=== PATIENT | male | born 1945 | race Caucasian/White ===

== ENCOUNTER 2019-11-22 16:15 | Inpatient (IN) | payer OTHER ==
--- NOTE | 2019-11-22 15:09 | R.PREADM ---
PRE-ADMISSION SCREENING FORM SCREENING DATE AND TIME 11/22/2019 10:48 (CDT) ANTICIPATED REHAB ADMISSION DATE 11/24/2019 REFERRING FACILITY [facility] REFERRAL DATE AND TIME 11/22/2019 10:48 (CDT) ACUTE ADMIT DATE 11/18/2019 Previous Rehabilitation(s): No. 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 Gildardo Wells M.D. MR# [id number] NAME JUAN PABLO TOURE ADDRESS [address] [place] [address] PHONE [facility] [address] DATE OF 1945 AGE 74 SSN# [id number] GENDER male MARITAL STATUS RACE unknown race ADMIT FROM 02 - [facility] PRE-HOSPITAL LIVING SETTING 01 - Home (private home/apt. board/care, assisted living, mcfp, transitional living) HOME TYPE AND DETAILS Type of home: single family house # of steps within the residence: 0 # of steps to enter the residence: 3 PRE-HOSPITAL LIVING WITH Family/Relatives FAMILY SUPPORT Yes PRIMARY FAMILY CONTACT NAME JODY TOURE PRIMARY FAMILY CONTACT PHONE PRIMARY FAMILY CONTACT RELATIONSHIP Spouse PHONE PRIMARY FAMILY CONTACT ON ADM.? no IS PRIMARY FAMILY CONTACT AUTH. REP.? no 1ST EMERGENCY CONTACT JODY TOURE 1ST CONTACT PHONE 1ST CONTACT RELATIONSHIP Spouse PHONE 1ST CONTACT ON ADM. no IS 1ST CONTACT AUTH. REP.? no PHONE 2ND CONTACT ON ADM.? no PATIENT EMPLOYMENT STATUS Retired (for age) PATIENT EMPLOYER No Employer PAYOR INFORMATION: 1ST PAYOR NAME MEDICARE 1ST PAYOR PHONE 1ST PAYOR INJURY/ILLNESS DUE TO ACCIDENT? No ANOTHER CONSTITUTION PARTY RESPONSIBLE? No PRIMARY REHAB/ACUTE DIAGNOSIS: LEFT FRONTAL BRAIN MASS ONSET DATE 11/18/2019 REHAB IMPAIRMENT CATEGORY (RAFAEL): 02 Traumatic brain injury (TBI) MEETS 60% rule PRIMARY DIAGNOSIS-RELATED SURGERIES: CRANIOTOMY FOR TUMOR RESECTION SUMMARY OF ACUTE HOSPITALIZATION: Pt. is a 74 yo Right-handed male of unknown race. On 11/18/2019 he was admitted to [facility] with diagnosis LEFT FRONTAL BRAIN MASS. His impairment category is Brain Dysfunction 02 - Closed Injury (04.23). Pre-morbidly, Pt. was independent/mod-I in Safety Awareness, Balance, Communication, Transfers Contro l, Endurance, and Self-Care; and he had good Social Cognition, Sphincter Control, and Self-Care. Currently, he has deficits of Balance, Safety Awareness, Self-Care, Transfers Control, Endurance, and Communication. Pt. is now referred to [facility] for acute in-patient rehabilitation in order to maximize patient's functional independence in activities of daily living, strength, ROM, and mobi lity. Patient has realistic goal of being discharged at assistance level 7-Ind to reside at Home with Fami ly/Relatives. Juan Pablo Toure is a 74 -year old male that lives independently at home, with his . He lives in a single-story home and has 3 stairs to get into the house. Patient was transferred for a brain mass, complains his right leg is not working well and notes some memory difficulties. He has history PSH. 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 Speech improving. RLE strength normal. Will discontinue drain, initiate dexamethasone taper . He has always done all of his own caring, Cooking, and laundry. He performs all his own ADLs and IADLs. Prior to COVID. He was seeing his PCP regularly. He would definitely benefit from acute inpatient rehab and has become severely debilitated and unable to live at she prior level of activity at home getting him stronger and better to be back living at home independently is our goal. It is reasonable and necessary for the patient to come to acute inpatient rehab for approximately 7-10 days in order to return to his prior level of care. She is now being transferred to [facility] Inpatient rehabilitation and is medical was stable with relatively stable labs. She is now medically stable but in need of 24 hour nursing, doctor supervision and oversight while receiving active and participate in 3 hours of therapy a day/15 hours per week and receive care with intensive interdisciplinary approach. COVID-19 screening performed; spoke with patient via phone. Patient denies new onset of fever, cough, difficulty breathing, sore throat, body aches and non-allergy nasal congestion in the past 24 hours. Patient denies travel outside of [place] in the past 14 days. Patient denies any contact with someone who has a confirmed diagnosis of or is under investigation for COVID-19 in the past 14 days. Patient has been tested negative for COVID- 19. PAST MEDICAL HISTORY PSH PAST SURGICAL HISTORY: CRANIOTOMY FOR TUMOR RESECTION MEDICATION ALLERGIES: No Known Drug Allergies (NKDA) ENVIRONMENTAL ALLERGIES: - Substance Allergies None Known - Other Allergies None Known CODE STATUS: Full code WEIGHT/HEIGHT/BMI: WEIGHT 140 lbs HEIGHT 5' 8" BMI 21.3 DIET: - Diet Type Regular - Diet - Solid Texture Regular - Diet - Liquid Texture Regular - Tube Feed N/A REVIEW OF SYSTEMS: - Gen Alert and awake Lying in bed No apparent distress Oriented to: person, time, and place - Vital Signs Temperature: 97.9 F SBP/DBP: 127/66 Pulse: 47 Resp: 17 Vital signs stable, afebrile - CVS RRR VITAL SIGNS Temperature: 97.9 F SBP/DBP: 127/66 Pulse: 47 Resp: 17 Vital signs stable, afebrile MEDICATIONS/TREATMENT: Other- See attached MAR (Medication Administration Record). CURRENT SPHINCTER CONTROL: Pre-hospital bladder status: unspecified # of bladder accidents in the last 7 days prior to screenin Pre-hospital bowel status: unspecified # of bowel accidents in the last 7 days prior to screenin Last Bowel Movement Date: 11/22/2019 CURRENT LOCOMOTION STATUS: distance walked 200 feet WITH WALKER DETAILED CURRENT FUNCTIONAL STATUS: - Bladder accident frequency: Ind - No accidents in the past 7 days - Bowel accident frequency: Ind - No accidents in the past 7 days - Walking score based on distance walked: 0(N/A) score based on distance walked: 3(>=150ft) - Wheelchair score based on distance traveled: 0(N/A) QI SCORES: - Self-Care A. Eating 04-Supervision or touching assistance B. Oral hygiene 03-Partial/moderate assistance C. Toileting hygiene 88-Not attempted due to medical condition or safety concerns E. Shower/bathe self 03-Partial/moderate assistance F. Upper body dressing 03-Partial/moderate assistance G. Lower body dressing 03-Partial/moderate assistance H. Putting on/taking off footwear 88-Not attempted due to medical condition or safety concerns - Mobility A. Roll left and right 03-Partial/moderate assistance B. Sit to lying 03-Partial/moderate assistance C. Lying to sitting on side of bed 03-Partial/moderate assistance D. Sit to stand 03-Partial/moderate assistance E. Chair/qyt-oy-[id number] transfer 03-Partial/moderate assistance F. Toilet transfer 88-Not attempted due to medical condition or safety concerns G. Car transfer 88-Not attempted due to medical condition or safety concerns I. Walk 10 feet 03-Partial/moderate assistance J. Walk 50 feet with two turns 88-Not attempted due to medical condition or safety concerns K. Walk 150 feet 88-Not attempted due to medical condition or safety concerns L. Walking 10 feet on uneven surfaces 88-Not attempted due to medical condition or safety concerns M. 1 step (curb) 88-Not attempted due to medical condition or safety concerns N. 4 steps 88-Not attempted due to medical condition or safety concerns O. 12 steps 88-Not attempted due to medical condition or safety concerns P. Picking up object 88-Not attempted due to medical condition or safety concerns R. Wheel 50 feet with two turns 88-Not attempted due to medical condition or safety concerns S. Wheel 150 feet 88-Not attempted due to medical condition or safety concerns - Bladder and Bowel Bladder continence Bowel continence - Endurance Fair - Balance Fair - Safety Awareness Fair CURRENT FUNC. DEFICITS: Self-Care, Mobility, Endurance, Balance, and Safety Awareness CURRENT / PREVIOUS ASSISTIVE DEVICES: 3-in-1 Commode Quad Cane Shower Chair PRIOR SURGERY. DID THE PATIENT HAVE MAJOR SURGERY DURING THE 100 DAYS PRIOR TO ADMISSION?: No THERAPY NOTES FROM ACUTE CARE: Attached. SPECIAL NEEDS: - Safety Concerns Skin breakdown precautions needed due to skin breakdown risk PRECAUTIONS: - Fall Precaution 1 to 1 supervision PATIENT NEEDS ACTIVE AND ONGOING THERAPEUTIC INTERVENTION OF MULTIPLE THERAPY DISCIPLINES, INCLUDING: - Occupational Therapy Cognitive Retraining. Visual Perceptual Training. - Dietary and Nutrition Adequate Nutrition. Nutritional Education. Nutritional Supplements. - Speech Therapy Augmentative Communication Equipment. PATIENT NEEDS CLOSE MEDICAL SUPERVISION BY A REHABILITATION PHYSICIAN FOR: Coordination of Treatment Team PATIENT REQUIRES 24X7 REHAB NURSING FOR MEDICAL AND FUNCTIONAL MGT. OF THE FOLLOWING DEFICITS: Disease Management Medication Management Patient/Family Education Providing Safe Environment PATIENT REQUIRES INTENSIVE, COORDINATED INTERDISCIPLINARY APPROACH TO REHAB: Arranging Home Equipment/Services Discharge Planning Family Intervention/Training Director Acute/Case Management PATIENT REHAB POTENTIAL: Samuel TOURE is able and expected to receive 3 hours of individualized therapy daily on at least 5 of e very 7 days Samuel TOURE's prognosis for significant practical improvement within a reasonable period of time appea rs Good Expected level of measurable improvement will be of a practical value to Samuel TOURE's functional capa city or adaptations to impairments Has a viable Discharge Plan Medically appropriate; condition is sufficiently stable to participate in intensive rehab program DISCHARGE PLAN: - Estimated Length of Stay (days) 17. - Consensus on plan Discharge plan has been discussed with primary caregiver. Patient/Family is in agreement with the oln n. Primary caregiver is in agreement with the plan. - Patient/Family Goals Return home independently. - Planned Living Setting Upon Discharge Home, to live with Family/Relatives. Transitional Living. RECOMMENDED CARE LEVEL: IRF RECOMMENDATION DETAILS: Recommended Admission to Comprehensive Rehabilitation Program to Increase Functional Guadalupe SCREENER'S COMPLETENESS CONFIRMATION: - Screening Confirmation The patient data collection on this preadmission screening form is finished PHYSICIANS REVIEW AND ADMISSION DETERMINATION Admit - Based on my review of the Pre-Admission Screening results, in my medical judgment and experie nce, I concur with the findings and recommend admission to [facility], as this patient requires an IRF level of care. SIGNATURE PANEL: Emergency Man - [electronically] signed by Vasile Benavides on 11/22/2019 at 14:32 (CDT) Clinical Liaison - [electronically] signed by Annika Kline RN on 11/22/2019 at 14:41 (CDT) Physician Reviewer - [electronically] signed by Dr. Gildardo Wells M.D. on 11/22/2019 at 15:08 (CDT )
--- OUTSIDE RECORDS SUMMARY | 2019-11-22 20:31 | XMS REPORT | Summary of Care ---
:1945 Author Organization [facility] Address [address] [place] [id number] Care Team Providers Name Role Phone Guzman Moralez Primary Care Provider Reason for Visit Auth/Cert Status Reason Specialty Diagnoses / Referred By Referred To Procedures Contact Contact Emergency Medicine Adc Em ergency Dept [address] [phone] Fax: Encounter Details Date Type Department Care Team Description 11/20/2019 Anesthesia [facility] OR Seb Silvestre MD [address] [place] [address] [id number] [place] [address] Department Stiven Baig MD [address] [place] [address]. [place] [id number] [address] [place] [address] Allergies No Known Allergiesdocumented as of this encounter (statuses as of 11/20/2019) Medications Medication Sig Dispensed Refills Start Date End Date Status methylPREDNISolone Take by mouth 21 Each 0 01/25/2018 Suspended (MEDROL, ED,) 4 mg SEE-INSTRUCTION tablets S. follow package directions Additional Information diclofenac 75 mg EC tablet Take 1 tablet by mouth 60 tablet 1 02/01/2018 Suspended 2 (two) times daily with meals. Additional Information documented as of this encounter (statuses as of 11/20/2019) Active Problems Problem Noted Date Brain mass 11/18/2019 documented as of this encounter (statuses as of 11/20/2019) Social History Tobacco Use Types Packs/Day Years Used Date Current Every Day Smoker Smokeless Tobacco: Never Used Sex Assigned at Date Recorded Not on file COVID-19 Exposure Response Date Recorded In the last month, have you been in contact with No / Unsure 11/18/2019 1:16 PM CDT someone who was confirmed or suspected to have Coronavirus / COVID-19? documented as of this encounter Last Filed Vital Signs Not on filedocumented in this encounter OR Notes Anesthesia Postprocedure Evaluation - Seb Powell MD - 11/20/2019 11:57 AM CDT Patient: Tonio Huerta Procedure Summary Date: 11/20/19 Room / Location: [address] Anesthesia Start: 0803 Anesthesia Stop: 115 Procedure: CRANIOTOMY FOR TUMOR RESECTION (Left Head) Diagnosis: (Brain mass) Surgeon: Dimitri Spicer MD Responsible Provider: Seb Powell MD Anesthesia Type: General ASA Status: 4 Anesthesia Type: General Last vitals BP 131/70 (11/20/19 1151) Temp Pulse 79 (11/20/19 1151) Resp 13 (11/20/19 1151) SpO2 100 % (11/20/19 1151) No complications documented. Anesthesia Post Evaluation Patient location during evaluation: bedside Patient participation: complete - patient participated Level of consciousness: sleepy but conscious Pain management: adequate Airway patency: patent Cardiovascular status: acceptable and blood pressure returned to baseline Respiratory status: acceptable Hydration status: acceptable Comments: Transport to PACU, report given to and transfer of care to primary service, may discharge to ICU. Anesthesia Preprocedure Evaluation - Seb Powell MD - 11/19/2019 10:33 PM CDT Name/ MRN / Age / Gender: Tonio Huerta [id number] 74 year old male BMI: Estimated body mass index is 21.29 kg/m as calculated from the following: Height as of this encounter: 1.727 m (5' 8"). Weight as of this encounter: 63.5 kg (140 lb). Allergies: Patient has no known allergies. Last Vitals: BP Readings from Last 1 Encounters: 11/19/19 115/58 Pulse Readings from Last 1 Encounters: 11/19/19 (!) 49 SpO2 Readings from Last 1 Encounters: 11/19/19 99% Date of Surgery: 11/20/2019 Surgeon: Dimitri Spicer MD Procedure: CRANIOTOMY FOR TUMOR RESECTION (Left Head) OR Location: [facility] OR Location Anesthesia Preop Eval (physical exam) Anesthesia Preop: Agox-jo-Eovm NPO Status Verified Clear Liquids: > 2 Hours Solid Food/Non-Clear Liquids: > 8 Hours Anesthesia History Anesthesia History Negative Previous Anesthetics/Airways Cardiovascular Negative Cardiac ROS METS: 5-6 Pulmonary Pulmonary ROS Negative per Chart Review (+) Tobacco use Neuro/Musculoskeletal Comments: CC: Left frontal brain mass (menengioma vs GBM) 11/19/19 Brain MRI Large, heterogeneously enhancing necrotic left frontal mass with extensive surrounding vasogenic edema resulting in effacement of the frontal horns and midline shift to the right of up to 1.1 cm anteriorly. 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 A unifocal metastatic lesion could potentially have this appearance but is considered less likely. 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 Hold on DOS. Anticoagulant Therapy: Defer to surgeons Phentermine: Alert [facility] anesthesiologist MAC Cases: Continue taking CLARE inhibitors and ARBs ASA Classification ASA: 4 Current Medications: No outpatient medications have been marked as taking for the 11/18/19 encounter (Hospital Encounter). Previous Surgeries: History reviewed. No pertinent surgical history. Anesthesia Physical Exam General no apparent distress not alert and oriented x 3 Alert to person only Neuro/Psych neurological Dental poor dentition Multiple noted missing teeth Abdominal GI exam normal Airway Mallampati score:II TM distance:> 5 cm Neck ROM: full Mouth opening:normal (+) Normal facies Extremity 20G R wrist Pulmonary pulmonary exam normal Other Confused mentation; HR 40-50s Cardiovascular cardiovascular exam normalRhythm:regular Anesthesia Plan ASA Status: 4 Plan discussed during pre-op evaluation: General Anesthetic plan on DOS: General Plan to include: IV induction, ETT and arterial line Anesthesia plan discussed with: patient or business development representative and parent/guardian Post-Operative Analgesia: routine analgesia & antiemetics Recovery Plan: ICU and PACU Additional comments: documented in this encounter Plan of Treatment Health Maintenance Due Date Last Done Comments Depression Screening 1957 DTaP,Tdap,and Td Vaccines (1 - Tdap) 02/09/1963 COLON CANCER SCREENING ANNUAL FIT/FOBT 02/09/1994 COLON CANCER SCREENING FIT DNA EVERY 3 YEARS 02/09/1994 COLON CANCER SCREENING SIGMOIDOSCOPY EVERY 5 YEARS 02/09/1994 COLONOSCOPY 02/09/1994 Colorectal Cancer Screening 02/09/1994 Zoster Recombinant Vaccine (SHINGRIX) (1 of 2) 02/09/1994 LUNG CANCER SCREEN: Recommended for age 55-80 with 30 + 02/09/19 99 pack year history Medicare Wellness Visit 02/09/2009 PNEUMOCOCCAL VACCINES 65+ (1 of 1 - PPSV23) 02/09/2009 INFLUENZA VACCINE (#1) 2019 documented as of this encounter Implants Implanted Type Area Telecommunications Network Engineer Device Shelf Model / Identifier Expiration Date Ser ial / Lot Plate 2 Hole Long Straight With Tag Biomet# [id number] - Sna PLATE Left: Head Biomet 11/19/2029 [id number] / Implanted: Qty: 2 on 11/20/2019 by Dimitri Spicer MD at [facility] NA / NA Plate Cranial Shunt 18.5mm Migdalia 18.5mml 0.5mm Thk Biomet# [id number] - Sna PLATE Left: Head Biomet 11/19/2029 [id number] / Implanted: Qty: 1 on 11/20/2019 by Dimitri Spicer MD at [facility] NA / NA Screw Bone 1.5mm Migdalia 4mml Titanium Cross -Drive Self-Tapping Biomet# [id number] - Sna SCREW Left: Head Biomet 11/19/2029 [id number] / Implanted: Qty: 7 on 11/20/2019 by Dimitri Spicer MD at [facility] NA / NA documented as of this encounter Results Not on filedocumented in this encounter Administered Medications Medication Order MAR Action Action Date Dose Rate Site levETIRAcetam (KEPPRA) tablet Given 11/20/2019 9:14 AM CDT 1,00 0 mg 500 mg 500 mg, Oral, BID, First dose on Thu11/18/19 at 2000, Until Discontinued, Routine Given 11/19/2019 8:56 PM CDT 500 mg Given 11/19/2019 7:36 AM CDT 500 mg Medication Order MAR Action Action Date Dose Rate Site albumin (ALBUMINAR-5) 5 % injection New Bag 11/20/2019 10:44 AM CDT CONTINUOUS PRN, Starting 11/20/19 at 1044, Until 11/20/19 at 1147, Intra-op ceFAZolin (ANCEF) injection Given 11/20/2019 8:58 AM CDT 2 g ONCE INTRA PROCEDURE, Starting 11/20/19 at 0858, Until 11/20/19 at 1147, DEJUAN, Intra-op dexamethasone (DECADRON PHOSPHATE) injec tion Given 11/20/2019 8:17 AM CDT 10 mg ONCE INTRA PROCEDURE, Starting 11/20/19 at 0817, Until 11/20/19 at 1147, Routine, Intra-op dexMEDEtomidine 200 mcg in 0.9 New Bag 11/20/2019 8:17 AM 0.2 mcg/kg/hr 3.18 mL/hr % NaCl 50 mL (PRECEDEX) RTU IV CDT infusion CONTINUOUS PRN, Starting 11/20/19 at 0817, Until 11/20/19 at 1147, Routine, Intra-op ePHEDrine 25 mg/5 mL (5 mg/mL) syringe Given 11/20/2019 9:12 AM CDT 5 mg ONCE INTRA PROCEDURE, Starting 11/20/19 at 0850, Until 11/20/19 at 1147, Routine, Intra-op Given 11/20/2019 8:50 AM CDT 5 mg FENTanyl PF (SUBLIMAZE (PF)) injection Given 11/20/2019 11:11 AM CDT 50 mcg ONCE INTRA PROCEDURE, Starting 11/20/19 at 0811, Until 11/20/19 at 1147, Routine, Intra-op Given 11/20/2019 10:14 AM CDT 50 mcg Given 11/20/2019 9:02 AM CDT 50 mcg HYDROmorphOne (DILAUDID) injection Given 11/20/2019 11:20 AM CDT 0.2 mg ONCE INTRA PROCEDURE, Starting 11/20/19 at 1120, Until 11/20/19 at 1147, Routine, Intra-op lactated ringers IV infusion New Bag 11/20/2019 8:01 AM CDT CONTINUOUS PRN, Starting 11/20/19 at 0801, Until 11/20/19 at 1147, Routine, Intra-op lidocaine 1% (XYLOCAINE) 100 mg/10 mL (1 %) Given 11/20/2019 8: 13 AM CDT 5 mL injection ONCE INTRA PROCEDURE, Starting 11/20/19 at 0813, Until 11/20/19 at 1147, Routine, Intra-op mannitol 25 % injection Given 11/20/2019 9:14 AM CDT 31.74 g ONCE INTRA PROCEDURE, Starting 11/20/19 at 0914, Until 11/20/19 at 1147, Routine, Intra-op NaCl 0.9% (NS) IV infusion New Bag 11/20/2019 8:18 AM CDT CONTINUOUS PRN, Starting 11/20/19 at 0818, Until 11/20/19 at 1147, Routine, Intra-op ondansetron (ZOFRAN (PF)) injection Given 11/20/2019 11:13 AM CDT 4 mg ONCE INTRA PROCEDURE, Starting 11/20/19 at 1113, Until 11/20/19 at 1147, Routine, Intra-op phenylephrine (VAZCULEP) 10 Rate Change 11/20/2019 10:58 0.4 mcg/k g/min 38.1 mL/hr mg in NaCl 0.9% (NS) 250 mL AM CDT infusion CONTINUOUS PRN, Starting 11/20/19 at 0916, Intra-op Rate Change 11/20/2019 10:45 AM CDT 0.5 mcg/kg/min 47.63 mL/hr Rate Change 11/20/2019 10:30 AM CDT 0.6 mcg/kg/min 57.15 mL/hr phenylephrine (VAZCULEP) injection Given 11/20/2019 8:50 AM CDT 100 mcg ONCE INTRA PROCEDURE, Starting 11/20/19 at 0850, Until 11/20/19 at 1147, Routine, Intra-op propofoL IV infusion Given 11/20/2019 8:38 AM CDT 20 mg ONCE INTRA PROCEDURE, Starting 11/20/19 at 0813, Until 11/20/19 at 1147, Routine, Intra-op Given 11/20/2019 8:21 AM CDT 3 mg Given 11/20/2019 8:18 AM CDT 30 mg remifentaniL (ULTIVA) injection Rate Change 11/20/2019 10:45 AM 0.07 mcg/kg/min CONTINUOUS PRN, Starting Sun CDT 11/20/19 at 0822, Until 11/20/19 at 1147, Routine, Intra-op Rate Change 11/20/2019 9:13 AM CDT 0.1 mcg/kg/min Rate Change 11/20/2019 9:02 AM CDT 0.2 mcg/kg/min remifentaniL (ULTIVA) injection Given 11/20/2019 9:07 AM CDT 20 mcg ONCE INTRA PROCEDURE, Starting 11/20/19 at 0838, Until 11/20/19 at 1147, Routine, Intra-op Given 11/20/2019 8:40 AM CDT 40 mcg Given 11/20/2019 8:38 AM CDT 40 mcg rocuronium (ZEMURON) injection Given 11/20/2019 10:13 AM CDT 10 mg ONCE INTRA PROCEDURE, Starting 11/20/19 at 0813, Until 11/20/19 at 1147, Routine, Intra-op Given 11/20/2019 9:45 AM CDT 10 mg Given 11/20/2019 9:07 AM CDT 10 mg sugammadex (BRIDION) injection Given 11/20/2019 11:31 AM CDT 200 mg ONCE INTRA PROCEDURE, Starting 11/20/19 at 1131, Until 11/20/19 at 1147, Routine, Intra-op documented in this encounter Insurance Payer Benefit Plan / Subscriber ID Effective Dates Phone Addre ss Type Group MEDICARE MEDICARE PART [id number] 2009-Ira [phone] [address] Medicare A & B 2 [id number] MARYJO HESS [id number] documented as of this encounter
--- OUTSIDE RECORDS SUMMARY | 2019-11-22 20:31 | XMS REPORT | Summary of Care ---
:1945 Author Organization [facility] Address [address] [place] [address] Care Team Providers Name Role Phone Guzman Moralez Primary Care Provider Reason for Referral (DEJUAN) Status Reason Specialty Diagnoses / Referred By Referred To Procedures Contact Contact New Request RAD-RADIATION Diagnoses Brain mass Chu Rodríguez MD ONCOLOGY / Procedures Discharge Follow-Up: Specialty Service RAD-RADIATION ONCOLOGY; 1 Week [address] [address] (DEJUAN) Status Reason Specialty Diagnoses / Referred By Referred To Procedures Contact Contact New Request IM-MEDICAL Diagnoses Brain mass Chu Rodríguez MD ONCOLOGY / Procedures Discharge Follow-Up: Specialty Service IM-MEDICAL ONCOLOGY; 1 Week [address] [place] [address] Other (Routine) Status Reason Specialty Diagnoses / Referred By Contact Refe rred To Procedures Contact New Request Diagnoses Brain mass Chu Rodríguez MD Briner, Rudy P, MD Procedures Discharge Follow-up: Specialty Provider DIMITRI SPICER; 6 Weeks [address] [phone] Phone: Phone: Fax: Other (Routine) Status Reason Specialty Diagnoses / Referred By Referred To Contact Procedures Contact New Request Diagnoses Brain mass Chu Rodríguez MD Clinic, Procedures Discharge Follow-up: Specialty Provider NEUROSURGERY RESIDENT CLINIC; [address] [place] [address] Neurosurgery [facility] [address] MRI/CAT Scan (DEJUAN) Status Reason Specialty Diagnoses / Referred By Referred To Procedures Contact Contact New Request Diagnostic Diagnoses Brain mass Dimitri Spicer P, Radiology Procedures CT HEAD WO CONTRAST CT HEAD WO CONTRAST [address] [place] [phone] MRI/CAT Scan (DEJUAN) Status Reason Specialty Diagnoses / Referred By Referred To Procedures Contact Contact New Request Diagnostic Diagnoses Brain mass ArletterDimitri P, Radiology Procedures MR BRAIN W WO CONTRAST [address] [place] [phone] MRI/CAT Scan (STAT) Status Reason Specialty Diagnoses / Referred By Referred To Procedures Contact Contact New Request Diagnostic Diagnoses Altered mental status, unspecified altered mental status type Dimitri Spicer P, Radiology Procedures CT THORAX W CONTRAST [address] [place] [phone] MRI/CAT Scan (STAT) Status Reason Specialty Diagnoses / Referred By Referred To Procedures Contact Contact New Request Diagnostic Diagnoses Altered mental status, unspecified altered mental status type Dimitri Spicer P, Radiology Procedures CT ABDOMEN PELVIS W CONTRAST [address] [place] [phone] MRI/CAT Scan (STAT) Status Reason Specialty Diagnoses / Referred By Referred To Procedures Contact Contact New Request Diagnostic Diagnoses Altered mental status, unspecified altered mental status type Dimitri Spicer P, Radiology Procedures MR BRAIN W WO CONTRAST [address] [place] [phone] MRI/CAT Scan (STAT) Status Reason Specialty Diagnoses / Referred By Referred To Procedures Contact Contact New Request Diagnostic Diagnoses Altered mental status, unspecified altered mental status type Sandy Garcia Radiology Procedures CT Head W/O Contrast J, DO [address] [place] [address] [place] [address] Radiology Services (STAT) Status Reason Specialty Diagnoses / Referred By Referred To Procedures Contact Contact New Request Diagnostic Diagnoses Altered mental status, unspecified altered mental status type Sandy Garcia Radiology Procedures Chest 1 View J, DO [address] [place] [address] Reason for Visit Reason Comments Weakness Auth/Cert Status Reason Specialty Diagnoses / Referred By Referred To Procedures Contact Contact Emergency Medicine [facility] Em ergency Dept [address] [place] [address] Fax: Encounter Details Date Type Department Care Team Description 11/18/2019 - Hospital Neurology/Neurolog Damon Garcia, DO [address] [place] [address] [phone] Left frontal lobe 11/22/2019 Encounter ical Surgery (Dimitri English MD [address] [place] [phone] mass 11B) Chu Rodríguez MD [address] [place] [address]. [place] [address] [address] [place], [place] [phone] Allergies No Known Allergiesdocumented as of this encounter (statuses as of 11/22/2019) Medications Medication Sig Dispensed Refills Start End Date Status Date diclofenac 75 mg EC Take 1 tablet 60 tablet 1 Active tablet by mouth 2 8 (two) times daily with meals. levETIRAcetam 500 mg Take 1 tablet 60 tablet 2 02/18 Active tabletIndications: by mouth 2 0 20 Brain mass (two) times daily for 90 days. pantoprazole 40 mg EC Take 1 tablet 21 tablet 0 Active tabletIndications: by mouth 0 Brain mass daily. dexAMETHasone 1 mg Take 4 tablets 93 tablet 0 Active tabletIndications: by mouth every 0 20 Brain mass 6 (six) hours for 3 days, THEN 4 tablets every 12 (twelve) hours for 3 days, THEN 2 tablets every 12 (twelve) hours for 3 days, THEN 1 tablet every 12 (twelve) hours for 3 days, THEN 1 tablet every 24 (twenty-four) hours for 3 days. traMADoL 50 mg Take 1 tablet 20 tablet 0 11/28/19 A ctive tabletIndications: by mouth every 0 20 acute pain 6 (six) hours as needed for Pain (scale 7-10) for up to 7 days. Indications: acute pain docusate 100 mg Take 1 capsule 20 capsule 0 Active capsuleIndications: by mouth 2 0 Brain mass (two) times daily. methylPREDNISolone Take by mouth 21 Each 0 Discontinued (MEDROL, ED,) 4 mg SEE-INSTRUCTIO 8 20 tablets NS. follow package directions documented as of this encounter (statuses as of 11/22/2019) Active Problems Problem Noted Date Aftercare following surgery of the nervous system, NEC 11/21/2019 Expressive aphasia 11/21/2019 Overview: Due to left frontal mass Cerebral edema 11/21/2019 Compression of brain 11/21/2019 Status post craniotomy 11/21/2019 Smoking greater than 40 pack years 11/21/2019 Panlobular emphysema 11/21/2019 Left frontal lobe mass 11/18/2019 documented as of this encounter (statuses as of 11/22/2019) Immunizations Name Administration Dates Next Due Influenza Virus Vaccine 11/14/2018 documented as of this encounter Social History Tobacco Use Types Packs/Day Years [...] of this encounter Last Filed Vital Signs Vital Sign Reading Time Taken Comments Blood Pressure 139/60 11/22/2019 3:00 PM CDT Pulse 70 11/22/2019 3:00 PM CDT Temperature 36.1 C (97 F) 11/22/2019 3:00 PM CDT Respiratory Rate 17 11/22/2019 3:00 PM CDT Oxygen Saturation 100% 11/22/2019 3:00 PM CDT Inhaled Oxygen Concentration - - Weight 63.5 kg (140 lb) 11/18/2019 8:00 PM CDT Height 172.7 cm (5' 8") 11/18/2019 8:00 PM CDT Body Mass Index 21.29 11/18/2019 8:00 PM CDT documented in this encounter Discharge Instructions AttachmentsThe following attachments cannot be sent through Care Everywhere. Craniotomy, After Your Hospital Stay (Kenyan)Craniotomy, Discharge Instructions for (Kenyan)Craniotomy, Other Treatments After (Kenyan)Craniotomy, Reasons for (Kenyan)Pain, Complementary Care for (Kenyan)Surgical Site Infections, Preventing (Kenyan)Dexamethasone tablets (Kenyan)Docusate capsules (Kenyan) Levetiracetam tablets (Kenyan)Pantoprazole tablets (Kenyan)Tramadol tablets (Kenyan)Pain (Post-Op), Managing at Home: Medicines (Kenyan)Pain at Home, Managing Post-Op: Non-Medicine Relief (Kenyan)Fall Due To Dizziness, Weakness, Or Loss Of Balance (Kenyan)Fall Prevention (Kenyan)Falls in the Home, Preventing (Kenyan)Coronavirus Disease 2019 (COVID-19) (Kenyan)Coronavirus Disease 2019 (COVID-19): Prevention (Kenyan)documented in this encounter Progress Notes Sarabjit Ruelas RN - 11/22/2019 1:57 PM CDT Care Management Discharge Disposition Note (DCDN) 5-2-1 Interventions: Disease specific education;Intensive medication reconciliation/management;Cleardischarge plan;Follow-up appointments;Follow-up phone calls 5-2-1 Providers: Physician;Security Management Specialist/Handyman;Nurse 5-2-1 Patient Capacity Improvements: Transportation arrangements Discharge Plan for ongoing care and services: Rehabilitation Discharge location(s): [address] [place] [address] Rehabilitation location: [facility], [address], [place], [place] () [phone] (F) [phone] Report [phone] MD: Dr Wells Admin : Chayo De Leon Patient choice completed for referred services: Yes Discussed with patient/patients family involved in decision making: Patient or family caregiver understands, and agrees with discharge plan. Community resources/referrals made or provided to patient: No Resources/Referrals: Transportation: Ambulance([facility] [phone]) Estimated discharge date: 11/22/19 CM/SW Name & Contact number: PRAVIN Mario, RN Manager Technical Support [email or web address] O:[phone] F:[phone] The following information has been provided to the facility noted above: reason for the patient discharge or transfer; patients physical and psychosocial status; summary of care, treatment, servicesprovided to patient; and the patient progress toward goals. arabjit Ruelas RN - 11/22/2019 11:51 AM CDTCare Management Note 11/22/19 11:51 AM Sent updated clincals to [address] [address]h: F: [phone] Pending approval. Spouse notified PRAVIN Mario, RN Manager Technical Support [email or web address] O:[phone] F:[phone] C: [phone] (not for patient use) lLeslie hurley - 11/22/2019 10:11 AM CDT Medical Nutrition Therapy - Progress Note: NRS: Disease Severity and Age >70 Admission Chief Complaint: The pts chief complaint(s) documented on had concerns including Weakness. Present on Admission: Left frontal lobe mass Expressive aphasia Cerebral edema Compression of brain Smoking greater than 40 pack years Panlobular emphysema PMH/PSH: Past Surgical History: Procedure Laterality Date CRANIOTOMY FOR TUMOR RESECTION Left 11/20/2019 Surgeon: Dimitri Spicer MD; Location: [facility] Current Medical Status: I have reviewed Dr. waller note dated 11/19-present and additional EPIC documentation for an understanding of the patient's current medical condition and plan of care. Left frontal craniotomy for tumor resection GI and Nutrition Related Findings (documented on admission): Nausea (-) Vomiting (-) Constipation (-) Diarrhea (-) Abdominal Pain (-) Difficulty: Chewing (-) Swallowing (-) GI tract alteration (-) (e.g., h/o bariatric surgery, ostomy, resection, etc.) Alternative means of nutrition (-) (e.g., PEG/PEJ, TPN, DHT, etc.) General (documented on admission): Edema (-) Ascites (-) Para or Quadriplegia (-) Amputation (-) Wounds (-) (eg., vascular, diabetic, burn, pressure) Trauma (-) Medications: I have reviewed the medications currently ordered in the EMR located under the medications andMAR tabs. Current Facility-Administered Medications: heparin (porcine) injection 5,000 Units, 5,000 Units, Subcutaneous, BID, Lawson Boykin MD, 5,000 Units at 11/22/19 0742 HYDROcodone-acetaminophen (NORCO 5) 5-325 mg tablet 1 tablet, 1 tablet, Oral, Q6HPRN, Samuel Richards MD NaCl 0.9% (NS) IV infusion 1,000 mL, 1,000 mL, IV Infusion, CONTINUOUS, Lawson Boykin MD, LastRate: 42 mL/hr at 11/21/19 0659, 1,000 mL at 11/21/19 0659 dexAMETHasone (DECADRON) tablet 6 mg, 6 mg, Oral, Q6H, Lauri Verduzco MD, 6 mg at 11/22/19 0829 acetaminophen (TYLENOL) tablet 325 mg, 325 mg, Oral, Q6HPRN, Lawson Boykin MD acetaminophen (TYLENOL) tablet 325 mg, 325 mg, Oral, Q4HPRN, Lawson Boykin MD bisacodyL (DULCOLAX) suppository 10 mg, 10 mg, Rectal, QHSPRN, Lawson Boykin MD docusate (COLACE) capsule 100 mg, 100 mg, Oral, BID, Lawson Boykin MD, 100 mg at 11/22/19 0741 levETIRAcetam (KEPPRA) tablet 500 mg, 500 mg, Oral, BID, Lawson Boykin MD, 500 mg at 11/22/19 0742 NaCl 0.9% (NS) injection 5 mL, 5 mL, Slow IV Push, PRN - SEE INSTRUCTIONS, Lawson Boykin MD pantoprazole (PROTONIX) EC tablet 40 mg, 40 mg, Oral, DAILY, Lawson Boykin MD, 40 mg at 11/22/19 0742 Lab and Medical Test Results: Results for JUAN PABLO HUERTA ( ) as of 11/22/2019 10:15 Ref. Range 11/20/2019 04:32 NA Latest Ref Range: 135 - 145 mmol/L 136 K Latest Ref Range: 3.5 - 5.0 mmol/L 4.3 CL Latest Ref Range: 98 - 108 mmol/L 105 CO2 TOTAL Latest Ref Range: 23 - 31 mmol/L 24 AGAP Latest Ref Range: 2 - 16 7 BUN Latest Ref Range: 7 - 23 mg/dL 25 (H) GLUCOSE Latest Ref Range: 70 - 110 mg/dL 142 (H) CREATININE Latest Ref Range: 0.60 - 1.25 mg/dL 0.75 eGFR CALCULATION (non ) Latest Units: mL/min/1.73m2 101.5 eGFR CALCULATION () Latest Units: mL/min/1.73m2 123.1 Results for JUAN PABLO HUERTA ( ) as of 11/22/2019 10:15 Ref. Range 11/20/2019 04:32 WBC x10^3 Latest Ref Range: 4.20 - 10.70 10*3/L 13.87 (H) Intake/Output Summary (Last 24 hours) at 11/22/2019 1011 Last data filed at 11/21/2019 1230 Gross per 24 hour Intake 240 ml Output Net 240 ml Additional [facility] data was reviewed Inflammatory Markers: Elevated WBC Nutrition Assessment: Age: [age] year old Sex: male Ht: 1.72m / 5'8" Ht Readings from Last 3 Encounters: 11/18/19 68" (172.7 cm) 02/05/18 67" (170.2 cm) 02/01/18 66.93" (170 cm) Current Wt: 63.5 kg/ 140 lb BMI: Body mass index is 21.29 kg/m. (Underweight ) Based on age IBW for Ht: 70 kg +/- 7.0 kg %IBW: 90.7% Weight History: Wt Readings from Last 10 Encounters: 11/18/19 63.5 kg (140 lb) 02/05/18 68 kg (150 lb) 02/01/18 68 kg (150 lb) 01/25/18 68 kg (150 lb) Current Dietary Order(s): Regular Diet; Texture: Regular Regular Diet; Texture: Regular EMR documented food allergies/intolerance/cultural preferences: None reported Nutrition & Diet History: Met with patient post lunch. Patient currently working on tray during consult. Mild- AMS: slow and minimal response. Patient reports good appetite, and has been eating 100% of tray. Patient reports fluid intake predominantly water 1L a day. +BM today x2 Patient requires academic assistant during IDLs ex. Assisted going to restroom. Physical assessment: mild/moderate wasting in clavicles, and temporal lobes. Fat pads dark and sunk. Calculated Daily Nutritional Needs: IBW: 70 kg Calories: 6499-2152 kcal/day = 25-30 kcal/kg IBW Protein: 16% of kcal need/day = 70-84 g/day = 1-1.2 g/kg current wt Carbohydrate: 50% of kcal need/day = 218-262 g/day Fluid: 2100 mL/day or per MD; adjust per acute needs as reports cerebral edema in EMR Nutrition Diagnosis: Increase nutritional need related minimal inflammation and adequate recovery as evidence by recentcraniotomy. Nutrition Plan of Care: Interventions: 1. Encourage patient PO 2. Encourage well-balance nutritional diet and emphasized role in recovery. 3. Encourage PT participation Goals: 1. PO to meet 100% of nutrient needs 2. Weight maintance 3. Independent ADLs IDLs 4. Daily bowel movements Malnutrition Assessment: Nutritional Diagnosis: None SGA Rating: At Risk Anticipated d/c needs: Encourage meals every 3-4 hours, with high quality protein source. Serving of fish x2 weekly and nuts for snacks for [place]-3 anti-inflammatory properties. Patient would benefit from education on pain medications side effects of constipation, and continue bowel regimen at home. Nutrition Monitoring and Evaluation: A registered dietitian will f/u as indicated to report nutrition related information and to revise the recommended nutrition intervention(s); please call with questions or concerns, thank-you. Leslie Frias Dyed Raw Stock Blower Feeder [email or web address] Office: [phone] signed by Lillie Pineda at 11/22/2019 3:38 PM CDT Associated attestation - Lillie Pineda - 11/22/2019 3:38 PM CDTI agree with the assessment and recommendations for this patient by Leslie Frias, Dyed Raw Stock Blower Feeder, on11/22/19. Lillie Pineda MS, RD, LD Clinical Dietitian Office: [phone] Curt Jim MD - 11/22/2019 6:46 AM CDTNeurosurgery Progress Note 11/21/2019 CC: Disinhibition, speech arrest S: Left frontal craniotomy for tumor resection 11/20/2019 Epidural drain removed 11/20. Ambulating with assistance. Required a sitter overnight for agitation and disinhibition. O: Awake, alert, oriented to name, location, month, not year. Brocas aphasia PERRL bilaterally at 3mm EOMI bilaterally Face symmetric Tongue midline BUE 5/5 BLE 5/5 Some limitations following commands. 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 Speech improving. RLE strength normal. Patient is progressing excellently post-operatively and would be appropriate for discharge. -Pain control -Continue dexamethasone taper -Discharge home 11/21 Curt Jim MD Neurosurgery For inquiries please page [phone] Associated attestation - Chu Rodríguez MD - 11/22/2019 12:56 PM CDTI actively participated in the clinical decision making and agree with the resident note by Dr. Jim with no changes. Chu Rodríguez MD [facility] Neurosurgery Vaibhav Fuentes MD - 11/21/2019 4:21 PM CDT Neurocritical Care Attending Note I have been directly involved in the care of this patient including decision- making with house staffand nursing teams at the bedside. Mr Juan Pablo Huerta is critically ill, 74 year old years old male with a PMH of History reviewed. No pertinent past medical history. now admitted on 11/18/2019 with history of sore neurosurgery resident admission note- 74 year old male transferred for brain mass, complains his right leg is not working well and notes some memory difficulties. History is limited by patient's mentation. On brain imaging, found to have large heterogenous lesion enhancing the carotid left frontal mass with extensive vasogenic edema, 1.1 cm midline shift. He underwent left frontal craniotomy for mass resection (11/20/2019-Dr. Spicer), with subsequent transfer to PACU for postop care. Interval history:- Has remained neurologically in human energy stable overnight; no new complaints- except mild-moderatesurgical site headache; has predominantly expressive aphasia with inconsistent anomia; intact comprehension, fluency, repetition; has inconsistent- perseveration, acalculia, agraphia, absent right-leftdistinction; inability to follow three-step and crossed commands Active problem list- 1. Large left frontal mass with extensive vasogenic edema, brain compression/midline shift 2. Status post surgical resection of #1 3. Aftercare following surgery of the nervous system 4. Heavy active smoker- COPD with emphysema Early this AM- awake, alert, oriented x 3; with normal speech, language- predominantly expressive aphasia with inconsistent anomia; intact comprehension, fluency, repetition; has inconsistent- perseveration, acalculia, agraphia, absent right- left distinction; inability to follow three-step and crossed commands; right upper limb-pronator and mild downward drift; 4+/5; left UE & LE-5/5; right LE- at least 5-/5; sensory-grossly intact in all 4 limbs to crude touch Temp: [35.9 C (96.6 F)-36.8 C (98.2 F)] Heart Rate (monitor): [58-76] Pulse: [51-85] Resp: [12-20] BP: (107-150)/(59-83) Arterial Line BP: (88-169)/(52-73) MAP (mmHg): [71-97] ; Lab Results Component Value Date NA 136 11/20/2019 NA 137 11/18/2019 NA 138 02/01/2018 BUN (mg/dL) Date Value 11/20/2019 25 (H) Recent Labs 11/18/19 1353 11/20/19 0432 WBC 6.62 13.87* Intake/Output Summary (Last 24 hours) at 11/21/2019 1621 Last data filed at 11/21/2019 1230 Gross per 24 hour Intake 282 ml Output 730 ml Net -448 ml Plan: 1) Continue neurochecks; levetiracetam, and excellent a son, when necessary pain medications 2) cardiopulmonary monitoring- SBP [id number] mm x 20 3) Advance PO intake as tolerated- if swallow safe - aim for euvolemia; euthermia and euglycemia 4) DVT/GI prophylaxis- SCD's; SC heparin, bowel regimen- pantoprazole prophylaxis 5) Out of bed to chair; PT/OT/speech if feasible Disposition: awaiting stable neurologic, cardiac-pulmonary and hemodynamic status I have spent a total of 45 min of critical care time at the bedside. Vaibhav Fuentes M.D. Neurocritical Care Unit Attending hbecca, Sarabjit Todd RN - 11/21/2019 2:02 PM CDT Juan Pablo Huerta [id number] RE: Care Management Patient Choice Notification Your doctor has recommended that you have post-hospital care services at discharge. You can choose the provider you want, regardless of its relationship with [facility]. We will contact any of the agencieswithin the [facility] network, or any other agency upon your request. Based on where you live and agency service areas, a list was generated from: Medicare.gov Disclosure: [facility] owns or is affiliated with the following facilities/agencies: [facility] (usp and rehabilitation) If you are being referred to a home health agency or usp facility, you will also be given a CMS Beneficiary Notification Letter (Doqrggn-ai-Dzua Profile Supplement) informing you about [facility]'s preferred partners. 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 My choice(s) are listed below: ? Rehab: [address] [address] p: F: [phone] Your signature on this form indicates that you have been given the following information: ? I have been advised of my right to choose the providers I wish ? If usp facilities, long-term acute care hospitals, personal care homes, or home healthagencies were recommended, I was given a list of facilities/agencies in my geographic area that deliver these services or ? I have pre-selected or am an established client with a facility/agency and choose to initiate/continue services ? PRAVIN Mario, RN Manager Technical Support [email or web address] O:[phone] F:[phone] C: [phone] (not for patient use) arabjit Ruelas RN - 11/21/2019 1:59 PM CDTCare Management Social Functional Assessment Patient Name: Juan Pablo Huerta Age: [age] year old Sex: male Previous admit date: N/A Current diagnosis and co-morbidities: CEREBRAL MIDLINE SHIFT Readmission Questions: Was patient discharged from any acute care hospital within the last 30 days: No Social Functional Assessment: Primary language spoken/preferred: Kenyan Mental Status: Alert & Oriented to Person,Place & Time Information given by: Self Patient's support system: Spouse Name and number of support system: EVITA HUERTA spouse [phone] Primary Cutting Table Operator: Self MPOA: No Living Arrangement: Home: single story Address of living arrangement : [address] [place] [id number] Persons living in home: Same as support system Barriers to returning home: Declining function Baseline functional status- ambulation: Independent Functional status-baseline personal care: Independent Baseline functional status- driving: Dependent Baseline functional status- grocery shopping: Independent Functional status-baseline housekeeping: Independent Functional status-baseline meal prep: Independent Current functional status same as prior: No Current functional status- ambulation: Requires minimal to moderate assistance Current functional status- personal care: Requires minimal to moderate assistance Current functional status- driving: Dependent Current functional status- grocery shopping: Dependent Current functional status-house keeping: Dependent Current functional status- meal preparation: Dependent Do you have a PCP?: Yes Name of PCP: Guzman Moralez [facility] Care Agency: No Provider Services: No DME Company: No Equipment: None Hemodialysis: No Community resources utilized: SSA/SSI/Medicaid Funding Resources: Medicare A & B Prescription coverage plan: Medicare Part D Pharmacy where meds are filled: Other Other pharmacy: [facility] [place] [address] - [address] [place] [address] Anticipated services prior to disharge: Consult;Continue Medical Eval;Lab Values;MRI/CT/US;OR;PT/OT/ST;Reassess prior to discharge Expected mode of discharge transportation: Ambulance Additional Recommendations for DC: level of decline has been about two months Additional info required for discharge planning: Pending medical evaluation;Pending P/T O/T recommendation Recommended discharge plan: New placement SFA Complete: Social Functional Assessment complete: Yes Alcohol Use Screening (AUDIT-C) How often do you have a drink containing alcohol?: Never SCORE: 0 Role of Care Management explained. Discussed with spouse, they want to go to the [facility] if patient is appropriate patient was able to walk and feed himself before this episode. Pending therapy to determine placement options [address] [address] p: F: [phone] Any issues or concerns with obtaining/affording your medications at home: no. Are you or your support system able to pick pulling machine tender medications at discharge: yes. Describe: spouse if appropriate for home. PRAVIN Mario, RN Manager Technical Support [email or web address] O:[phone] F:[phone] Samuel Uribe MD - 11/21/2019 7:30 AM CDTNeurosurgery Progress Note 11/21/2019 CC: Disinhibition, speech arrest S: Left frontal craniotomy for tumor resection O: Awake, alert, oriented to name, location, not year. 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 Speech improving. RLE strength normal. Will discontinue drain, initiate dexamethasone taper, discontinue antibiotics, discontinue A line and zavala, obtain PT eval, set up oncology and radiation oncology follow ups, and transfer to the floor. Discharge likely today vs tomorrow. Jj Richards MD Neurosurgery For inquiries please page [phone] Associated attestation - Chu Rodríguez MD - 11/21/2019 11:22 AM CDTI actively participated in the clinical decision making and agree with the resident note by Dr. Richards with no changes. Chu Rodríguez MD [facility] Neurosurgery Geoff Barcenas, PT - 11/20/2019 8:30 AM [id number] AM Physical Therapy Note Chart reviewed. Patient currently in OR. PT will hold and follow up another time. Thank you. Patient will be followed by physical therapy, however, this therapist may not be primary therapist.Please contact rehab services at [facility] for questions or concerns during week day coverage. Geoff Barcenas PT, DPT, C/NDT Pager: [phone] signed by Geoff Barcenas PT at 11/20/2019 8:31 AM LARATCIsabel ahuja OT - 11/20/2019 7:47 AM CDT11/20/2019 0747 OCCUPATIONAL THERAPY NOTE: Consult received. EPIC chart reviewed. Attempted to see patient for initial evaluation, however patient currently in OR. OT will follow up as time permits. Thank you. KARLEE Fonseca, [facility] Pager: [phone] License: [id number] Dimitri Seymour MD - 11/20/2019 7:02 AM CDTSummary: pre op Mr. Huerta is unable to consent, however, and niece and son were apprised of the situation andwish to proceed with craniotomy and removal of tumor. They understand the gravity of the situation. There is significant risk for the procedure due to severe shift, possible infarction of VITA, age ofpatient, and general nature of the operation and disease. The flip side is that there is certain demise without operation and his relatively good health and functional condition are in his favor. Thefamily also understands that the likely diagnosis of glioblastoma carries an almost definite poor prognosis for any [place] [facility] cure. I think it is reasonable to approach for dx, frontal location, and likely good tolerance of procedure. TCLawson jane MD - 11/20/2019 7:02 AM CDT Neurosurgery Progress Note 11/20/2019 Cc: L Frontal Brain Mass 24 Hr Events: NAEON, MRI completed Objective: Temp: [36.3 C (97.3 F)-36.6 C (97.9 F)] Pulse: [49-58] Resp: [16-18] BP: (107-132)/(55-65) MAP (mmHg): [72-85] Physical Exam Awake, alert, oriented x2 Able to name objects better than yesterday, speech fluent PERRL bilaterally at3mm EOMI bilaterally Face symmetric Tongue midline BUE 5/5 LLE 5/5 RLE 4/5 Sensation intact to LT throughout Exam deep tendon:1+ patellar BL No drift No clonus No Bass's Laboratory Data: Recent Labs 11/18/19 1353 11/20/19 0432 WBC 6.62 13.87* HGB 14.9 14.8 HCT 43.4 42.5 PLT 166 180 Recent Labs 11/18/19 1353 11/20/19 0432 NA 137 136 K 4.0 4.3 CL 103 105 TCO2 27 24 BUN 17 25* CREAT 0.83 0.75 GLU 85 142* CA 9.6 8.7 No results for input(s): ACPH, ACPCO2, ACPO2, ACHCO3, ACNA, ACK, ACCAIONZ, ACBE in the last 72 hours. Recent Labs 11/19/19 0415 11/20/19 0432 PTPAT 13.3* 12.1 PTINR 1.2 1.1 APTTPAT 29 31 No results for input(s): UPROTEIN, UGLUCOSE, UKETONES, UBILI, UBLOOD, UUROBILIN, ULEUKEST, UNITRITE,USPGRAV in the last 72 hours. Imaging: Chest 1 View Result Date: 11/18/2019 Chronic emphysematous changes suspected with prominent biapical fibro- infiltrative process with volume loss (mild pulling up of both the jacqueline) are concerning for a chronic granulomatous process (fungal or tuberculous infection). Disease activity cannot be commented on x-ray chest.. CT scan may be obtained. Preliminary Report Dictated by Resident: Christopher Barrett MD., have reviewed this study and agree with the above report. Ct Abdomen Pelvis W Contrast Result Date: 11/19/2019 Impression: No evidence of acute findings or neoplastic disease is seen in the abdomen and pelvis. Ct Head W/o Contrast Result Date: 11/18/2019 No acute intrarenal hemorrhage. Left cerebral vasogenic edema, frontoparietal soft tissue thickeningsuggestive of underlying primary malignancy versus metastatic process. Multifocal mass effect with gqfj-ra-kxuzt midline shift and subfalcine herniation measuring approximately 1.8 cm in subfalcine herniation without evidence of intracranial hemorrhage favors chronic etiology. Left frontal extra-axialCSF density collection may represent hygroma. Left frontal ovoid hyperdensity may represent prior sequela of hemorrhage or dural calcification. Recommend clinical correlation with prior imaging if available or history. Findings were discussed with primary team in the ER, Dr. Garcia at time of dictation. Preliminary Report Dictated by Resident: Irlanda Rhoades Report change Jose Butlerwed this study and agree with the above report with the following minor modifications: There isvasogenic edema in the left frontotemporal lobe extending to involve the genu of the corpus callosumwith associated effacement of the frontal horns and 1.8 cm left to right midline shift and subfalcine herniation. Mildly prominent right lateral ventricle may be secondary to developing entrapment. These findings are concerning for underlying mass and recommend further assessment with MRI of the brainwith and without contrast. Artificial intelligence software suggests possible hemorrhagic left frontal lobe mass, this will be further characterized on the MRI. Jose Butler MD., have reviewedthis study and agree with the above report. Mr Brain W Wo Contrast Result Date: 11/19/2019 Patient motion degrades image quality, limiting evaluation. Large, heterogeneously enhancing necrotic left frontal mass with extensive surrounding vasogenic edema resulting in effacement of the frontalhorns and midline shift to the right of up to 1.1 cm anteriorly. The primary differential consideration is high grade primary UNDERWRITING OPERATIONS MANAGER malignancy. A unifocal metastatic lesion could potentially have this appearance but is considered less likely. Assessment/Plan: Juan Pablo Huerta is a 74 year old malewith L frontal brain mass, OR for resection today 11/19. Lawson Boykin MD PGY-2 Neurosurgery For inquiries please page [phone] Associated attestation - Dimitri Spicer MD - 11/20/2019 7:14 AM CDTI personally interviewed and examined Juan Pablo Hureta. I agree with the assessment and ongoing plan by Lauri Verduzco MD. Plan left frontal craniotomy, removal of tumor.Lawson Boykin MD - 11/19/2019 9:35 AM CDT Neurosurgery Progress Note 11/19/2019 Cc: L Frontal Brain Mass 24 Hr Events: NAEON Objective: Temp: [36.2 C (97.1 F)-36.7 C (98 F)] Pulse: [51-85] Resp: [13-18] BP: (104-157)/(57-84) MAP (mmHg): [73-91] Physical Exam Awake, alert, oriented x2 Able to name objects better than yesterday, speech fluent PERRL bilaterally at 3mm EOMI bilaterally Face symmetric Tongue midline BUE 5/5 LLE 5/5 RLE 4/5 Sensation intact to LT throughout Exam deep tendon: 1+ patellar BL No drift No clonus No Bass's Laboratory Data: Recent Labs 11/18/19 1353 WBC 6.62 HGB 14.9 HCT 43.4 PLT 166 Recent Labs 11/18/19 1353 NA 137 K 4.0 CL 103 TCO2 27 BUN 17 CREAT 0.83 GLU 85 CA 9.6 No results for input(s): ACPH, ACPCO2, ACPO2, ACHCO3, ACNA, ACK, ACCAIONZ, ACBE in the last 72 hours. Recent Labs 11/19/19 0415 PTPAT 13.3* PTINR 1.2 APTTPAT 29 No results for input(s): UPROTEIN, UGLUCOSE, UKETONES, UBILI, UBLOOD, UUROBILIN, ULEUKEST, UNITRITE,USPGRAV in the last 72 hours. Imaging: Chest 1 View Result Date: 11/18/2019 Chronic emphysematous changes suspected with prominent biapical fibro- infiltrative process with volume loss (mild pulling up of both the jacqueline) are concerning for a chronic granulomatous process (fungal or tuberculous infection). Disease activity cannot be commented on x-ray chest.. CT scan may be obtained. Preliminary Report Dictated by Resident: Christopher Barrett MD., have reviewed this study and agree with the above report. Ct Head W/o Contrast Result Date: 11/18/2019 No acute intrarenal hemorrhage. Left cerebral vasogenic edema, frontoparietal soft tissue thickeningsuggestive of underlying primary malignancy versus metastatic process. Multifocal mass effect with pmtm-bq-yqzmc midline shift and subfalcine herniation measuring approximately 1.8 cm in subfalcine herniation without evidence of intracranial hemorrhage favors chronic etiology. Left frontal extra-axialCSF density collection may represent hygroma. Left frontal ovoid hyperdensity may represent prior sequela of hemorrhage or dural calcification. Recommend clinical correlation with prior imaging if available or history. Findings were discussed with primary team in the ER, Dr. Garcia at time of dictation. Preliminary Report Dictated by Resident: Irlanda Rhoades Report change Jose Butlerwed this study and agree with the above report with the following minor modifications: There isvasogenic edema in the left frontotemporal lobe extending to involve the genu of the corpus callosumwith associated effacement of the frontal horns and 1.8 cm left to right midline shift and subfalcine herniation. Mildly prominent right lateral ventricle may be secondary to developing entrapment. These findings are concerning for underlying mass and recommend further assessment with MRI of the brainwith and without contrast. Artificial intelligence software suggests possible hemorrhagic left frontal lobe mass, this will be further characterized on the MRI. Jose Butler MD., have reviewedthis study and agree with the above report. Assessment: Juan Pablo Huerta is a 74 year old male with L frontal brain mass, possible meningioma vs GBM based on initial scan appearance. Further imaging and metastatic workup pending. Plan: Brain MRI w/ w/o CT CAP w/ f/u read García Ramirez, PPI SQH Reg Diet Lawson Boykin MD PGY-2 Neurosurgery For inquiries please page [phone] Associated attestation - Dimitri Spicer MD - 11/19/2019 12:08 PM CDTI personally evaluated and participated in the decision making on Juan Pablo Huerta. I agree with the documentation, assessment and plan outlined by Lawson Boykin MD. documented in this encounter H&P Notes Lawson Boykin MD - 11/18/2019 7:13 PM CDT NEUROSURGERY HISTORY AND PHYSICAL Attending Neurosurgeon: Nayan MADRID CC: Confusion, R Leg not working HPI: Juan Pablo Huerta is a 74 year old male transferred for brain mass, complains his right leg is not working well and notes some memory difficulties. History is limited by patient's mentation. Medications (Current) Antiplatelets: Unknown, denies Anticoagulation: Unknown, denies No current facility-administered medications on file prior to encounter. Current Outpatient Medications on File Prior to Encounter Medication Sig Dispense Refill diclofenac 75 mg EC tablet Take 1 tablet by mouth 2 (two) times daily with meals. 60 tablet 1 methylPREDNISolone (MEDROL, ED,) 4 mg tablets Take by mouth SEE- INSTRUCTIONS. follow package directions 21 Each 0 Past Medical History: History reviewed. No pertinent past medical history. Past Surgical History: History reviewed. No pertinent surgical history. Social History: Social History Tobacco Use Smoking status: Current Every Day Smoker Smokeless tobacco: Never Used Substance Use Topics Alcohol use: Not on file Drug use: Not on file ROS (BOLDED IF POSITIVE - otherwise negative) Constitutional: Nausea, Vomiting, Fevers, Chills Eyes: Negative Ears, nose, mouth, and throat: Negative Endocrine: Negative Hematologic: Negative Card: Chest pain, Palpitations Pulm: Cough, Shortness of breath GI: Diarrhea, Constipation, : Negative Integ: Masses, Rashes, Lesions Msk: Weakness, Pain Neuro: Memory changes, confusion, Headache, Vision changes, Dizziness, Weakness Labs: Recent Labs 11/18/19 1353 WBC 6.62 HGB 14.9 HCT 43.4 PLT 166 ] Recent Labs 11/18/19 1353 NA 137 K 4.0 CL 103 TCO2 27 BUN 17 CREAT 0.83 GLU 85 CA 9.6 Imaging: Chest 1 View Result Date: 11/18/2019 Chronic emphysematous changes suspected with prominent biapical fibro- infiltrative process with volume loss (mild pulling up of both the jacqueline) are concerning for a chronic granulomatous process (fungal or tuberculous infection). Disease activity cannot be commented on x-ray chest.. CT scan may be obtained. Preliminary Report Dictated by Resident: Christopher Barrett MD., have reviewed this study and agree with the above report. Ct Head W/o Contrast Result Date: 11/18/2019 No acute intrarenal hemorrhage. Left cerebral vasogenic edema, frontoparietal soft tissue thickeningsuggestive of underlying primary malignancy versus metastatic process. Multifocal mass effect with coae-ns-vkpgs midline shift and subfalcine herniation measuring approximately 1.8 cm in subfalcine herniation without evidence of intracranial hemorrhage favors chronic etiology. Left frontal extra-axialCSF density collection may represent hygroma. Left frontal ovoid hyperdensity may represent prior sequela of hemorrhage or dural calcification. Recommend clinical correlation with prior imaging if available or history. Findings were discussed with primary team in the ER, Dr. Garcia at time of dictation. Preliminary Report Dictated by Resident: Irlanda Rhoades Report change Jose Butlerwed this study and agree with the above report with the following minor modifications: There isvasogenic edema in the left frontotemporal lobe extending to involve the genu of the corpus callosumwith associated effacement of the frontal horns and 1.8 cm left to right midline shift and subfalcine herniation. Mildly prominent right lateral ventricle may be secondary to developing entrapment. These findings are concerning for underlying mass and recommend further assessment with MRI of the brainwith and without contrast. Artificial intelligence software suggests possible hemorrhagic left frontal lobe mass, this will be further characterized on the MRI. Jose Butler MD., have reviewedthis study and agree with the above report. PE Vitals: Vitals: 11/18/19 1500 11/18/19 1600 11/18/19 1821 11/18/19 1902 BP: (!) 141/84 126/57 136/68 126/63 BP Location: Left arm Patient Position: Supine Pulse: 61 55 85 55 Resp: 16 Temp: 36.3 C (97.4 F) 36.3 C (97.4 F) TempSrc: Oral Oral SpO2: 99% 99% 92% 99% Weight: Height: Exam: Awake, alert, oriented x2 Difficulty comprehending and naming objects, speech fluent PERRL bilaterally at 3mm EOMI bilaterally Face symmetric Tongue midline BUE 5/5 LLE 5/5 RLE 4/5 Sensation intact to LT throughout Exam deep tendon: 1+ patellar BL No drift No clonus No Bass's Assessment: Juan Pablo Huerta is a 74 year old male with L frontal brain mass, possible meningioma vs GBMbased on initial scan appearance. Further imaging and metastatic workup pending. Plan: Brain MRI w/ w/o CT CAP w/ Dex, Keppra, PPI SQH Reg Diet Lawson Boykin MD PGY1 Neurosurgery For inquiries please page [phone] Associated attestation - Dimitri Spicer MD - 11/18/2019 9:01 PM CDTI personally evaluated and participated in the decision making on Juan Pablo Huerta. I agree with the documentation, assessment and plan outlined by Lawson Boykin MD. documented in this encounter Consult Notes Kristina Mendoza OT - 11/21/2019 1:15 PM CDTAssociated Order(s): CONSULT ADULT OCCUPATIONAL THERAPY I was present and participated throughout the session and agree with the documentation as written bythe student therapist on the encounter dated 11/21/2019. KARLEE Bird/EVELYN Olivier pager number: [phone] OT GENERAL EVALUATION Consult received via [employer], EMR reviewed and evaluation completed 11/21/19. Patient referred to occupational therapy for evaluation and treatment secondary to brain tumor and s/p left frontal craniotomyfor tumor resection. Patient agreeable to participate in occupational therapy. Discharge Recommendations: Therapy Potential & Need: - Patient would benefit from continued skilled occupational therapy services to address: Decline inbasic activities of daily living, Decline in instrumental activities of daily living, Decline in cognition, Decreased coordination and Caregiver training - Patient demonstrates good potential to improve and meet therapy goals with further skilled occupational therapy services. - Patient appears motivated to improve their B/IADLs and return to their previous level of function. - Patient demonstrates ability to tolerate at least 30-60 minutes of active participation in occupational therapy. - Patient able to follow commands: 1-step Yes, Multi-step Yes, Inconsistencies Yes Challenges to Home Transition: - Requires physical assistance for BADLS - Requires physical assistance for IADLS - Requires supervision or verbal cues for BADLS - Requires supervision or verbal cues for IADLS - Decreased safety awareness/judgement - Increased risk of falls Equipment Recommendations: Bedside commode, Shower chair I certify that Juan Pablo Huerta is under my care and that I had a gnec-xs-bzzx encounter with this patient on: 11/21/19 . The primary reason for the durable medical equipment: decreased balance and impaired cognition to safely ambulate to manage self-care needs. I am recomending that, based on my findings, the following is medically necessary durable medical equipment: 3 in 1 bedside commode. Height: Ht Readings from Last 1 Encounters: 11/18/19 5' 8" (1.727 m) Weight: Wt Readings from Last 1 Encounters: 11/18/19 140 lb (63.5 kg) Duration of need: 99 months. Patient does not have access to regular toilet facilities because he/she is confined to: A single room. PLAN OF CARE: At least 2x/week Precautions: Weight bearing status: NA General: PPE Utilized: Gloves and Surgical mask, Fall and Craniotomy Bracing: N/A Current Occupational Performance and/or Treatment: Feeding: Modified independent, patient greeted sitting upright in bedside chair eating lunch, observed using utensils, drinking from cup with modified independence. Grooming: Minimal assist. Patient required verbal cues for safety to wash hands and brush teeth while standing at sink. Patient required minimal assist for stabilization while blowing nose. LB Dressing: SBA/Setup. Patient educated on craniotomy precautions, emphasizing preventing putting head in dependent position. Patient educated on figure-four technique for LB dressing, demonstrating carryover of learning by doffing/donning socks while seated EOB. Toilet Transfer: Minimal assist. Patient required verbal and tactile cues and minimal assist for balance, emphasizing positioning and use of grab bar during transfer. Toileting Hygiene: Minimal assist to manage clothing while standing/sitting during toileting. Functional Mobility: Patient found sitting upright in bedside chair. Patient minimal assist for sit<>stand using RW, with verbal cues for hand positioning. Patients ambulates short distances within room using RW to manage self-care needs, however exhibits diminished balance and increased impulsivity, requiring frequent verbal cues and impacting safety during ambulation. Patient CGA for stand<>sit EOB and modified independent for sit<>semi- reclined in bed. Patient/caregiver educated on: ADL training, Compensatory techniques/adaptive strategies, Role of OTand Safety awareness Patient left semireclining in bed with call castillo in reach. Vital signs stable. Bed alarm engaged, nursing staff notified. Please, see full evaluation below for more detail. OT EVALUATION: 74 year old male Admit date: 11/18/2019 Date of onset: 11/18/2019 Admit Diagnosis: CEREBRAL MIDLINE SHIFT OT Diagnosis: Impaired BADL independence, Impaired IADL independence, Impaired self-care mobility and Impaired cognition PMH: History reviewed. No pertinent past medical history. PSH: Past Surgical History: Procedure Laterality Date CRANIOTOMY FOR TUMOR RESECTION Left 11/20/2019 Surgeon: Dimitri Spicer MD; Location: [facility] PAIN: Before assessment: 0/10 After assessment: 0/10 Location: None Pain Management: NA OCCUPATIONAL ROLES/HOME ENVIRONMENT: Home environment: Single story home with 0 TARA. Patient sleeps in adjacent trailer with 3 TARA. Liveswith spouse. Bathroom access: Yes Bathroom setup: Tub/Shower Combo in house, Walk-in shower in trailer. Occupation(s): Retired Function prior to admission: Household/community ambulation and assistance with ADL Equipment prior to admission: Shower chair PERFORMANCE SKILLS/FACTORS: UE Muscle Tone: bilateral WNL UE ROM: bilateral AROM WFL UE Strength: MARCUS UE WFL Hand dominance: left Dexterity/Coordination: bilateral fine motor skills intact, however patient exhibits inconsistenciesin following directions for fine motor tasks. Bilateral finger to nose intact. Endurance - Sitting: Good Standing: Good Sitting Balance - Static: Good Dynamic: Fair Standing: Balance - Static Fair Dynamic: Fair - Dizziness: No Skin Integrity: No breakdown noted and dressings intact on skull Sensation: bilateral Intact to light touch Oral Motor: WFL and endentulous Communication: Able to verbalize needs Yes Other: Expressive aphasia Vision: WFL Yes Other: N/A Hearing: good; no issues reported COGNITION: Patient recalled 0/3 words following 3-minute delay in screening of memory. Orientation: person and place, disoriented to year, month, date. Follows Commands: 1-step Yes Multi-step No Inconsistencies Yes Safety Awareness/Judgment: Poor, Lacks insight to deficits, Requires frequent cueing and Impulsive PROBLEM LIST: Decreased independence with ADL, Impaired safety awareness and Impaired Cognition REHAB POTENTIAL/PROGNOSIS: good PATIENT/FAMILY GOALS: Patient's family wishes for him to keep improving. TREATMENT/INTERVENTION PLAN: Functional motor treatment, Patient/Caregivier Education, Equipment recommendations, Daily living activities, Therapeutic exercises and Cognitive retraining GOAL(S): By discharge, patient will increase independence in daily living skills as follows: 1 Patient will perform toilet transfer with modified independence. 2 Patient will perform bathing task and/or simulated bathing task with modified independence. 3 Patient will complete grooming tasks with modified independence while standing at the sink. 4 Patient will complete toileting hygiene, including clothing management, with modified independence. 5 Patient will identify and correct 100% of environmental safety hazards during participation in ADLs to improve safety awareness. 6 Patient/caregiver will verbalize/demonstrate understanding/proficiency in the following home programs: Adaptive equipment , ADL training, Compensatory techniques/adaptive strategies, Fall prevention and Safety awareness PATIENT-FAMILY TEACHING Patient provided with preferred teaching of verbal information on ADL training, Compensatory techniques/adaptive strategies, Role of OT and Safety awareness. Barriers to learning include cognitive limitations. Verbal instruction teaching provided. Individual is able to read and needs reinforcement of teaching. TARIK Rob Total Timed Treatment Codes: 23 Min Total Treatment Time: 37 Min Patient Complexity Level High - An occupational therapy evaluation of high complexity was completed using the above tests and measures. The following information was obtained: An occupational profile and medical and therapy history, including review of medical and/or therapy records and extensive jael tional review of physical, cognitive, or psychosocial history related to current functional performance, Various standardized and non-standardized assessments were used to identify at least 5 or more performance deficits related to physical, cognitive, or psychosocial skills that result in activity limitations and/or participation restrictions and Clinical decision-making is of high analytic complexity, which includes an analysis of the patient profile, analysis of data from comprehensive assessment(s), and consideration of multiple treatment options. Patient present with comorbidities that affect occupational performance. Significant modification of tasks or assistance (e.g., physical or verbal) with assessment(s) is necessary to enable patient to complete evaluation component. Haseeb Aguirre PT - 11/21/2019 12:16 PM CDTAssociated Order(s): CONSULT ADULT PHYSICAL THERAPY Patient agreeable to working with physical therapy. Patient met Semi reclined in bed with vitals asfollows HR: 47 bpm Spo2: 97% RR: 17 bpm, BP: 127/66 PHYSICAL THERAPY EVALUATION Consult received, chart reviewed and evaluation complete this date. Patient is referred to PT for evaluation and treatment. Patient is a 74 year old male who presents to hospital for CEREBRAL MIDLINE SHIFT. 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 Discharge Recommendations: Therapy Needs and Potential: Patient would benefit from continued physical therapy services to address: decline in bed mobility decline in transfers decline in gait and/or balance Patient demonstrates good potential to improve and meet therapy goals with further physical therapy services. Patient appears motivated to improve their functional mobility and return to their previous levelof function. Challenges to Home Transition: increased risk of falls decreased safety awareness Equipment recommendations: rolling walker at this time. Will update as patient progress with therapy Current Functional Status and/or Treatment:Functional mobility training, Transfer training and Gait training Bed Mobility: Supine-sit: patient provided with min assist with verbal cues with head of the bed elevated. sitting at the edge of bed: patient provided with CGA with verbal cues. Scooting in sitting: patient provided with min assist with verbal cues. Transfers: Sit to stand: CGA using Sue walker with verbal cues for hand placement and technique Stand to sit: CGA using Sue walker with verbal cues for hand placement and technique Ambulation: Assisted patient with ambulation as follows: 50 feet using Sue walker and Minimal assist. With verbal cues for hand placement and technique. Patient provided rest break in sitting and patient ambulated ~ 200 ft min assist with liven good walker and verbal cues for gait pattern. Patient isvery impulsive and need cues to stay on task Therapeutic exercise: instructed patient in the following: ankle pumps, heel slides, long arc quads After session, patient Up in chair. Call button provided. Vitals stable and RN present in the room PLAN OF CARE: At least 2 times per week, once or twice a day (while in hospital) per patient's tolerance and medical needs. See below for complete details. Admit Date: 11/18/2019 Hospital Diagnosis:CEREBRAL MIDLINE SHIFT PT Diagnosis: Difficulty walking and Weakness Weight Bearing Precaution: WBAT General Precautions: PPE used:Gloves and Surgical mask, General, Fall,IV Bracing/Cast present or required:N/A PMH: History reviewed. No pertinent past medical history. PSH: Past Surgical History: Procedure Laterality Date CRANIOTOMY FOR TUMOR RESECTION Left 11/20/2019 Surgeon: Dimitri Spicer MD; Location: [facility] Prior Living Situation: lives with their spouse in a single story house with 3 steps to enter DME: Single Point [employer] Prior level of Mobility: community ambulation Subjective: patient' states that he was ambulating with no AD however patient needed help with ADL's Patient/Family Goals: to get better Patient/Family verbalizes understanding of condition: Yes PAIN: patient states no pain at the time of evaluation COMMUNICATION Primary Language: Kenyan Able to Verbalize needs: Yes Vision:good; no issues reported Hearing:good; no issues reported ORIENTATION/COGNITION: Oriented to: person and place for year patient states that it is 2003 Awake: Yes Alert: Yes Dizzy: No Follows Commands: Yes 1-Step Yes Multi-Step Yes Inconsistent: No NEUROLOGICAL Light Touch: within functional limits bilateral LE, Tone: normal BALANCE: Sitting: Static: Fair Dynamic: Fair Standing: Static: Fair Dynamic: Fair with liven good walker RANGE OF MOTION: within functional limits bilateral LE STRENGTH: 3+/5 (F+), bilateral LE ENDURANCE: Fair, Room air SKIN INTEGRITY: defer to nursing notes , PROBLEM LIST: Decline in bed mobility, Decline in gait, Decline in transfers, Difficulty with stairs, Decreased strength, Decreased endurance, Decreased balance and Safety awareness deficits ASSESSMENT: Patient is a 74 year old male seen secondary to the above listed diagnosis. Patient would benefit from continued PT to address the above listed deficits to maximize independence and safety with functional mobility. Rehabilitation Potential: fair Goals: The following goals are to maximize independence and safety with functional mobility to eventually return to prior living situation and prior functional status. Upon discharge, patient and/or family will demonstrate the followin. Supine-sit: Modified independent 2. Sit to stand: Modified independent using least restrictive device Stand to sit: Modified independent using least restrictive device 3. Modified independent with ambulation, Feet: 300 using least assistive device. 4. Demonstrate or verbalize understanding of home exercise program in order to continue with their rehab on their own. Treatment Plan: Gait training, Gait training on stairs, Therapeutic exercise, Transfer training, Balance training, Bed mobility training, Equipment needs assessment and Safety education, patient/caregiver education PATIENT EDUCATION: Patient and Family member provided with preferred teaching of verbal information on role of PT, plan of care. Shows readiness to learn. Verbal instruction teaching provided. Individual shows minimal or no evidence of learning. 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 No pertinent past medical history. History reviewed. No pertinent surgical history. Malnutrition Assessment: Nutritional Diagnosis: None SGA Rating: At Risk Inflammatory Markers: N/A GI and Nutrition Related Findings: Symptoms: N/A Difficulty: N/A GI tract alteration: N/A Alternative means of nutrition: N/A General (documented on admission) N/A Medications: Current Facility-Administered Medications: acetaminophen (TYLENOL) tablet 325 mg, 325 mg, Oral, Q6HPRN, Lawson Boykin MD acetaminophen (TYLENOL) tablet 325 mg, 325 mg, Oral, Q4HPRNAshutosh Adam, MD bisacodyL (DULCOLAX) suppository 10 mg, 10 mg, Rectal, QHSPRN, Lawson Boykin MD dexAMETHasone (DECADRON) tablet 4 mg, 4 mg, Oral, Q6H, Lawson Boykin MD, 4 mg at 11/19/19 0004 docusate (COLACE) capsule 100 mg, 100 mg, Oral, BID, Lawson Boykin MD, 100 mg at 11/18/19 2230 heparin (porcine) injection 5,000 Units, 5,000 Units, Subcutaneous, BID, Lawson Boykin MD, 5,000 Units at 11/18/19 2230 levETIRAcetam (KEPPRA) tablet 500 mg, 500 mg, Oral, BID, Lawson Boykin MD, 500 mg at 11/18/19 2230 NaCl 0.9% (NS) injection 5 mL, 5 mL, Slow IV Push, PRN - SEE INSTRUCTIONS, Lawson Boykin MD pantoprazole (PROTONIX) EC tablet 40 mg, 40 mg, Oral, DAILY, Lawson Boykin MD Lab and Medical Test Results: Recent Results (from the past 24 hour(s)) CBC with Differential Collection Time: 11/18/19 1:53 PM Result Value Ref Range WBC 6.62 4.20 - 10.70 10*3/L RBC 4.66 4.26 - 5.52 10*6/L HGB 14.9 12.2 - 16.4 g/dL HCT 43.4 38.4 - 49.3 % MCV 93.1 81.7 - 95.6 fL MCH 32.0 26.1 - 32.7 pg MCHC 34.3 31.2 - 35.0 g/dL RDW-SD 44.7 38.5 - 51.6 fL RDW-CV 13.1 12.1 - 15.4 % PLT 166 150 - 328 10*3/L MPV 11.0 9.8 - 13.0 fL NRBC/100 WBC 0.0 0.0 - 10.0 /100 WBCs NRBC x10^3 <0.01 10*3/L GRAN MAT (NEUT) % 67.1 % IMM GRAN % 0.30 % LYMPH % 21.1 % MONO % 7.6 % EOS % 3.0 % BASO % 0.9 % GRAN MAT x10^3(ANC) 4.44 1.99 - 6.95 10*3/uL IMM GRAN x10^3 <0.03 0.00 - 0.06 10*3/uL LYMPH x10^3 1.40 1.09 - 3.23 10*3/uL MONO x10^3 0.50 0.36 - 1.02 10*3/uL EOS x10^3 0.20 0.06 - 0.53 10*3/uL BASO x10^3 0.06 0.01 - 0.09 10*3/uL Basic Metabolic Panel (NA, K, CL, CO2, GLUCOSE, BUN, CREATININE, CA) Collection Time: 11/18/19 1:53 PM Result Value Ref Range NA 137 135 - 145 mmol/L K 4.0 3.5 - 5.0 mmol/L CL 103 98 - 108 mmol/L CO2 TOTAL 27 23 - 31 mmol/L AGAP 7 2 - 16 BUN 17 7 - 23 mg/dL GLUCOSE 85 70 - 110 mg/dL CREATININE 0.83 0.60 - 1.25 mg/dL CALCIUM 9.6 8.6 - 10.6 mg/dL eGFR Calculation (Non-) 90.3 mL/min/1.73m2 eGFR Calculation () 109.5 mL/min/1.73m2 Hepatic Function Panel (ALB, T.PRO, BILI T, BU/BC, ALT, AST, ALK PHOS) Collection Time: 11/18/19 1:53 PM Result Value Ref Range TOTAL BILI 0.9 0.1 - 1.1 mg/dL BILI UNCON 1.0 0.1 - 1.1 mg/dL BILI CONJ 0.0 0.0 - 0.3 mg/dL T PROTEIN 6.8 6.3 - 8.2 g/dL ALBUMIN 3.9 3.5 - 5.0 g/dL ALK PHOS 33 (L) 34 - 122 U/L ALTv 23 5 - 50 U/L AST(SGOT) 24 13 - 40 U/L Lipase Serum Collection Time: 11/18/19 1:53 PM Result Value Ref Range LIPASE 47 0 - 220 U/L Troponin I Collection Time: 11/18/19 1:53 PM Result Value Ref Range TROPONIN I 0.000 <=0.034 ng/mL COVID-19 (ID NOW RAPID TESTING) Collection Time: 11/18/19 2:57 PM Specimen: NASOPHARYNGEAL SWAB Result Value Ref Range SARS-CoV-2 Rapid ID NOW Not Detected Not Detected aPTT Collection Time: 11/19/19 4:15 AM Result Value Ref Range APTT Patient 29 26 - 36 Seconds PROTHROMBIN TIME / INR Collection Time: 11/19/19 4:15 AM Result Value Ref Range PROTIME PATIENT 13.3 (H) 10.1 - 12.6 Seconds INR 1.2 No intake or output data in the 24 hours ending 11/19/19 0623 Anthropometrics: Age: [age] year old Sex: male Ht Readings from Last 3 Encounters: 11/18/19 1.727 m (5' 8") 02/05/18 1.702 m (5' 7") 02/01/18 1.7 m (5' 6.93") BMI: Body mass index is 21.29 kg/m. (Normal) IBW for Ht: 70 kg/ 154lb %IBW: 91% Weight History: Wt Readings from Last 10 Encounters: 11/18/19 63.5 kg (140 lb) 02/05/18 68 kg (150 lb) 02/01/18 68 kg (150 lb) 01/25/18 68 kg (150 lb) Estimated Energy Needs: Calories: 2100 kcal/day; 30 kcal/kg IBW Protein: 95 g/day; 1.35 g/kg/IBW Fluid: 1 mL/kcal/day or per MD/Medical Team; adjust per acute needs Current Dietary Order(s): Orders Placed This Encounter Procedures Regular Diet; Texture: Regular. EMR Documented Food Allergies/Intolerance/Cultural Preferences: No Known Allergies Nutrition/Additional and Related History 74 y/o male seen for optometric coordinator for positive initial nutrition screen. HPI: 74 year old male transferred for brain mass. A.m. meal was in progress. Patient was not able to appropriately answer questions regarding his nutrition prior to admission. His BMI is 21.29. Review of weight history indicates a 10 lb loss from x 2 years ago. No other information obtained at this time. Nutrition Diagnosis: Deferred pending further evaluation Nutrition Plan of Care Interventions: 1. Continue with current medical nutrition therapy 2. Encouraged patient to voice nutrition preferences or needs 3. Maintain monitoring of diet intake/tolerance and weight 4. Initiate ONS if intake <50 % of meals Goals: 1. Patient will consume >75% of provided nutrition 2. Stable weight during this admission Nutrition Monitoring and Evaluation: A registered dietitian will f/u in as indicated and review patients progress towards nutrition goals, report nutrition related information and to revise the nutrition recommendations and interventions.Please call with any question or concerns, thank-you. Discharge Needs: Regular diet with an ONS of choice Dana Yarbrough RD,LD Clinical Dietitian Office: [phone] documented in this encounter Nursing Notes Windy Lynn RN - 11/19/2019 6:08 AM CDTPatient's , Evita Huerta, called at [phone]. Voicemail left twice to return call to fill out MRI form and to complete admission. LUL Temple documented in this encounter ED Notes Carmen Quinn RN - 11/18/2019 1:16 PM CDTWife states: "He is weak and his right foot is swollen. He has been confused for the last few monthsand we have an appointment with Dr. Chicas October the . He was weak yesterday but today its way worse. I just noticed his foot being swollen last night. We had a video appointment with Dr. Moralez and he said he thinks he has parkinsons" On arrival patient is oriented X 2, patient unable to state the month or why he is here. 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 States he now has a slow shuffling gait which is new for him. Also is slower to respond and answers most questions yes/no and does not elaborate. Also can not state year/time anymore like he used to. Sleeps in a different room from and this AM she went to go check on him and found him on the ground in a t-shirt and disposable underwear. She was not able to get him up off the ground and needed her son to assist. Unsure if he fell or how he wound up on the ground. Has h/o lipids. No h/o DM or htn. Had a tele-health visit with his doctor recently who is concerned he might have parkinson's. Has appointment with neuro for 11/30. concerned when he was on the floor today so wanted to get him checked out. Here for eval. Past Medical History/Immunizations: History reviewed. No pertinent past medical history. Tetanus received in last 5 years: No Childhood immunizations: Up-to-date Allergies: No Known Allergies Past Social History: Tobacco Use Current Every Day Smoker. Smokeless Tobacco: Never used smokeless tobacco. Past Surgical History: History reviewed. No pertinent surgical history. Review of Systems: Review of Systems Constitutional: Negative for chills and fever. Respiratory: Negative for shortness of breath. Cardiovascular: Negative for chest pain. Gastrointestinal: Negative for abdominal pain, nausea and vomiting. Genitourinary: Negative for dysuria. Musculoskeletal: Positive for gait problem. Negative for arthralgias, neck pain and neck stiffness. Skin: Negative for wound. Neurological: Negative for dizziness. Psychiatric/Behavioral: Negative for agitation. Physical Exam: ED Triage Vitals [11/18/19 1318] Weight 63.5 kg (140 lb) Actual or estimated Estimated by patient/family report Height 1.727 m (5' 8") BP (!) 157/70 Pulse 54 Resp 16 Temp 36.2 C (97.1 F) Temp source Oral SpO2 100 % Measured on Room air Physical Exam Vitals signs and nursing note reviewed. Constitutional: Appearance: Normal appearance. He is underweight. HENT: Head: Normocephalic and atraumatic. Neck: Musculoskeletal: Normal range of motion and neck supple. Cardiovascular: Rate and Rhythm: Normal rate. Pulmonary: Effort: Pulmonary effort is normal. No respiratory distress. Abdominal: General: Abdomen is flat. There is no distension. Palpations: There is no mass. Tenderness: There is no abdominal tenderness. There is no guarding or rebound. Musculoskeletal: Normal range of motion. Right lower leg: Edema present. Left lower leg: Edema present. Skin: General: Skin is warm and dry. Neurological: Mental Status: He is alert. Comments: Speech clear Orientated to person and place. Not time. 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 Coronal and sagittal reformats were provided. FINDINGS: Extensive left cerebral subcortical and deep white matter hypoattenuation with gyral soft tissue thickening most pronounced in the left frontoparietal lobes with probable extension across the genu of the corpus callosum. Marked effacement of the left lateral ventricle body, anterior and temporal horns with mass effect resulting in left to right midline shift measuring approximately 1.8 cm and subfalcine herniation. Left frontal extra-axial CSF density fluid collection measures up to 3.6 cm in greatest dimension (6:18). Left frontal calcific density measures 7 mm (12:46). There is no acute intracranial hemorrhage. The mastoid air cells and paranasal air sinuses are clear. The calvarium and central skull base are unremarkable. Intracranial atherosclerosis. Bilateral pseudophakia. Impression No acute intrarenal hemorrhage. Left cerebral vasogenic edema, frontoparietal soft tissue thickening suggestive of underlying primary malignancy versus metastatic process. Multifocal mass effect with [id number] midline shift and subfalcine herniation measuring approximately 1.8 cm in subfalcine herniation without evidence of intracranial hemorrhage favors chronic etiology. Left frontal extra-axial CSF density collection may represent hygroma. Left frontal ovoid hyperdensity may represent prior sequela of hemorrhage or dural calcification. Recommend clinical correlation with prior imaging if available or history. Findings were discussed with primary team in the ER, Dr. Garcia at time of dictation. Preliminary Report Dictated by Resident: Irlanda Rhoades Report change Jose Butler reviewed this study and agree with the above report with the following minor modifications: There is vasogenic edema in the left frontotemporal lobe extending to involve the genu of the corpus callosum with associated effacement of the frontal horns and 1.8 cm left to right midline shift and subfalcine herniation. Mildly prominent right lateral ventricle may be secondary to developing entrapment. These findings are concerning for underlying mass and recommend further assessment with MRI of the brain with and without contrast. Artificial intelligence software suggests possible hemorrhagic left frontal lobe mass, this will be further characterized on the MRI. Jose Butler MD., have reviewed this study and agree with the above report. Chest 1 View Narrative XR CHEST 1 VW Comparison: None available History: altered mental state Technique: Frontal radiograph Findings: The lungs are hyperinflated with flattening of the diaphragm and interstitial opacities with apical geographic distribution. Ill-defined reticular opacity within the right lung base may represent scarring or indeterminate nodule. Left lung base calcific granuloma. No pleural effusion, lobar consolidative process, or pneumothorax is identified. The cardiomediastinal silhouette is normal in size. No acute osseous abnormality is present. Impression Chronic emphysematous changes suspected with prominent biapical interstitial opacities that may represent chronic scarring, interstitial edema with limited evaluation for underlying apical malignancy. Preliminary Report Dictated by Resident: Irlanda Rhoades Lab Results (24h): Recent Results (from the past 24 hour(s)) CBC with Differential Collection Time: 11/18/19 1:53 PM Result Value Ref Range WBC 6.62 4.20 - 10.70 10*3/L RBC 4.66 4.26 - 5.52 10*6/L HGB 14.9 12.2 - 16.4 g/dL HCT 43.4 38.4 - 49.3 % MCV 93.1 81.7 - 95.6 fL MCH 32.0 26.1 - 32.7 pg MCHC 34.3 31.2 - 35.0 g/dL RDW-SD 44.7 38.5 - 51.6 fL RDW-CV 13.1 12.1 - 15.4 % PLT 166 150 - 328 10*3/L MPV 11.0 9.8 - 13.0 fL NRBC/100 WBC 0.0 0.0 - 10.0 /100 WBCs NRBC x10^3 <0.01 10*3/L GRAN MAT (NEUT) % 67.1 % IMM GRAN % 0.30 % LYMPH % 21.1 % MONO % 7.6 % EOS % 3.0 % BASO % 0.9 % GRAN MAT x10^3(ANC) 4.44 1.99 - 6.95 10*3/uL IMM GRAN x10^3 <0.03 0.00 - 0.06 10*3/uL LYMPH x10^3 1.40 1.09 - 3.23 10*3/uL MONO x10^3 0.50 0.36 - 1.02 10*3/uL EOS x10^3 0.20 0.06 - 0.53 10*3/uL BASO x10^3 0.06 0.01 - 0.09 10*3/uL Basic Metabolic Panel (NA, K, CL, CO2, GLUCOSE, BUN, CREATININE, CA) Collection Time: 11/18/19 1:53 PM Result Value Ref Range NA 137 135 - 145 mmol/L K 4.0 3.5 - 5.0 mmol/L CL 103 98 - 108 mmol/L CO2 TOTAL 27 23 - 31 mmol/L AGAP 7 2 - 16 BUN 17 7 - 23 mg/dL GLUCOSE 85 70 - 110 mg/dL CREATININE 0.83 0.60 - 1.25 mg/dL CALCIUM 9.6 8.6 - 10.6 mg/dL eGFR Calculation (Non-) 90.3 mL/min/1.73m2 eGFR Calculation () 109.5 mL/min/1.73m2 Hepatic Function Panel (ALB, T.PRO, BILI T, BU/BC, ALT, AST, ALK PHOS) Collection Time: 09/18/20 1:53 PM Result Value Ref Range TOTAL BILI 0.9 0.1 - 1.1 mg/dL BILI UNCON 1.0 0.1 - 1.1 mg/dL BILI CONJ 0.0 0.0 - 0.3 mg/dL T PROTEIN 6.8 6.3 - 8.2 g/dL ALBUMIN 3.9 3.5 - 5.0 g/dL ALK PHOS 33 (L) 34 - 122 U/L ALTv 23 5 - 50 U/L AST(SGOT) 24 13 - 40 U/L Lipase Serum Collection Time: 11/18/19 1:53 PM Result Value Ref Range LIPASE 47 0 - 220 U/L Troponin I Collection Time: 11/18/19 1:53 PM Result Value Ref Range TROPONIN I 0.000 <=0.034 ng/mL Orders and Treatments: Orders Placed This Encounter Procedures Chest [address] Head W/O Contrast Urinalysis CBC with Differential Basic Metabolic Panel (NA, K, CL, CO2, GLUCOSE, BUN, CREATININE, CA) Hepatic Function Panel (ALB, T.PRO, BILI T, BU/BC, ALT, AST, ALK PHOS) Lipase Serum Troponin I COVID-19 (ID NOW RAPID TESTING) No orders of the defined types were placed in this encounter. ED COURSE patient presents for eval for change in mentation and difficulty with ambulation for 2-3 weeks. Hash/o lipids and lives with his . She found him on the floor today and needed help getting him up. Brought him for eval. VSS here in the EC. Neuro exam as above. Will obtain labs and UA. Will obtain CT head. Final dispo pending. 1500 - CT as above. Will screen for covid. Will need admission to [facility] for neurosurgery eval. MDM: Coding Diagnosis/Impression: ICD-10-CM ICD-9-CM 1. Altered mental status, unspecified altered mental status type R41.82 780.97 Disposition/Condition: ED Disposition None Discharge Medications: Patient's Medications START taking these medications No medications on file CONTINUE taking these medications which have NOT CHANGED DICLOFENAC 75 MG EC TABLET Take 1 tablet by mouth 2 (two) times daily with meals. METHYLPREDNISOLONE (MEDROL, ED,) 4 MG TABLETS Take by mouth SEE- INSTRUCTIONS. follow package directions START taking Modified Medications as Prescribed No medications on file STOP taking these medications No medications on file Follow-up: Electronically signed by: Sandy Garcia DO 11/18/2019 1:40 PM documented in this encounter Miscellaneous Notes Nursing Note - Toma Bell, RN - 11/22/2019 5:07 PM CDTCalled [phone]. Patient awaiting transport via [facility]. are Toma Bell RN - 11/22/2019 10:35 AM CDT Problem: Mental Status - Impaired Goal: Able to achieve maximum level of cognitive ability Outcome: Progressing as expected Problem: Falls, Risk of Goal: Absence of falls Outcome: Progressing as expected Problem: Pain Goal: Control of pain at or below patient's documented comfort goal Outcome: Progressing as expected Goal: Reduction in pain sensation Outcome: Progressing as expected Problem: Discharge Planning Goal: Absence of venous thromboembolism Outcome: Progressing as expected Goal: Adequate for discharge Outcome: Progressing as expected Goal: Effective communication Outcome: Progressing as expected are Emily Pathak RN - 11/22/2019 3:10 AM CDT Problem: Mental Status - Impaired Goal: Able to achieve maximum level of cognitive ability Outcome: Progressing as expected Problem: Falls, Risk of Goal: Absence of falls Outcome: Progressing as expected Problem: Pain Goal: Control of pain at or below patient's documented comfort goal Outcome: Progressing as expected Goal: Reduction in pain sensation Outcome: Progressing as expected Problem: Discharge Planning Goal: Absence of venous thromboembolism Outcome: Progressing as expected Goal: Adequate for discharge Outcome: Progressing as expected Goal: Effective communication Outcome: Progressing as expected are Toma Bell RN - 11/21/2019 4:20 PM CDT Problem: Mental Status - Impaired Goal: Able to achieve maximum level of cognitive ability Outcome: Progressing as expected Problem: Falls, Risk of Goal: Absence of falls Outcome: Progressing as expected Problem: Pain Goal: Control of pain at or below patient's documented comfort goal Outcome: Progressing as expected Goal: Reduction in pain sensation Outcome: Progressing as expected Problem: Discharge Planning Goal: Absence of venous thromboembolism Outcome: Progressing as expected Goal: Adequate for discharge Outcome: Progressing as expected Goal: Effective communication Outcome: Progressing as expected ursing Note - Sofía Nicole RN - 11/20/2019 9:12 AM CDTPt's updated via phone. Operative Note - Samuel Richards MD - 11/20/2019 9:01 AM CDTNeurosurgery Operative Note 11/20/2019 Faculty Surgeon: Dimitri Spicer MD Resident Surgeon: Jj Richards MD; Lawson Boykin MD Preoperative Diagnosis: left sided frontal lobe lesion causing severe compression and midline shift Postoperative Diagnosis: same Operation Performed: left frontal craniotomy for resection of lesion CPT: 94013 Indications: Juan Pablo Huerta is a 74 year old male presenting to his local ED with disinhibition, memory loss, and speech arrest. He also complains his right leg is not working well. His states that she has noticed a mental decline over the past few months. CT revealed a left frontal lesion with surrounding vasogenic edema, and an MRI confirmed an intraaxial mass in the left frontal lobe concerningfor primary malignancy. A craniotomy was offered to Mr Huerta and his to allow for decompression of the left frontal lobe and pathological diagnosis. The indications for operation, treatment alternatives, risks, benefits, and complications for the planned procedure were discussed with the patient. Risks including but not limited to pain, infection, bleeding, CSF leak, need for further procedures, failure to resolve symptoms, neurologic injury including paralysis, damage to surrounding structures were all been discussed and accepted by the patients family. Questions were answered to the satisfaction of the individual asking the question. No guarantees about outcome made or implied. Operation in Detail: The patient was identified by anesthesia and operating room personnel. A time out was then performedto confirm any relevant allergies, the side of surgery, and preoperative symptomatology. After all personnel were in agreement the patient then underwent general anesthesia performed by the anesthesia team. All necessary lines were placed. Sequential compression devices were placed. A zavala catheter was palced with plans to discontinue within 24 hrs of surgery. The patient was then appropriately positioned supine with a small roll underneath the shoulders in a supine position. All pressure points were adequately padded. Hair was trimmed with electric clippers over the left scalp. The left scalp was then prepped with dura prep solution. 2 g of ancef were given prior to skin incision. Number 10 blade was then used to create a pterional musculocutaneous incision over the scalp. Fish hooks were used to hold the flap in place which was folded over a wet lap sponge. Electrocautery was used to achieve hemostasis. The periosteum was removed from the skull surface utilizing periosteal elevator. A combustion analyst bit connected to a high speed drill was then used to create two piyush holes; one at the pterion, one at the parietal insertion of the temporalis. A penfield 1 was then used to remove discs of bone. A Alleman 3 was used to separate the dura from the inner table of the skull. A craniotome was used to connect the two burrholes. The frontal sinus was entered during the creation of the craniotomy flap. The dura was breached during the bone flap creation. The dural defect was used to create a durotomyand flap the dura towards the frontal sinus. The diseased brain was easily identified. Bipolar cautery was used to cauterize the pial surface. A small cortisectomy was made above the tumor region. The tumor was easily visualized and debulked. A plane was then created around the tumor. A traversing vein was skeletonized and left intact over the tumor bed. The tumor was dissected circumferentially withbipolar cautery and cottonoids. The tumor was then removed. The resection cavity was explored with cauterization of the cavity wall in all planes. Normal white matter was seen in all aspects of the tumor bed. The cavity was irrigated with normal saline. The cavity was lined with surgicel. The dura wasclosed with running 4-0 nylon suture with water tight closure. Three dural tack up sutures were placed in the lateral, medial, and posterior locations. The mucosa of the frontal sinus was removed and irrigated with vacomycin irrigation. A periosteal flap was dissected from the musculocutaneous flap and pulled down to secure to the dura. Vancomycin irrigation was then irrigated over the entire craniotomy site. A medium hemovac drain was placed in the epidural space and tunnelled posteriorly. The boneflap was replaced with a burrhole cover and two dog bones. A central dural tackup was placed. The galea was closed with 3-0 vicryl sutures. The skin was closed with markel. The incision site was dressed with xeroform and telfa, then covered in micropore tape. All counts were correct at the end of the procedure. The patient tolerated the procedure well and was extubated in the OR. Patient was examined and found to be following commands and moving all four extremities. The patient was then taken to the PACU for post operative care as there were no ICU beds available. Findings: necrotic tumor sent for permanent pathological examination Estimated Blood Loss: 250 cc Jj Richards MD Neurosurgery Associated attestation - Dimitri Spicer MD - 11/20/2019 10:44 PM CDTI [facility], and observed that it was done in the typical fashion. I agree with the report of operation. 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 are Plan - Rodrick Lindsay RN - 11/19/2019 10:12 AM CDT Problem: Mental Status - Impaired Goal: Able to achieve maximum level of cognitive ability Outcome: Progressing as expected Problem: Falls, Risk of Goal: Absence of falls Outcome: Progressing as expected Problem: Pain Goal: Control of pain at or below patient's documented comfort goal Outcome: Progressing as expected Goal: Reduction in pain sensation Outcome: Progressing as expected Problem: Discharge Planning Goal: Absence of venous thromboembolism Outcome: Progressing as expected Goal: Adequate for discharge Outcome: Progressing as expected Goal: Effective communication Outcome: Progressing as expected are Lucille - Windy Lynn RN - 11/19/2019 1:56 AM CDT Problem: Mental Status - Impaired Goal: Able to achieve maximum level of cognitive ability Outcome: Progressing as expected Problem: Falls, Risk of Goal: Absence of falls Outcome: Progressing as expected Problem: Pain Goal: Control of pain at or below patient's documented comfort goal Outcome: Progressing as expected Goal: Reduction in pain sensation Outcome: Progressing as expected Problem: Discharge Planning Goal: Absence of venous thromboembolism Outcome: Progressing as expected Goal: Adequate for discharge Outcome: Progressing as expected Goal: Effective communication Outcome: Progressing as expected D Nurse Note - Amisha De La Torre RN - 11/18/2019 5:00 PM CDTPatient [facility] diagnosis of altered mental status. Patient agrees to transfer/admit plan and verbalized understanding of plan of care, family aware of plan. Patient awake alert, oriented, resp reg unlabored, skin w/d PIV patent, no s/s infiltration noted. No adverse reaction to medications given while in ED. Report given to [facility] personnel. D Nurse Nish - Amisha De La Torre RN - 11/18/2019 4:48 PM CDTCity Ambulance at bedside for transport. D Nurse Note - Amisha De La Torre RN - 11/18/2019 4:09 PM CDTMultiple attempts were made to obtain a urine sample but patient states he is unable to void even after two cups of water. Provider notified. D Nurse Note - Ann Arias PCT - 11/18/2019 3:56 PM CDTCity Ambulance contacted for transfer at 1556. ETA 30-35 MIN. documented in this encounter Plan of Treatment Name Type Priority Associated Diagnoses Date/Ti me ABG+COOX+NA+K+GLU+CA2+ LAB Routine 11/19 10:23 AM CDT SURGICAL PATHOLOGY EXAM LAB STAT 11/01 9:35 AM CDT Name Type Priority Associated Diagnoses Order S chedule Urinalysis LAB STAT Altered mental status, STAT for 1 Occurrences unspecified altered starting 11/18/2019 mental status type until ABG+COOX+NA+K+GLU+CA2+ LAB Routine ONCE for 1 Occurrences starting 2019 until 0 SURGICAL PATHOLOGY EXAM LAB Routine Rele ase Upon Ordering for 1 Occurrenc es starting 2019, 1 completed Health Maintenance Due Date Last Done Comments Depression Screening 1957 DTaP,Tdap,and Td Vaccines (1 - Tdap) 02/09/1963 COLON CANCER SCREENING ANNUAL FIT/FOBT 02/09/1994 COLON CANCER SCREENING FIT DNA EVERY 3 YEARS 02/09/1994 COLON CANCER SCREENING SIGMOIDOSCOPY EVERY 5 YEARS 02/09/1994 COLONOSCOPY 02/09/1994 Colorectal Cancer Screening 02/09/1994 Zoster Recombinant Vaccine (SHINGRIX) (1 of 2) 02/09/1994 Medicare Wellness Visit 02/09/2009 PNEUMOCOCCAL VACCINES 65+ (1 of 1 - PPSV23) 02/09/2009 INFLUENZA VACCINE (#1) 2019 LUNG CANCER SCREEN: Recommended for age 55-80 with 30 11/17/2020 11/18/2019 + pack year history documented as of this encounter Implants Implanted Type Area Retail Receiving Clerk Device Shelf Model / Identifier Expiration Date Ser ial / Lot Plate 2 Hole Long Straight With Tag Biomet# [id number] - Sna PLATE Left: Head Biomet 11/19/2029 [id number] / Implanted: Qty: 2 on 11/20/2019 by Dimitri Spicer MD at [facility] NA / NA Plate Cranial Shunt 18.5mm Imgdalia 18.5mml 0.5mm Thk Biomet# [id number] - Sna PLATE Left: Head Biomet 11/19/2029 [id number] / Implanted: Qty: 1 on 11/20/2019 by Dimitri Spicer MD at [facility] NA / NA Screw Bone 1.5mm Migdalia 4mml Titanium Cross -Drive Self-Tapping Biomet# [id number] - Sna SCREW Left: Head Biomet 11/19/2029 [id number] / Implanted: Qty: 7 on 11/20/2019 by Dimitri Spicer MD at [facility] NA / NA documented as of this encounter Procedures Procedure Name Priority Date/Time Associated Comments Diagnosis MR BRAIN W WO DEJUAN 11/21/2019 3:13 Brain mass Results fo r this CONTRAST AM CDT procedure are i n the results section. CT HEAD WO CONTRAST DEJUAN 11/20/2019 6:04 Brain mass Resu lts for this PM CDT procedure are i n the results section. CRANIOTOMY FOR TUMOR Level 3 (within 11/20/2019 7:42 Brain mass RESECTION 12 hours) AM CDT ABORH CONFIRMATION Routine 11/20/2019 5:13 Resul ts for this AM CDT procedure are i n the results section. HB ABO GROUPING DEJUAN 11/20/2019 4:34 Results for this AM CDT procedure are i n the results section. ACTIVATED PARTIAL Routine 11/20/2019 4:32 Result s for this THRMPLAS AUGUSTIN AM CDT procedure are i n the results section. PROTHROMBIN TIME / Routine 11/20/2019 4:32 Resul ts for this INR AM CDT procedure are i n the results section. CBC WITH DIFF Routine 11/20/2019 4:32 Results fo r this AM CDT procedure are i n the results section. BASIC METABOLIC Routine 11/20/2019 4:32 Results for this PANEL (NA, K, CL, AM CDT procedure are in CO2, GLUCOSE, BUN, the resul ts CREATININE, CA) section. MR BRAIN W WO STAT 11/19/2019 2:15 Altered mental Results for this CONTRAST PM CDT status, procedure are i n unspecified the results altered mental section. status type ACTIVATED PARTIAL Routine 11/19/2019 4:15 Result s for this THRMPLAS AUGUSTIN AM CDT procedure are i n the results section. PROTHROMBIN TIME / Routine 11/19/2019 4:15 Resul ts for this INR AM CDT procedure are i n the results section. CT THORAX W CONTRAST STAT 11/18/2019 9:44 Altered mental R esults for this PM CDT status, procedure are i n unspecified the results altered mental section. status type CT ABDOMEN PELVIS W STAT 11/18/2019 9:44 Altered mental Re sults for this CONTRAST PM CDT status, procedure are i n unspecified the results altered mental section. status type COVID-19 (ID NOW STAT 11/18/2019 2:57 Altered mental Resul ts for this RAPID TESTING) PM CDT status, procedure are in unspecified the results altered mental section. status type XR CHEST 1 VW STAT 11/18/2019 2:18 Altered mental Results for this PM CDT status, procedure are i n unspecified the results altered mental section. status type CT HEAD WO CONTRAST STAT 11/18/2019 2:17 Altered mental Re sults for this PM CDT status, procedure are i n unspecified the results altered mental section. status type CBC WITH DIFF STAT 11/18/2019 1:53 Altered mental Results for this PM CDT status, procedure are i n unspecified the results altered mental section. status type BASIC METABOLIC STAT 11/18/2019 1:53 Altered mental Result s for this PANEL (NA, K, CL, PM CDT status, procedure are in CO2, GLUCOSE, BUN, unspecified the resul ts CREATININE, CA) altered mental section. status type HEPATIC FUNCTION STAT 11/18/2019 1:53 Altered mental Resul ts for this PANEL ([id number]) PM CDT status, procedure are in (ALB,T.PRO,BILI unspecified the results T,BU/BC,ALT,AST,ALK altered mental sectio n. PHOS) status type TROPONIN I STAT 11/18/2019 1:53 Altered mental Results f or this PM CDT status, procedure are i n unspecified the results altered mental section. status type LIPASE STAT 11/18/2019 1:53 Altered mental Results f or this PM CDT status, procedure are i n unspecified the results altered mental section. 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 No immediate postoperative complication identified. No definite residual focal/masslike enhancement is seen notin g evaluation is slightly limited due to blood products within the resecti on cavity. Extensive left frontal vasogenic edema with subfalcine herniation and 11 mm rightward midline shift, similar to the preoperative exam. Narrative Performed At MR BRAIN W WO CONTRAST PACS/VR/DOSE HISTORY: Male 74 years s/p tumor resecti on COMPARISON: 11/19/2019 TECHNIQUE: Multisequence multiplanar MR images the brain were obtained before and after administration of IV co ntrast. FINDINGS: Post surgical changes of left frontal cr aniotomy and resection of underlying left frontal mass identified. Blood product s are seen layering within and at the periphery of the resec tion cavity. Overlying pneumocephalus is noted. No definite focal or masslike residual enhancement is seen, noting evaluation is limited by intrinsic T1 shortening related to blood products. Extensive left frontal vasogenic edema i s again seen. 11 mm rightward midline shift is unchanged from the preo perative exam. Subfalcine herniation and near-complete effacement of the frontal horns of lateral ventricles again noted and minimally imp roved. Mild stable dilatation of the occipital and temporal horns of the right lateral ventricle likely reflecting ventricular trapping is uncha nged. Minimal scattered T2/FLAIR hyperintensities in the stewart p and periventricular white matter, nonspecific but likely rel ated to microvascular ischemic changes. No parenchymal restricted diffu telma to suggest acute infarct. Gradient blooming associated with above- described postsurgical changes noted. Otherwise no abnormal parenchymal gradient blooming. The T2 flow voids are unremarkable. Laye ring fluid is noted within the frontal sinuses, more pronounced on the left with patc hy opacification of ethmoid air cells, left more than right. The mastoid a ir cells are clear. Procedure Note [facility], Radiant Results Inft User - 2019 10:02 AM CDT MR BRAIN W WO CONTRAST HISTORY: Male 74 years s/p tumor resecti on COMPARISON: 11/19/2019 TECHNIQUE: Multisequence multiplanar MR images the brain were obtained before and after administration of IV co ntrast. FINDINGS: Post surgical changes of left frontal cr aniotomy and resection of underlying left frontal mass identified. Blood products are seen layering within and at the periphery of the resec tion cavity. Overlying pneumocephalus is noted. No definite foc al or masslike residual enhancement is seen, noting evaluation is limited by intrinsic T1 shortening related to blood products. Extensive left frontal vasogenic edema i s again seen. 11 mm rightward midline shift is unchanged from the preo perative exam. Subfalcine herniation and near-complete effacement of the frontal horns of lateral ventricles again noted and minimally imp roved. Mild stable dilatation of the occipital and temporal horns of the right lateral ventricle likely reflecting ventricular trapping is uncha nged. Minimal scattered T2/FLAIR hyperintensit ies in the deep and periventricular white matter, nonspecific but likely rel ated to microvascular ischemic changes. No parenchymal restricted diffu telma to suggest acute infarct. Gradient blooming associated with above- described postsurgical changes noted. Otherwise no abnormal parenchymal gradient blooming. The T2 flow voids are unremarkable. Laye ring fluid is noted within the frontal sinuses, more pronounced on the left with patchy opacification of ethmoid air cells, left more than right. The mastoid air cells are clear. 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 No immediate postoperative complication identified. No definite residual focal/masslike enhancement is seen notin g evaluation is slightly limited due to blood products within the resecti on cavity. Extensive left frontal vasogenic edema w ith subfalcine herniation and 11 mm rightward midline shift, similar to the preoperative exam. Performing Organization Address City/State/Zipcode Phone Number PACS/VR/DOSE CT HEAD WO CONTRAST (11/20/2019 6:04 PM CDT) Specimen Impressions Performed At PACS/VR/DOSE Post surgical changes of left frontal craniotomy with resection of the left frontal lobe mass. Blood products noted in the resecti on cavity with stable left frontal vasogenic edema, left-to-ri ght midline shift and subfalcine herniation. No interval changes in the m idline shift or the subfalcine herniation. Findings were discussed with Dr. Ashutosh at 12:04 AM. Preliminary Report Dictated by Resident: Sarath De La Garza I, Haroldo Talamantes MD., have reviewed this stud y and agree with the above report. Narrative Performed At CT HEAD WO CONTRAST PACS/VR/DOSE HISTORY: 74-year-old male with left fron freddie lobe mass concerning for primary brain neoplasm versus metastasis S/P craniotomy on 11/20/2019. COMPARISON: MRI dated 11/19/2019. TECHNIQUE: Noncontrast CT scan of the he ad with coronal and sagittal reformats was performed. FINDINGS: Changes of left frontal craniotomy with resection of t he left frontal mass noted. There is left frontal pneumocepha rashawn along with hyperdense blood products in the resection cavity. Left f rontal vasogenic edema is redemonstrated extending to the corpus c allosum, mildly increased in comparison to prior. There is a 1.3 cm left to right m idline shift, grossly unchanged from prior. Unchanged mild dil atation of the right lateral ventricle with mass effect upon the left lateral ventr icle and obstruction at the level of the foramen of Monro. Unchanged subfal cine herniation. The basal cisterns are unremarkable. The mastoid air cells and paranasal air sinuses are clear. The calvarium and central skull base are unremarkable. Procedure Note [facility], Radiant Results Inft User - 2019 7:[address] HEAD WO CONTRAST HISTORY: 74-year-old male with left fron freddie lobe mass concerning for primary brain neoplasm versus metastasis S/P craniotomy on 11/20/2019. COMPARISON: MRI dated 11/19/2019. TECHNIQUE: Noncontrast CT scan of the he ad with coronal and sagittal reformats was performed. FINDINGS: Changes of left frontal craniotomy with resection of the left frontal mass noted. There is left frontal pneumocepha rashawn along with hyperdense blood products in the resection cavity. Left f rontal vasogenic edema is redemonstrated extending to the corpus c allosum, mildly increased in comparison to prior. There is a 1.3 cm l eft to right midline shift, grossly unchanged from prior. Unchanged mild dil atation of the right lateral ventricle with mass effect upon the left lateral ventricle and obstruction at the level of the foramen of Monro. Un changed subfalcine herniation. The basal cisterns are unremarkable. The mastoid air cells and paranasal air sinuses are clear. The calvarium and central skull base are unremarkable. IMPRESSION Post surgical changes of left frontal cr aniotomy with resection of the left frontal lobe mass. Blood products noted in the resection cavity with stable left frontal vasogenic edema, left-to-ri ght midline shift and subfalcine herniation. No interval changes in the m idline shift or the subfalcine herniation. Findings were discussed with Dr. Boykin at 12:04 AM. Preliminary Report Dictated by Resident: Haroldo Diaz MD., have revie wed this study and agree with the above report. Performing Organization Address City/State/Zipcode Phone Number PACS/VR/DOSE ABORH CONFIRMATION (11/20/2019 5:13 AM CDT) Pathologist Sig [facility] ABO & RH AB Positive LAB Comment: Performed at [facility] Laboratory Services - [facility] Blood [place] [address] Toll Free: [phone] CLIA No. [id number] Specimen Performing Organization Address City/[facility] Cent[facility] Phone Number BLD LAB Type and Screen - ONCE DEJUAN (11/20/2019 4:34 AM CDT) Pathologist Sig [facility] ABO & RH AB POSITIVE LAB Comment: Performed at [facility] Laboratory Services - [facility] Blood [place] [address] Toll Free: [phone] CLIA No. [id number] IAT Negative LAB Comment: Performed at [facility] Laboratory Services - [facility] Blood Bank [address] [place] [address] Toll Free: [phone] CLIA No. [id number] Specimen Blood - VENOUS Performing Organization Address City/[facility]/Zipcode Phone Number BLD LAB CBC WITH DIFF (11/20/2019 4:32 AM CDT) Pathologist Sig nature WBC 13.87 (H) 4.20 - 10.70 [facility] 10*3/L SERVICES RBC 4.64 4.26 - 5.52 [facility] 10*6/L SERVICES HGB 14.8 12.2 - 16.4 [facility] g/dL SERVICES HCT 42.5 38.4 - 49.3 % [facility] MCV 91.6 81.7 - 95.6 fL [facility] SERVICES MCH 31.9 26.1 - 32.7 pg [facility] SERVICES MCHC 34.8 31.2 - 35.0 [facility] g/dL SERVICES RDW-SD 43.1 38.5 - 51.6 fL [facility] SERVICES RDW-CV 12.9 12.1 - 15.4 % [facility] SERVICES PLT 180 150 - 328 [facility] 10*3/L SERVICES MPV 11.6 9.8 - 13.0 fL [facility] SERVICES NRBC/100 WBC 0.0 0.0 - 10.0 /100 [facility] WBCs SERVICES NRBC x10^3 <0.01 10*3/L [facility] GRAN MAT (NEUT) % 89.3 % [facility] IMM GRAN % 0.50 % [facility] LYMPH % 6.3 % [facility] MONO % 3.8 % [facility] EOS % 0.0 % [facility] BASO % 0.1 % [facility] GRAN MAT x10^3(ANC) 12.39 (H) 1.99 - 6.95 [facility] 10*3/uL SERVICES IMM GRAN x10^3 0.07 (H) 0.00 - 0.06 [facility] 10*3/uL SERVICES LYMPH x10^3 0.87 (L) 1.09 - 3.23 [facility] 10*3/uL SERVICES MONO x10^3 0.53 0.36 - 1.02 [facility] 10*3/uL SERVICES EOS x10^3 <0.03 (L) 0.06 - 0.53 [facility] 10*3/uL SERVICES BASO x10^3 <0.03 0.01 - 0.09 [facility] 10*3/uL SERVICES Specimen Blood - LINE, VENOUS Performing Organization Address City/State/Zipcode Phone Number [facility] CLIA: [id number] [place] [address] [place] [address] PROTHROMBIN TIME / INR (11/20/2019 4:32 AM CDT) PROTIME PATIENT 12.1 10.1 - 12.6 [facility] Seconds SERVICES INR 1.1Comment: Normal [facility] INR <1.1; Warfarin SERVICES Therapeutic range 2.0 to 3.0 or 2.5 to 3.5, depending upon the indications. Specimen Blood - LINE, VENOUS Performing Organization Address City/State/Zipcode Phone Number [facility] CLIA: [id number] [place] [address] [place] [address] BASIC METABOLIC PANEL (NA, K, CL, CO2, GLUCOSE, BUN, CREATININE, CA) (11/20/2019 4:32 AM CDT) [facility] NA 136 135 - 145 [facility] mmol/L SERVICES K 4.3 3.5 - 5.0 [facility] mmol/L SERVICES CL 105 98 - 108 mmol/L [facility] SERVICES CO2 TOTAL 24 23 - 31 mmol/L [facility] SERVICES AGAP 7 2 - 16 [facility] SERVICES BUN 25 (H) 7 - 23 mg/dL [facility] SERVICES GLUCOSE 142 (H) 70 - 110 mg/dL [facility] SERVICES CREATININE 0.75 0.60 - 1.25 [facility] mg/dL SERVICES CALCIUM 8.7 8.6 - 10.6 [facility] mg/dL SERVICES eGFR Calculation 101.5 mL/min/1.73m2 [facility] (Non- SERVICES French) eGFR Calculation 123.1 mL/min/1.73m2 [facility] () SERVICES Specimen Blood - LINE, VENOUS Narrative Performed At Association of Glomerular Filtration Rate (GFR) and St aging [facility] SERVICES of Kidney Disease* + + +------- ------ + | GFR (mL/min/1.73 m2) | With Kidney Damage | Wi juveout Kidney Damage + + +------- ------ + | >90 | Stage one | Normal + + +------- ------ + | 60-89 | Stage two | Decreased GFR + + +------- ------ + | 30-59 | Stage three | Stage three + + +------- ------ + | 15-29 | Stage four | Stage four + + +------- ------ + | <15 (or dialysis) | Stage five | Stage five + + +------- ------ + *Each stage assumes the associated GFR level has been in effect for at least three months. Stages 1 to 5, wit h or without kidney disease, indicate chronic kidney disease. Notes: Determination of stages one and two (with eGFR >59mL/min/1.73 m2) requires estimation of kidney damag e for at least three months as defined by structural or func tional abnormalities of the kidney, manifested by either: Pathological abnormalities or Markers of kidney damage (including abnormalities in the composition of the blo od or urine or abnormalities in imaging tests) . Performing Organization Address City/State/Zipcode Phone Number [facility] CLIA: [id number] [place] [address] [address] [facility] aPTT (11/20/2019 4:32 AM CDT) Pathologist Sig nature APTT Patient 31 26 - 36 Seconds [facility] SERVICES Specimen Blood - LINE, VENOUS Performing Organization Address City/State/Zipcode Phone Number [facility] SERVICES CLIA: [id number] [place] [address] [place] [address] MR BRAIN W WO CONTRAST (11/19/2019 2:15 PM CDT) Specimen Impressions Performed At PACS/VR/DOSE Patient motion degrades image quality, l imiting evaluation. Large, heterogeneously enhancing necrotic left frontal mass with extensive surrounding vasogenic edema resulting in effacement of the frontal horns and midline shift to the right of up to 1.1 cm anteriorly. The primary differential consideration i s high grade primary UNDERWRITING OPERATIONS MANAGER malignancy. A unifocal metastatic lesion could potentially have this appearance but is considered less likely. Narrative Performed At MR BRAIN W WO CONTRAST PACS/VR/DOSE HISTORY: Male 74 years brain mass COMPARISON: CT head dated 11/18/2019 TECHNIQUE: Multiplanar multi weighted im aging of the brain was obtained before and following the administration of 14 mL IV ProHance FINDINGS: A centrally necrotic, irregularly enhanc ing intraparenchymal mass in the left frontal lobe measures approximately 5.2 x 4.5 x 3.9 cm (AP by TV by CC). A cystic component is seen along th e superomedial aspect. Extensive vasogenic edema is present throughout th e left frontoparietal lobes, extending into the basal ganglia and acr oss the corpus callosum. There is effacement of the frontal horns of the lateral ventricles and midline shift to the right of up to 1.1 cm anteriorly. No pathological extra-axial fluid collection is presen t. The basal cisterns are unremarkable. No restricted diffusion is present to trujillo ggest acute ischemia. Background mild ischemic small vessel changes are a lso noted. No focus of abnormal parenchymal susceptibility signal loss i s noted. No abnormal fluid signal is present in the mastoid air cells or paranasal air sinuses. Procedure Note [facility], Radiant Results Inft User - 2019 2:37 PM CDT MR BRAIN W WO CONTRAST HISTORY: Male 74 years brain mass COMPARISON: CT head dated 11/18/2019 TECHNIQUE: Multiplanar multi weighted im aging of the brain was obtained before and following the administration of 14 mL IV ProHance FINDINGS: A centrally necrotic, irregularly enhanc ing intraparenchymal mass in the left frontal lobe measures approximately 5.2 x 4.5 x 3.9 cm (AP by TV by CC). A cystic component is seen along th e superomedial aspect. Extensive vasogenic edema is present throughout th e left frontoparietal lobes, extending into the basal ganglia and acr oss the corpus callosum. There is effacement of the frontal horns of the lateral ventricles and midline shift to the right of up to 1.1 cm anteriorly. No pathological extra-axial fluid collec tion is present. The basal cisterns are unremarkable. No restricted diffusion is present to trujillo ggest acute ischemia. Background mild ischemic small vessel changes are a lso noted. No focus of abnormal parenchymal susceptibility signal loss i s noted. No abnormal fluid signal is present in t he mastoid air cells or paranasal air sinuses. IMPRESSION Patient motion degrades image quality, l imiting evaluation. Large, heterogeneously enhancing necroti c left frontal mass with extensive surrounding vasogenic edema resulting in effacement of the frontal horns and midline shift to the right of up to 1.1 cm anteriorly. The primary differential consideration i s high grade primary UNDERWRITING OPERATIONS MANAGER malignancy. A unifocal metastatic lesion could potentially have this appearance but is considered less likely . Performing Organization Address City/State/Zipcode Phone Number PACS/VR/DOSE PROTHROMBIN TIME / INR (11/19/2019 4:15 AM CDT) PROTIME PATIENT 13.3 (H) 10.1 - 12.6 [facility] Seconds SERVICES INR 1.2Comment: Normal [facility] INR <1.1; Warfarin SERVICES Therapeutic range 2.0 to 3.0 or 2.5 to 3.5, depending upon the indications. Specimen Blood - ARM, RIGHT Performing Organization Address City/State/Zipcode Phone Number [facility] SERVICES CLIA: [id number] [place] [address] [address] [facility] aPTT (11/19/2019 4:15 AM CDT) Pathologist Sig nature APTT Patient 29 26 - 36 Seconds [facility] SERVICES Specimen Blood - ARM, RIGHT Performing Organization Address City/State/Zipcode Phone Number [facility] CLIA: [id number] [place] [address] [address] [facility] CT THORAX W CONTRAST (11/18/2019 9:44 PM CDT) Specimen Impressions Performed At Mild paraseptal and centrilobular emphys ematous changes. PACS/VR/DOSE Few scattered bilateral 6 mm and sub-6 m m solid nodules. Attention on short-term follow-up in 2-6 months. Hyperattenuating tracheal lesion measuri ng 1.0 cm. Differential considerations include tracheal hamartom a, lipoma or mucous collection (with small amount of intermixed gas res ulting in lower than fluid attenuation). Correlate clinically. Mild mid and distal nonspecific esophage al thickening and small sliding-type hiatal hernia. Findings can be seen with esophagitis. Correlate clinically. See separately dictated CT abdomen and p carlos report for additional findings. Narrative Performed At CT SCAN OF THE CHEST WITH CONTRAST PACS/VR/DOSE TECHNIQUE: Multidetector helical CT scan of the chest was performed following the intravenous administration of a total of 120 cc of Omnipaque 350. Coronal and sagittal reformats were also submitted for review. CLINICAL INFORMATION: Brain mass. Evalua te for pulmonary or metastases. COMPARISON: Not available. FINDINGS: Lungs: Biapical scarring and mild paraseptal emphyse matous changes. Mild upper lobe predominant centrilobular emphysematous laura nges are present as well. Subcentimeter calcified granuloma within the subpleura l left lower lobe. 6 mm solid nodule within the left upper lo be (4:61). Another 6 mm solid nodule within the subpleural right lower lobe (4:91). Few additional scattered sub-5 mm nodules (for example 4:39, 46 and 76). Bibasilar dependent and scattered subseg mental atelectasis. Subpleural nodular within the right lower lobe prob ably represents atelectasis as well. Airways: Fat attenuation density along the right anter olateral trachea at the level of the clavicular heads (-37 Hounsfield unit s on 4:18), possibly tracheal hamartoma or lipoma. Pleura: No pleural effusion or pneumot horax. Mediastinum: No mediastinal, hilar or ax illary lymphadenopathy. Mild thickening of the distal and mideso phagus. Cardiovascular: Mild to moderate multivessel coronar y artery calcification is most prominent in LAD and circumflex and right coronary distribution. Scattered sclerotic soft plaque throughout the descend ing thoracic aorta. Lower neck and chest wall: Within normal limits Upper abdomen: See separately dictated C T abdomen and pelvis report for additional findings. Bones: No acute or aggressive osseous ab normality. Mild to moderate multilevel degenerative changes througho ut the visualized spine. Procedure Note [facility], Radiant Results Inft User - 2019 4:[address] SCAN OF THE CHEST WITH CONTRAST TECHNIQUE: Multidetector helical CT scan of the chest was performed following the intravenous administration of a total of 120 cc of Omnipaque 350. Coronal and sagittal reformats were also submitted for review. CLINICAL INFORMATION: Brain mass. Evalua te for pulmonary or metastases. COMPARISON: Not available. FINDINGS: Lungs: Biapical scarring and mild spenser eptal emphysematous changes. Mild upper lobe predominant centrilobular emp hysematous changes are present as well. Subcentimeter calcified granuloma within the subpleural left lower lobe. 6 mm solid nodule within the left upper lo be (4:61). Another 6 mm solid nodule within the subpleural right lower lobe (4:91). Few additional scattered sub-5 mm nodules (for example 4:39, 46 and 76). Bibasilar dependent and scattered subseg mental atelectasis. Subpleural nodular within the right lower lobe prob ably represents atelectasis as well. Airways: Fat attenuation density along t he right anterolateral trachea at the level of the clavicular heads (-37 H ounsfield units on 4:18), possibly tracheal hamartoma or lipoma. Pleura: No pleural effusion or pneumoth orax. Mediastinum: No mediastinal, hilar or ax illary lymphadenopathy. Mild thickening of the distal and mideso phagus. Cardiovascular: Mild to moderate multiv essel coronary artery calcification is most prominent in LAD and circumflex and right coronary distribution. Scattered sclerotic soft plaque througho ut the descending thoracic aorta. Lower neck and chest wall: Within normal limits Upper abdomen: See separately dictated C T abdomen and pelvis report for additional findings. Bones: No acute or aggressive osseous ab normality. Mild to moderate multilevel degenerative changes througho ut the visualized spine. IMPRESSION Mild paraseptal and centrilobular emphys ematous changes. Few scattered bilateral 6 mm and sub-6 m m solid nodules. Attention on short-term follow-up in 2-6 months. Hyperattenuating tracheal lesion measuri ng 1.0 cm. Differential considerations include tracheal hamartom a, lipoma or mucous collection (with small amount of intermixed gas res ulting in lower than fluid attenuation). Correlate clinically. Mild mid and distal nonspecific esophage al thickening and small sliding-type hiatal hernia. Findings can be seen with esophagitis. Correlate clinically. See separately dictated CT abdomen and p carlos report for additional findings. Performing Organization Address City/State/Zipcode Phone Number PACS/VR/DOSE CT ABDOMEN PELVIS W CONTRAST (11/18/2019 9:44 PM CDT) Specimen Impressions Performed At Impression: PACS/VR/DOSE No evidence of acute findings or neoplastic disease is seen in the abdomen and pelvis. Narrative Performed At Exam: CT ABDOMEN PELVIS W CONTRAST PACS/VR/DOSE Clinical History: brain mass, r/o metast atic origin Comparison: None Findings: The visualized lungs show minimal right lung base atel ectasis and there is no evidence of pleural or pericardial ef fusion. The liver shows no focal lesions or duct al dilatation. The gallbladder, spleen, kidneys, adrenals, and the pancreas are unrema rkable. There is no evidence of free fluid, air, or lymphade nopathy seen in the abdomen and pelvis. No evidence of dilated bowel loops or appendicitis. Si gmoid diverticulosis is seen with no evidence of diverticulit is. Urinary bladder is unremarkable. Prostate is enlarged and measures about 4.4 cm in transverse dimension. The abdominal wall is within normal limits. The vascul ature shows scattered atherosclerotic calcifications. The bones show degener ative changes with no evidence of suspicious focal lesions. Procedure Note [facility], Radiant Results Inft User - 2019 10:35 AM CDT Exam: CT ABDOMEN PELVIS W CONTRAST Clinical History: brain mass, r/o metast atic origin Comparison: None Findings: The visualized lungs show minimal right lung base atelectasis and there is no evidence of pleural or pericardial ef fusion. The liver shows no focal lesions or duct al dilatation. The gallbladder, spleen, kidneys, adrenals, and the pancr eas are unremarkable. There is no evidence of free fluid, air, or lymphade nopathy seen in the abdomen and pelvis. No evidence of dilated bowel loops or ap pendicitis. Sigmoid diverticulosis is seen with no evidence of diverticulit is. Urinary bladder is unremarkable. Prostate is enlarged and m easures about 4.4 cm in transverse dimension. The abdominal wall is within normal limi ts. The vasculature shows scattered atherosclerotic calcifications. The bone s show degenerative changes with no evidence of suspicious focal lesions. IMPRESSION Impression: No evidence of acute findings or neoplas tic disease is seen in the abdomen and pelvis. Performing Organization Address [facility] Phone Number [place] COVID-19 (ID NOW RAPID TESTING) (11/18/2019 2:57 PM CDT) SARS-CoV-2 Rapid ID Not Detected Not Detected [facility] Specimen Swab - NASOPHARYNGEAL SWAB Narrative Performed At ID NOW COVID-19 Assay is an isothermal nucleic [facility] acid amplification test intended for the qualitative detection of nucleic acid from SARS-CoV-2 viral RNA in nasopharyngeal (PATIENT EXPERIENCE COORDINATOR) specimens. It is used under Emergency Use Authorization (EUA) by FDA. The limit of detection (LOD) of the assay is 125 Genome Equivalents/mL. A positive result is indicative of the presence of SARS-CoV-2 RNA. Clinical correlation with patient history and other diagnostic information is necessary to determine patient infection status. A negative (Not Detected) result does not preclude SARS-CoV-2 infection. In patients with clinical symptoms and other tests that are consistent with SARS-CoV-2 infection, negative results should be treated as presumptive negative and a new specimen should be tested with alternative PCR molecular test. Invalid: Please collect a new specimen for repeat patient testing if clinically indicated. Performing Organization Address [facility] Cent[facility] Phone Number [facility] CLIA: [id number] [place] [address] Chest 1 View (11/18/2019 2:18 PM CDT) Specimen Impressions Performed At PACS/VR/DOSE Chronic emphysematous changes suspected with prominent biapical fibro- infiltrative process with volume loss (m ild pulling up of both the jcaqueline) are concerning for a chronic granulomatous process (fu ngal or tuberculous infection). Disease activity cannot be commented on x- ray chest.. CT scan may be obtained. Preliminary Report Dictated by Resident: Christopher Barrett MD., have reviewed this study and agree with the above report. Narrative Performed At XR CHEST 1 VW PACS/VR/DOSE Comparison: None available History: altered mental state Technique: Frontal radiograph Findings: The lungs are hyperinflated with flatten ing of the diaphragm and interstitial opacities with apical geogr aphic distribution. Bilateral upper zone fibroid infiltrativ e lesions are appreciated with pulling up of both the jacqueline. Ill-defined reticular opacity within th e right lung base may represent scarring or indeterminate nodule. Left l sotero base calcific granuloma. No pleural effusion, lobar consolidative pr ocess, or pneumothorax is identified. The cardiomediastinal silhouette is norm al in size. No acute osseous abnormality is present. Procedure Note [facility], Radiant Results Inft User - 2019 6:13 PM CDT XR CHEST 1 VW Comparison: None available History: altered mental state Technique: Frontal radiograph Findings: The lungs are hyperinflated with flatten ing of the diaphragm and interstitial opacities with apical geogr aphic distribution. Bilateral upper zone fibroid infiltrativ e lesions are appreciated with pulling up of both the jacqueline. Ill-defined reticular opacity within th e right lung base may represent scarring or indeterminate nodule. Left l sotero base calcific granuloma. No pleural effusion, lobar consolidative pr ocess, or pneumothorax is identified. The cardiomediastinal silhouette is norm al in size. No acute osseous abnormality is present. IMPRESSION Chronic emphysematous changes suspected with prominent biapical fibro- infiltrative process with volume loss (m ild pulling up of both the jacqueline) are concerning for a chronic granulomato us process (fungal or tuberculous infection). Disease activity cannot be c ommented on x-ray chest.. CT scan may be obtained. Preliminary Report Dictated by Resident: Christopher Barrett MD., have revie wed this study and agree with the above report. Performing Organization Address City/State/Zipcode Phone Number PACS/VR/DOSE CT Head W/O Contrast (11/18/2019 2:17 PM CDT) Specimen Impressions Performed At PACS/VR/DOSE No acute intrarenal hemorrhage. Left cerebral vasogenic edema, frontopar ietal soft tissue thickening suggestive of underlying primary maligna ncy versus metastatic process. Multifocal mass effect with [id number] t midline shift and subfalcine herniation measuring approximately 1.8 cm in subfalcin e herniation without evidence of intracranial hemorrhage favo rs chronic etiology. Left frontal extra-axial CSF density col lection may represent hygroma. Left frontal ovoid hyperdensity may represent prior se quela of hemorrhage or dural calcification. Recommend clinical correlation with prior imaging if a vailable or history. Findings were discussed with primary team in the ER, Kvng Garcia at time of dictation. Preliminary Report Dictated by Resident: Irlanda Rhoades Report change IJose reviewed this study and agree with the above report with the following minor modifications: There is vasogenic edema in the left fro ntotemporal lobe extending to involve the genu of the corpus callosum with associate d effacement of the frontal horns and 1.8 cm left to right m idline shift and subfalcine herniation. Mildly prominent right later al ventricle may be secondary to developing entrapment. These findings ar e concerning for underlying mass and recommend further assessment with MR I of the brain with and without contrast. 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 Jose Butler MD., have reviewe d this study and agree with the above report. Narrative Performed At CT HEAD WO CONTRAST PACS/VR/DOSE HISTORY: Altered mental status (AMS), un clear cause COMPARISON: None TECHNIQUE: Contiguous axial CT images of the head were obtained without the use of intravenous contrast. Coronal and sagittal refo rmats were provided. FINDINGS: Extensive left cerebral subcortical and deep white mat ter hypoattenuation with gyral soft tissue thickening most p ronounced in the left frontoparietal lobes with probable extension across th e genu of the corpus callosum. Marked effacement of the left lateral ventricle body, anterior and temporal horns with mass effect resulting in left to right midl ine shift measuring approximately 1.8 cm and subfalcine yunior iation. Left frontal extra-axial CSF density fluid collection measures up to 3.6 cm in greatest dimension (6:18). Left frontal calcific density me asures 7 mm (12:46). There is no acute intracranial hemorrhage. The mastoid air cells and paranasal air sinuses are clear. The calvarium and central skull base are unremarkable. Intracranial atherosclerosis. Bilateral pseudophakia. Procedure Note [facility], Radiant Results Inft User - 2019 3:[address] HEAD WO CONTRAST HISTORY: Altered mental status (AMS), un clear cause COMPARISON: None TECHNIQUE: Contiguous axial CT images of the head were obtained without the use of intravenous contrast. Coronal and sagittal reformats were provided. FINDINGS: Extensive left cerebral subcortical and deep white matter hypoattenuation with gyral soft tissue thickening most p ronounced in the left frontoparietal lobes with probable exten telma across the genu of the corpus callosum. Marked effacement of the left lateral ve ntricle body, anterior and temporal horns with mass effect resulting in left to right midline shift measuring approximately 1.8 cm and subfalcine yunior iation. Left frontal extra-axial CSF density fluid collection measures up to 3.6 cm in greatest dimension (6:18). Left frontal calcific density me asures 7 mm (12:46). There is no acute intracranial hemorrhage. The mastoid air cells and paranasal air sinuses are clear. The calvarium and central skull base are unremarkable. Intracranial atherosclerosis. Bilateral pseudophakia. IMPRESSION No acute intrarenal hemorrhage. Left cerebral vasogenic edema, frontopar ietal soft tissue thickening suggestive of underlying primary maligna ncy versus metastatic process. Multifocal mass effect with [id number] t midline shift and subfalcine herniation measuring approximately 1.8 c m in subfalcine herniation without evidence of intracranial hemorrhage favo rs chronic etiology. Left frontal extra-axial CSF density col lection may represent hygroma. Left frontal ovoid hyperdensity may repr esent prior sequela of hemorrhage or dural calcification. Recommend clinical correlation with prio r imaging if available or history. Findings were discussed with primary shirley cooper in the ER, Dr. Garcia at time of dictation. Preliminary Report Dictated by Resident: Irlanda Rhoades Report change I, Jose Dumont reviewed this study and agree with the above report with the following minor modifications: There is vasogenic edema in the left fro ntotemporal lobe extending to involve the genu of the corpus callosum with associated effacement of the frontal horns and 1.8 cm left to right m idline shift and subfalcine herniation. Mildly prominent right later al ventricle may be secondary to developing entrapment. These findings ar e concerning for underlying mass and recommend further assessment with MR I of the brain with and without contrast. 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 I, Jose Dumont MD., have reviewed this study and agree with the above report. Performing Organization Address City/[facility] Cent[facility] Phone Number PACS/VR/DOSE Troponin I (11/18/2019 1:53 PM CDT) Pathologist Sig [facility] TROPONIN I 0.000 <=0.034 ng/mL [facility] LABOR[facility] Specimen Blood - VENOUS Narrative Performed At Equal or Less than 0.034 ng/ml---Normal [facility] Note: Cardiac troponin begins to rise 3-4 hours after the onset of ischemia. Repeat in 4-6 hours if the sample was drawn within 3-4 hours of the onset of the symptom and found normal. Between 0.035 and 0.120 ng/mL--- Borderline. Questionable myocardial injury or necros is Note: Serial measurement may be necessary to confirm or exclude the diagnosis of myocardial injury or necrosis; Clinical correlation (symptoms, EKGs, imaging studies, and others) required; Repeat in 4-6 hours if clinically indicated. Equal or Higher than 0.121 ng/mL---Abnormal. Myocardial Injury or Necrosis Likely Biotin has been reported to cause a negative bias, interpret results relative to patient's use of biotin. Performing Organization Address [facility]/Zipcode Phone Number [facility] CLIA: [id number] [place], [place] [id number] LABORATORY [address] Lipase Serum (11/18/2019 1:53 PM CDT) Pathologist [facility] LIPASE 47 0 - 220 U/L [facility] Specimen Blood - VENOUS Performing Organization Address [facility] CentercoPerfect Pizza Phone Number [facility] CLIA: [id number] [place] [address] LABORATORY [address] [facility] Hepatic Function Panel (ALB, T.PRO, BILI T, BU/BC, ALT, AST, ALK PHOS) (11/18/2019 1:53 PM CDT) [facility] TOTAL BILI 0.9 0.1 - 1.1 mg/dL [facility] BILI UNCON 1.0 0.1 - 1.1 mg/dL [facility] BILI CONJ 0.0 0.0 - 0.3 mg/dL [facility] T PROTEIN 6.8 6.3 - 8.2 g/dL [facility] ALBUMIN 3.9 3.5 - 5.0 g/dL [facility] ALK PHOS 33 (L) 34 - 122 U/L [facility] ALTv 23 5 - 50 U/L [facility] AST(SGOT) 24 13 - 40 U/L [facility] Specimen Blood - VENOUS Performing Organization Address City/State/Zipcode Phone Number [facility] CLIA: [id number] [place] [address] [place] [address] Basic Metabolic Panel (NA, K, CL, CO2, GLUCOSE, BUN, CREATININE, CA) (11/18/2019 1:53 PM CDT) [facility] NA 137 135 - 145 mmol/L [facility] K 4.0 3.5 - 5.0 mmol/L [facility] CL 103 98 - 108 mmol/L [facility] CO2 TOTAL 27 23 - 31 mmol/L [facility] AGAP 7 2 - 16 [facility] BUN 17 7 - 23 mg/dL [facility] GLUCOSE 85 70 - 110 mg/dL [facility] CREATININE 0.83 0.60 - 1.25 [facility] mg/dL [facility] CALCIUM 9.6 8.6 - 10.6 mg/dL [facility] eGFR Calculation 90.3 mL/min/1.73m2 [facility] (Non-) [facility] LABORATOR Y eGFR Calculation 109.5 mL/min/1.73m2 [place] [facility] LABORATORY Specimen Blood - VENOUS Narrative Performed At Association of Glomerular Filtration Rate (GFR) [facility] LAB[facility]ATORY and Staging of Kidney Disease* + + +- + | GFR (mL/min/1.73 m2) | With Kidney Damage | Without Kidney Damage + + +- + | >90 | Stage one | Normal + + +- + | 60-89 | Stage two | Decreased GFR + + +- + | 30-59 | Stage three | Stage three + + +- + | 15-29 | Stage four | Stage four + + +- + | <15 (or dialysis) | Stage five | Stage five + + +- + *Each stage assumes the associated GFR level has been in effect for at least three months. Stages 1 to 5, with or without kidney disease, indicate chronic kidney disease. Notes: Determination of stages one and two (with eGFR >59mL/min/1.73 m2) requires estimation of kidney damage for at least three months as defined by structural or functional abnormalities of the kidney, manifested by either: Pathological abnormalities or Markers of kidney damage (including abnormalities in the composition of the blood or urine or abnormalities in imaging tests). Performing Organization Address City/State/Zipcode Phone Number [facility] CLIA: [id number] [place] [address] CBC with Differential (11/18/2019 1:53 PM CDT) [facility] WBC 6.62 4.20 - 10.70 [facility] 10*3/L [facility] RBC 4.66 4.26 - 5.52 [facility] 10*6/L [facility] HGB 14.9 12.2 - 16.4 g/dL [facility] HCT 43.4 38.4 - 49.3 % [facility] MCV 93.1 81.7 - 95.6 fL [facility] MCH 32.0 26.1 - 32.7 pg [facility] MCHC 34.3 31.2 - 35.0 g/dL [facility] RDW-SD 44.7 38.5 - 51.6 fL [facility] RDW-CV 13.1 12.1 - 15.4 % [facility] PLT 166 150 - 328 [facility] 10*3/L [facility] MPV 11.0 9.8 - 13.0 fL [facility] NRBC/100 WBC 0.0 0.0 - 10.0 /100 [facility] WBCs [facility] NRBC x10^3 <0.01 10*3/L [facility] GRAN MAT (NEUT) % 67.1 % [facility] IMM GRAN % 0.30 % [facility] LYMPH % 21.1 % [facility] MONO % 7.6 % [facility] EOS % 3.0 % [facility] BASO % 0.9 % [facility] GRAN MAT x10^3(ANC) 4.44 1.99 - 6.95 [facility] 10*3/uL [facility] LAB[facility] IMM GRAN x10^3 <0.03 0.00 - 0.06 [facility] 10*3/uL HOSPITAL LABORATORY LYMPH x10^3 1.40 1.09 - 3.23 [facility] 10*3/uL HOSPITAL LABORATORY MONO x10^3 0.50 0.36 - 1.02 [facility] 10*3/uL HOSPITAL LABORATORY EOS x10^3 0.20 0.06 - 0.53 [facility] 10*3/uL HOSPITAL LABORATORY BASO x10^3 0.06 0.01 - 0.09 [facility] 10*3/uL [facility] Specimen Blood - VENOUS Performing Organization Address City/State/Zipcode Phone Number [facility] CLIA: [id number] [place] [address] documented in this encounter Visit Diagnoses Diagnosis Brain mass - Primary Unspecified condition of brain Altered mental status, unspecified alter ed mental status type 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 Aftercare following surgery of the nervo us system, NEC Expressive aphasia Aphasia Cerebral edema Compression of brain Status post craniotomy Other postprocedural status Smoking greater than 40 pack years Tobacco use disorder Panlobular emphysema Other emphysema documented in this encounter Administered Medications Medication Order MAR Action Action Date Dose Rate Site dexAMETHasone (DECADRON) tablet 6 Given 11/22/2019 8:29 AM CDT 6 mg mg 6 mg, Oral, Q6H, First dose (after last modification) on 11/19/19 at 1800, Until Discontinued, Routine Given 11/22/2019 1:35 AM CDT 6 mg Given 11/21/2019 7:41 PM CDT 6 mg docusate (COLACE) capsule 100 mg Given 11/22/2019 7:41 AM CDT 100 mg 100 mg, Oral, BID, First dose on Thu11/18/19 at 2000, Until Discontinued, Routine Given 11/21/2019 7:41 PM CDT 100 mg Given 11/21/2019 8:32 AM CDT 100 mg heparin (porcine) injection Given 11/22/2019 7:42 AM CDT 5,000 Units Abdomen-SC 5,000 Units 5,000 Units, Subcutaneous, BID, First dose on Thu11/21/19 at 2000, Until Discontinued, Routine Given 11/21/2019 7:44 PM CDT 5,000 Units Abdo men-SC HYDROcodone-acetaminophen (NORCO 5) 5-32 5 mg tablet 1 tablet 1 tablet, Oral, Q6HPRN, Starting Sun 11/01 at 1138, Until Discontinued, Routine, Pain (scale 7-10) levETIRAcetam (KEPPRA) tablet 500 mg Given 11/22/2019 7:42 AM CDT 500 mg 500 mg, Oral, BID, First dose on Thu11/18/19 at 2000, Until Discontinued, Routine Given 11/21/2019 7:41 PM CDT 500 mg Given 11/21/2019 8:32 AM CDT 500 mg NaCl 0.9% (NS) IV infusion 1,000 New Bag 11/21/2019 6:59 AM C DT 1,000 mL 42 mL/hr mL at 42 mL/hr, IV Infusion, CONTINUOUS, Starting 11/20/19 at 1815, Until Discontinued, Routine New Bag 11/20/2019 5:28 PM CDT 1,000 mL 42 mL/hr pantoprazole (PROTONIX) EC tablet 40 mg Given 11/22/2019 7:42 AM CDT 40 mg 40 mg, Oral, DAILY, First dose on Thu11/19/19 at 0900, Until Discontinued, Routine Given 11/21/2019 8:32 AM CDT 40 mg Given 11/19/2019 7:36 AM CDT 40 mg Medication Order MAR Action Action Date Dose Rate Site ceFAZolin (ANCEF) 1,000 mg in Given 11/21/2019 8:32 AM CDT 1,00 0 mg NaCl 0.9% (NS) 50 mL MINI-BAG 1,000 mg, IV Piggyback, Q8H ABX, First dose on 11/20/19 at 1815, Until Discontinued, 50 mL, Reason for Anti-Infective: Surgical Prophylaxis, Surgical Prophylaxis: Neurosurgery, Duration of therapy: within 24 hours of surgery Given 11/21/2019 1:59 AM CDT 1 g Given 11/20/2019 5:24 PM CDT 1,000 mg dexamethasone (DECADRON PHOSPHATE) injection Given 4:08 PM CDT 10 mg 10 mg 10 mg, IV Push, ONCE, 1 dose, Thu11/18/19 at 1630, STAT dexamethasone (DECADRON) 10 mg in NaCl 0.9% New Bag 10/31 10:30 PM CDT 10 mg (NS) piggyback 10 mg, IV Piggyback, ONCE, 1 dose, Thu11/18/19 at 2030, 50 mL dexAMETHasone (DECADRON) tablet 4 mg Given 11/19/2019 12:00 PM CDT 4 mg 4 mg, Oral, Q6H, First dose on 11/19/19 at 0000, Until Discontinued, Routine Given 11/19/2019 5:45 AM CDT 4 mg Given 11/19/2019 12:04 AM CDT 4 mg gadobenate dimeglumine (MULTIHANCE-15 Given 11/21/2019 3:15 AM CDT 13 mL Right Arm mL) injection 12.7 mL 12.7 mL (0.2 mL/kg 63.5 kg), Intravenous, ONCE, 1 dose, 11/21/19 at 0315, Routine gadoteridol (PROHANCE-20 mL) Given 11/19/2019 2:20 PM CDT 14 mL Right Arm injection 12.7 mL 12.7 mL (0.2 mL/kg 63.5 kg), Intravenous, ONCE, 1 dose, 11/19/19 at 1430, Routine heparin (porcine) injection Given 11/19/2019 8:56 PM CDT 5,000 Units Abdomen-SC 5,000 Units 5,000 Units, Subcutaneous, BID, First dose on 11/18/19 at 2000, Until Discontinued, DEJUAN Given 11/19/2019 7:36 AM CDT 5,000 Units Abdo men Given 11/18/2019 10:30 PM CDT 5,000 Units Abdo men-SC iohexol (OMNIPAQUE 350 BULK-150 mL) Given 11/18/2019 9:25 PM CD T 120 mL injection 120 mL 120 mL, Intravenous, ONCE, 1 dose, 11/18/19 at 2130, Routine documented in this encounter Additional Health Concerns Infection Onset Date Last Indicated Resolved Time COVID-19 Rule Out 11/18/2019 11/18/2019 11/18/2019 3: 22 PM CDT documented as of this encounter Insurance Payer Benefit Plan / Subscriber ID Effective Dates Phone Addre ss Type Group MEDICARE MEDICARE PART [id number] 2009-Ira [phone] [address] Medicare [place] 2 [id number] MARYJO HESS [id number] documented as of this encounter
--- OUTSIDE RECORDS SUMMARY | 2019-11-22 20:31 | XMS REPORT | Continuity of Care Document ---
:1945 Author Organization [facility] t Address [address] [place] [address] Care Team Providers Name Role Phone Perez Garcia DO Attending Clinician Dayan Spicer MD Attending Clinician Anne MADRID Attending Clinician Maurice Baig MD Attending Clinician Frank Powell MD Attending Clinician Radiology Attending Clinician Unavailable Doctor Unassigned, Name Attending Clinician Unavailable Dayan Spicer MD Admitting Clinician Problems This patient has no known problems. Allergies, Adverse Reactions, Alerts This patient has no known allergies or adverse reactions. Medications This patient has no known medications. Procedures This patient has no known procedures. Encounters Start End Encounter Admission Attending Care Care Encounter Source Date/Time Date/Time Type Type Clinicians Facility Department ID 2019-11-18 2019-11-22 [facility] Sandy Garcia [id number] [id number] 13:21:00 18:27:00 Encounter Dimitri Spicer [id number] [facility] [place] [id number] 2019-11-20 2019-11-20 Anesthesia Stiven Baig [id number] 08:03:00 11:56:00 Seb Powell 350.1. [id number] 2018-11-11 2018-11-11 [facility] Radiology [facility] [id number] 10:44:43 23:59:00 Encounter Christopher [id number] [place] [id number] [place] [id number] 2018-11-11 2018-11-11 Orders Doctor MANUEL [id number] 00:00:00 00:00:00 Only Unassigned, HOME [id number] [place] [facility] [id number] Results This patient has no known results.
[2019-11-22 21:45] VITALS: BMI 20.7
[2019-11-22] MEDS ORDERED: TRAMADOL HCL 50 MG TAB PO PRN (21:52)
[2019-11-22] MEDS: dexAMETHasone 4 MG TAB PO SCH (22:48)
[2019-11-23] MEDS: dexAMETHasone 4 MG TAB PO SCH ×4 (03:20→21:08)
[2019-11-23] MEDS: PANTOPRAZOLE 40MG TABLET PO SCH (06:40)
[2019-11-23 06:53] LABS: Absolute Lymphocytes (CBC) 0.8 K/uL (0.7-4.9); Basophils % 0.1 % (0-1.3); Hematocrit 41.6 % (39.6-49.0); Lymphocytes % 9.6 % (15.3-44.8); MPV 10.4 fL (7.6-11.3)
[2019-11-23 07:08] LABS: BUN Blood Urea Nitrogen 18 mg/dL (7-18); Bicarbonate 27 mmol/L (21-32); Glucose Level 97 mg/dL (74-106); Magnesium 2.4 mg/dL (1.8-2.4); Potassium 4.1 mmol/L (3.5-5.1); Prealbumin 17.8 mg/dL (20-40); Sodium Level 139 mmol/L (136-145)
[2019-11-23] MEDS: DOCUSATE NA 100 MG CAP PO SCH ×2 (07:35→21:09)
[2019-11-23] MEDS: levETIRAcetam 500 MG TAB PO SCH ×2 (07:35→21:08)
[2019-11-23] MEDS: HEPARIN 5000 UNIT/ML 1 ML VIAL SQ SCH ×2 (11:00→18:47)
[2019-11-23] MEDS: DICLOFENAC SOD D.R. 75 MG TAB PO SCH ×2 (11:08→17:08)
[2019-11-23 15:56] LABS: Urine Appearance CLEAR; Urine Bilirubin NEGATIVE (NEG); Urine Blood NEGATIVE (NEG); Urine Color YELLOW; Urine Glucose NEGATIVE (NEG); Urine Protein NEGATIVE (NEG)
[2019-11-23 16:11] LABS: Urine Bacteria <20 /HPF (NONE SEEN); Urine RBC <5 /HPF (NONE SEEN)
[2019-11-23 16:12] LABS: Urine Culture Reflex Order NOT NEEDED
--- NOTE | 2019-11-23 17:24 | R.HP ---
HISTORY AND PHYSICAL FACILITY: [facility] ENCOUNTER DATE AND TIME: 11/23/2019 17:17 (CDT) MR#: [id number] NAME JUAN PABLO HUERTA ADDRESS: [address] [place] [address] CITY: [place] [address]IP [id number] PHONE: DATE OF : 1945 AGE: 74 SSN# [id number] GENDER: Male DEXTERITY Right-handed MARITAL STATUS RACE Unknown race PRE-HOSPITAL LIVING SETTING 01 - Home (private home/apt. board/care, assisted living, penitentiary, transitional living) PRE-HOSPITAL LIVING WITH Family/Relatives ENCOUNTER PHYSICIAN: Dr. Gildardo Wells M.D. REFERRING DOCTOR: ELMER BERMUDEZ MD DATE OF ADMISSION: 11/22/2019 18:25 (CDT) REFERRING FACILITY [facility] PRIMARY CARE PHYSICIAN [place] HOME TYPE AND DETAILS: Type of home: single family house # of steps within the residence: 0 # of steps to enter the residence: 3 ONSET DATE: 11/18/2019 PRIMARY DIAGNOSIS-RELATED SURGERIES: CRANIOTOMY FOR TUMOR RESECTION HISTORY OF PRESENT ILLNESS (HPI): Pt. is a 74 yo Right-handed male of unknown race. On 11/18/2019 he was admitted to [facility] with diagnosis LEFT FRONTAL BRAIN MASS. His impairment category is Brain Dysfunction 02 - Closed Injury (02.). Pre-morbidly, Pt. was independent/mod-I in Safety Awareness, Balance, Communication, Transfers Contro l, Endurance, and Self-Care; and he had good Social Cognition, Sphincter Control, and Self-Care. Currently, he has deficits of Balance, Safety Awareness, Self-Care, Transfers Control, Endurance, and Communication. Pt. is now referred to [facility] for acute in-patient rehabilitation in order to maximize patient's functional independence in activities of daily living, strength, ROM, and mobi lity. Patient has realistic goal of being discharged at assistance level 7-Ind to reside at Home with Fami ly/Relatives. Juan Pablo Huerta is a 74 -year old male that lives independently at home, with his . He lives in a single-story home and has 3 stairs to get into the house. Patient was transferred for a brain mass, complains his right leg is not working well and notes some memory difficulties. He has history PSH. 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 Speech improving. RLE strength normal. Will discontinue drain, initiate dexamethasone taper . He has always done all of his own caring, Cooking, and laundry. He performs all his own ADLs and IADLs. Prior to COVID. He was seeing his PCP regularly. He would definitely benefit from acute inpatient rehab and has become severely debilitated and unable to live at she prior level of activity at home getting him stronger and better to be back living at home independently is our goal. It is reasonable and necessary for the patient to come to acute inpatient rehab for approximately 7-10 days in order to return to his prior level of care. She is now being transferred to [facility] Inpatient rehabilitation and is medical was stable with relatively stable labs. She is now medically stable but in need of 24 hour nursing, doctor supervision and oversight while receiving active and participate in 3 hours of therapy a day/15 hours per week and receive care with intensive interdisciplinary approach. COVID-19 screening performed; spoke with patient via phone. Patient denies new onset of fever, cough, difficulty breathing, sore throat, body aches and non-allergy nasal congestion in the past 24 hours. Patient denies travel outside of [place] in the past 14 days. Patient denies any contact with someone who has a confirmed diagnosis of or is under investigation for COVID-19 in the past 14 days. Patient has been tested negative for COVID- 19. MEDICATION ALLERGIES: No Known Drug Allergies (NKDA) ENVIRONMENTAL ALLERGIES: - Substance Allergies None Known - Other Allergies None Known PAST MEDICAL HISTORY: PSH PAST SURGICAL HISTORY: CRANIOTOMY FOR TUMOR RESECTION SOCIAL HISTORY: - Home Living Family/Relatives REVIEW OF SYSTEMS: - Gen No Chills Fatigue No Fever - Eyes No Double Vision No itchiness - ENMT No Difficulty Swallowing - CVS No Chest Discomfort No Chest Pain No Fatigue No Weight Gain - Resp No Cough No Shortness of Breath - GI Continent No Abdominal Pain No Constipation No Diarrhea - Continent No Kidney Pain No Painful Urination No Urinary Urgency - MSK No Joint Pain No Muscle Cramps Stiffness - Skin No Itching No Rash No Suspicious Lesions - Neuro Coordination Difficulty Difficulty with Concentration Memory Loss No Seizures Weakness - Psych No Anxiety No Depression No HIV Exposure No Persistent Infections No Seasonal Allergies - Endo No Cold/Heat Intolerance No Excessive Hunger No Excessive Thirst No Excessive Urination PHYSICAL EXAM - Gen Alert and awake Lying in bed No apparent distress Oriented to: person, time, and place - Skin No breakdown Healing surgical wound in the left frontal scalp. Otherwise intact. - Eyes No abnormalities - ENMT No abnormalities - Neck No abnormalities - CVS RRR - Chest No abnormalities - Resp Clear to auscultation - Abd Soft - GI + bowel sounds Deferred - No abnormalities - Ext No significant edema. - MSK 4+/5 weakness in right upper and lower extremities - Neuro 4/5 strength right upper and lower extremities. - Psych No abnormalities VITAL SIGNS Temperature: 98.2 F SBP/DBP: 145/66 Pulse: 61 Resp: 16 NURSING: - Shower allowing shower - Bladder care per protocol - Skin care per protocol PRECAUTIONS: - Fall Precaution 1 to 1 supervision ACTIVITIES OOB only with supervision QI SCORES: - Self-Care A. Eating 04-Supervision or touching assistance B. Oral hygiene 03-Partial/moderate assistance C. Toileting hygiene 88-Not attempted due to medical condition or safety concerns E. Shower/bathe self 03-Partial/moderate assistance F. Upper body dressing 03-Partial/moderate assistance G. Lower body dressing 03-Partial/moderate assistance H. Putting on/taking off footwear 88-Not attempted due to medical condition or safety concerns - Mobility A. Roll left and right 03-Partial/moderate assistance B. Sit to lying 03-Partial/moderate assistance C. Lying to sitting on side of bed 03-Partial/moderate assistance D. Sit to stand 03-Partial/moderate assistance E. Chair/oco-yw-wprgr transfer 03-Partial/moderate assistance F. Toilet transfer 88-Not attempted due to medical condition or safety concerns G. Car transfer 88-Not attempted due to medical condition or safety concerns I. Walk 10 feet 03-Partial/moderate assistance J. Walk 50 feet with two turns 88-Not attempted due to medical condition or safety concerns K. Walk 150 feet 88-Not attempted due to medical condition or safety concerns L. Walking 10 feet on uneven surfaces 88-Not attempted due to medical condition or safety concerns M. 1 step (curb) 88-Not attempted due to medical condition or safety concerns N. 4 steps 88-Not attempted due to medical condition or safety concerns O. 12 steps 88-Not attempted due to medical condition or safety concerns P. Picking up object 88-Not attempted due to medical condition or safety concerns R. Wheel 50 feet with two turns 88-Not attempted due to medical condition or safety concerns S. Wheel 150 feet 88-Not attempted due to medical condition or safety concerns - Bladder and Bowel Bladder continence Bowel continence - Endurance Fair - Balance Fair - Safety Awareness Fair CURRENT [facility]. DEFICITS: Self-Care, Mobility, Endurance, Balance, and Safety Awareness MEDICATIONS: - Other See attached MAR (Medication Administration Record) ASSESSMENT: Pt. is a 74 yo Right-handed male of unknown race.On 11/18/2019 he was admitted to [facility] with diagnosis LEFT FRONTAL BRAIN MASS.His impairment category is Brain Dysfunction 02 - Closed Injury ( 04.23).Pre-morbidly, Pt. was independent/mod-I in Safety Awareness, Balance, Communication, Transfers Control, Endurance, and Self-Care; and he had good Social Cognition, Sphincter Control, and Self-Car e.Currently, he has deficits of Balance, Safety Awareness, Self-Care, Transfers Control, Endurance, a nd Communication.Pt. is now referred to [facility] for acute in-patient rehabi litation in order to maximize patient's functional independence in activities of daily living, streng th, ROM, and mobility.- Rehab Goal Patient has realistic goal of being discharged at assistance level 7-Ind to reside at Home with Fami ly/Relatives. Juan Pablo Huerta is a 74 -year old male that lives independently at home, with his . He lives in a single-story home and has 3 stairs to get into the house. Patient was transferred for a brain mass, complains his right leg is not working well and notes some memory difficulties. He has history PSH. 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 Speech improving. RLE strength normal. Will discontinue drain, initiate dexamethasone taper . He has always done all of his own caring, Cooking, and laundry. He performs all his own ADLs and IADLs. Prior to COVID. He was seeing his PCP regularly. He would definitely benefit from acute inpatient rehab and has become severely debilitated and unable to live at she prior level of activity at home getting him stronger and better to be back living at home independently is our goal. It is reasonable and necessary for the patient to come to acute inpatient rehab for approximately 7-10 days in order to return to his prior level of care. She is now being transferred to [facility] Inpatient rehabilitation and is medical was stable with relatively stable labs. She is now medically stable but in need of 24 hour nursing, doctor supervision and oversight while receiving active and participate in 3 hours of therapy a day/15 hours per week and receive care with intensive interdisciplinary approach. COVID-19 screening performed; spoke with patient via phone. Patient denies new onset of fever, cough, difficulty breathing, sore throat, body aches and non-allergy nasal congestion in the past 24 hours. Patient denies travel outside of [place] in the past 14 days. Patient denies any contact with someone who has a confirmed diagnosis of or is under investigation for COVID-19 in the past 14 days. Patient has been tested negative for COVID- 19.REHAB PLAN: - Physical Therapy Gait dysfunction - to improve, our physical therapists will perform initial evaluation of pt's status upon admission and devise an individualized program for Gait Training, and Wheel Chair mobility Inability to transfer - to improve, our physical therapists will perform initial evaluation of pt's s tatus upon admission and devise an individualized program for Bed mobility Need for home safety evaluation - to improve, our physical therapists will perform initial evaluation of pt's status upon admission and devise an individualized program for Home Evaluation Need in caregiver upon discharge - to improve, our physical therapists will perform initial evaluatio n of pt's status upon admission and devise an individualized program for Caregiver Training New precaution - to improve, our physical therapists will perform initial evaluation of pt's status u deborah admission and devise an individualized program for Patient precaution education Edema - to improve, our physical therapists will perform initial evaluation of pt's status upon admi ssion and devise an individualized program for Elevation Training, and Lymphedema Therapy Having wound - to improve, our physical therapists will perform initial evaluation of pt's status up on admission and devise an individualized program for Wound Care Poor balance - to improve, our physical therapists will perform initial evaluation of pt's status upo n admission and devise an individualized program for Balance Training Poor endurance - to improve, our physical therapists will perform initial evaluation of pt's status u deborah admission and devise an individualized program for Endurance Training Weakness - to improve, our physical therapists will perform initial evaluation of pt's status upon ad mission and devise an individualized program for Aquatic Therapy, Neuromuscular Reeducation, and Stre ngthening Achieving independence - to improve, our physical therapists will perform initial evaluation of pt's status upon admission and devise an individualized program for Community Reintegration Activities - Occupational Therapy ADL deficits - to improve, our occupation therapists will perform initial evaluation of pt's status u deborah admission and devise an individualized program for Bathing, Bed mobility, Community Reintegration , Cooking, Dressing, Eating, Fine Motor Skills, Grooming, Homemaking, Kitchen Mobility, Laundry, Dalila ent Education, Safety Awareness, Splinting - Positioning, Transfers(Toilet, Tub, Shower), and Wheel C hair Management Need for resident care provider - to improve, our occupation therapists will perform initial evaluation of pt's s tatus upon admission and devise an individualized program for Caregiver Training Weakness - to improve, our occupation therapists will perform initial evaluation of pt's status upon admission and devise an individualized program for Aquatic Therapy, Balance, Endurance, UE ROM, and U E strengthening MEDICAL PLAN: - Diet Type Start Regular - Diet - Liquid Texture Start Regular - Tube Feed Start N/A - Bladder care per protocol - Fall Precaution 1 to 1 supervision - Skin care per protocol - Other See attached MAR (Medication Administration Record) - Diet - Solid Texture Regular - Shower shower DISCHARGE PLAN: - Estimated Length of Stay (days) 17. - Consensus on plan Discharge plan has been discussed with primary caregiver. Patient/Family is in agreement with the lon n. Primary caregiver is in agreement with the plan. - Patient/Family Goals Return home independently. - Planned Living Setting Upon Discharge Home, to live with Family/Relatives. Transitional Living. SIGNATURE PANEL: (CDT)
--- NOTE | 2019-11-23 17:26 | PAPE ---
POST ADMISSION PHYSICIAN EVALUATION PATIENT: [facility] MR# [id number] REFERRING DOCTOR ELMER BERMUDEZ MD PRIMARY CARE PHYSICIAN TAMI EVALUATION DATE AND TIME 11/23/2019 17:24 (CDT) NAME JUAN PABLO TOURE DATE OF 1945 AGE 74 PHONE N# [id number] GENDER male EVALUATING PHYSICIAN Dr. Gildardo Wells M.D. ADMISSION DIAGNOSIS: LEFT FRONTAL BRAIN MASS ONSET DATE 11/18/2019 POST-ADMISSION FUNCTIONAL/MEDICAL STATUS: - Bladder Same accident frequency: Ind - No accidents in the past 7 days - Bowel Same accident frequency: Ind - No accidents in the past 7 days - Walking Same score based on distance walked: 0(N/A) Same score based on distance walked: 3(>=150ft) - Wheelchair Same score based on distance traveled: 0(N/A) STATUS CHANGE EVALUATION: No change in Functional or Medical Status is identified compared with Pre-Admission screening. PATIENT NEEDS CLOSE MEDICAL SUPERVISION BY A REHABILITATION PHYSICIAN FOR: Coordination of Treatment Team PATIENT REQUIRES 24X7 REHAB NURSING FOR MEDICAL AND FUNCTIONAL MGT. OF THE FOLLOWING DEFICITS: Disease Management Medication Management Patient/Family Education Providing Safe Environment PATIENT REQUIRES INTENSIVE, COORDINATED INTERDISCIPLINARY APPROACH TO REHAB: Arranging Home Equipment/Services Discharge Planning Family Intervention/Training Weighmaster/Case Management LIST OF IDENTIFIED AND POTENTIAL PROBLEMS: Alteration in leisure activities Bladder, Incontinence Bowel, Incontinence Infection, Actual or Potential Mobility Impaired Pain, Alteration in Comfort Self Care Deficit Skin Integrity, Actual or Potential Urinary Tract Infection (UTI), Actual or Potential PATIENT COULD BE AT RISK FOR COMPLICATIONS FROM ADVERSE MEDICAL CONDITIONS DUE TO HIS/HER COMORBIDITI ES AND THE RIGORS OF THE INTENSIVE REHABILLITATION PROGRAM. METHODS OR INTERVENTIONS TO AVOID COMPLIC ATIONS INCLUDE: - Infection Clinical staff to assess and manage the signs and symptoms of infection including fever, redness, war mth, etc. - Urinary Tract Infection - Falls Patient will be evaluated for Fall Precautions and will be placed on Fall Precautions as indicated pe r protocol. - Skin Breakdown Nursing will assess skin daily using assessment tool and will place on Skin Breakdown Precautions as indicated per protocol. - Pain Clinical staff may employ non-medication methods such as massage, distraction, decrease stimulus, etc . as needed. Clinical staff will assess patient's pain level every shift per protocol to assess and e nsure pain management effectiveness. Medications will be given and the pain level re-assessed. PRELIMINARY PLAN OF CARE: - Physical Therapy Patient needs Physical Therapy for a daily minimum of 1.5 hours at least 5 out of 7 days, to improve: Mobility, Strengthening, Transfers, Stretching, ROM, Endurance, Ability to manage stairs, Gait, and Balance. - Speech Therapy Patient needs Speech Therapy for a daily minimum of 0.5 hours at least 5 out of 7 days, to improve: S wallowing, Cognition, Language Skills, and Compensatory Strategies. - Rehabilitation Nursing Patient requires 24x7 Rehabilitation Nursing for: Pain Issues, Identifying and preventing risk factor s, Monitoring and reporting current medical conditions, Assisting with ambulation and transfer, Grayson ting with all ADL-s, Teaching patients about disease process and medications, Family teaching, Provid ing safe environment, Bowel and Bladder Issues, Skin Integrity, and Medication Management. Patient needs Weighmaster and/or Case Management for: Discharge Planning, Arranging Home Equipmen t or Services, and Family Interventions. - Dietary and Nutrition Services Patient needs Dietary and Nutrition Services for: Adequate Nutrition, Nutritional Supplements, and Nu tritional Education. - Occupational Therapy Patient needs Occupational Therapy for a daily minimum of 1.5 hours at least 5 out of 7 days, to impr ove Activities of Daily Living, including: Eating, Grooming, Bathing, Dressing, Toileting, Toilet Tra nsfers, Community Reintegration, Higher functional activities, Adaptive Equipment, Splinting, Househo ld Tasks, and Other activities as determined. QI SCORES: - Self-Care A. Eating 04-Supervision or touching assistance B. Oral hygiene 03-Partial/moderate assistance C. Toileting hygiene 88-Not attempted due to medical condition or safety concerns E. Shower/bathe self 03-Partial/moderate assistance F. Upper body dressing 03-Partial/moderate assistance G. Lower body dressing 03-Partial/moderate assistance H. Putting on/taking off footwear 88-Not attempted due to medical condition or safety concerns - Mobility A. Roll left and right 03-Partial/moderate assistance B. Sit to lying 03-Partial/moderate assistance C. Lying to sitting on side of bed 03-Partial/moderate assistance D. Sit to stand 03-Partial/moderate assistance E. Chair/saw-mo-wtnxm transfer 03-Partial/moderate assistance F. Toilet transfer 88-Not attempted due to medical condition or safety concerns G. Car transfer 88-Not attempted due to medical condition or safety concerns I. Walk 10 feet 03-Partial/moderate assistance J. Walk 50 feet with two turns 88-Not attempted due to medical condition or safety concerns K. Walk 150 feet 88-Not attempted due to medical condition or safety concerns L. Walking 10 feet on uneven surfaces 88-Not attempted due to medical condition or safety concerns M. 1 step (curb) 88-Not attempted due to medical condition or safety concerns N. 4 steps 88-Not attempted due to medical condition or safety concerns O. 12 steps 88-Not attempted due to medical condition or safety concerns P. Picking up object 88-Not attempted due to medical condition or safety concerns R. Wheel 50 feet with two turns 88-Not attempted due to medical condition or safety concerns S. Wheel 150 feet 88-Not attempted due to medical condition or safety concerns - Bladder and Bowel Bladder continence Bowel continence - Endurance Fair - Balance Fair - Safety Awareness Fair POTENTIAL FUNCTIONAL GOALS FOR PATIENT TO ACHIEVE BY DISCHARGE: - Safety Precaution Patient will remain free from falls or injury at time of discharge. - Bed Mobility Patient will perform bed mobility at 4-Adelita level of assistance. - Transfers Patient will complete transfers from bed to chair at 4-Adelita level of assistance. - Mobility Patient will ambulate 150 ft with 4-Adelita level of assistance with RW. PATIENT REHAB POTENTIAL Samuel TOURE is able and expected to receive 3 hours of individualized therapy daily on at least 5 of e very 7 days Samuel TOURE's prognosis for significant practical improvement within a reasonable period of time appea rs Good Expected level of measurable improvement will be of a practical value to Samuel TOURE's functional capa city or adaptations to impairments Has a viable Discharge Plan Medically appropriate; condition is sufficiently stable to participate in intensive rehab program DISCHARGE PLAN: - Estimated Length of Stay (days) 17. - Consensus on plan Discharge plan has been discussed with primary caregiver. Patient/Family is in agreement with the lon n. Primary caregiver is in agreement with the plan. - Patient/Family Goals Return home independently. - Planned Living Setting Upon Discharge Home, to live with Family/Relatives. Transitional Living. CONCLUSION ON REHABILITATION NECESSITY: I have evaluated patient's pre-admission functional status and, comparing it to the patient's post-ad mission functional status now, I conclude that the pre-admission assessment was accurate. Patient's c ondition on admission supports the medical necessity of admission to [facility]. It is safe to proceed with patient's therapy program. SIGNATURE PANEL: (CDT)
[2019-11-24] MEDS: dexAMETHasone 4 MG TAB PO SCH ×4 (04:45→21:20)
[2019-11-24 06:51] LABS: Absolute Lymphocytes (CBC) 0.7 K/uL (0.7-4.9); Basophils % 0.1 % (0-1.3); Lymphocytes % 10.1 % (15.3-44.8); MPV 10.3 fL (7.6-11.3); RBC Red Blood Cell Count 4.35 M/uL (4.33-5.43)
[2019-11-24 07:05] LABS: Albumin 2.8 g/dL (3.4-5.0); Magnesium 2.4 mg/dL (1.8-2.4); Potassium 4.9 mmol/L (3.5-5.1); Prealbumin 19.3 mg/dL (20-40)
[2019-11-24] MEDS: PANTOPRAZOLE 40MG TABLET PO SCH (07:49)
[2019-11-24] MEDS: ASPIRIN 81 MG CHEWABLE TABLET PO SCH (07:54)
[2019-11-24] MEDS: levETIRAcetam 500 MG TAB PO SCH ×2 (07:54→21:20)
[2019-11-24] MEDS: APIXABAN 2.5 MG TABLET PO SCH ×2 (07:54→21:20)
[2019-11-24] MEDS: DICLOFENAC SOD D.R. 75 MG TAB PO SCH ×2 (07:54→16:46)
[2019-11-24] MEDS: DOCUSATE NA 100 MG CAP PO SCH ×2 (07:54→21:20)
[2019-11-24 08:31] LABS: Blood Morphology Comment NOT SEEN (NOT SEEN); Platelet Estimate ADEQ
[2019-11-24] MEDS ORDERED: DOCUSATE NA/SENNA CONC 1 TAB PO PRN (13:39)
[2019-11-24] MEDS ORDERED: BISACODYL 10 MG RECTAL SUPP PR PRN (13:40)
--- NOTE | 2019-11-24 17:25 | R.PN ---
PROGRESS NOTES ENCOUNTER DATE AND TIME: 11/24/2019 17:15 (CDT) NAME JUAN PABLO TOURE DATE OF : 1945 DATE OF ADMISSION: 11/22/2019 18:25 (CDT) LEFT FRONTAL BRAIN MASSCHIEF COMPLAINT: Left frontal brain mass SUBJECTIVE: Pt denied any depression. Pt denied any Shortness of Breath. Ambulated 1500' with standby assistance without an assistive device. Up and down 15 steps with standb y assistance. CBC with differential is normal. Prealbumin is 19.3, glucose 97 to 115. UA is negative. VITAL SIGNS Temperature: 98.2 F SBP/DBP: 146/66 Pulse:54 Resp: 16 MEDICATION ALLERGIES: No Known Drug Allergies (NKDA) ENVIRONMENTAL ALLERGIES: - Substance Allergies None Known - Other Allergies None Known NURSING: - Shower allowing shower - Bladder care per protocol - Skin care per protocol PRECAUTIONS: - Fall Precaution 1 to 1 supervision ACTIVITIES OOB only with supervision THERAPIES: - Occupational Therapy Cognitive Retraining. Visual Perceptual Training. - Dietary and Nutrition Adequate Nutrition. Nutritional Education. Nutritional Supplements. - Speech Therapy Augmentative Communication Equipment. PHYSICAL EXAM - Gen Alert and awake Lying in bed No apparent distress Oriented to: person, time, and place - Skin No breakdown Healing surgical wound in the left frontal scalp. Otherwise intact. - Eyes No abnormalities - ENMT No abnormalities - Neck No abnormalities - CVS RRR - Chest No abnormalities - Resp Clear to auscultation - Abd Soft - GI + bowel sounds Deferred - No abnormalities - Ext No significant edema. - MSK 4+/5 weakness in right upper and lower extremities - Neuro 4/5 strength right upper and lower extremities. - Psych No abnormalities ASSESSMENT: Pt. is a 74 yo Right-handed male of unknown race.On 11/18/[address] [facility] with diagnosis LEFT FRONTAL BRAIN MASS.His impairment category is Brain Dysfunction 02 - Closed Injury ( 04.23).Pre-morbidly, Pt. was independent/mod-I in Safety Awareness, Balance, Communication, Transfers Control, Endurance, and Self-Care; and he had good Social Cognition, Sphincter Control, and Self-Car e.Currently, he has deficits of Balance, Safety Awareness, Self-Care, Transfers Control, Endurance, a nd Communication.Pt. is now referred to [facility] for acute in-patient rehabi litation in order to maximize patient's functional independence in activities of daily living, streng th, ROM, and mobility.- Rehab Goal Patient has realistic goal of being discharged at assistance level 7-Ind to reside at Home with Fami ly/Relatives. MDM/PLAN: - Physical Therapy Gait dysfunction - to improve, our physical therapists will perform initial evaluation of pt's statu s upon admission and devise an individualized program for Gait Training, and Wheel Chair mobility Inability to transfer - to improve, our physical therapists will perform initial evaluation of pt's status upon admission and devise an individualized program for Bed mobility Need for home safety evaluation - to improve, our physical therapists will perform initial evaluatio n of pt's status upon admission and devise an individualized program for Home Evaluation Need in caregiver upon discharge - to improve, our physical therapists will perform initial evaluati on of pt's status upon admission and devise an individualized program for Caregiver Training New precaution - to improve, our physical therapists will perform initial evaluation of pt's status upon admission and devise an individualized program for Patient precaution education Edema - to improve, our physical therapists will perform initial evaluation of pt's status upon admis telma and devise an individualized program for Elevation Training, and Lymphedema Therapy Having wound - to improve, our physical therapists will perform initial evaluation of pt's status upo n admission and devise an individualized program for Wound Care Poor balance - to improve, our physical therapists will perform initial evaluation of pt's status up on admission and devise an individualized program for Balance Training Poor endurance - to improve, our physical therapists will perform initial evaluation of pt's status upon admission and devise an individualized program for Endurance Training Weakness - to improve, our physical therapists will perform initial evaluation of pt's status upon a dmission and devise an individualized program for Aquatic Therapy, Neuromuscular Reeducation, and Str engthening Achieving independence - to improve, our physical therapists will perform initial evaluation of pt's status upon admission and devise an individualized program for Community Reintegration Activities - Occupational Therapy ADL deficits - to improve, our occupation therapists will perform initial evaluation of pt's status upon admission and devise an individualized program for Bathing, Bed mobility, Community Reintegratio n, Cooking, Dressing, Eating, Fine Motor Skills, Grooming, Homemaking, Kitchen Mobility, Laundry, Pat ient Education, Safety Awareness, Splinting - Positioning, Transfers(Toilet, Tub, Shower), and Wheel Chair Management Need for respiratory care assistant - to improve, our occupation therapists will perform initial evaluation of pt's status upon admission and devise an individualized program for Caregiver Training Weakness - to improve, our occupation therapists will perform initial evaluation of pt's status upon admission and devise an individualized program for Aquatic Therapy, Balance, Endurance, UE ROM, and UE strengthening - Other See attached MAR (Medication Administration Record) - Diet Type Continue Regular - Diet - Liquid Texture Continue Regular - Tube Feed Continue N/A - Bladder care per protocol - Fall Precaution 1 to 1 supervision - Skin care per protocol - Diet - Solid Texture Continue Regular - Shower allowing shower FUNCTIONAL STATUS: UPDATED AT WEEKLY TEAM CONFERENCE - Bladder Same accident frequency: 7-Ind - No accidents in the past 7 days - Bowel Same accident frequency: 7-Ind - No accidents in the past 7 days - Walking Same score based on distance walked: 0(N/A) Same score based on distance walked: 3(>=150ft) - Wheelchair Same score based on distance traveled: 0(N/A) FUNCTIONAL STATUS: - Self-Care A. Eating Marimar B. Grooming Marimar C. Bathing sup D. Dressing - Upper sup E. Dressing - Lower sup F. Toileting Marimar - Sphincter Control G. Bladder control Marimar H. Bowel control Marimar - Transfers Control I. Bed/Chair/Wheelchair sup J. Toilet sup K. Tub/Shower sup - Locomotion L. Walk/Wheelchair (B) sup M. Stairs sup - Communication N. Comprehension (B) Marimar O. Expression (B) Marimar - Social Cognition P. Social Interaction Marimar Q. Problem Solving Marimar R. Memory Marimar - Endurance Good - Balance Good - Safety Awareness Fair QI SCORES: - Self-Care A. Eating 04-Supervision or touching assistance B. Oral hygiene 03-Partial/moderate assistance C. Toileting hygiene 88-Not attempted due to medical condition or safety concerns E. Shower/bathe self 03-Partial/moderate assistance F. Upper body dressing 03-Partial/moderate assistance G. Lower body dressing 03-Partial/moderate assistance H. Putting on/taking off footwear 88-Not attempted due to medical condition or safety concerns - Mobility A. Roll left and right 03-Partial/moderate assistance B. Sit to lying 03-Partial/moderate assistance C. Lying to sitting on side of bed 03-Partial/moderate assistance D. Sit to stand 03-Partial/moderate assistance E. Chair/lfu-se-slcvg transfer 03-Partial/moderate assistance F. Toilet transfer 88-Not attempted due to medical condition or safety concerns G. Car transfer 88-Not attempted due to medical condition or safety concerns I. Walk 10 feet 03-Partial/moderate assistance J. Walk 50 feet with two turns 88-Not attempted due to medical condition or safety concerns K. Walk 150 feet 88-Not attempted due to medical condition or safety concerns L. Walking 10 feet on uneven surfaces 88-Not attempted due to medical condition or safety concerns M. 1 step (curb) 88-Not attempted due to medical condition or safety concerns N. 4 steps 88-Not attempted due to medical condition or safety concerns O. 12 steps 88-Not attempted due to medical condition or safety concerns P. Picking up object 88-Not attempted due to medical condition or safety concerns R. Wheel 50 feet with two turns 88-Not attempted due to medical condition or safety concerns S. Wheel 150 feet 88-Not attempted due to medical condition or safety concerns - Bladder and Bowel Bladder continence Bowel continence - Endurance Fair - Balance Fair - Safety Awareness Fair CURRENT [facility]. DEFICITS: Self-Care, Mobility, Endurance, Balance, and Safety Awareness SIGNATURE PANEL: (CDT)
--- NOTE | 2019-11-24 21:08 | PN ---
Date of Progress Note: 11/24/2019 Subjective: The patient was seen this morning for followup. No new complaints or problems reported by the patient, lying in bed, not in distress. Denies any headache, nausea, or vomiting. Objective: Vital Signs: Reviewed. HEENT: Examination unremarkable except presence of markel on the left scalp. Heart: Sounds normal. Abdomen: Soft. Bowel sounds are normal. No guarding, rigidity, tenderness, or distention. Extremities: No leg edema. Neuro: No focal neurological deficits. Impression: 1.Brain tumor, status post surgery. 2.Generalized weakness. 3.Hypertension. 4.Hyperlipidemia. Plan: We will continue current medication. Continue current steroid therapy. Heparin for DVT proph ylaxis. Continue physical therapy under guidance of Dr. Wells. I will see him tomorrow for dexter shelby. VITA/MODL Voice ID: [id number] Report ID: [id number]
--- NOTE | 2019-11-24 21:24 | HP ---
Date of Admission: 11/23/2019 Chief Complaint: For rehab therapy after brain surgery. History Of Present Illness: This is a 74-year-old pleasant male who started to have increasing problem with memory, incontinence of urine and bowel, trouble walking with a shuffling gait, tremors of hands, and all these symptoms started in March of this year, progressively got worse. So 10/31/2019, the patient had a Tele visit with me, and at that time, he was advised to see neurologist. 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 After his surgery, he was brought to our rehab floor for further rehab therapy. When I saw him, he denied any complaints of headache, nausea, vomiting. No visual complaints. No tingling, numbness of hands or legs. No weakness of hands or legs. No incontinence problem. Allergies: NO KNOWN ALLERGIES. Medications: Current medication list reviewed. Prior to this hospital admission and surgery, the patient was not taking any medications at home. Review of Systems: [employer] as mentioned above. All other systems reviewed and negative. Past Medical History: Significant for asbestosis, hyperlipidemia, diverticulosis, benign prostatic hypertrophy, rheumatoid arthritis, polymyalgia rheumatica. Past Surgical History: Cataract surgery, tonsillectomy, back surgery. Family History: Father had cerebral aneurysm. Mother and brother and sister with Alzheimer disease. Social History: Positive for smoking. Negative for alcohol use. Physical Examination: Vital Signs: Temperature 98, pulse 47, respiratory rate 16, blood pressure 145/66, oxygen saturation 98%. Height 5 feet 8 inches, weight 136 pounds. General: Awake, alert, oriented, not in distress. HEENT: Presence of markel over left side of the scalp noted. No swelling. No discharge, redness, bleeding. No tenderness. Conjunctivae nonerythematous. Sclerae white. Mouth, no thrush or edema noted. Ears/Nose, no mass, lesion, discharge noted. Neck: Supple. No JVD, lymph nodes, bruit, thyromegaly noted. Lungs: Bilateral good equal air entry. Clear to auscultation. No rhonchi. No rales. Heart: Normal heart sounds, no murmur or gallop. Abdomen: Soft, bowel sounds normal. No guarding, rigidity, tenderness, mass, hepatosplenomegaly, distention, or bruit noted. Extremities: No leg edema. No calf tenderness. Skin: No rash, ulcer, cellulitis. Lymphatics: No lymph node enlargement in neck, supraclavicular, infraclavicular region. Neuro: No focal neurological deficit. Chest: Unremarkable. External Genitalia: Deferred. Rectal: Deferred. Laboratory Data: White count 7.8, hemoglobin 14.5, platelets 151. Sodium 139, potassium 4.1, chloride 107, bicarb 27, BUN 18, creatinine 0.78, glucose 97, albumin 3. Impression And Plan: 1. Brain tumor, status post surgery. 2. Generalized weakness. 3. Hypertension. 4. Thrombocytopenia. 5. Hyperlipidemia. 6. Diverticulosis. 7. Benign prostatic hypertrophy. Plan: Admit the patient to hospital for further evaluation and management of this problem. The patient will be admitted to rehab floor. We will consult Dr. Wells who will provide rehab therapy. Current medications will be continued. We will continue heparin that he was getting at the other facility 5000 units subcutaneous injection every 12 hours for DVT prophylaxis. Continue other current medication order per transfer order and I will see him tomorrow for followup. Options have discussed with him. VITA/MODL Voice ID: [id number] MTDD
[2019-11-25] MEDS: dexAMETHasone 4 MG TAB PO SCH ×4 (03:49→19:44)
[2019-11-25] MEDS: PANTOPRAZOLE 40MG TABLET PO SCH (06:25)
[2019-11-25] MEDS: ASPIRIN 81 MG CHEWABLE TABLET PO SCH (08:01)
[2019-11-25] MEDS: levETIRAcetam 500 MG TAB PO SCH ×2 (08:01→19:40)
[2019-11-25] MEDS: DOCUSATE NA 100 MG CAP PO SCH ×2 (08:01→19:40)
[2019-11-25] MEDS: APIXABAN 2.5 MG TABLET PO SCH ×2 (08:01→19:40)
[2019-11-25] MEDS: DICLOFENAC SOD D.R. 75 MG TAB PO SCH ×2 (08:01→16:57)
--- NOTE | 2019-11-25 09:36 | P.RH.PN ---
Estimated Length of Stay: 10 Expected Discharge Date: 11/01/19 Discharge Disposition Plan: Home Family Support: Yes Senior Care Goal: Mobility, Transfers, Self Care Vital Signs: Last Vital Signs Temp 97.6 F 11/25/19 07:53 Pulse 50 11/25/19 07:53 Resp 16 11/25/19 07:53 BP 141/80 H 11/25/19 07:53 Pulse Ox 100 11/25/19 07:53 Laboratory: Laboratory Last Values WBC 6.6 K/uL (4.3-10.9) D 11/24/19 06:27 RBC 4.35 M/uL (4.33-5.43) 11/24/19 06:27 Hgb 14.0 g/dL (13.6-17.9) 11/24/19 06:27 Hct 41.0 % (39.6-49.0) 11/24/19 06:27 MCV 94.2 fL (80-100) 11/24/19 06:27 MCH 32.2 pg (27.0-35.0) 11/24/19 06:27 MCHC 34.2 g/dL (32.0-36.0) 11/24/19 06:27 RDW 13.9 % (12.1-15.2) 11/24/19 06:27 Plt Count 157 K/uL (152-406) 11/24/19 06:27 MPV 10.3 fL (7.6-11.3) 11/24/19 06:27 Neutrophils % 85.0 % (41.7-73.7) H 11/24/19 06:27 Lymphocytes % 10.1 % (15.3-44.8) L 11/24/19 06:27 Monocytes % 4.8 % (3.3-12.3) 11/24/19 06:27 Eosinophils % 0.0 % (0-4.4) 11/24/19 06:27 Basophils % 0.1 % (0-1.3) 11/24/19 06:27 Absolute Neutrophils 5.6 K/uL (1.8-8.0) 11/24/19 06:27 Segmented Neutrophils 78 % (40-80) 11/24/19 06:27 Absolute Lymphocytes 0.7 K/uL (0.7-4.9) 11/24/19 06:27 Lymphocytes 14 % (15-42) L 11/24/19 06:27 Monocytes 8 % (0-10) 11/24/19 06:27 Absolute Monocytes 0.3 K/uL (0.1-1.3) 11/24/19 06:27 Absolute Eosinophils 0.0 K/uL (0-0.5) 11/24/19 06:27 Absolute Basophils 0.0 K/uL (0-0.5) 11/24/19 06:27 Platelet Estimate Adeq 11/24/19 06:27 Morphology Comment Not seen (NOT SEEN) 11/24/19 06:27 Sodium 140 mmol/L (136-145) 11/24/19 06:27 Potassium 4.9 mmol/L (3.5-5.1) 11/24/19 06:27 Chloride 110 mmol/L (98-107) H 11/24/19 06:27 Carbon Dioxide 29 mmol/L (21-32) 11/24/19 06:27 BUN 18 mg/dL (7-18) 11/24/19 06:27 Creatinine 0.88 mg/dL (0.55-1.3) 11/24/19 06:27 Estimated GFR 84 mL/min (=/>90) L 11/24/19 06:27 Glucose 115 mg/dL (74-106) H 11/24/19 06:27 Calcium 8.2 mg/dL (8.5-10.1) L 11/24/19 06:27 Magnesium 2.4 mg/dL (1.8-2.4) 11/24/19 06:27 Albumin 2.8 g/dL (3.4-5.0) L 11/24/19 06:27 Prealbumin 19.3 mg/dL (20-40) L 11/24/19 06:27 Urine Color Cancelled 11/23/19 15:15 Urine Color Yellow 11/23/19 15:15 Urine Appearance Cancelled 11/23/19 15:15 Urine Appearance Clear 11/23/19 15:15 Urine pH 6.0 (5.0-7.0) 11/23/19 15:15 Urine pH Cancelled 11/23/19 15:15 Ur Specific [place] 1.010 (1.005-1.030) 11/23/19 15:15 Ur Specific [place] Cancelled 11/23/19 15:15 Glucose (UA)(Auto) Cancelled 11/23/19 15:15 Glucose (UA)(Auto) Negative (NEG) 11/23/19 15:15 Urine Ketones Cancelled 11/23/19 15:15 Urine Ketones Negative (NEG) 11/23/19 15:15 Urine Blood Cancelled 11/23/19 15:15 Urine Blood Negative (NEG) 11/23/19 15:15 Urine Nitrite Cancelled 11/23/19 15:15 Urine Nitrite Negative (NEG) 11/23/19 15:15 Urine Bilirubin Cancelled 11/23/19 15:15 Urine Bilirubin Negative (NEG) 11/23/19 15:15 Urine Urobilinogen 1.0 mg/dL (0.2-1.0) 11/23/19 15:15 Urine Urobilinogen Cancelled 11/23/19 15:15 Ur Leukocyte Esterase Cancelled 11/23/19 15:15 Ur Leukocyte Esterase Negative (NEG) 11/23/19 15:15 Urine RBC <5 /HPF (NONE SEEN) 11/23/19 15:15 Urine RBC Cancelled 11/23/19 15:15 Urine WBC <5 /HPF (<5) 11/23/19 15:15 Urine WBC Cancelled 11/23/19 15:15 Ur Squamous Epith Cells <5 /HPF (NONE SEEN) 11/23/19 15:15 Ur Squamous Epith Cells Cancelled 11/23/19 15:15 Ur Urothelial Cells Cancelled 11/23/19 15:15 Calcium Oxalate Crystal Cancelled 11/23/19 15:15 Uric Acid Crystals Cancelled 11/23/19 15:15 Triple Phos Crystals Cancelled 11/23/19 15:15 Other Crystals Cancelled 11/23/19 15:15 Amorphous Sediment Cancelled 11/23/19 15:15 Glitter Cells Cancelled 11/23/19 15:15 Urine Bacteria <20 /HPF (NONE SEEN) 11/23/19 15:15 Urine Bacteria Cancelled 11/23/19 15:15 Hyaline Casts Cancelled 11/23/19 15:15 Fine Granular Casts Cancelled 11/23/19 15:15 Coarse Granular Casts Cancelled 11/23/19 15:15 Waxy Casts Cancelled 11/23/19 15:15 RBC Casts Cancelled 11/23/19 15:15 WBC Casts Cancelled 11/23/19 15:15 Urine Mucus Cancelled 11/23/19 15:15 Urine Other Cancelled 11/23/19 15:15 Urine Trichomonas Cancelled 11/23/19 15:15 Urine Yeast Cancelled 11/23/19 15:15 Ur Yeast w Hyphae Cancelled 11/23/19 15:15 Urine Yeast (Budding) Cancelled 11/23/19 15:15 Urine Sperm Cancelled 11/23/19 15:15 Urine Culture Reflexed Cancelled 11/23/19 15:15 Urine Culture Reflexed Not needed 11/23/19 15:15 Urine Total Volume Cancelled 11/23/19 15:15 Urine Total Protein Cancelled 11/23/19 15:15 Urine Total Protein Negative (NEG) 11/23/19 15:15 Weight: 136 lb 4.8 oz Wound Present: No Negative Pressure Wound Therapy Present: No Physician Update: Labs reviewed and are stable. He is standby assistance with ambulation and no assistive device. He is cognitively intact but may require speech therapy. He will have radiation locally by our radiation oncologist. He will follow with [facility] for suture removal. Functional Improvement: Patient is working toward short-term and long-term goals. Patient is currently SBA w/ stand pivot transfers, gait, and stairs tx. Patient presents w/ impulsivity and is easily distracted. Summary: Patient's care plan and [facility] goals have been reviewed and revised as necessary. Please see the Rehabilitation Signature page for all necessary signatures.
--- NOTE | 2019-11-25 10:31 | PN ---
Date of Progress Note: 11/25/2019 Subjective: The patient was seen this morning for followup. No new complaints or problems reported by the patient. Denies any headache, nausea, vomiting. Objective: Vital Signs: Reviewed. HEENT: Examination unremarkable. Lungs: Clear to auscultation. Heart: Sounds normal. Abdomen: Soft. Bowel sounds normal. No guarding, rigidity, tenderness, or distention. Extremities: No leg edema. Neuro: No focal neurological deficit. Impression: 1. Brain tumor, status post resection. 2. Benign prostatic hypertrophy. 3. Hyperlipidemia. Plan: We will continue current medication. Continue to follow up with Dr. Wells from Rehab for rehab therapy. The patient reports very slight nose bleed yesterday like a few drops on the tissue paper, but no further problem after that, so we will continue to give Heparin for DVT prophylaxis as per order. VITA/MODL Voice ID: [id number] Report ID: [id number] MTDD
--- NOTE | 2019-11-25 14:30 | FAST ---
OT QI REPORT FORM ENCOUNTER DATE AND TIME: 11/25/2019 08:00 (CDT) NAME JUAN PABLO TOURE DATE OF : 1945 DATE OF ADMISSION: 11/22/2019 18:25 (CDT) PHONE: AGE: 74 N# [id number] GENDER: Male ENCOUNTER PHYSICIAN: Dr. Gildardo Wells M.D. ADMISSION DIAGNOSIS: - Brain Dysfunction 02 - Closed Injury (04.23) LEFT FRONTAL BRAIN MASS. EATING: Not assessed/no information CODE: - ORAL HYGIENE: ORAL HYGIENE - STEP 1: Does the patient complete the activity by him/herself with no assistance (physical, verbal/nonverbal cueing, setup/clean-up)? No. ORAL HYGIENE - STEP 2: Does the patient need only setup/clean-up assistance from one helper? No. ORAL HYGIENE - STEP 3: Does the patient need only verbal/nonverbal cueing or touching/steadying/contact guard assistance fro m one helper? Yes. 1. [id number] ADMISSION PERFORMANCE: Supervision or touching assistance CODE: 04 TOILETING HYGIENE: Not assessed/no information CODE: - BATHING: SHOWER/BATHE SELF - STEP 1: Does the patient complete the activity by him/herself with no assistance (physical, verbal/nonverbal cueing, setup/clean-up)? No. SHOWER/BATHE SELF - STEP 2: Does the patient need only setup/clean-up assistance from one helper? No. SHOWER/BATHE SELF - STEP 3: Does the patient need only verbal/nonverbal cueing or touching/steadying/contact guard assistance fro m one helper? Yes. 1. [id number] ADMISSION PERFORMANCE: Supervision or touching assistance CODE: 04 DRESSING - UPPER BODY: DRESSING - UPPER BODY - STEP 1: Does the patient complete the activity by him/herself with no assistance (physical, verbal/nonverbal cueing, setup/clean-up)? No. DRESSING - UPPER BODY - STEP 2: Does the patient need only setup/clean-up assistance from one helper? No. DRESSING - UPPER BODY - STEP 3: Does the patient need only verbal/nonverbal cueing or touching/steadying/contact guard assistance fro m one helper? Yes. 1. [id number] ADMISSION PERFORMANCE: Supervision or touching assistance CODE: 04 DRESSING - LOWER BODY: DRESSING - LOWER BODY - STEP 1: Does the patient complete the activity by him/herself with no assistance (physical, verbal/nonverbal cueing, setup/clean-up)? No. DRESSING - LOWER BODY - STEP 2: Does the patient need only setup/clean-up assistance from one helper? No. DRESSING - LOWER BODY - STEP 3: Does the patient need only verbal/nonverbal cueing or touching/steadying/contact guard assistance fro m one helper? Yes. 1. [id number] ADMISSION PERFORMANCE: Supervision or touching assistance CODE: 04 PUTTING ON/TAKING OFF FOOTWEAR: FOOTWEAR - STEP 1: Does the patient complete the activity by him/herself with no assistance (physical, verbal/nonverbal cueing, setup/clean-up)? No. FOOTWEAR - STEP 2: Does the patient need only setup/clean-up assistance from one helper? No. FOOTWEAR - STEP 3: Does the patient need only verbal/nonverbal cueing or touching/steadying/contact guard assistance fro m one helper? Yes. 1. [id number] ADMISSION PERFORMANCE: Supervision or touching assistance CODE: 04 DOES THE PATIENT USE A WHEELCHAIR/SCOOTER? CODE: EXPR INDICATE THE TYPE OF WHEELCHAIR/SCOOTER USED: CODE: EXPR INDICATE THE TYPE OF WHEELCHAIR/SCOOTER USED: CODE: EXPR BLADDER AND BOWEL: CODE: EXPR CODE: EXPR SIGNATURE PANEL: The following modified sections: 1. [id number] Admission Performance, 1. [id number] Admission Performance, 1. [id number] Admission Performance, 1. [id number] Admission Performance, 1. [id number] Admission Performance, 1. [id number] Admission Performance, 1. [id number] Admission Performance, 1. [id number] Admission Performance , 1. [id number] Admission Performance were [electronically] signed by TAMEKA Hayes on ThuNov 25 2019 14:29:37 GMT-0500 (Central Daylight Time)
[2019-11-26] MEDS: PANTOPRAZOLE 40MG TABLET PO SCH (07:34)
[2019-11-26] MEDS: NICOTINE 14 MG/PAT TD SCH (08:09)
[2019-11-26] MEDS: levETIRAcetam 500 MG TAB PO SCH ×2 (08:09→19:06)
[2019-11-26] MEDS: APIXABAN 2.5 MG TABLET PO SCH ×2 (08:10→19:07)
[2019-11-26] MEDS: DOCUSATE NA 100 MG CAP PO SCH ×2 (08:10→19:06)
[2019-11-26] MEDS: dexAMETHasone 4 MG TAB PO SCH ×2 (08:10→19:06)
[2019-11-26] MEDS: ASPIRIN 81 MG CHEWABLE TABLET PO SCH (08:10)
[2019-11-26] MEDS: DICLOFENAC SOD D.R. 75 MG TAB PO SCH ×2 (08:13→16:40)
--- NOTE | 2019-11-26 13:28 | FAST ---
[employer] FORM SHIFT START DATE/TIME: 11/26/2019 07:00 (CDT) SHIFT END DATE/TIME: 11/26/2019 19:00 (CDT) NAME JUAN PABLO TOURE DATE OF : 1945 DATE OF ADMISSION: 11/22/2019 18:25 (CDT) PHONE: AGE: 74 N# [id number] GENDER: Male ENCOUNTER PHYSICIAN: Dr. Gildardo Wells M.D. ADMISSION DIAGNOSIS: - Brain Dysfunction 02 - Closed Injury (04.23) LEFT FRONTAL BRAIN MASS. EATING: EATING - STEP 1: Does the patient complete the activity by him/herself with no assistance (physical, verbal/nonverbal cueing, setup/clean-up)? No. EATING - STEP 2: Does the patient need only setup/clean-up assistance from one helper? Yes. 1. [id number] ADMISSION PERFORMANCE: Setup or clean-up assistance CODE: 05 ORAL HYGIENE: ORAL HYGIENE - STEP 1: Does the patient complete the activity by him/herself with no assistance (physical, verbal/nonverbal cueing, setup/clean-up)? No. ORAL HYGIENE - STEP 2: Does the patient need only setup/clean-up assistance from one helper? Yes. 1. [id number] ADMISSION PERFORMANCE: Setup or clean-up assistance CODE: 05 TOILETING HYGIENE: TOILETING HYGIENE - STEP 1: Does the patient complete the activity by him/herself with no assistance (physical, verbal/nonverbal cueing, setup/clean-up)? No. TOILETING HYGIENE - STEP 2: Does the patient need only setup/clean-up assistance from one helper? Yes. 1. [id number] ADMISSION PERFORMANCE: Setup or clean-up assistance CODE: 05 BATHING: Not assessed/no information CODE: - DRESSING - UPPER BODY: DRESSING - UPPER BODY - STEP 1: Does the patient complete the activity by him/herself with no assistance (physical, verbal/nonverbal cueing, setup/clean-up)? No. DRESSING - UPPER BODY - STEP 2: Does the patient need only setup/clean-up assistance from one helper? No. DRESSING - UPPER BODY - STEP 3: Does the patient need only verbal/nonverbal cueing or touching/steadying/contact guard assistance fro m one helper? Yes. 1. [id number] ADMISSION PERFORMANCE: Supervision or touching assistance CODE: 04 DRESSING - LOWER BODY: DRESSING - LOWER BODY - STEP 1: Does the patient complete the activity by him/herself with no assistance (physical, verbal/nonverbal cueing, setup/clean-up)? No. DRESSING - LOWER BODY - STEP 2: Does the patient need only setup/clean-up assistance from one helper? No. DRESSING - LOWER BODY - STEP 3: Does the patient need only verbal/nonverbal cueing or touching/steadying/contact guard assistance fro m one helper? Yes. 1. [id number] ADMISSION PERFORMANCE: Supervision or touching assistance CODE: 04 PUTTING ON/TAKING OFF FOOTWEAR: FOOTWEAR - STEP 1: Does the patient complete the activity by him/herself with no assistance (physical, verbal/nonverbal cueing, setup/clean-up)? No. FOOTWEAR - STEP 2: Does the patient need only setup/clean-up assistance from one helper? No. FOOTWEAR - STEP 3: Does the patient need only verbal/nonverbal cueing or touching/steadying/contact guard assistance fro m one helper? Yes. 1. [id number] ADMISSION PERFORMANCE: Supervision or touching assistance CODE: 04 ROLL LEFT AND RIGHT: ROLL LEFT AND RIGHT - STEP 1: Does the patient complete the activity by him/herself with no assistance (physical, verbal/nonverbal cueing, setup/clean-up)? Yes. 1. [id number] ADMISSION PERFORMANCE: Independent CODE: 06 SIT TO LYING: SIT TO LYING - STEP 1: Does the patient complete the activity by him/herself with no assistance (physical, verbal/nonverbal cueing, setup/clean-up)? Yes. 1. [id number] ADMISSION PERFORMANCE: Independent CODE: 06 LYING TO SITTING: LYING TO SITTING ON SIDE OF BED - STEP 1: Does the patient complete the activity by him/herself with no assistance (physical, verbal/nonverbal cueing, setup/clean-up)? Yes. 1. [id number] ADMISSION PERFORMANCE: Independent CODE: 06 SIT TO STAND: SIT TO STAND - STEP 1: Does the patient complete the activity by him/herself with no assistance (physical, verbal/nonverbal cueing, setup/clean-up)? Yes. 1. [id number] ADMISSION PERFORMANCE: Independent CODE: 06 TRANSFERS: BED, CHAIR: CHAIR/[id number] TRANSFER - STEP 1: Does the patient complete the activity by him/herself with no assistance (physical, verbal/nonverbal cueing, setup/clean-up)? No. CHAIR/[id number] TRANSFER - STEP 2: Does the patient need only setup/clean-up assistance from one helper? Yes. 1. [id number] ADMISSION PERFORMANCE: Setup or clean-up assistance CODE: 05 TRANSFER TOILET: TOILET TRANSFER - STEP 1: Does the patient complete the activity by him/herself with no assistance (physical, verbal/nonverbal cueing, setup/clean-up)? No. TOILET TRANSFER - STEP 2: Does the patient need only setup/clean-up assistance from one helper? Yes. 1. [id number] ADMISSION PERFORMANCE: Setup or clean-up assistance CODE: 05 TRANSFERS: CAR: Not assessed/no information CODE: - WALK 10 FEET: WALK 10 FEET - STEP 1: Does the patient complete the activity by him/herself with no assistance (physical, verbal/nonverbal cueing, setup/clean-up)? Yes. 1. [id number] ADMISSION PERFORMANCE: Independent CODE: 06 WALK 50 FEET: WALK 50 FEET - STEP 1: Does the patient complete the activity by him/herself with no assistance (physical, verbal/nonverbal cueing, setup/clean-up)? No. WALK 50 FEET - STEP 2: Does the patient need only setup/clean-up assistance from one helper? Yes. 1. [id number] ADMISSION PERFORMANCE: Setup or clean-up assistance CODE: 05 WALK 150 FEET: WALK 150 FEET - STEP 1: Does the patient complete the activity by him/herself with no assistance (physical, verbal/nonverbal cueing, setup/clean-up)? No. WALK 150 FEET - STEP 2: Does the patient need only setup/clean-up assistance from one helper? Yes. 1. [id number] ADMISSION PERFORMANCE: Setup or clean-up assistance CODE: 05 WALK 10 FEET UNEVEN: Not assessed/no information CODE: - 1 STEP (CURB): Not assessed/no information CODE: - PICKING UP OBJECT: Not assessed/no information CODE: - DOES THE PATIENT USE A WHEELCHAIR/SCOOTER? Q1. DOES THE PATIENT USE A WHEELCHAIR/SCOOTER?: No CODE: 0 INDICATE THE TYPE OF WHEELCHAIR/SCOOTER USED: CODE: EXPR INDICATE THE TYPE OF WHEELCHAIR/SCOOTER USED: CODE: EXPR BLADDER AND BOWEL: H350. BLADDER CONTINENCE (3-DAY ASSESSMENT PERIOD): Always continent (no documented incontinence) CODE: 0 H400. BOWEL CONTINENCE (3-DAY ASSESSMENT PERIOD): Always continent CODE: 0 SIGNATURE PANEL: The following modified sections: 1. [id number] Admission Performance, 1. [id number] Admission Performance, 1. TR7279O Admission Performance, 1. LA2462M Admission Performance, 1. US3491d Admission Performance, 1. QD5593d Admission Performance, 1. IF5044v Admission Performance, 1. ND5801o Admission Performance , 1. OU6226B Admission Performance, 1. HD3736S Admission Performance, 1. QI6230J Admission Performanc e, 1. UF3142U Admission Performance, 1. OK2574X Admission Performance, 1. QT1320E Admission Performan ce, 1. KG8184S Admission Performance, 1. GW3713T Admission Performance, 1. FJ5927A Admission Performa nce, Q1. Does the patient use a wheelchair/scooter?, H350. Bladder Continence (3-day assessment perio d), H400. Bowel Continence (3-day assessment period), 1. WG0770N Admission Performance, 1. BC6988H Ad mission Performance, 1. BQ2308R Admission Performance, 1. QZ4982K Admission Performance were [electro nically] signed by Mavis HerreraNShadia on ThuNov 26 2019 13:27:25 T-0500 (Central Daylight Time)
[2019-11-27] MEDS: PANTOPRAZOLE 40MG TABLET PO SCH (07:01)
[2019-11-27] MEDS: levETIRAcetam 500 MG TAB PO SCH ×2 (07:48→18:59)
[2019-11-27] MEDS: NICOTINE 14 MG/PAT TD SCH (07:48)
[2019-11-27] MEDS: ASPIRIN 81 MG CHEWABLE TABLET PO SCH (07:49)
[2019-11-27] MEDS: APIXABAN 2.5 MG TABLET PO SCH (07:49)
[2019-11-27] MEDS: DOCUSATE NA 100 MG CAP PO SCH ×2 (07:49→18:59)
[2019-11-27] MEDS: dexAMETHasone 4 MG TAB PO SCH ×2 (07:49→18:59)
[2019-11-27] MEDS: DICLOFENAC SOD D.R. 75 MG TAB PO SCH (07:50)
[2019-11-27] MEDS: AMLODIPINE 5 MG TAB PO SCH (07:57)
--- NOTE | 2019-11-27 14:21 | PN ---
Date of Progress Note: 11/26/2019 Subjective: The patient was seen for followup in the morning. He was sitting in the chair on rehab floor. Denied any headache. No visual complaints. Objective: Vital Signs: Reviewed. HEENT: Unremarkable. Presence of markel on the left side of the scalp noted. No evidence of any d ischarge, bleeding, redness, swelling, etc. Lungs: Clear to auscultation. Heart: Sounds normal. Abdomen: Soft. Bowel sounds normal. No guarding, rigidity, tenderness, distention. Extremities: No leg edema. Impression: 1.Brain tumor, status post surgery. 2.Hyperlipidemia. 3.Benign prostatic hypertrophy. Plan: We will continue current anticoagulation therapy. Continue dexamethasone per order and physic al therapy to be continued under guidance of Dr. Wells. VITA/MODL Voice ID: [id number] Report ID: [id number]
--- NOTE | 2019-11-27 14:23 | PN ---
Date of Progress Note: 11/27/2019 Subjective: The patient was seen this morning. He was sitting in the chair, not in distress. Denied any new complaints. Objective: Vital Signs: Reviewed. HEENT: Unremarkable. Lungs: Clear to auscultation. Heart: Sounds normal. Abdomen: Soft. Bowel sounds normal. No guarding, rigidity, tenderness, distention. Extremities: No leg edema. Laboratory Data: There are no new labs today. Impression: 1. Hypertension. 2. Brain tumor, status post surgery. Plan: We will start the patient on amlodipine 5 mg p.o. daily and details were discussed with him. He was made aware of the plan. I also noted this morning patient was getting aspirin and Eliquis, which were not ordered by me. I had ordered heparin 5000 units subcutaneous injection every 12 hours for DVT prophylaxis upon admission, but in place of that, he is on Eliquis, but he is also getting aspirin now and I was concerned about the patient getting all these medications, so I did communicate with Dr. Wells regarding this and he also agrees that patient should be on Heparin for DVT prophylaxis and not Eliquis and he will place appropriate orders. I have also discontinued his diclofenac, which he was getting and that was upon review of records from outside hospital that was his home medications that he was taking prior to hospital stay in [place] and the patient reported that he was not taking any such medication at home on a regular basis, so there is no need to continue it at this point. VITA/MODL Voice ID: [id number] Report ID: [id number] GI
[2019-11-28] MEDS: PANTOPRAZOLE 40MG TABLET PO SCH (06:23)
[2019-11-28] MEDS: AMLODIPINE 5 MG TAB PO SCH (07:51)
[2019-11-28] MEDS: DOCUSATE NA 100 MG CAP PO SCH ×2 (07:51→20:02)
[2019-11-28] MEDS: levETIRAcetam 500 MG TAB PO SCH ×2 (07:51→20:01)
[2019-11-28] MEDS: dexAMETHasone 4 MG TAB PO SCH ×2 (07:51→20:01)
[2019-11-28] MEDS: HEPARIN 5000 UNIT/ML 1 ML VIAL SQ SCH ×2 (07:55→18:17)
--- NOTE | 2019-11-28 09:04 | PN ---
Date of Progress Note: 11/28/2019 Subjective: The patient was seen this morning for followup. He was sitting in the bed. Denied any complaints. No new problems reported. No headache, nausea, or vomiting. Objective: Vital Signs: Reviewed. HEENT: Unremarkable. Lungs: Clear to auscultation. Heart: Sounds normal. Abdomen: Soft. Bowel sounds normal. No guarding, rigidity, tenderness, or distention. Extremities: No leg edema. Impression: 1.Hypertension. 2.Brain tumor, status post surgery. Plan: The patient's blood pressure this morning is 132/69 with a pulse rate 64. He is on amlodipine 5 mg p.o. daily. We will continue that and we will continue DVT prophylaxis using heparin. The pat ient is on tapering dose of dexamethasone, which will be continued. Continue to follow with Dr. Trice toussaint for physical therapy. VITA/MODL Voice ID: [id number] Report ID: [id number]
[2019-11-28] MEDS: NICOTINE 14 MG/PAT TD SCH (10:36)
--- NOTE | 2019-11-28 17:27 | R.PN ---
PROGRESS NOTES ENCOUNTER DATE AND TIME: 11/28/2019 17:23 (CDT) NAME JUAN PABLO TOURE DATE OF : 1945 DATE OF ADMISSION: 11/22/2019 18:25 (CDT) LEFT FRONTAL BRAIN MASSCHIEF COMPLAINT: Left frontal brain mass SUBJECTIVE: Pt denied any depression. Pt denied any Shortness of Breath. Ambulated 1750' with independence and no assistive device. Up and down 20 steps with independence. CBC with differential is normal. Prealbumin is 19.3, glucose 97 to 115. UA is negative. VITAL SIGNS Temperature: 97.7 F SBP/DBP: 132/69 Pulse: 64 Resp: 16 MEDICATION ALLERGIES: No Known Drug Allergies (NKDA) ENVIRONMENTAL ALLERGIES: - Substance Allergies None Known - Other Allergies None Known NURSING: - Shower allowing shower - Bladder care per protocol - Skin care per protocol PRECAUTIONS: - Fall Precaution 1 to 1 supervision ACTIVITIES OOB only with supervision THERAPIES: - Occupational Therapy Cognitive Retraining. Visual Perceptual Training. - Dietary and Nutrition Adequate Nutrition. Nutritional Education. Nutritional Supplements. - Speech Therapy Augmentative Communication Equipment. PHYSICAL EXAM - Gen Alert and awake Lying in bed No apparent distress Oriented to: person, time, and place - Skin No breakdown Healing surgical wound in the left frontal scalp. Otherwise intact. - Eyes No abnormalities - ENMT No abnormalities - Neck No abnormalities - CVS RRR - Chest No abnormalities - Resp Clear to auscultation - Abd Soft - GI + bowel sounds Deferred - No abnormalities - Ext No significant edema. - MSK 4+/5 weakness in right upper and lower extremities - Neuro 4/5 strength right upper and lower extremities. - Psych No abnormalities ASSESSMENT: Pt. is a 74 yo Right-handed male of unknown race.On 11/18/2019 he was admitted to [facility] with diagnosis LEFT FRONTAL BRAIN MASS.His impairment category is Brain Dysfunction 02 - Closed Injury ( 04.23).Pre-morbidly, Pt. was independent/mod-I in Safety Awareness, Balance, Communication, Transfers Control, Endurance, and Self-Care; and he had good Social Cognition, Sphincter Control, and Self-Car e.Currently, he has deficits of Balance, Safety Awareness, Self-Care, Transfers Control, Endurance, a nd Communication.Pt. is now referred to [facility] for acute in-patient rehabi litation in order to maximize patient's functional independence in activities of daily living, streng th, ROM, and mobility.- Rehab Goal Patient has realistic goal of being discharged at assistance level 7-Ind to reside at Home with Fami ly/Relatives. MDM/PLAN: - Physical Therapy Gait dysfunction - to improve, our physical therapists will perform initial evaluation of pt's statu s upon admission and devise an individualized program for Gait Training, and Wheel Chair mobility Inability to transfer - to improve, our physical therapists will perform initial evaluation of pt's status upon admission and devise an individualized program for Bed mobility Need for home safety evaluation - to improve, our physical therapists will perform initial evaluatio n of pt's status upon admission and devise an individualized program for Home Evaluation Need in caregiver upon discharge - to improve, our physical therapists will perform initial evaluati on of pt's status upon admission and devise an individualized program for Caregiver Training New precaution - to improve, our physical therapists will perform initial evaluation of pt's status upon admission and devise an individualized program for Patient precaution education Edema - to improve, our physical therapists will perform initial evaluation of pt's status upon admi ssion and devise an individualized program for Elevation Training, and Lymphedema Therapy Having wound - to improve, our physical therapists will perform initial evaluation of pt's status up on admission and devise an individualized program for Wound Care Poor balance - to improve, our physical therapists will perform initial evaluation of pt's status up on admission and devise an individualized program for Balance Training Poor endurance - to improve, our physical therapists will perform initial evaluation of pt's status upon admission and devise an individualized program for Endurance Training Weakness - to improve, our physical therapists will perform initial evaluation of pt's status upon a dmission and devise an individualized program for Aquatic Therapy, Neuromuscular Reeducation, and Str engthening Achieving independence - to improve, our physical therapists will perform initial evaluation of pt's status upon admission and devise an individualized program for Community Reintegration Activities - Occupational Therapy ADL deficits - to improve, our occupation therapists will perform initial evaluation of pt's status upon admission and devise an individualized program for Bathing, Bed mobility, Community Reintegratio n, Cooking, Dressing, Eating, Fine Motor Skills, Grooming, Homemaking, Kitchen Mobility, Laundry, Pat ient Education, Safety Awareness, Splinting - Positioning, Transfers(Toilet, Tub, Shower), and Wheel Chair Management Need for adult daycare coordinator - to improve, our occupation therapists will perform initial evaluation of pt's status upon admission and devise an individualized program for Caregiver Training Weakness - to improve, our occupation therapists will perform initial evaluation of pt's status upon admission and devise an individualized program for Aquatic Therapy, Balance, Endurance, UE ROM, and UE strengthening - Other See attached MAR (Medication Administration Record) - Diet Type Continue Regular - Diet - Liquid Texture Continue Regular - Tube Feed Continue N/A - Bladder care per protocol - Fall Precaution 1 to 1 supervision - Skin care per protocol - Diet - Solid Texture Continue Regular - Shower allowing shower FUNCTIONAL STATUS: UPDATED AT WEEKLY TEAM CONFERENCE - Bladder Same accident frequency: 7-Ind - No accidents in the past 7 days - Bowel Same accident frequency: 7-Ind - No accidents in the past 7 days - Walking Same score based on distance walked: 0(N/A) Same score based on distance walked: 3(>=150ft) - Wheelchair Same score based on distance traveled: 0(N/A) FUNCTIONAL STATUS: - Self-Care A. Eating Marimar B. Grooming Marimar C. Bathing sup D. Dressing - Upper sup E. Dressing - Lower sup F. Toileting Marimar - Sphincter Control G. Bladder control Marimar H. Bowel control Marimar - Transfers Control I. Bed/Chair/Wheelchair sup J. Toilet sup K. Tub/Shower sup - Locomotion L. Walk/Wheelchair (B) sup M. Stairs sup - Communication N. Comprehension (B) Marimar O. Expression (B) Marimar - Social Cognition P. Social Interaction Marimar Q. Problem Solving Marimar R. Memory Marimar - Endurance Good - Balance Good - Safety Awareness Fair QI SCORES: - Self-Care A. Eating 04-Supervision or touching assistance B. Oral hygiene 03-Partial/moderate assistance C. Toileting hygiene 88-Not attempted due to medical condition or safety concerns E. Shower/bathe self 03-Partial/moderate assistance F. Upper body dressing 03-Partial/moderate assistance G. Lower body dressing 03-Partial/moderate assistance H. Putting on/taking off footwear 88-Not attempted due to medical condition or safety concerns - Mobility A. Roll left and right 03-Partial/moderate assistance B. Sit to lying 03-Partial/moderate assistance C. Lying to sitting on side of bed 03-Partial/moderate assistance D. Sit to stand 03-Partial/moderate assistance E. Chair/lct-oo-pucma transfer 03-Partial/moderate assistance F. Toilet transfer 88-Not attempted due to medical condition or safety concerns G. Car transfer 88-Not attempted due to medical condition or safety concerns I. Walk 10 feet 03-Partial/moderate assistance J. Walk 50 feet with two turns 88-Not attempted due to medical condition or safety concerns K. Walk 150 feet 88-Not attempted due to medical condition or safety concerns L. Walking 10 feet on uneven surfaces 88-Not attempted due to medical condition or safety concerns M. 1 step (curb) 88-Not attempted due to medical condition or safety concerns N. 4 steps 88-Not attempted due to medical condition or safety concerns O. 12 steps 88-Not attempted due to medical condition or safety concerns P. Picking up object 88-Not attempted due to medical condition or safety concerns R. Wheel 50 feet with two turns 88-Not attempted due to medical condition or safety concerns S. Wheel 150 feet 88-Not attempted due to medical condition or safety concerns - Bladder and Bowel Bladder continence Bowel continence - Endurance Fair - Balance Fair - Safety Awareness Fair CURRENT [facility]. DEFICITS: Self-Care, Mobility, Endurance, Balance, and Safety Awareness SIGNATURE PANEL: (CDT)
[2019-11-29] MEDS: HEPARIN 5000 UNIT/ML 1 ML VIAL SQ SCH ×2 (06:19→18:08)
[2019-11-29] MEDS: PANTOPRAZOLE 40MG TABLET PO SCH (06:50)
[2019-11-29] MEDS: NICOTINE 14 MG/PAT TD SCH (07:27)
[2019-11-29] MEDS: DOCUSATE NA 100 MG CAP PO SCH ×2 (07:46→20:34)
[2019-11-29] MEDS: dexAMETHasone 4 MG TAB PO SCH ×2 (07:47→20:34)
[2019-11-29] MEDS: levETIRAcetam 500 MG TAB PO SCH ×2 (07:48→20:34)
[2019-11-29] MEDS: AMLODIPINE 5 MG TAB PO SCH (07:48)
--- NOTE | 2019-11-29 17:08 | R.PN ---
PROGRESS NOTES ENCOUNTER DATE AND TIME: 11/29/2019 17:05 (CDT) NAME JUAN PABLO TOURE DATE OF : 1945 DATE OF ADMISSION: 11/22/2019 18:25 (CDT) LEFT FRONTAL BRAIN MASSCHIEF COMPLAINT: Left frontal brain mass SUBJECTIVE: Pt denied any depression. Pt denied any Shortness of Breath. Ambulated 1750' with independence and no assistive device. Up and down 20 steps with independence. CBC with differential is normal. Prealbumin is 19.3, glucose 97 to 115. UA is negative. VITAL SIGNS Temperature: 97.7 F SBP/DBP: 131/73 Pulse: 67 Resp: 16 MEDICATION ALLERGIES: No Known Drug Allergies (NKDA) ENVIRONMENTAL ALLERGIES: - Substance Allergies None Known - Other Allergies None Known NURSING: - Shower allowing shower - Bladder care per protocol - Skin care per protocol PRECAUTIONS: - Fall Precaution 1 to 1 supervision ACTIVITIES OOB only with supervision THERAPIES: - Occupational Therapy Cognitive Retraining. Visual Perceptual Training. - Dietary and Nutrition Adequate Nutrition. Nutritional Education. Nutritional Supplements. - Speech Therapy Augmentative Communication Equipment. PHYSICAL EXAM - Gen Alert and awake Lying in bed No apparent distress Oriented to: person, time, and place - Skin No breakdown Healing surgical wound in the left frontal scalp. Otherwise intact. - Eyes No abnormalities - ENMT No abnormalities - Neck No abnormalities - CVS RRR - Chest No abnormalities - Resp Clear to auscultation - Abd Soft - GI + bowel sounds Deferred - No abnormalities - Ext No significant edema. - MSK 4+/5 weakness in right upper and lower extremities - Neuro 4/5 strength right upper and lower extremities. - Psych No abnormalities ASSESSMENT: Pt. is a 74 yo Right-handed male of unknown race.On 11/18/2019 he was admitted to [facility] with diagnosis LEFT FRONTAL BRAIN MASS.His impairment category is Brain Dysfunction 02 - Closed Injury ( 04.23).Pre-morbidly, Pt. was independent/mod-I in Safety Awareness, Balance, Communication, Transfers Control, Endurance, and Self-Care; and he had good Social Cognition, Sphincter Control, and Self-Car e.Currently, he has deficits of Balance, Safety Awareness, Self-Care, Transfers Control, Endurance, a nd Communication.Pt. is now referred to [facility] for acute in-patient rehabi litation in order to maximize patient's functional independence in activities of daily living, streng th, ROM, and mobility.- Rehab Goal Patient has realistic goal of being discharged at assistance level 7-Ind to reside at Home with Fami ly/Relatives. MDM/PLAN: - Physical Therapy Gait dysfunction - to improve, our physical therapists will perform initial evaluation of pt's statu s upon admission and devise an individualized program for Gait Training, and Wheel Chair mobility Inability to transfer - to improve, our physical therapists will perform initial evaluation of pt's status upon admission and devise an individualized program for Bed mobility Need for home safety evaluation - to improve, our physical therapists will perform initial evaluatio n of pt's status upon admission and devise an individualized program for Home Evaluation Need in caregiver upon discharge - to improve, our physical therapists will perform initial evaluati on of pt's status upon admission and devise an individualized program for Caregiver Training New precaution - to improve, our physical therapists will perform initial evaluation of pt's status upon admission and devise an individualized program for Patient precaution education Edema - to improve, our physical therapists will perform initial evaluation of pt's status upon admi ssion and devise an individualized program for Elevation Training, and Lymphedema Therapy Having wound - to improve, our physical therapists will perform initial evaluation of pt's status up on admission and devise an individualized program for Wound Care Poor balance - to improve, our physical therapists will perform initial evaluation of pt's status up on admission and devise an individualized program for Balance Training Poor endurance - to improve, our physical therapists will perform initial evaluation of pt's status upon admission and devise an individualized program for Endurance Training Weakness - to improve, our physical therapists will perform initial evaluation of pt's status upon a dmission and devise an individualized program for Aquatic Therapy, Neuromuscular Reeducation, and Str engthening Achieving independence - to improve, our physical therapists will perform initial evaluation of pt's status upon admission and devise an individualized program for Community Reintegration Activities - Occupational Therapy ADL deficits - to improve, our occupation therapists will perform initial evaluation of pt's status upon admission and devise an individualized program for Bathing, Bed mobility, Community Reintegratio n, Cooking, Dressing, Eating, Fine Motor Skills, Grooming, Homemaking, Kitchen Mobility, Laundry, Pat ient Education, Safety Awareness, Splinting - Positioning, Transfers(Toilet, Tub, Shower), and Wheel Chair Management Need for rn managed care - to improve, our occupation therapists will perform initial evaluation of pt's status upon admission and devise an individualized program for Caregiver Training Weakness - to improve, our occupation therapists will perform initial evaluation of pt's status upon admission and devise an individualized program for Aquatic Therapy, Balance, Endurance, UE ROM, and UE strengthening - Other See attached MAR (Medication Administration Record) - Diet Type Continue Regular - Diet - Liquid Texture Continue Regular - Tube Feed Continue N/A - Bladder care per protocol - Fall Precaution 1 to 1 supervision - Skin care per protocol - Diet - Solid Texture Continue Regular - Shower allowing shower FUNCTIONAL STATUS: UPDATED AT WEEKLY TEAM CONFERENCE - Bladder Same accident frequency: 7-Ind - No accidents in the past 7 days - Bowel Same accident frequency: 7-Ind - No accidents in the past 7 days - Walking Same score based on distance walked: 0(N/A) Same score based on distance walked: 3(>=150ft) - Wheelchair Same score based on distance traveled: 0(N/A) FUNCTIONAL STATUS: - Self-Care A. Eating Marimar B. Grooming Marimar C. Bathing sup D. Dressing - Upper sup E. Dressing - Lower sup F. Toileting Marimar - Sphincter Control G. Bladder control Marimar H. Bowel control Marimar - Transfers Control I. Bed/Chair/Wheelchair sup J. Toilet sup K. Tub/Shower sup - Locomotion L. Walk/Wheelchair (B) sup M. Stairs sup - Communication N. Comprehension (B) Marimar O. Expression (B) Marimar - Social Cognition P. Social Interaction Marimar Q. Problem Solving Marimar R. Memory Marimar - Endurance Good - Balance Good - Safety Awareness Fair QI SCORES: - Self-Care A. Eating 04-Supervision or touching assistance B. Oral hygiene 03-Partial/moderate assistance C. Toileting hygiene 88-Not attempted due to medical condition or safety concerns E. Shower/bathe self 03-Partial/moderate assistance F. Upper body dressing 03-Partial/moderate assistance G. Lower body dressing 03-Partial/moderate assistance H. Putting on/taking off footwear 88-Not attempted due to medical condition or safety concerns - Mobility A. Roll left and right 03-Partial/moderate assistance B. Sit to lying 03-Partial/moderate assistance C. Lying to sitting on side of bed 03-Partial/moderate assistance D. Sit to stand 03-Partial/moderate assistance E. Chair/vwg-[id number] transfer 03-Partial/moderate assistance F. Toilet transfer 88-Not attempted due to medical condition or safety concerns G. Car transfer 88-Not attempted due to medical condition or safety concerns I. Walk 10 feet 03-Partial/moderate assistance J. Walk 50 feet with two turns 88-Not attempted due to medical condition or safety concerns K. Walk 150 feet 88-Not attempted due to medical condition or safety concerns L. Walking 10 feet on uneven surfaces 88-Not attempted due to medical condition or safety concerns M. 1 step (curb) 88-Not attempted due to medical condition or safety concerns N. 4 steps 88-Not attempted due to medical condition or safety concerns O. 12 steps 88-Not attempted due to medical condition or safety concerns P. Picking up object 88-Not attempted due to medical condition or safety concerns R. Wheel 50 feet with two turns 88-Not attempted due to medical condition or safety concerns S. Wheel 150 feet 88-Not attempted due to medical condition or safety concerns - Bladder and Bowel Bladder continence Bowel continence - Endurance Fair - Balance Fair - Safety Awareness Fair CURRENT [facility]. DEFICITS: Self-Care, Mobility, Endurance, Balance, and Safety Awareness SIGNATURE PANEL: (CDT)
[2019-11-30] MEDS: NICOTINE 14 MG/PAT TD SCH (07:47)
[2019-11-30] MEDS: AMLODIPINE 5 MG TAB PO SCH (07:48)
[2019-11-30] MEDS: DOCUSATE NA 100 MG CAP PO SCH ×2 (07:48→19:04)
[2019-11-30] MEDS: PANTOPRAZOLE 40MG TABLET PO SCH (07:48)
[2019-11-30] MEDS: dexAMETHasone 4 MG TAB PO SCH ×2 (07:49→19:03)
[2019-11-30] MEDS: levETIRAcetam 500 MG TAB PO SCH ×2 (07:49→19:02)
[2019-11-30] MEDS: HEPARIN 5000 UNIT/ML 1 ML VIAL SQ SCH ×2 (08:00→09:45)
--- NOTE | 2019-11-30 17:17 | R.PN ---
PROGRESS NOTES ENCOUNTER DATE AND TIME: 11/30/2019 17:13 (CDT) NAME JUAN PABLO TOURE DATE OF : 1945 DATE OF ADMISSION: 11/22/2019 18:25 (CDT) LEFT FRONTAL BRAIN MASSCHIEF COMPLAINT: Left frontal brain mass SUBJECTIVE: Pt denied any depression. Pt denied any Shortness of Breath. Ambulated 2500' with independence and no assistive device. Up and down 30 steps with independence. CBC with differential is normal. Prealbumin is 19.3, glucose 97 to 115. UA is negative. VITAL SIGNS Temperature: 97.4 F SBP/DBP: 133/76 Pulse: 65 Resp: 16 MEDICATION ALLERGIES: No Known Drug Allergies (NKDA) ENVIRONMENTAL ALLERGIES: - Substance Allergies None Known - Other Allergies None Known NURSING: - Shower allowing shower - Bladder care per protocol - Skin care per protocol PRECAUTIONS: - Fall Precaution 1 to 1 supervision ACTIVITIES OOB only with supervision THERAPIES: - Occupational Therapy Cognitive Retraining. Visual Perceptual Training. - Dietary and Nutrition Adequate Nutrition. Nutritional Education. Nutritional Supplements. - Speech Therapy Augmentative Communication Equipment. PHYSICAL EXAM - Gen Alert and awake Lying in bed No apparent distress Oriented to: person, time, and place - Skin No breakdown Healing surgical wound in the left frontal scalp. Otherwise intact. - Eyes No abnormalities - ENMT No abnormalities - Neck No abnormalities - CVS RRR - Chest No abnormalities - Resp Clear to auscultation - Abd Soft - GI + bowel sounds Deferred - No abnormalities - Ext No significant edema. - MSK 4+/5 weakness in right upper and lower extremities - Neuro 4/5 strength right upper and lower extremities. - Psych No abnormalities ASSESSMENT: Pt. is a 74 yo Right-handed male of unknown race.On 11/18/2019 he was admitted to [facility] with diagnosis LEFT FRONTAL BRAIN MASS.His impairment category is Brain Dysfunction 02 - Closed Injury ( 04.23).Pre-morbidly, Pt. was independent/mod-I in Safety Awareness, Balance, Communication, Transfers Control, Endurance, and Self-Care; and he had good Social Cognition, Sphincter Control, and Self-Car e.Currently, he has deficits of Balance, Safety Awareness, Self-Care, Transfers Control, Endurance, a nd Communication.Pt. is now referred to [facility] for acute in-patient rehabi litation in order to maximize patient's functional independence in activities of daily living, streng th, ROM, and mobility.- Rehab Goal Patient has realistic goal of being discharged at assistance level 7-Ind to reside at Home with Fami ly/Relatives. MDM/PLAN: - Physical Therapy Gait dysfunction - to improve, our physical therapists will perform initial evaluation of pt's statu s upon admission and devise an individualized program for Gait Training, and Wheel Chair mobility Inability to transfer - to improve, our physical therapists will perform initial evaluation of pt's status upon admission and devise an individualized program for Bed mobility Need for home safety evaluation - to improve, our physical therapists will perform initial evaluatio n of pt's status upon admission and devise an individualized program for Home Evaluation Need in caregiver upon discharge - to improve, our physical therapists will perform initial evaluati on of pt's status upon admission and devise an individualized program for Caregiver Training New precaution - to improve, our physical therapists will perform initial evaluation of pt's status upon admission and devise an individualized program for Patient precaution education Edema - to improve, our physical therapists will perform initial evaluation of pt's status upon admi ssion and devise an individualized program for Elevation Training, and Lymphedema Therapy Having wound - to improve, our physical therapists will perform initial evaluation of pt's status up on admission and devise an individualized program for Wound Care Poor balance - to improve, our physical therapists will perform initial evaluation of pt's status up on admission and devise an individualized program for Balance Training Poor endurance - to improve, our physical therapists will perform initial evaluation of pt's status upon admission and devise an individualized program for Endurance Training Weakness - to improve, our physical therapists will perform initial evaluation of pt's status upon a dmission and devise an individualized program for Aquatic Therapy, Neuromuscular Reeducation, and Str engthening Achieving independence - to improve, our physical therapists will perform initial evaluation of pt's status upon admission and devise an individualized program for Community Reintegration Activities - Occupational Therapy ADL deficits - to improve, our occupation therapists will perform initial evaluation of pt's status upon admission and devise an individualized program for Bathing, Bed mobility, Community Reintegratio n, Cooking, Dressing, Eating, Fine Motor Skills, Grooming, Homemaking, Kitchen Mobility, Laundry, Pat ient Education, Safety Awareness, Splinting - Positioning, Transfers(Toilet, Tub, Shower), and Wheel Chair Management Need for health care sanitary technician - to improve, our occupation therapists will perform initial evaluation of pt's status upon admission and devise an individualized program for Caregiver Training Weakness - to improve, our occupation therapists will perform initial evaluation of pt's status upon admission and devise an individualized program for Aquatic Therapy, Balance, Endurance, UE ROM, and UE strengthening - Other See attached MAR (Medication Administration Record) - Diet Type Continue Regular - Diet - Liquid Texture Continue Regular - Tube Feed Continue N/A - Bladder care per protocol - Fall Precaution 1 to 1 supervision - Skin care per protocol - Diet - Solid Texture Continue Regular - Shower allowing shower FUNCTIONAL STATUS: UPDATED AT WEEKLY TEAM CONFERENCE - Bladder Same accident frequency: 7-Ind - No accidents in the past 7 days - Bowel Same accident frequency: 7-Ind - No accidents in the past 7 days - Walking Same score based on distance walked: 0(N/A) Same score based on distance walked: 3(>=150ft) - Wheelchair Same score based on distance traveled: 0(N/A) FUNCTIONAL STATUS: - Self-Care A. Eating Marimar B. Grooming Marimar C. Bathing sup D. Dressing - Upper sup E. Dressing - Lower sup F. Toileting Marimar - Sphincter Control G. Bladder control Marimar H. Bowel control Marimar - Transfers Control I. Bed/Chair/Wheelchair sup J. Toilet sup K. Tub/Shower sup - Locomotion L. Walk/Wheelchair (B) sup M. Stairs sup - Communication N. Comprehension (B) Marimar O. Expression (B) Marimar - Social Cognition P. Social Interaction Marimar Q. Problem Solving Marimar R. Memory Marimar - Endurance Good - Balance Good - Safety Awareness Fair QI SCORES: - Self-Care A. Eating 04-Supervision or touching assistance B. Oral hygiene 03-Partial/moderate assistance C. Toileting hygiene 88-Not attempted due to medical condition or safety concerns E. Shower/bathe self 03-Partial/moderate assistance F. Upper body dressing 03-Partial/moderate assistance G. Lower body dressing 03-Partial/moderate assistance H. Putting on/taking off footwear 88-Not attempted due to medical condition or safety concerns - Mobility A. Roll left and right 03-Partial/moderate assistance B. Sit to lying 03-Partial/moderate assistance C. Lying to sitting on side of bed 03-Partial/moderate assistance D. Sit to stand 03-Partial/moderate assistance E. Chair/lxk-[id number] transfer 03-Partial/moderate assistance F. Toilet transfer 88-Not attempted due to medical condition or safety concerns G. Car transfer 88-Not attempted due to medical condition or safety concerns I. Walk 10 feet 03-Partial/moderate assistance J. Walk 50 feet with two turns 88-Not attempted due to medical condition or safety concerns K. Walk 150 feet 88-Not attempted due to medical condition or safety concerns L. Walking 10 feet on uneven surfaces 88-Not attempted due to medical condition or safety concerns M. 1 step (curb) 88-Not attempted due to medical condition or safety concerns N. 4 steps 88-Not attempted due to medical condition or safety concerns O. 12 steps 88-Not attempted due to medical condition or safety concerns P. Picking up object 88-Not attempted due to medical condition or safety concerns R. Wheel 50 feet with two turns 88-Not attempted due to medical condition or safety concerns S. Wheel 150 feet 88-Not attempted due to medical condition or safety concerns - Bladder and Bowel Bladder continence Bowel continence - Endurance Fair - Balance Fair - Safety Awareness Fair CURRENT [facility]. DEFICITS: Self-Care, Mobility, Endurance, Balance, and Safety Awareness SIGNATURE PANEL: (CDT)
[2019-12-01] MEDS ORDERED: AMLODIPINE 5 MG TAB PO ONE (05:50)
[2019-12-01 06:13] LABS: Absolute Lymphocytes (CBC) 0.6 K/uL (0.7-4.9); Basophils % 0.5 % (0-1.3); Hematocrit 48.7 % (39.6-49.0); Lymphocytes % 3.9 % (15.3-44.8); MPV 9.4 fL (7.6-11.3); RBC Red Blood Cell Count 5.04 M/uL (4.33-5.43)
[2019-12-01 06:25] LABS: Albumin 3.5 g/dL (3.4-5.0); BUN Blood Urea Nitrogen 23 mg/dL (7-18); Bicarbonate 30 mmol/L (21-32); Glucose Level 104 mg/dL (74-106); Potassium 4.6 mmol/L (3.5-5.1); Prealbumin 36.8 mg/dL (20-40); Sodium Level 138 mmol/L (136-145)
[2019-12-01] MEDS: PANTOPRAZOLE 40MG TABLET PO SCH (07:07)
[2019-12-01 07:39] VITALS: BP 120/73; TEMP 97.2
[2019-12-01] MEDS: levETIRAcetam 500 MG TAB PO SCH (08:02)
[2019-12-01] MEDS: DOCUSATE NA 100 MG CAP PO SCH (08:02)
[2019-12-01] MEDS: dexAMETHasone 4 MG TAB PO SCH (08:02)
[2019-12-01] MEDS: NICOTINE 14 MG/PAT TD SCH (08:03)
[2019-12-01 08:26] LABS: Blood Morphology Comment NOT SEEN (NOT SEEN); Platelet Estimate ADEQ
[2019-12-01] MEDS: HEPARIN 5000 UNIT/ML 1 ML VIAL SQ SCH (09:23)
--- NOTE | 2019-12-02 06:42 | FAST ---
[employer] FORM SHIFT START DATE/TIME: 12/01/2019 07:00 (CDT) SHIFT END DATE/TIME: 12/01/2019 19:00 (CDT) NAME JUAN PABLO TOURE DATE OF : 1945 DATE OF ADMISSION: 11/22/2019 18:25 (CDT) PHONE: AGE: 74 N# [id number] GENDER: Male ENCOUNTER PHYSICIAN: Dr. Gildardo Wells M.D. ADMISSION DIAGNOSIS: - Brain Dysfunction 02 - Closed Injury (04.23) LEFT FRONTAL BRAIN MASS. EATING: EATING - STEP 1: Does the patient complete the activity by him/herself with no assistance (physical, verbal/nonverbal cueing, setup/clean-up)? No. EATING - STEP 2: Does the patient need only setup/clean-up assistance from one helper? Yes. 1. [id number] ADMISSION PERFORMANCE: Setup or clean-up assistance CODE: 05 ORAL HYGIENE: ORAL HYGIENE - STEP 1: Does the patient complete the activity by him/herself with no assistance (physical, verbal/nonverbal cueing, setup/clean-up)? No. ORAL HYGIENE - STEP 2: Does the patient need only setup/clean-up assistance from one helper? Yes. 1. [id number] ADMISSION PERFORMANCE: Setup or clean-up assistance CODE: 05 TOILETING HYGIENE: TOILETING HYGIENE - STEP 1: Does the patient complete the activity by him/herself with no assistance (physical, verbal/nonverbal cueing, setup/clean-up)? No. TOILETING HYGIENE - STEP 2: Does the patient need only setup/clean-up assistance from one helper? Yes. 1. [id number] ADMISSION PERFORMANCE: Setup or clean-up assistance CODE: 05 BATHING: Not assessed/no information CODE: - DRESSING - UPPER BODY: DRESSING - UPPER BODY - STEP 1: Does the patient complete the activity by him/herself with no assistance (physical, verbal/nonverbal cueing, setup/clean-up)? No. DRESSING - UPPER BODY - STEP 2: Does the patient need only setup/clean-up assistance from one helper? No. DRESSING - UPPER BODY - STEP 3: Does the patient need only verbal/nonverbal cueing or touching/steadying/contact guard assistance fro m one helper? Yes. 1. [id number] ADMISSION PERFORMANCE: Supervision or touching assistance CODE: 04 DRESSING - LOWER BODY: DRESSING - LOWER BODY - STEP 1: Does the patient complete the activity by him/herself with no assistance (physical, verbal/nonverbal cueing, setup/clean-up)? No. DRESSING - LOWER BODY - STEP 2: Does the patient need only setup/clean-up assistance from one helper? No. DRESSING - LOWER BODY - STEP 3: Does the patient need only verbal/nonverbal cueing or touching/steadying/contact guard assistance fro m one helper? Yes. 1. [id number] ADMISSION PERFORMANCE: Supervision or touching assistance CODE: 04 PUTTING ON/TAKING OFF FOOTWEAR: FOOTWEAR - STEP 1: Does the patient complete the activity by him/herself with no assistance (physical, verbal/nonverbal cueing, setup/clean-up)? No. FOOTWEAR - STEP 2: Does the patient need only setup/clean-up assistance from one helper? No. FOOTWEAR - STEP 3: Does the patient need only verbal/nonverbal cueing or touching/steadying/contact guard assistance fro m one helper? Yes. 1. [id number] ADMISSION PERFORMANCE: Supervision or touching assistance CODE: 04 ROLL LEFT AND RIGHT: ROLL LEFT AND RIGHT - STEP 1: Does the patient complete the activity by him/herself with no assistance (physical, verbal/nonverbal cueing, setup/clean-up)? No. ROLL LEFT AND RIGHT - STEP 2: Does the patient need only setup/clean-up assistance from one helper? Yes. 1. [id number] ADMISSION PERFORMANCE: Setup or clean-up assistance CODE: 05 SIT TO LYING: SIT TO LYING - STEP 1: Does the patient complete the activity by him/herself with no assistance (physical, verbal/nonverbal cueing, setup/clean-up)? No. SIT TO LYING - STEP 2: Does the patient need only setup/clean-up assistance from one helper? Yes. 1. [id number] ADMISSION PERFORMANCE: Setup or clean-up assistance CODE: 05 LYING TO SITTING: LYING TO SITTING ON SIDE OF BED - STEP 1: Does the patient complete the activity by him/herself with no assistance (physical, verbal/nonverbal cueing, setup/clean-up)? No. LYING TO SITTING ON SIDE OF BED - STEP 2: Does the patient need only setup/clean-up assistance from one helper? Yes. 1. [id number] ADMISSION PERFORMANCE: Setup or clean-up assistance CODE: 05 SIT TO STAND: SIT TO STAND - STEP 1: Does the patient complete the activity by him/herself with no assistance (physical, verbal/nonverbal cueing, setup/clean-up)? No. SIT TO STAND - STEP 2: Does the patient need only setup/clean-up assistance from one helper? Yes. 1. [id number] ADMISSION PERFORMANCE: Setup or clean-up assistance CODE: 05 TRANSFERS: BED, CHAIR: CHAIR/[id number] TRANSFER - STEP 1: Does the patient complete the activity by him/herself with no assistance (physical, verbal/nonverbal cueing, setup/clean-up)? No. CHAIR/[id number] TRANSFER - STEP 2: Does the patient need only setup/clean-up assistance from one helper? Yes. 1. [id number] ADMISSION PERFORMANCE: Setup or clean-up assistance CODE: 05 TRANSFER TOILET: TOILET TRANSFER - STEP 1: Does the patient complete the activity by him/herself with no assistance (physical, verbal/nonverbal cueing, setup/clean-up)? No. TOILET TRANSFER - STEP 2: Does the patient need only setup/clean-up assistance from one helper? Yes. 1. [id number] ADMISSION PERFORMANCE: Setup or clean-up assistance CODE: 05 TRANSFERS: CAR: Not assessed/no information CODE: - WALK 10 FEET: WALK 10 FEET - STEP 1: Does the patient complete the activity by him/herself with no assistance (physical, verbal/nonverbal cueing, setup/clean-up)? No. WALK 10 FEET - STEP 2: Does the patient need only setup/clean-up assistance from one helper? Yes. 1. [id number] ADMISSION PERFORMANCE: Setup or clean-up assistance CODE: 05 WALK 50 FEET: WALK 50 FEET - STEP 1: Does the patient complete the activity by him/herself with no assistance (physical, verbal/nonverbal cueing, setup/clean-up)? No. WALK 50 FEET - STEP 2: Does the patient need only setup/clean-up assistance from one helper? Yes. 1. [id number] ADMISSION PERFORMANCE: Setup or clean-up assistance CODE: 05 WALK 150 FEET: Not assessed/no information CODE: - WALK 10 FEET UNEVEN: Not assessed/no information CODE: - 1 STEP (CURB): Not assessed/no information CODE: - PICKING UP OBJECT: Not assessed/no information CODE: - DOES THE PATIENT USE A WHEELCHAIR/SCOOTER? Q1. DOES THE PATIENT USE A WHEELCHAIR/SCOOTER?: No CODE: 0 INDICATE THE TYPE OF WHEELCHAIR/SCOOTER USED: CODE: EXPR INDICATE THE TYPE OF WHEELCHAIR/SCOOTER USED: CODE: EXPR BLADDER AND BOWEL: H350. BLADDER CONTINENCE (3-DAY ASSESSMENT PERIOD): Always continent (no documented incontinence) CODE: 0 H400. BOWEL CONTINENCE (3-DAY ASSESSMENT PERIOD): Always continent CODE: 0 SIGNATURE PANEL: The following modified sections: 1. [id number] Admission Performance, 1. [id number] Admission Performance, 1. [id number] Admission Performance, 1. [id number] Admission Performance, 1. [id number] Admission Performance, 1. [id number] Admission Performance, 1. [id number] Admission Performance, 1. [id number] Admission Performance , 1. [id number] Admission Performance, 1. DI2066V Admission Performance, 1. [id number] Admission Performanc e, 1. [id number] Admission Performance, 1. [id number] Admission Performance, 1. [id number] Admission Performan ce, 1. [id number] Admission Performance, 1. [id number] Admission Performance, 1. [id number] Admission Performa nce, 1. [id number] Admission Performance, 1. [id number] Admission Performance, 1. [id number] Admission Perform ance, Q1. Does the patient use a wheelchair/scooter?, H350. Bladder Continence (3-day assessment jack od), H400. Bowel Continence (3-day assessment period) were [electronically] signed by Jay HerreraNShadia on ThuDec 01 2019 11:01:12 GMT-0500 (Central Daylight Time)
--- NOTE | 2019-12-02 06:43 | R.PN ---
PROGRESS NOTES ENCOUNTER DATE AND TIME: 12/01/2019 17:35 (CDT) NAME JUAN PABLO TOURE DATE OF : 1945 DATE OF ADMISSION: 11/22/2019 18:25 (CDT) LEFT FRONTAL BRAIN MASSCHIEF COMPLAINT: Left frontal brain mass SUBJECTIVE: Pt denied any depression. Pt denied any Shortness of Breath. Ambulated 2500' with independence and no assistive device. Up and down 30 steps with independence. CBC with differential is normal. Prealbumin is 19.3, glucose 97 to 115. UA is negative. He will be discharged home today. VITAL SIGNS Temperature: 97.8 F SBP/DBP: 135/77 Pulse: 66 Resp: 16 MEDICATION ALLERGIES: No Known Drug Allergies (NKDA) ENVIRONMENTAL ALLERGIES: - Substance Allergies None Known - Other Allergies None Known NURSING: - Shower allowing shower - Bladder care per protocol - Skin care per protocol PRECAUTIONS: - Fall Precaution 1 to 1 supervision ACTIVITIES OOB only with supervision THERAPIES: - Occupational Therapy Cognitive Retraining. Visual Perceptual Training. - Dietary and Nutrition Adequate Nutrition. Nutritional Education. Nutritional Supplements. - Speech Therapy Augmentative Communication Equipment. PHYSICAL EXAM - Gen Alert and awake Lying in bed No apparent distress Oriented to: person, time, and place - Skin No breakdown Healing surgical wound in the left frontal scalp. Otherwise intact. - Eyes No abnormalities - ENMT No abnormalities - Neck No abnormalities - CVS RRR - Chest No abnormalities - Resp Clear to auscultation - Abd Soft - GI + bowel sounds Deferred - No abnormalities - Ext No significant edema. - MSK 4+/5 weakness in right upper and lower extremities - Neuro 4/5 strength right upper and lower extremities. - Psych No abnormalities ASSESSMENT: Pt. is a 74 yo Right-handed male of unknown race.On 11/18/[address] [facility] with diagnosis LEFT FRONTAL BRAIN MASS.His impairment category is Brain Dysfunction 02 - Closed Injury ( 04.23).Pre-morbidly, Pt. was independent/mod-I in Safety Awareness, Balance, Communication, Transfers Control, Endurance, and Self-Care; and he had good Social Cognition, Sphincter Control, and Self-Car e.Currently, he has deficits of Balance, Safety Awareness, Self-Care, Transfers Control, Endurance, a nd Communication.Pt. is now referred to [facility] for acute in-patient rehabi litation in order to maximize patient's functional independence in activities of daily living, streng th, ROM, and mobility.- Rehab Goal Patient has realistic goal of being discharged at assistance level 7-Ind to reside at Home with Fami ly/Relatives. MDM/PLAN: - Physical Therapy Gait dysfunction - to improve, our physical therapists will perform initial evaluation of pt's statu s upon admission and devise an individualized program for Gait Training, and Wheel Chair mobility Inability to transfer - to improve, our physical therapists will perform initial evaluation of pt's status upon admission and devise an individualized program for Bed mobility Need for home safety evaluation - to improve, our physical therapists will perform initial evaluatio n of pt's status upon admission and devise an individualized program for Home Evaluation Need in caregiver upon discharge - to improve, our physical therapists will perform initial evaluati on of pt's status upon admission and devise an individualized program for Caregiver Training New precaution - to improve, our physical therapists will perform initial evaluation of pt's status upon admission and devise an individualized program for Patient precaution education Edema - to improve, our physical therapists will perform initial evaluation of pt's status upon admi ssion and devise an individualized program for Elevation Training, and Lymphedema Therapy Having wound - to improve, our physical therapists will perform initial evaluation of pt's status up on admission and devise an individualized program for Wound Care Poor balance - to improve, our physical therapists will perform initial evaluation of pt's status up on admission and devise an individualized program for Balance Training Poor endurance - to improve, our physical therapists will perform initial evaluation of pt's status upon admission and devise an individualized program for Endurance Training Weakness - to improve, our physical therapists will perform initial evaluation of pt's status upon a dmission and devise an individualized program for Aquatic Therapy, Neuromuscular Reeducation, and Str engthening Achieving independence - to improve, our physical therapists will perform initial evaluation of pt's status upon admission and devise an individualized program for Community Reintegration Activities - Occupational Therapy ADL deficits - to improve, our occupation therapists will perform initial evaluation of pt's status upon admission and devise an individualized program for Bathing, Bed mobility, Community Reintegratio n, Cooking, Dressing, Eating, Fine Motor Skills, Grooming, Homemaking, Kitchen Mobility, Laundry, Pat ient Education, Safety Awareness, Splinting - Positioning, Transfers(Toilet, Tub, Shower), and Wheel Chair Management Need for health careers instructor - to improve, our occupation therapists will perform initial evaluation of pt's status upon admission and devise an individualized program for Caregiver Training Weakness - to improve, our occupation therapists will perform initial evaluation of pt's status upon admission and devise an individualized program for Aquatic Therapy, Balance, Endurance, UE ROM, and UE strengthening - Other See attached MAR (Medication Administration Record) - Diet Type Continue Regular - Diet - Liquid Texture Continue Regular - Tube Feed Continue N/A - Bladder care per protocol - Fall Precaution 1 to 1 supervision - Skin care per protocol - Diet - Solid Texture Continue Regular - Shower allowing shower FUNCTIONAL STATUS: UPDATED AT WEEKLY TEAM CONFERENCE - Bladder Same accident frequency: 7-Ind - No accidents in the past 7 days - Bowel Same accident frequency: 7-Ind - No accidents in the past 7 days - Walking Same score based on distance walked: 0(N/A) Same score based on distance walked: 3(>=150ft) - Wheelchair Same score based on distance traveled: 0(N/A) FUNCTIONAL STATUS: - Self-Care A. Eating Marimar B. Grooming Marimar C. Bathing sup D. Dressing - Upper sup E. Dressing - Lower sup F. Toileting Marimar - Sphincter Control G. Bladder control Marimar H. Bowel control Marimar - Transfers Control I. Bed/Chair/Wheelchair sup J. Toilet sup K. Tub/Shower sup - Locomotion L. Walk/Wheelchair (B) sup M. Stairs sup - Communication N. Comprehension (B) Marimar O. Expression (B) Marimar - Social Cognition P. Social Interaction Marimar Q. Problem Solving Marimar R. Memory Marimar - Endurance Good - Balance Good - Safety Awareness Fair QI SCORES: - Self-Care A. Eating 04-Supervision or touching assistance B. Oral hygiene 03-Partial/moderate assistance C. Toileting hygiene 88-Not attempted due to medical condition or safety concerns E. Shower/bathe self 03-Partial/moderate assistance F. Upper body dressing 03-Partial/moderate assistance G. Lower body dressing 03-Partial/moderate assistance H. Putting on/taking off footwear 88-Not attempted due to medical condition or safety concerns - Mobility A. Roll left and right 03-Partial/moderate assistance B. Sit to lying 03-Partial/moderate assistance C. Lying to sitting on side of bed 03-Partial/moderate assistance D. Sit to stand 03-Partial/moderate assistance E. Chair/pog-md-gfuwr transfer 03-Partial/moderate assistance F. Toilet transfer 88-Not attempted due to medical condition or safety concerns G. Car transfer 88-Not attempted due to medical condition or safety concerns I. Walk 10 feet 03-Partial/moderate assistance J. Walk 50 feet with two turns 88-Not attempted due to medical condition or safety concerns K. Walk 150 feet 88-Not attempted due to medical condition or safety concerns L. Walking 10 feet on uneven surfaces 88-Not attempted due to medical condition or safety concerns M. 1 step (curb) 88-Not attempted due to medical condition or safety concerns N. 4 steps 88-Not attempted due to medical condition or safety concerns O. 12 steps 88-Not attempted due to medical condition or safety concerns P. Picking up object 88-Not attempted due to medical condition or safety concerns R. Wheel 50 feet with two turns 88-Not attempted due to medical condition or safety concerns S. Wheel 150 feet 88-Not attempted due to medical condition or safety concerns - Bladder and Bowel Bladder continence Bowel continence - Endurance Fair - Balance Fair - Safety Awareness Fair CURRENT [facility]. DEFICITS: Self-Care, Mobility, Endurance, Balance, and Safety Awareness SIGNATURE PANEL: (CDT)
--- NOTE | 2019-12-02 06:43 | FAST ---
OT QI REPORT FORM ENCOUNTER DATE AND TIME: 11/30/2019 08:00 (CDT) NAME JUAN PABLO TOURE DATE OF : 1945 DATE OF ADMISSION: 11/22/2019 18:25 (CDT) PHONE: AGE: 74 N# [id number] GENDER: Male ENCOUNTER PHYSICIAN: Dr. Gildardo Wells M.D. ADMISSION DIAGNOSIS: - Brain Dysfunction 02 - Closed Injury (04.23) LEFT FRONTAL BRAIN MASS. EATING: Not assessed/no information CODE: - ORAL HYGIENE: ORAL HYGIENE - STEP 1: Does the patient complete the activity by him/herself with no assistance (physical, verbal/nonverbal cueing, setup/clean-up)? Yes. 1. ADMISSION PERFORMANCE: Independent CODE: 06 TOILETING HYGIENE: Not assessed/no information CODE: - BATHING: SHOWER/BATHE SELF - STEP 1: Does the patient complete the activity by him/herself with no assistance (physical, verbal/nonverbal cueing, setup/clean-up)? Yes. 1. [id number] ADMISSION PERFORMANCE: Independent CODE: 06 DRESSING - UPPER BODY: DRESSING - UPPER BODY - STEP 1: Does the patient complete the activity by him/herself with no assistance (physical, verbal/nonverbal cueing, setup/clean-up)? Yes. 1. ADMISSION PERFORMANCE: Independent CODE: 06 DRESSING - LOWER BODY: DRESSING - LOWER BODY - STEP 1: Does the patient complete the activity by him/herself with no assistance (physical, verbal/nonverbal cueing, setup/clean-up)? Yes. 1. [id number] ADMISSION PERFORMANCE: Independent CODE: 06 PUTTING ON/TAKING OFF FOOTWEAR: FOOTWEAR - STEP 1: Does the patient complete the activity by him/herself with no assistance (physical, verbal/nonverbal cueing, setup/clean-up)? Yes. 1. [id number] ADMISSION PERFORMANCE: Independent CODE: 06 DOES THE PATIENT USE A WHEELCHAIR/SCOOTER? CODE: EXPR INDICATE THE TYPE OF WHEELCHAIR/SCOOTER USED: CODE: EXPR INDICATE THE TYPE OF WHEELCHAIR/SCOOTER USED: CODE: EXPR BLADDER AND BOWEL: CODE: EXPR CODE: EXPR SIGNATURE PANEL: The following modified sections: 1. [id number] Admission Performance, 1. [id number] Admission Performance, 1. [id number] Admission Performance, 1. [id number] Admission Performance, 1. [id number] Admission Performance were [electronically] signed by TAMEKA Hayes on ThuDec 01 2019 14:17:19 GMT-0500 (Central Daylight Time)
[2019-12-02] MEDS ORDERED: dexAMETHasone 4 MG TAB PO SCH (08:00)
[2019-12-02] MEDS ORDERED: AMLODIPINE 5 MG TAB PO SCH (08:00)
--- NOTE | 2019-12-02 16:21 | R.DS ---
DISCHARGE SUMMARY FACILITY [facility] MR# [id number] NAME JUAN PABLO HUERTA ADDRESS [address] [place] [address] [address] PHONE DATE OF 1945 AGE 74 SSN# [id number] GENDER Male DEXTERITY Right-handed MARITAL STATUS RACE Unknown race ENCOUNTER PHYSICIAN Dr. Gildardo Wells M.D. REFERRING DOCTOR ELMER BERMUDEZ MD REFERRING FACILITY [facility] PRIMARY CARE PHYSICIAN [place] DISCHARGE DIAGNOSIS: - Brain Dysfunction 02 - Closed Injury (04.23) LEFT FRONTAL BRAIN MASS. DATE OF ADMISSION 11/22/2019 18:25 (CDT) MEDICATION ALLERGIES: No Known Drug Allergies (NKDA) ENVIRONMENTAL ALLERGIES: - Substance Allergies None Known - Other Allergies None Known DISCHARGE MEDICATIONS: Other- ContinueSee attached MAR (Medication Administration Record). NURSING: - Shower allowing shower - Bladder care per protocol - Skin care per protocol PRECAUTIONS: - Fall Precaution 1 to 1 supervision ACTIVITIES OOB only with supervision THERAPIES: - Occupational Therapy Cognitive Retraining Visual Perceptual Training - Dietary and Nutrition Adequate Nutrition Nutritional Education Nutritional Supplements - Speech Therapy Augmentative Communication Equipment HISTORY OF PRESENT ILLNESS: Pt. is a 74 yo Right-handed male of unknown race.On 11/18/2019 he was admitted to [facility] with diagnosis LEFT FRONTAL BRAIN MASS.His impairment category is Brain Dysfunction 02 - Closed Injury ( 04.23).Pre-morbidly, Pt. was independent/mod-I in Safety Awareness, Balance, Communication, Transfers Control, Endurance, and Self-Care; and he had good Social Cognition, Sphincter Control, and Self-Car e.Currently, he has deficits of Balance, Safety Awareness, Self-Care, Transfers Control, Endurance, a nd Communication.Pt. is now referred to [facility] for acute in-patient rehabi litation in order to maximize patient's functional independence in activities of daily living, streng th, ROM, and mobility.- Rehab Goal Patient has realistic goal of being discharged at assistance level 7-Ind to reside at Home with Fami ly/Relatives. Juan Pablo Huerta is a 74 -year old male that lives independently at home, with his . He lives in a single-story home and has 3 stairs to get into the house. Patient was transferred for a brain mass, complains his right leg is not working well and notes some memory difficulties. He has history PSH. 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 Speech improving. RLE strength normal. Will discontinue drain, initiate dexamethasone taper . He has always done all of his own caring, Cooking, and laundry. He performs all his own ADLs and IADLs. Prior to COVID. He was seeing his PCP regularly. He would definitely benefit from acute inpatient rehab and has become severely debilitated and unable to live at she prior level of activity at home getting him stronger and better to be back living at home independently is our goal. It is reasonable and necessary for the patient to come to acute inpatient rehab for approximately 7-10 days in order to return to his prior level of care. She is now being transferred to [facility] Inpatient rehabilitation and is medical was stable with relatively stable labs. She is now medically stable but in need of 24 hour nursing, doctor supervision and oversight while receiving active and participate in 3 hours of therapy a day/15 hours per week and receive care with intensive interdisciplinary approach. COVID-19 screening performed; spoke with patient via phone. Patient denies new onset of fever, cough, difficulty breathing, sore throat, body aches and non-allergy nasal congestion in the past 24 hours. Patient denies travel outside of [place] in the past 14 days. Patient denies any contact with someone who has a confirmed diagnosis of or is under investigation for COVID-19 in the past 14 days. Patient has been tested negative for COVID- 19.HOSPITAL COURSE: DIET - LIQUID TEXTURE: On 11/22/2019 Pt was upgraded to Regular Diet - Liquid Texture. DIET - SOLID TEXTURE: On 11/22/2019 Pt was upgraded to Regular Diet - Solid Texture. DIET TYPE: On 11/22/2019 Pt was upgraded to Regular Diet Type. FALL PRECAUTION: On 11/22/2019 the following precautions were added for the patient: Fall Precaution - 1 to 1 supervis ion. On 11/24/2019 the following precautions were added for the patient: Fall Precaution - 1 to 1 supervi telma. The following precautions were removed for the patient: Fall Precaution - 1 to 1 supervision, and Fal l Precaution - 1 to 1 supervision. TUBE FEED: On 11/22/2019 Pt was changed to N/A Tube Feed. DISCHARGE PHYSICAL EXAM - Gen Alert and awake Lying in bed No apparent distress Oriented to: person, time, and place - Skin No breakdown Healing surgical wound in the left frontal scalp. Otherwise intact. - Eyes No abnormalities - ENMT No abnormalities - Neck No abnormalities - CVS RRR - Chest No abnormalities - Resp Clear to auscultation - Abd Soft - GI + bowel sounds Deferred - No abnormalities - Ext No significant edema. - MSK 4+/5 weakness in right upper and lower extremities - Neuro 4/5 strength right upper and lower extremities. - Psych No abnormalities FUNCTIONAL STATUS: - Self-Care A. Eating 7-Ind B. Grooming 7-Ind C. Bathing 7-Ind D. Dressing - Upper 7-Ind E. Dressing - Lower 7-Ind F. Toileting 7-Ind - Sphincter Control G. Bladder control 7-Ind H. Bowel control 7-Ind - Transfers Control I. Bed/Chair/Wheelchair 7-Ind J. Toilet 7-Ind K. Tub/Shower 7-Ind - Locomotion L. Walk/Wheelchair (B) 7-Ind M. Stairs 7-Ind - Communication N. Comprehension (B) 7-Ind O. Expression (B) 7-Ind - Social Cognition P. Social Interaction 7-Ind Q. Problem Solving 7-Ind R. Memory 7-Ind - Endurance Good - Balance Good - Safety Awareness Good QI SCORES: - Self-Care A. Eating 04-Supervision or touching assistance B. Oral hygiene 03-Partial/moderate assistance C. Toileting hygiene 88-Not attempted due to medical condition or safety concerns E. Shower/bathe self 03-Partial/moderate assistance F. Upper body dressing 03-Partial/moderate assistance G. Lower body dressing 03-Partial/moderate assistance H. Putting on/taking off footwear 88-Not attempted due to medical condition or safety concerns - Mobility A. Roll left and right 03-Partial/moderate assistance B. Sit to lying 03-Partial/moderate assistance C. Lying to sitting on side of bed 03-Partial/moderate assistance D. Sit to stand 03-Partial/moderate assistance E. Chair/kjk-fz-oqkgm transfer 03-Partial/moderate assistance F. Toilet transfer 88-Not attempted due to medical condition or safety concerns G. Car transfer 88-Not attempted due to medical condition or safety concerns I. Walk 10 feet 03-Partial/moderate assistance J. Walk 50 feet with two turns 88-Not attempted due to medical condition or safety concerns K. Walk 150 feet 88-Not attempted due to medical condition or safety concerns L. Walking 10 feet on uneven surfaces 88-Not attempted due to medical condition or safety concerns M. 1 step (curb) 88-Not attempted due to medical condition or safety concerns N. 4 steps 88-Not attempted due to medical condition or safety concerns O. 12 steps 88-Not attempted due to medical condition or safety concerns P. Picking up object 88-Not attempted due to medical condition or safety concerns R. Wheel 50 feet with two turns 88-Not attempted due to medical condition or safety concerns S. Wheel 150 feet 88-Not attempted due to medical condition or safety concerns - Bladder and Bowel Bladder continence Bowel continence - Endurance Fair - Balance Fair - Safety Awareness Fair DISCHARGE INSTRUCTIONS: - N/A Eliquis 2.5 mg twice daily, Aspirin 81 mg daily. DISCHARGE PLAN, FOLLOW UP CARE PROVISIONS: - Estimated Length of Stay (days) 17. - Consensus on plan Discharge plan has been discussed with primary caregiver. Patient/Family is in agreement with the lon n. Primary caregiver is in agreement with the plan. - Patient/Family Goals Return home independently. - Planned Living Setting Upon Discharge Home, to live with Family/Relatives. Transitional Living. SIGNATURE PANEL: (CDT)
--- NOTE | 2019-12-03 19:12 | PN ---
Date of Progress Note: 11/29/2019 Subjective: The patient was seen for followup in the morning. No new complaints or problems reporte d. He was lying in bed, not in distress. Objective: Vital Signs: Reviewed. HEENT: Unremarkable. Lungs: Clear to auscultation. Heart: Sounds normal. Abdomen: Soft. Bowel sounds normal. No guarding, rigidity, tenderness, or distention. Extremities: No leg edema. Skin: He has few bruises on anterior abdominal wall from heparin injection, but no evidence of any h ematoma and these are small bruises. Impression: 1.Hypertension. 2.Gliosarcoma. Plan: We will go ahead and continue current medications. Continue physical therapy under guidance o michelle Wells. Continue heparin for DVT prophylaxis per order. I will see him for followup again, but no need for any concerns about those bruises. I did explain it to the nursing staff to make sure that while they are injecting heparin, they need to be careful and not to go close to the vein if it is visible on the surface. VITA/MODL Voice ID: [id number] Report ID: [id number]
--- NOTE | 2019-12-03 19:18 | DS ---
Date of Discharge: 12/01/2019 Disposition: Discharged to go home. Discharge Medications And Instructions: 1. Follow up at my office next week on Thursday or Thursday. 2. Levetiracetam 500 mg 1 tablet by mouth 2 times a day. 3. Dexamethasone 1 mg. The patient to take 1 tablet by mouth 2 times a day for 3 days, then 1 tablet by mouth daily for 3 days, then stop. Physical Examination: HEENT: Unremarkable. Lungs: Clear to auscultation. Heart: Sounds normal. Abdomen: Soft. Bowel sounds normal. No guarding, rigidity, tenderness, or distention. Extremities: No leg edema. Discharge Diagnoses: 1. Gliosarcoma of brain, frontal lobe. 2. Hypertension. 3. Generalized weakness. 4. Thrombocytopenia. 5. Hyperlipidemia. 6. Diverticulosis. 7. Benign prostatic hypertrophy. Hospital Course: This is a 74-year-old male patient admitted to the hospital to rehab floor after he had surgery done for gliosarcoma of brain. Please see dictated H and P for more information. The patient had surgery done at [facility] and he was sent to our rehab floor for further rehab therapy. Dr. Wells from rehab floor managed his physical therapy. Overall, his condition improved. He is ambulating well and he is on tapering dose of dexamethasone as instructed from [place]. We continued that. His blood pressure was elevated and he did require some antihypertensive medication, amlodipine 5 mg daily, but later on in last 2 to 3 days, blood pressure was either normal or slightly lower than normal, so we did decide to hold amlodipine if systolic blood pressure less than 130. I will continue to monitor that on outpatient basis. If necessary, we will re-initiate antihypertensive medication on outpatient basis. He does not have any focal neurological deficit. He was given DVT prophylaxis using heparin subcutaneous injection during this hospitalization. His initial white count is 7.8, hemoglobin 14.5, platelets 151, and last white count on day of discharge 15.2, which is due to him getting steroid medication, which is dexamethasone causing elevated white count. Hemoglobin 16.2, platelets 187. Last chemistry showed sodium 138, potassium 4.6, chloride 103, bicarb 30, BUN 23, creatinine 0.82, glucose 104. VITA/MODL Voice ID: [id number] Report ID: [id number] MTDD
[2019-12-05] MEDS ORDERED: dexAMETHasone 4 MG TAB PO SCH (08:00)
== END 2019-12-01 14:30 | disposition home or self-care (01) | DRG 55 ==
LOC: 5TH 20:25
PROVIDERS: ADMIT Internal Medicine; ATTEND Internal Medicine
DX: C71.1 Malignant neoplasm of frontal lobe (principal); R53.1 Weakness; I10 Essential (primary) hypertension; E78.5 Hyperlipidemia, unspecified; D69.6 Thrombocytopenia, unspecified; K57.90 Diverticulosis of intestine, part unspecified, without perforation or abscess without bleeding; N40.0 Benign prostatic hyperplasia without lower urinary tract symptoms; Z20.828 Contact with and (suspected) exposure to other viral communicable diseases
CPT/HCPCS: 36415; 80048; 81001; 82040; 83735; 84134; 85025; 87086; 87088; 92523; 97110; 97112; 97116; 97127; 97161; 97530; J1644; J8540; U0002

== ENCOUNTER 2020-03-20 12:33 | Inpatient (IN) | payer OTHER ==
--- OUTSIDE RECORDS SUMMARY | 2020-03-20 12:35 | XMS REPORT | Continuity of Care Document ---
:1945 Author Organization [facility] t Address [address] [place] [address] [address] [place] [address] Care Team Providers Name Role Phone Nayan MADRID P Attending Clinician Problems This patient has no known problems. Allergies, Adverse Reactions, Alerts This patient has no known allergies or adverse reactions. Medications This patient has no known medications. Procedures This patient has no known procedures. Encounters Start End Encounter Admission Attending Care Care Encounter Source Date/Time Date/Time Type Type Clinicians Facility Department ID 2020-02-15 2020-02-15 Office EMILIA Spicer [id number] 13:15:58 13:30:58 Visit Dimitri Hanley [facility] [id number] [facility] [id number] Results This patient has no known results.
[2020-03-20 13:38] LABS: Protime INR 1.08
[2020-03-20] MEDS ORDERED: ONDANSETRON 4 MG/2 ML VIAL ONE ×2 (13:39→14:53)
[2020-03-20] MEDS ORDERED: MORPHINE 4 MG/ML SYR ONE (13:39)
[2020-03-20] MEDS ORDERED: NA CHLORIDE 0.9% 1,000 ML ONE ×2 (13:39→18:05)
[2020-03-20 13:42] LABS: Basophils % 1.4 % (0-1.3); Hematocrit 42.5 % (39.6-49.0); Lymphocytes % 15.7 % (15.3-44.8); MPV 8.6 fL (7.6-11.3); RBC Red Blood Cell Count 4.38 M/uL (4.33-5.43)
[2020-03-20 13:51] LABS: ALT/SGPT 21 U/L (12-78); AST/SGOT 16 U/L (15-37); Albumin 3.3 g/dL (3.4-5.0); Alkaline Phosphatase 33 U/L (45-117); BUN Blood Urea Nitrogen 11 mg/dL (7-18); Bicarbonate 26 mmol/L (21-32); Bilirubin Direct 0.2 mg/dL (0-0.2); Bilirubin Total 0.8 mg/dL (0.2-1.0); Glucose Level 92 mg/dL (74-106); Lipase 95 U/L (73-393); Magnesium 2.3 mg/dL (1.8-2.4); NT PRO-BNP 105 pg/mL (<450); Protein, Total 6.8 g/dL (6.4-8.2); Sodium Level 141 mmol/L (136-145); Troponin (Emerg Dept Use Only) < 0.02 ng/mL (0.0-0.045)
--- NOTE | 2020-03-20 13:54 | RAD REPORT ---
EXAM DESCRIPTION: Renita Single View03/20/2020 1:46 pm CLINICAL HISTORY: Chest pain COMPARISON: 2018 FINDINGS: Lungs are hyperaerated. Mild lingular opacity may represent a small area of atelectasis or infiltrate. Calcified granuloma le ft lung. Right lung appears clear of acute infiltrate. The heart is normal size
--- NOTE | 2020-03-20 13:55 | RAD REPORT ---
EXAM DESCRIPTION: CT - Angio Aorta For Dissection - 03/20/2020 1:36 pm CLINICAL HISTORY: Abdominal distention;Chest pain;Pain;PE;Dissection history of primary brain malig hipolito. COMPARISON: None. TECHNIQUE: Dynamically enhanced 3 mm thick images of the chest, abdomen, and upper pelvis were obtai ludivina during administration of approximately 150mL Isovue 370 IV contrast. Sagittal and coronal reconst ruction images were generated using MIP and reviewed. Exam utilizes a protocol to evaluate entire cou rse of the aorta. All CT scans are performed using dose optimization technique as appropriate and may include automated exposure control or mA/KV adjustment according to patient size. FINDINGS: A small 11 millimeter right thyroid nodule is present. Overall gland size is normal. No aortic aneurysm or dissection. No significant atherosclerotic changes are present in the thoracic aorta. There is minimal mural thrombus along the left lateral wall of the mid descending thoracic aor ta. Irregular atherosclerotic calcified and noncalcified plaquing changes are present in the infraren al aorta. No significant luminal narrowing. Prominent common iliac artery atherosclerotic calcifications are present without significant luminal narrowing. 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 Embolic disease extends into several segmental branches. Significant but l ess extensive embolic disease is present at the right pulmonary artery branch into the upper, middle and lower lobes. Minimal segmental branch embolic disease on the right. No cardiomegaly, pericardial thickening or pericardial effusion. A 2.6 centimeter area of parenchymal opacification is present at the lateral inferior tip of the ling dangelo. There is a 12 mm nodular density in the posterior gutter on the left and an 10 mm nodular focus in the posterior gutter on the right. No pleural thickening, pleural effusion or pneumothorax. No abnormal mediastinal or hilar mass or lymphadenopathy seen. No chest wall mass or abnormal axillar y lymphadenopathy. Celiac, SMA and renal arteries show no suspicious findings. Solid abdominal viscera and bowel show no significant findings. No mass or abnormal lymphadenopathy. No free air, free fluid or inflammatory stranding. No urinary bladder abnormality. Patient has diverticulosis without diverticulitis. No ac tive GI process seen. Pulmonary emboli findings telephoned to the referring physician 1346 hours. 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 Segmental branch embolic disease present on the left. Patchy area of opacification present in the inferior tip of the lingula with a small nodular density in each posterior gutter. The lingula finding could be minimal infiltrate, atelectasis or possibly pu lmonary hemorrhage from the embolic disease. The 2 nodular densities could be metastatic disease give n the history. No acute aortic finding. Patient has significant irregular atherosclerotic plaquing in the infrarenal aorta without significant luminal narrowing.
[2020-03-20] MEDS ORDERED: ENOXAPARIN 60 MG/0.6 ML SQ ONE (14:31)
[2020-03-20] MEDS ORDERED: FAMOTIDINE 20 MG/2 ML VIAL IV ONE (14:31)
--- NOTE | 2020-03-20 14:41 | EDPHYS ---
Physician Documentation [facility] Name: Tonio Huerta Age: 75 yrs Sex: Male : 1945 Arrival Date: 03/20/2020 Time: 12:35 Bed 23 Private MD: Guzman Moralez C ED Physician Derrek Marin HPI: 03/20 14:27 This 75 yrs old Male presents to ER via Ambulatory with complaints of laura Abdominal Pain. 14:27 The patient has shortness of breath at rest, with light activity. Onset: The laura symptoms/episode began/occurred 3 day(s) ago. Duration: The symptoms are continuous, and are steadily getting worse. The patient's shortness of breath has no apparent modifying factors. The patient or guardian reports chest pain that is located primarily in the substernal area, epigastric area, anterior chest wall, left. Onset: 2 day(s) ago. The patient presents with abdominal pain in the left upper quadrant. Onset: The symptoms/episode began/occurred 3 day(s) ago. The pain does not radiate. Associated signs and symptoms: The patient has no apparent associated signs or symptoms. Severity of symptoms: At their worst the symptoms were mild moderate in the emergency department the symptoms are unchanged. Historical: - Allergies: 12:49 No Known Allergies; ca1 - Home Meds: 12:49 seizure medication [Active]; ca1 - PMHx: 12:49 None; ca1 - PSHx: 12:49 brain Surgery; Tonsillectomy; ca1 - Immunization history:: Pneumococcal vaccine is up to date, Flu vaccine is up to date. - Social history:: Smoking status: Patient reports the use of cigarette tobacco products, smokes one pack cigarettes per day. - Family history:: not pertinent. ROS: 14:27 Constitutional: Negative for fever, chills, and weight loss, Eyes: Negative for injury, laura pain, redness, and discharge, ENT: Negative for injury, pain, and discharge, Neck: Negative for injury, pain, and swelling, Cardiovascular: Negative for chest pain, palpitations, and edema, Back: Negative for injury and pain, : Negative for injury, bleeding, discharge, and swelling, MS/Extremity: Negative for injury and deformity, Skin: Negative for injury, rash, and discoloration, Neuro: Negative for headache, weakness, numbness, tingling, and seizure, Psych: Negative for depression, anxiety, suicide ideation, homicidal ideation, and hallucinations, Allergy/Immunology: Negative for hives, rash, and allergies, Endocrine: Negative for neck swelling, polydipsia, polyuria, polyphagia, and marked weight changes, Hematologic/Lymphatic: Negative for swollen nodes, abnormal bleeding, and unusual bruising. 14:27 Respiratory: Positive for cough, with no reported sputum, dyspnea on exertion, pleurisy, of the back and chest, shortness of breath, at rest. Exam: 14:27 Constitutional: This is a well developed, well nourished patient who is awake, alert, laura and in no acute distress. Head/Face: Normocephalic, atraumatic. Eyes: Pupils equal round and reactive to light, extra-ocular motions intact. Lids and lashes normal. Conjunctiva and sclera are non-icteric and not injected. Cornea within normal limits. Periorbital areas with no swelling, redness, or edema. ENT: Nares patent. No nasal discharge, no septal abnormalities noted. Tympanic membranes are normal and external auditory canals are clear. Oropharynx with no redness, swelling, or masses, exudates, or evidence of obstruction, uvula midline. Mucous membranes moist. Neck: Trachea midline, no thyromegaly or masses palpated, and no cervical lymphadenopathy. Supple, full range of motion without nuchal rigidity, or vertebral point tenderness. No Meningismus. Chest/axilla: Normal chest wall appearance and motion. Nontender with no deformity. No lesions are appreciated. Respiratory: Lungs have equal breath sounds bilaterally, clear to auscultation and percussion. No rales, rhonchi or wheezes noted. No increased work of breathing, no retractions or nasal flaring. Abdomen/GI: Soft, non-tender, with normal bowel sounds. No distension or tympany. No guarding or rebound. No evidence of tenderness throughout. Back: No spinal tenderness. No costovertebral tenderness. Full range of motion. Male : Normal genitalia with no discharge or lesions. Skin: Warm, dry with normal turgor. Normal color with no rashes, no lesions, and no evidence of cellulitis. Neuro: Awake and alert, GCS 15, oriented to person, place, time, and situation. Cranial nerves II-XII grossly intact. Motor strength 5/5 in all extremities. Sensory grossly intact. Cerebellar exam normal. Normal gait. Psych: Awake, alert, with orientation to person, place and time. Behavior, mood, and affect are within normal limits. 14:27 Cardiovascular: Rate: normal, Rhythm: regular, Pulses: Pulses are 4+ in bilateral radial, brachial, femoral, popliteal, posterior tibial and and dorsalis pedis arteries.. Heart sounds: normal. 14:41 ECG was reviewed by the Attending Physician. laura Vital Signs: 12:46 BP 149 / 89; Pulse 103; Resp 16 S; Temp 97.7(TE); Pulse Ox 97% on R/A; Weight 63.5 kg ca1 (R); Height 5 ft. 7 in. (170.18 cm) (R); Pain 9/10; 13:30 BP 164 / 99; Pulse 97; Resp 26; Pulse Ox 95% on R/A; zb 14:29 BP 165 / 101; Pulse 96; Resp 27; Pulse Ox 98% on 2 lpm NC; zb 15:49 BP 159 / 91; Pulse 92; Resp 23; Pulse Ox 99% on 2 lpm NC; zb 16:30 BP 134 / 84; Pulse 90; Resp 20; Pulse Ox 92% on R/A; zb 17:30 BP 152 / 82; Pulse 88; Resp 18; Pulse Ox 93% on R/A; zb 18:30 BP 132 / 76; Pulse 98; Resp 18; Pulse Ox 90% on R/A; zb 18:51 BP 136 / 80; Pulse 92; Resp 18; Pulse Ox 94% on 3 lpm NC; zb 20:00 BP 138 / 79; Pulse 91; Resp 18; Pulse Ox 99% 3 lpm ; zb 20:59 BP 142 / 79; Pulse 97; Resp 20; Pulse Ox 97% on 3 lpm NC; zb 12:46 Body Mass Index 21.93 (63.50 kg, 170.18 cm) ca1 MDM: 12:51 Patient medically screened. laura 14:27 Differential diagnosis: Anemia Anxiety Reaction CHF exacerbation, abnormal EKG, acute laura myocardial infarction, acute pericarditis, coronary artery disease congestive heart failure hiatal hernia, mitral valve prolapse, pancreatitis, pulmonary embolus, stable angina, unstable angina, Myocardial Infarction pneumonia, pulmonary edema, Pulmonary Embolism reactive airway disease, Unstable Angina gastritis, non-specific abd pain, pancreatitis. Antibiotic administration: Rocephin and Zithromax given. HEART Score: History: Slightly Suspicious (0), ECG: Normal (0), Age: > or = 65 years (2), Risk Factors: 1 or 2 risk factors (1), [Hypercholesterolemia] [Hypertension] Troponin: < or = 1 x Normal Limit (0). The patient was given aspirin in the Emergency Department. The patient's Wells Deep Vein Thrombosis Score was calculated as follows: the patient is receiving ongoing or pallative cancer treatment (1.0 Pts) Total Score: 1 to 2 points. This patient was found to be at moderate risk for a deep vein thrombosis by using the Well's assessment criteria Suspected DVT (3 Pts) Heart Rate >100 BPM (1.5 Pts) Malignancy Total Score: 3-6 Pts - Mod Risk. The patient's pulmonary embolism risk score was calculated as follows: suspected deep vein thrombosis (3 Pts) the patients heart rate is greater than 100 beats per minute (1.5 Pts) malignancy Total Score: 3-6 points. This patient was found to be at moderate risk for a pulmonary embolism by using the Well's assessment criteria suspected deep vein thrombosis (3 Pts) the patients heart rate is greater than 100 beats per minute (1.5 Pts) Total Score: 3-6 points. This patient was found to be at moderate risk for a pulmonary embolism by using the Well's assessment criteria. 14:27 ROBERTO Risk Score: 1 - patient's age is greater or equal to 65 years, 1 - Recent [<24hrs] laura Severe Angina, TOTAL SCORE = 2. Immunization status: Pneumococcal vaccine: Influenza vaccine: Data reviewed: vital signs, nurses notes, old medical records, lab test result(s), EKG, radiologic studies, CT scan, plain films. Data interpreted: library monitor: rhythm is regular, Pulse oximetry: on room air is 98 %. Interpretation: normal. Test interpretation: by ED physician or midlevel provider: ECG, plain radiologic studies. 03/20 13:02 Order name: Basic Metabolic Panel; Complete Time: 14: [facility] 03/20 13:02 Order name: CBC with Diff [facility] 03/20 13:02 Order name: LFT's; Complete Time: 14: [facility] 03/20 13:02 Order name: Magnesium; Complete Time: 14: [facility] 03/20 13:02 Order name: NT PRO-BNP; Complete Time: 14:09 [facility] 03/20 13:02 Order name: PT-INR; Complete Time: 14:09 [facility] 03/20 13:02 Order name: Troponin (emerg Dept Use Only); Complete Time: 14:09 [facility] 03/20 13:02 Order name: Lipase; Complete Time: 14:09 [facility] 03/20 13:44 Order name: CBC Smear Scan [facility] 03/20 14:19 Order name: Blood Culture Adult (2) [facility] 03/20 14:34 Order name: COVID-19 03/20 17:24 Order name: SARS-COV-2 RT PCR [facility] 03/20 18:34 Order name: Urine Dipstick--Ancillary (enter results) 03/20 18:45 Order name: Urine Dipstick-Ancillary [facility] 03/20 13:02 Order name: XRAY Chest (1 view); Complete Time: 14:09 [facility] 03/20 13:02 Order name: CT Aorta for Dissection; Complete Time: 14:09 [facility] 03/20 14:01 Order name: US Extremity Venous W Compression Maikol [facility] 03/20 14:33 Order name: Echo w/ Doppler 03/20 13:02 Order name: EKG; Complete Time: 13:03 [facility] 03/20 13:02 Order name: Cardiac monitoring; Complete Time: 13:11 [facility] 03/20 13:02 Order name: EKG - Nurse/Tech; Complete Time: 13:11 [facility] 03/20 13:02 Order name: IV Saline Lock; Complete Time: 13:29 [facility] 03/20 13:02 Order name: Labs collected and sent; Complete Time: 13:29 [facility] 03/20 13:02 Order name: O2 Per Protocol; Complete Time: 13:29 [facility] 03/20 13:02 Order name: O2 Sat Monitoring; Complete Time: 13:29 [facility] 03/20 13:02 Order name: Urine Dipstick-Ancillary (obtain specimen); Complete Time: 18:27 [facility] 03/20 15:03 Order name: CONS Physician Consult [facility] EC:41 Rate is 93 beats/min. Rhythm is regular. QRS [place] is Normal. SD interval is normal. QRS laura interval is normal. QT interval is normal. No Q waves. T waves are Normal. No ST changes noted. Clinical impression: NSR w/ Non-specific ST/T Changes and No evidence of ischemia. Interpreted by me. Reviewed by me. Administered Medications: 13:29 Drug: morphine 4 mg Route: IVP; Site: right antecubital; zb 14:30 Follow up: Response: No adverse reaction; Pain is unchanged, physician notified zb 13:29 Drug: Zofran (Ondansetron) 4 mg Route: IVP; Site: right antecubital; zb 14:00 Follow up: Response: No adverse reaction zb 14:27 Drug: Lovenox 1 mg/kg Route: Sub-Q; Site: right lower abdomen; zb 15:30 Follow up: Response: No adverse reaction zb 14:27 Drug: Pepcid 20 mg Route: IVP; Site: right antecubital; zb 15:30 Follow up: Response: No adverse reaction zb 14:32 Drug: NS 0.9% 1000 ml Route: IV; Rate: 1000 bolus; Site: right antecubital; zb 17:18 Follow up: Response: No adverse reaction; IV Status: Completed infusion; IV Intake: zb 1000ml 14:46 Drug: Dilaudid 0.5 mg {Note: RASS 0.} Route: IVP; Site: right antecubital; zb 15:30 Follow up: Response: No adverse reaction; RASS: Alert and Calm (0) zb 14:48 Drug: Heparin (DVT/PE- Bolus per protocol) - HEParin 80 units/kg {Co-Signature: [email or web address] augustus (Mayco Chandler RN).} Route: IVP; Site: right antecubital; 15:30 Follow up: Response: No adverse reaction zb 16:10 Drug: Zithromax 500 mg Route: PO; zb 16:29 Follow up: Response: No adverse reaction zb 16:19 Drug: Zofran (Ondansetron) 4 mg Route: IVP; Site: right antecubital; zb 16:27 Follow up: Response: No adverse reaction zb 16:19 Drug: Aspirin 162 mg Route: PO; zb 16:29 Follow up: Response: No adverse reaction zb 16:20 Drug: Rocephin 1 grams Route: IV; Rate: per protocol; Site: right antecubital; zb 16:27 Follow up: Response: No adverse reaction; IV Status: Completed infusion; IV Intake: 20mlzb 16:20 Drug: Dilaudid 0.5 mg Route: IVP; Site: right antecubital; zb 17:18 Drug: NS 0.9% 1000 ml Route: IV; Rate: 125 ml/hr; Site: right antecubital; zb Disposition: 03/20/20 14:40 Hospitalization ordered by Guzman Moralez for Inpatient Admission. Preliminary diagnosis are Pleurisy, Dyspnea, Pulmonary embolism - bilateral extensive. - Bed requested for Telemetry/MedSurg (Inpatient). - Status is Inpatient Admission. sg - Condition is Fair. - Problem is new. - Symptoms have improved. Signatures: Dispatcher [employer] EDMS Vandana Solomon Diana, RN RN dw Gay, Steven, RN RN sg Anderson, Corey, MD MD cha Acob, Cheryl, RN RN ca1 Brown, Zipporah, RN RN zrojelio Chandler RN [id number] Corrections: (The following items were deleted from the chart) 18:54 14:40 Hospitalization Ordered by A Naomy MADRID for Inpatient Admission. Preliminary bd diagnosis is Pleurisy; Dyspnea; Pulmonary embolism - bilateral extensive. Bed requested for Telemetry/MedSurg (Inpatient). Status is Inpatient Admission. Condition is Fair. Problem is new. Symptoms have improved. [facility] 19:55 18:54 03/20/2020 14:40 Hospitalization Ordered by A Naomy MADRID for Inpatient Admission. dw Preliminary diagnosis is Pleurisy; Dyspnea; Pulmonary embolism - bilateral extensive. Bed requested for [facility] ER HOLD. Status is Inpatient Admission. Condition is Fair. Problem is new. Symptoms have improved. bd 21:01 19:55 03/20/2020 14:40 Hospitalization Ordered by A Naomy MADRID for Inpatient Admission. sg Preliminary diagnosis is Pleurisy; Dyspnea; Pulmonary embolism - bilateral extensive. Bed requested for Telemetry/MedSurg (Inpatient). Status is Inpatient Admission. Condition is Fair. Problem is new. Symptoms have improved. dw
--- NOTE | 2020-03-20 14:41 | ER ---
Nurse's Notes [facility] Name: Tonio Huerta Age: 75 yrs Sex: Male : 1945 Arrival Date: 03/20/2020 Time: 12:35 Bed 23 Private MD: Guzman Moralez C Diagnosis: Pleurisy;Dyspnea;Pulmonary embolism-bilateral extensive Presentation: 03/20 12:46 Chief complaint: Patient states: LUQ pain > 3 days, getting worse, non-radiating, ca1 constant. Denies N/V/D. Coronavirus screen: Client denies travel out of the [place] in the last 14 days. At this time, the client does not indicate any symptoms associated with coronavirus-19. Ebola Screen: Patient negative for fever greater than or equal to 101.5 degrees Fahrenheit, and additional compatible Ebola Virus Disease symptoms Patient denies exposure to infectious person. Patient denies travel to an Ebola-affected area in the 21 days before illness onset. No symptoms or risks identified at this time. Initial Sepsis Screen: Does the patient meet any 2 criteria? No. Patient's initial sepsis screen is negative. Does the patient have a suspected source of infection? No. Patient's initial sepsis screen is negative. Risk Assessment: Do you want to hurt yourself or someone else? Patient reports no desire to harm self or others. Onset of symptoms was March 20, 2020. 12:46 Method Of Arrival: Ambulatory ca1 12:46 Acuity: SERGIO 3 ca1 Historical: - Allergies: 12:49 No Known Allergies; ca1 - Home Meds: 12:49 seizure medication [Active]; ca1 - PMHx: 12:49 None; ca1 - PSHx: 12:49 brain Surgery; Tonsillectomy; ca1 - Immunization history:: Pneumococcal vaccine is up to date, Flu vaccine is up to date. - Social history:: Smoking status: Patient reports the use of cigarette tobacco products, smokes one pack cigarettes per day. - Family history:: not pertinent. Screenin:30 Abuse screen: Denies threats or abuse. Denies injuries from another. Nutritional zb screening: No deficits noted. Tuberculosis screening: No symptoms or risk factors identified. Fall Risk Fall in past 12 months (25 points). Secondary diagnosis (15 points) history of brain sx . IV access (20 points). Ambulatory Aid- None/Bed Rest/Nurse Assist (0 pts). Gait- Weak (10 pts.). Mental Status- Oriented to own ability (0 pts). Total Ojeda Fall Scale indicates High Risk Score (45 or more points). Fall prevention measures have been instituted. Side Rails Up X 2 Placed Close to Nursing Station Frequent Obs/Assessments Occuring As available patient and family educated on Fall Prevention Program and Strategies. Assessment: 13:30 General: Appears in no apparent distress. uncomfortable, Behavior is calm, cooperative, zb appropriate for age, Reports fatigue for >3 days. Pain: Complains of pain in left upper quadrant Pain does not radiate. Pain currently is 8 out of 10 on a pain scale. Quality of pain is described as aching, sharp, piercing, Pain began 1 day ago. Is intermittent, Alleviated by nothing. Noted to be grimacing, guarding, Also complains of shortness of breath. Neuro: Level of Consciousness is awake, alert, obeys commands, Oriented to person, place, time. Cardiovascular: Denies chest pain, nausea, palpitations, vomiting, Capillary refill < 3 seconds in bilateral fingers Patient's skin is warm and dry. Edema is 1+ to left ankle and right ankle. Respiratory: Reports shortness of breath at rest cough that is Airway is patent Respiratory effort is even, unlabored, Respiratory pattern is tachypnea Breath sounds with wheezes in left posterior lower lobe. GI: Abdomen is round non-distended, Last BM was March 18, 2020. Bowel sounds present X 4 quads. Abd is soft and non tender in right upper quadrant, right lower quadrant and left lower quadrant Abdomen is tender to palpation in left upper quadrant Parent/caregiver reports the patient having constipation. : No signs and/or symptoms were reported regarding the genitourinary system. EENT: No signs and/or symptoms were reported regarding the EENT system. Derm: Skin is intact, is thin, Skin is dry, Skin is normal. Musculoskeletal: Circulation, motion, and sensation intact. Capillary refill < 3 seconds, in bilateral fingers. Range of motion: intact in all extremities. 14:30 Reassessment: Patient appears in no apparent distress at this time. Patient and/or zb family updated on plan of care and expected duration. Pain level reassessed. Patient is alert, oriented x 3, equal unlabored respirations, skin warm/dry/pink. ECP at bedside discussed care. order 2L of NC. 16:15 Reassessment: patient c/o of severe pain increasing. notified ECP. given pain zb medication. 16:30 Reassessment: Patient appears in no apparent distress at this time. Patient and/or zb family updated on plan of care and expected duration. Pain level reassessed. Patient is alert, oriented x 3, equal unlabored respirations, skin warm/dry/pink. pain medication recently given. IV fluid infusing. patient given some water. brianna per MD. 16:36 Reassessment: Hospitalist at bedside discussing POC. zb 17:30 Reassessment: Patient appears in no apparent distress at this time. Patient and/or zb family updated on plan of care and expected duration. Pain level reassessed. Patient is alert, oriented x 3, equal unlabored respirations, skin warm/dry/pink. no c/o at this. patient denies pain. 18:30 Reassessment: Patient appears in no apparent distress at this time. Patient and/or zb family updated on plan of care and expected duration. Pain level reassessed. Patient is alert, oriented x 3, equal unlabored respirations, skin warm/dry/pink. no changes at this time. light dimmed. pt denies pain. IV infusing. no redness, or swelling at site. 18:45 Reassessment: pt resting. NC dropped to 89% RA placed on 3L NC. zb 19:00 Reassessment: Patient appears in no apparent distress at this time. Patient and/or zb family updated on plan of care and expected duration. Pain level reassessed. Patient is alert, oriented x 3, equal unlabored respirations, skin warm/dry/pink. pt remains in bed. 20:00 Reassessment: Patient appears in no apparent distress at this time. Patient and/or zb family updated on plan of care and expected duration. Pain level reassessed. Patient is alert, oriented x 3, equal unlabored respirations, skin warm/dry/pink. no changes at this time patient remains in bed. no c/o of pain. 21:00 Reassessment: Patient appears in no apparent distress at this time. Patient and/or zb family updated on plan of care and expected duration. Pain level reassessed. Patient is alert, oriented x 3, equal unlabored respirations, skin warm/dry/pink. patient awaken. notified of room and nurses up stairs that would take care of him. no c/o's at this time. pain 0/10. Vital Signs: 12:46 BP 149 / 89; Pulse 103; Resp 16 S; Temp 97.7(TE); Pulse Ox 97% on R/A; Weight 63.5 kg ca1 (R); Height 5 ft. 7 in. (170.18 cm) (R); Pain 9/10; 13:30 BP 164 / 99; Pulse 97; Resp 26; Pulse Ox 95% on R/A; zb 14:29 BP 165 / 101; Pulse 96; Resp 27; Pulse Ox 98% on 2 lpm NC; zb 15:49 BP 159 / 91; Pulse 92; Resp 23; Pulse Ox 99% on 2 lpm NC; zb 16:30 BP 134 / 84; Pulse 90; Resp 20; Pulse Ox 92% on R/A; zb 17:30 BP 152 / 82; Pulse 88; Resp 18; Pulse Ox 93% on R/A; zb 18:30 BP 132 / 76; Pulse 98; Resp 18; Pulse Ox 90% on R/A; zb 18:51 BP 136 / 80; Pulse 92; Resp 18; Pulse Ox 94% on 3 lpm NC; zb 20:00 BP 138 / 79; Pulse 91; Resp 18; Pulse Ox 99% 3 lpm ; zb 20:59 BP 142 / 79; Pulse 97; Resp 20; Pulse Ox 97% on 3 lpm NC; zb 12:46 Body Mass Index 21.93 (63.50 kg, 170.18 cm) ca1 ED Course: 12:35 Patient arrived in ED. ag5 12:35 Guzman Moralez MD is Private Physician. ag5 12:47 Triage completed. ca1 12:49 Arm band placed on right wrist. ca1 12:51 Derrek Marin MD is Attending Physician. laura 12:51 Yanni Pineda RN is Primary Nurse. zb 13:00 EKG done, by ED staff, reviewed by Derrek Marin MD. zb 13:15 Inserted saline lock: 20 gauge in right antecubital area, using aseptic technique. zb Blood collected. 13:35 Patient has correct armband on for positive identification. Placed in gown. Call light zb in reach. Side rails up X 1. bus driver/monitor on. Pulse ox on. NIBP on. Door closed. Noise minimized. Warm blanket given. 13:36 CT Aorta for Dissection In Process Unspecified. EDMS 13:44 XRAY Chest (1 view) In Process Unspecified. EDMS 14:38 Guzman Moralez MD is Hospitalizing Provider. lauar 15:13 US Extremity Venous W Compression Maikol In Process Unspecified. EDMS 16:00 COVID swab sent to lab. zb 21:01 No provider procedures requiring assistance completed. Patient admitted, IV remains in zb place. Administered Medications: 13:29 Drug: morphine 4 mg Route: IVP; Site: right antecubital; zb 14:30 Follow up: Response: No adverse reaction; Pain is unchanged, physician notified zb 13:29 Drug: Zofran (Ondansetron) 4 mg Route: IVP; Site: right antecubital; zb 14:00 Follow up: Response: No adverse reaction zb 14:27 Drug: Lovenox 1 mg/kg Route: Sub-Q; Site: right lower abdomen; zb 15:30 Follow up: Response: No adverse reaction zb 14:27 Drug: Pepcid 20 mg Route: IVP; Site: right antecubital; zb 15:30 Follow up: Response: No adverse reaction zb 14:32 Drug: NS 0.9% 1000 ml Route: IV; Rate: 1000 bolus; Site: right antecubital; zb 17:18 Follow up: Response: No adverse reaction; IV Status: Completed infusion; IV Intake: zb 1000ml 14:46 Drug: Dilaudid 0.5 mg {Note: RASS 0.} Route: IVP; Site: right antecubital; zb 15:30 Follow up: Response: No adverse reaction; RASS: Alert and Calm (0) zb 14:48 Drug: Heparin (DVT/PE- Bolus per protocol) - HEParin 80 units/kg {Co-Signature: jd3 augustus (Mayco Chandler RN).} Route: IVP; Site: right antecubital; 15:30 Follow up: Response: No adverse reaction zb 16:10 Drug: Zithromax 500 mg Route: PO; zb 16:29 Follow up: Response: No adverse reaction zb 16:19 Drug: Zofran (Ondansetron) 4 mg Route: IVP; Site: right antecubital; zb 16:27 Follow up: Response: No adverse reaction zb 16:19 Drug: Aspirin 162 mg Route: PO; zb 16:29 Follow up: Response: No adverse reaction zb 16:20 Drug: Rocephin 1 grams Route: IV; Rate: per protocol; Site: right antecubital; zb 16:27 Follow up: Response: No adverse reaction; IV Status: Completed infusion; IV Intake: 20mlzb 16:20 Drug: Dilaudid 0.5 mg Route: IVP; Site: right antecubital; zb 17:18 Drug: NS 0.9% 1000 ml Route: IV; Rate: 125 ml/hr; Site: right antecubital; zb Intake: 16:27 IV: 20ml; Total: 20ml. zb 17:18 IV: 1000ml; Total: 1020ml. zb Outcome: 14:40 Decision to Hospitalize by Provider. laura 21:01 Patient left the ED. sg 21:01 Admitted to Med/surg accompanied by tech, via wheelchair, room 211, with oxygen, with zb chart, Report called to LUL Zaidi 21:01 Condition: stable 21:01 Discharge instructions given to patient. zb Signatures: Dispatcher [employer] EDArt Martines RN RN sg Anderson, Corey, MD MD cha Acob, Cheryl, RN RN ca1 Gaskin, Ajare [facility] Yanni Pineda RN RN zrojelio Chandler RN jd3 Corrections: (The following items were deleted from the chart) 14:47 14:46 Dilaudid 0.5 mg IVP in right antecubital zb zb
[2020-03-20] MEDS ORDERED: AZITHROMYCIN 250 MG TAB ONE (14:53)
[2020-03-20] MEDS ORDERED: HYDROMORPHONE HCL 0.5 MG/0.5 ML INJ ONE ×2 (14:53→16:38)
[2020-03-20] MEDS ORDERED: HEPARIN 5000 UNIT/ML 1 ML VIAL ONE (14:53)
[2020-03-20] MEDS ORDERED: CEFTRIAXONE/SWI 1gm 1 GM/10 ML SYR ONE (14:54)
--- NOTE | 2020-03-20 16:11 | RAD REPORT ---
EXAM DESCRIPTION: US - Extrem Venous W Compress Maikol - 03/20/2020 3:51 pm CLINICAL HISTORY: Pain;Swelling, both legs COMPARISON: None. TECHNIQUE: Real-time sonographic evaluation of the bilateral lower extremity common femoral, superfi cial femoral, popliteal and posterior tibial veins was performed. FINDINGS: Normal compressibility, flow augmentation, phasic flow and spontaneous flow are identified in the right common femoral and superficial femoral deep veins. Echogenic material is present in the right popliteal vein extending into the upper calf. There is incomplete compression. There is normal compression, flow augmentation, phasic flow and spontaneous flow within the left lowe r extremity deep venous system. IMPRESSION: Acute deep venous thrombosis in the right lower extremity popliteal vein extending into the upper calf. No left leg DVT.
[2020-03-20] MEDS ORDERED: ASPIRIN EC 81 MG TAB PO ONE (16:28)
[2020-03-20 17:21] LABS: Blood Morphology Comment NOT SEEN (NOT SEEN); Platelet Estimate ADEQ; White Blood Cell Scan OK (OK)
[2020-03-20 18:44] LABS: Urine Blood TRACE (NEG); Urine Glucose NEGATIVE (NEG); Urine Protein NEGATIVE (NEG); Urine Specific Gravity 1.015 (1.005-1.030)
[2020-03-20] MEDS: ENOXAPARIN 80 MG/0.8 ML SQ SCH (21:00)
[2020-03-20] MEDS ORDERED: ACETAMINOPHEN 500 MG TAB PO PRN (21:10)
[2020-03-20] MEDS ORDERED: ONDANSETRON 4 MG/2 ML VIAL IV PRN (21:10)
--- NOTE | 2020-03-20 21:35 | HP ---
Date of Admission: 03/20/2020 Chief Complaint: Chest pain and shortness of breath. History Of Present Illness: This is a 75-year-old pleasant male patient, came into emergency room wi about 5 days' history of chest pain with shortness of breath. His chest pain is pleuritic in natu re. Denies any fever, chills, nausea, vomiting. Has some shortness of breath associated with that. He denies any hemoptysis. After he was evaluated in the ER, he was admitted to the hospital with pu lmonary embolism problem. When I saw him in emergency room, he was hemodynamically stable. The dwight ent has received his first dose of Lovenox injection in the emergency room. Allergies: NO KNOWN ALLERGIES. Medications: Levetiracetam 500 mg 2 times a day. Review of Systems: Cardiovascular: As mentioned above. Respiratory: As mentioned above. All other systems reviewed and negative. 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 Palacios and in fact his next appointment is tomorrow. Pas t medical history also significant for hyperlipidemia, diverticulosis, hypertension, benign prostatic hypertrophy, rheumatoid arthritis, polymyalgia rheumatica. 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 In the past, he also had cataract surgery, tonsillectomy, back surgery. Family History: Father had cerebral aneurysm. Mother had Alzheimer. Brother and sister with Alzhei katheryn's. Social History: Positive for smoking. Use of alcohol negative. Physical Examination: Vital Signs: When he came into emergency room, blood pressure 149/89, pulse 103, respiratory rate 16 , temperature 97.7, pulse ox 97%. Weight 63.5 kg, height 5 feet 7 inches. General: Awake, alert, oriented, not in distress. HEENT: Head atraumatic, normocephalic. Conjunctivae nonerythematous. Sclerae white. Mouth, no thr ush or edema noted. Ears/Nose, no mass, lesion, discharge noted. Neck: Supple. No JVD, lymph nodes, bruit, thyromegaly noted. Lungs: Bilateral good equal air entry. Clear to auscultation. No rhonchi. No rales. Heart: Normal heart sounds, no murmur or gallop. Abdomen: Soft, bowel sounds normal. No guarding, rigidity, tenderness, mass, hepatosplenomegaly, dis tention, or bruit noted. Extremities: No leg edema. No calf tenderness. Skin: No rash, ulcer, cellulitis. Lymphatics: No lymph node enlargement in neck, supraclavicular, infraclavicular region. Neuro: No focal neurological deficit. Chest: Unremarkable. External Genitalia: Deferred. Rectal: Deferred. Laboratory Data: Chest x-ray shows mild lingular opacity, may represent atelectasis or infiltrate. Calcified granuloma, left lung. Right lung appears clear of any acute infiltrate. CT scan per disse ction protocol shows about 2.6 cm area of parenchymal opacification present at the lateral inferior t ip of the lingula. There is a 12 mm nodular density in the posterior gutter of the left and 10 mm no dular density in the posterior gutter of the right. No pleural thickening or pleural effusion. The patient has extensive pulmonary embolic disease present at the left main pulmonary artery branching i nto left upper and left lower lobes and embolic disease also extends into several segmental branches. Significant but less extensive embolic disease present at the right pulmonary artery branch into th e right upper middle and lower lobes. Venous Doppler of lower extremity shows acute deep vein thromb osis, right lower extremity popliteal vein extending into the upper calf. No left leg DVT. Laboratory Findings: White count 6.5, hemoglobin 14.2, platelets 214. INR 1.08. Sodium 141, potass ium 4, chloride 110, bicarb 26, BUN 11, creatinine 0.73, glucose 92. Liver function tests unremarkab le. Urinalysis negative except trace blood. Impression: 1.Pulmonary embolism, acute. 2.Right leg deep vein thrombosis, popliteal vein, acute. 3.Gliosarcoma of frontal lobe. 4.Hyperlipidemia. 5.Hypertension. 6.Diverticulosis. Plan: 1.Admit patient to hospital for further evaluation and management of this problem. The patient is a ppropriate for inpatient and is expected to spend 2 midnights in hospital. He has received Lovenox i njection in the emergency room. We will consult Dr. Malin from Pulmonary Service. The patient al so has received antibiotics. We will also go ahead and send workup for hypercoagulable state and con tinue his home medications per order. The patient's COVID-19 test is negative. Urinalysis is unrema rkable. Details and plan of treatment discussed with the patient. VITA/MANNIE Voice ID: [id number]
[2020-03-20 21:36] VITALS: BMI 22.4
[2020-03-20] MEDS: FAMOTIDINE 20 MG/2 ML VIAL IV SCH (22:25)
[2020-03-21 06:11] LABS: Absolute Lymphocytes (CBC) 0.8 K/uL (0.7-4.9); Basophils % 0.9 % (0-1.3); Hematocrit 39.2 % (39.6-49.0); Lymphocytes % 13.7 % (15.3-44.8); MPV 8.7 fL (7.6-11.3); RBC Red Blood Cell Count 4.05 M/uL (4.33-5.43)
[2020-03-21 06:18] LABS: BUN Blood Urea Nitrogen 9 mg/dL (7-18); Bicarbonate 26 mmol/L (21-32); Glucose Level 89 mg/dL (74-106); Sodium Level 140 mmol/L (136-145)
--- NOTE | 2020-03-21 07:53 | RAD REPORT ---
EXAM DESCRIPTION: Renita Single View03/21/2020 4:42 am CLINICAL HISTORY: Chest pain COMPARISON: March 20 FINDINGS: Mild worsening in a left basilar opacity. This may represent an infarct. Remainder of the lungs appear grossly clear of acute infiltrate. Heart is normal size
[2020-03-21] MEDS ORDERED: CEFTRIAXONE 1 GM/NS 50 ML 1 GM/50 ML BAG IV SCH (09:00)
[2020-03-21] MEDS: AZITHROMYCIN IV 250 MG in NA CHLORIDE 0.9% 250 ML IVPB SCH (09:21)
[2020-03-21] MEDS: CEFTRIAXONE/SWI 1gm 1 GM/10 ML SYR IV SCH (09:21)
[2020-03-21] MEDS: levETIRAcetam 500 MG TAB PO SCH ×2 (09:22→19:58)
[2020-03-21] MEDS: ENOXAPARIN 80 MG/0.8 ML SQ SCH ×2 (09:22→19:58)
[2020-03-21] MEDS: ASPIRIN EC 81 MG TAB PO SCH (09:22)
[2020-03-21] MEDS: FAMOTIDINE 20 MG/2 ML VIAL IV SCH ×2 (09:22→19:58)
[2020-03-21] MEDS: MORPHINE 4 MG/ML SYR IV PRN ×2 (09:30→21:57)
--- NOTE | 2020-03-21 12:12 | EKG ---
Test Date: 2020-03-20 Test Time: 12:58:02 Fashion Patternmaker: NIA MEASUREMENT RESULTS: Intervals: Rate: 93 ID: [id number] QRSD: 76 QT: 356 QTc: 442 Reynolds: P: 81 ID: [id number] QRS: 25 T: 67 INTERPRETIVE STATEMENTS: Normal sinus rhythm Normal ECG Electronically Signed On 03-21-20 12:10:39 SWING GRINDER by Pipo Kim
--- NOTE | 2020-03-21 12:22 | P.CNS ---
Date of Consult: 03/21/20 Reason for Consult: Pulmonary embolism Chief Complaint: Shortness of breath and chest pain History of Present Illness: Patient is 75 years of age as been complaining for the past few days with a left-sided chest pain shortness of breath please add [facility] had [facility] done in October followed by some eye chemotherapy. I was also complaining of some lower extremity edema right worse than the left was found to have bilateral pulmonary embolism she is currently doing fine apart for some chest discomfort Allergies No Known Allergies Allergy (Unverified 11/22/19 21:38) Home Medications: levETIRAcetam [Keppra*] 500 mg PO DAILY 03/20/20 - Past Medical/Surgical History Diabetic: No -: Brain tumour -: Dvt félix,leg -: COPD -: Brain Sx - Family History Father Medical History: Hypertension, Other (see notes) Notes: Brain aneurysm Mother History Unknown: Yes - Social History Smoking Status: Current every day smoker Alcohol use: No CD- Drugs: No Caffeine use: Yes Place of Residence: Home Review of Systems 10-point ROS is otherwise unremarkable General: Weakness Respiratory: Shortness of Breath Physical Examination Temp Pulse Resp BP Pulse Ox 99.5 F 102 H 18 125/69 97 03/21/20 11:43 03/21/20 11:43 03/21/20 11:43 03/21/20 11:43 03/21/20 11:43 General: Alert, In no apparent distress, Oriented x3 HEENT: Atraumatic Neck: Supple Respiratory: Clear to auscultation bilaterally, Diminished, Friction rub Cardiovascular: Regular rate/rhythm, Normal S1 S2 Gastrointestinal: Normal bowel sounds, Soft and benign Laboratory Data (last 24 hrs) 03/20/20 13:21: PT 12.7 H, INR 1.08 03/20/20 13:21: WBC 6.5, Hgb 14.2, Hct 42.5, Plt Count 214 03/20/20 13:21: Sodium 141, Potassium 4.0, BUN 11, Creatinine 0.73, Glucose 92, Magnesium 2.3, Total Bilirubin 0.8, AST 16, ALT 21, Alkaline Phosphatase 33 L, Lipase 95 - Problems (1) Pulmonary embolus Current Visit: Yes Status: Acute Plan: Patient is 75 years of age admitted with chest pain and pulmonary embolism with right-sided DVT history of blood blastoma of the brain he is at surgery had chemotherapy seeing the cancer doctors currently doing well patient is on Lovenox oxygenation satisfactory patient is not hypotensive right night does not qualify for any interventional measures/the plan to ambulate patient I will also order 2D echo with Doppler patient will need lifelong anticoagulation Qualifiers: Acute cor pulmonale presence: unspecified
--- NOTE | 2020-03-21 13:09 | ECHO ---
HEIGHT: 5 ft 7 in WEIGHT: 143 lb 0 oz DATE OF STUDY: 03/22/[address]: Derrek Marin MD 2-DIMENSIONAL: YES M.MODE: YES DOPPLER: YES COLOR FLOW: YES TDS: PORTABLE: DEFINITY: BUBBLE STUDY: DIAGNOSIS: ABDOMINAL PAIN CARDIAC HISTORY: CATHERIZATION: SURGERY: PROSTHETIC VALVE: PACEMAKER: MEASUREMENTS (cm) DIASTOLIC (NORMALS) SYSTOLIC (NORMALS) IVSd 1.2 (0.6-1.2) LA Diam 3.7 (1.9-4.0) LVEF 68% LVIDd 3.6 (3.5-5.7) LVIDs 2.3 (2.0-3.5) %FS 37% LVPWd 1.0 (0.6-1.2) Ao Diam (2.0-3.7) 2 DIMENSIONAL ASSESSMENT: RIGHT ATRIUM: NORMAL LEFT ATRIUM: NORMAL RIGHT VENTRICLE: NORMAL LEFT VENTRICLE: NORMAL TRICUSPID VALVE: NORMAL MITRAL VALVE: MITRAL ANNULAR CALCIFICATION PULMONIC VALVE: NORMAL AORTIC VALVE: SCLEROSIS PERICARDIAL EFFUSION: NONE AORTIC ROOT: NORMAL LEFT VENTRICULAR WALL MOTION: NORMAL DOPPLER/COLOR FLOW: MILD TRICUSPID REGURGITATION. COMMENTS: MILD TRICUSPID REGURGITATION. NORMAL RIGHT VENTRICULAR SYSTOLIC PRESSURE. NORMAL LEFT VENTRICULAR SIZE AND FUNCTION. MITRAL ANNULAR CALCIFICATION. AORTIC SCLEROSIS. TECHNOLOGIST: MOE KAUR
[2020-03-21 21:27] VITALS: O2SAT 94
--- NOTE | 2020-03-22 07:31 | PN ---
Date of Progress Note: 03/21/2020 Subjective: Patient was seen this morning for followup, lying in bed, not in distress. No new complaints or problems reported by him. No chest pain. No shortness of breath. Objective: Vital Signs: Reviewed. HEENT: Unremarkable. Lungs: Clear to auscultation. Heart: Sounds normal. Abdomen: Soft. Bowel sounds normal. No guarding, rigidity, tenderness, or distention. Extremities: No leg edema. Laboratory Data: White count 5.9, hemoglobin 13.3, platelets 204. Sodium 140, potassium 4, chloride 110, bicarb 26, BUN 9, creatinine 0.71, glucose 89. The chest x-ray shows mild worsening left basilar opacity, may represent an infarct. Assessment: 1. Pulmonary embolism. 2. Deep venous thrombosis, right leg, acute. 3. Gliosarcoma of brain. Plan: We will continue current medication. Continue current Lovenox. Echocardiogram came back unremarkable. Plan is to patient ambulate today and possible discharge to go home tomorrow. Dr. Malin has released him to go home from his point of view. Medically, he is stable for discharge. VITA/MODL Voice ID: [id number] Report ID: [id number] GI
[2020-03-22] MEDS: ASPIRIN EC 81 MG TAB PO SCH (08:37)
[2020-03-22] MEDS: levETIRAcetam 500 MG TAB PO SCH (08:37)
[2020-03-22] MEDS: CEFTRIAXONE/SWI 1gm 1 GM/10 ML SYR IV SCH (08:38)
[2020-03-22] MEDS: FAMOTIDINE 20 MG/2 ML VIAL IV SCH (08:38)
[2020-03-22] MEDS: AZITHROMYCIN IV 250 MG in NA CHLORIDE 0.9% 250 ML IVPB SCH (08:39)
[2020-03-22] MEDS ORDERED: APIXABAN 5 MG TABLET PO SCH (09:00)
[2020-03-22 11:01] VITALS: BP 141/64; TEMP 98.8
--- NOTE | 2020-03-22 19:22 | DS ---
Date of Discharge: 03/22/2020 Disposition: Discharged to go home. Physical Examination: HEENT: Unremarkable. Lungs: Clear to auscultation. Heart: Sounds normal. Abdomen: Soft. Bowel sounds normal. No guarding, rigidity, tenderness, or distention. Extremities: No leg edema. Discharge Medications And Instructions: 1.Continue prior home medications as you were taking prior to this admission. 2.Take Eliquis 5 mg tablet. The patient to take 2 tablets by mouth 2 times a day for 1 week, then 1 tablet by mouth 2 times a day to continue. 3.Follow up at my office on 03/28/2020 at 9 a.m. 4.Follow up with Dr. Palacios in 1-2 weeks. Final Diagnoses: 1.Pulmonary embolism, bilateral. 2.Pleuritic chest pain, secondary to above. 3.Deep vein thrombosis, right leg, popliteal vein, acute. 4.Gliosarcoma of brain. Hospital Course: A 75-year-old pleasant male patient, admitted to the hospital with pulmonary emboli sm. Please see dictated H and P for more information. The patient came into emergency room with luz maria st pain, shortness of breath. Further evaluation revealed evidence of bilateral pulmonary embolism. DVT study of lower extremity revealed presence of deep vein thrombosis of popliteal vein. The patie nt was started on Lovenox and he has tolerated anticoagulation therapy very well. Workup was done fo r secondary causes of blood clot and we will follow up on those test results as it becomes available. Meanwhile, the patient's condition has improved. He has some pleuritic chest pain, which is improv ing. No hemoptysis. No shortness of breath. He is maintaining adequate oxygenation on room air. A mbulation was encouraged and the patient does not have any trouble with ambulation. Today, he was di scharged to go home in stable condition with above-mentioned medications and instructions. VITA/MODL Voice ID: [id number] Report ID: [id number]
[2020-03-23 14:19] LABS: Protein C Antigen 82 % (70-140)
[2020-03-25 16:56] LABS: Prothrombin Gene Analysis Test REPORT
== END 2020-03-22 09:52 | disposition home or self-care (01) | DRG 176 ==
LOC: ER 12:33 → ERHOLD 15:48 → 2ND 20:50
PROVIDERS: ADMIT Internal Medicine; ATTEND Internal Medicine
DX: I26.99 Other pulmonary embolism without acute cor pulmonale (principal); I82.431 Acute embolism and thrombosis of right popliteal vein; C71.1 Malignant neoplasm of frontal lobe; F17.210 Nicotine dependence, cigarettes, uncomplicated; E78.5 Hyperlipidemia, unspecified; I10 Essential (primary) hypertension; K57.90 Diverticulosis of intestine, part unspecified, without perforation or abscess without bleeding; Z79.899 Other long term (current) drug therapy; Z20.822 Contact with and (suspected) exposure to COVID-19
CPT/HCPCS: 36415; 71045; 71275; 74175; 80048; 80076; 81003; 81240; 81241; 82565; 83090; 83690; 83735; 83880; 84484; 85025; 85300; 85301; 85302; 85305; 85306; 85610; 87040; 87205; 93005; 93306; 93970; 96361; 96372; 96374; 96375; 99285; J0456; J0696; J1170; J1644; J1650; J2405; J7030; J7050; Q9967; U0003

== ENCOUNTER 2021-08-16 11:22 | Inpatient (IN) | payer OTHER ==
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
--- OUTSIDE RECORDS SUMMARY | 2021-08-19 19:44 | XMS REPORT | Continuity of Care Document ---
:1945 Author Organization [facility] t Address 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 9- ity of 00:00: [place] 00 Medical Branch 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 lobe [place] [facility] Allergies, Adverse Reactions, Alerts Allergy Allergy Status Severity Reaction(s) Onset Inactive Treating Comm ents Source Name Type Date Date Clinician NO KNOWN Drug Active Univers ALLERGIE Class ity of [facility] Social History Social Habit Start Date Stop Date Quantity Comments Source Exposure to 2021-07-27 2021-08-06 Not sure [facility] SARS-CoV-2 (event) 00:00:00 21:30:00 Medica l Branch Education 2021-08-06 2021-08-06 13 [facility] 00:00:00 00:00:00 [facility] Tobacco use and 2018-01-25 2018-01-25 Never used [facility] exposure 00:00:00 00:00:00 [facility] Cigarettes smoked 2018-01-25 2018-01-25 [facility] current (pack per 00:00:00 00:00:00 [facility] day) - Reported Sex Assigned At [birth year] [facility] 00:00:00 00:00:00 [facility] Smoking Status Start Date Stop Date Source Current every day smoker 2018-01-25 00:00:00 Uni versity [facility] Medications Ordered Filled Start Stop Current Ordering Indication Dosage Frequency Signature Comments Components Source Medication Medication Date Date Medication? Clinician (SIG) Name Name dexAMETHaso Yes 2mg 2 mg, Unive rs ne 6-15 Oral, ity of (DECADRON) 01:00: Q12H, [place] tablet 2 mg 00 First dose Me dical on [facility] Branch 08/13/21 at 2000, Until Discontinu ed, Routine levETIRAcet Yes 500mg 500 mg, Un cory am (KEPPRA) 6-15 Oral, BID, it y of tablet 500 01:00: [place] dose [place] 00 on [facility] 08/13/21 at [employer] 1999, Until Discontinu ed, Routine pantoprazol 2022-0 Yes 40mg 40 mg, Univ ers e 6-15 Oral, BID, ity of (PROTONIX) 01:00: First dose [place] EC tablet 00 on [facility] 40 mg 08/13/21 at [employer] 1999, Until Discontinu ed, Routine enoxaparin 2022-0 Yes 40mg 40 mg, Unive rs (LOVENOX) 6-14 Subcutaneo ity of injection 14:00: us, Q24H, Bc as 40 mg 00 First dose Medical on [facility] 08/13/21 at 0900, Until Discontinu ed, Routine docusate 2-0 Yes 100mg 100 mg, Unive rs (COLACE) 6-14 Oral, ity of capsule 100 14:00: DAILY[place] 00 First dose Medical on [facility] 08/13/21 at 0900, Until Discontinu ed, Routine dexamethaso 2-0 Yes 2mg 2 mg, Slow Univers ne 6-14 IV Push, ity of (DECADRON 01:00: Q12H, [place] PHOSPHATE) 00 First dose Med ical injection 2 (after Branch mg last modificati on) on Thu08/12/21 at 1999, Until Discontinu ed, Administer over 20 Minutes, 1 mL NaCl 0.9% 2-0 Yes 1000mL at 42 Unive rs (NS) IV 6-14 mL/hr, IV ity of infusion 01:00: Infusion[place] 1,000 mL 00 CONTINUOUS Medic al , Starting Branch on Thu08/12/21 at 1999, Until Discontinu ed, Routine dexamethaso 2022-0 2022- No 2mg 2 mg, Slow Univers ne 6-14 06-15 IV Push, ity of (DECADRON 01:00: 00:33 Q12H, [place] PHOSPHATE) 00 :20 First dose Med ical injection 2 (after Branch mg last modificati on) on Thu08/12/21 at 1999, Until Discontinu ed, Administer over 20 Minutes, 1 mL ceFAZolin 2-0 Yes 1000mg 1,000 mg, U nivers (ANCEF) -13 Intravenou ity of 1,000 mg in 15:45: s, Q8H [place] water for 00 ABX, First Medi jocelyn injection, dose on Branch sterile 10 Mon mL SIVP 08/12/21 at syringe 1045, Until Discontinu ed, 10 mL
R ney for Anti-Infec tive: Surgical Prophylaxi s
Surgi jocelyn Prophylaxi s: Neurosurge ry
D uration of therapy: within 24 hours of surgery ceFAZolin 2021-0 Yes 1000mg 1,000 mg, U nivers (ANCEF) -13 Intravenou ity of 1,000 mg in 15:45: s, Q8H [place] water for 00 ABX, First Medi jocelyn injection, dose on Branch sterile 10 Mon mL SIVP 08/12/21 at syringe 1045, Until Discontinu ed, 10 mL
R ney for Anti-Infec tive: Surgical Prophylaxi s
Surgi jocelyn Prophylaxi s: Neurosurge ry
D uration of therapy: within 24 hours of surgery dexamethaso 2021-0 2021- No 4mg 4 mg, Slow Univers ne 08-1213 IV Push, ity of (DECADRON 01:00: 14:35 Q12H, [place] PHOSPHATE) 00 :31 First dose Med ical injection 4 (after Branch mg last modificati on) on 08/11/21 at 2000, Until Discontinu ed, Administer over 20 Minutes, 1 mL NaCl 0.9% 2021-0 Yes 1000mL at 50 Unive rs (NS) IV 6-12 mL/hr, IV ity of infusion 15:00: Infusion, [place] 1,000 mL 00 CONTINUOUS Medic al , Starting Branch on 08/11/21 at 1000, Until Discontinu ed, Routine NaCl 0.9% 2021-0 202- No 1000mL at 50 Univ ers (NS) IV 08-11 06-14 mL/hr, IV ity of infusion 15:00: 00:52 Infusion, Bc as 1,000 mL 00 :16 CONTINUOUS Medic al , Starting Branch on 08/11/21 at 1000, Until 08/12/21 at 1952, Routine gadobenate 2022-0 2022- No [id number] .2mL/kg 12.24 mL Univers dimeglumine 08-11 105 (0.2 mL/kg i ty of (MULTIHANCE 09:45: 09:54 ?61.2 kg), [place] -15 mL) 00 :00 Intravenou Medica l injection s, ONCE, 1 Bran ch 12.24 mL dose, On 08/11/21 at 0445, Routine ipratropium 0 Yes 3mL 3 mL, Unive rs -albuteroL 08-10 Inhalation ity of (DUONEB) 14:39: , Q6HPRN, [place] 0.5 mg-3 30 Starting Medical mg(2.5 mg on Sat Branch base)/3 mL 08/10/21 at nebulizer 0939, solution 3 Until mL Discontinu ed, Routine, Wheezing ipratropium 0 Yes 3mL 3 mL, Unive rs -albuteroL 08-10 Inhalation ity of (DUONEB) 14:39: , Q6HPRN, [place] 0.5 mg-3 30 Starting Medical mg(2.5 mg on Sat Branch base)/3 mL 08/10/21 at nebulizer 0939, solution 3 Until mL Discontinu ed, Routine, Wheezing acetaminoph 2021- No 1000mg 1,000 mg, Univers en ADULT 08-10 IV ity of (OFIRMEV) 05:00: 17:11 Infusion, [place] injection 00 :00 Administer Medi jocelyn 1,000 mg over 15 Branch Minutes, Q6H, 3 doses, First dose on 08/10/21 at 0000, Last dose on 08/10/21 at 1200, Routine
Indicatio n: Perioperat ruiz Patient dexMEDEtomi Yes .2ug/kg 0.2-1.5 Univers dine 200 08-10 / mcg/kg/hr ity of mcg in 0.9 04:01: ?61.2 kg Bc as % NaCl 50 24 (3.06-22.9 Medi jocelyn mL 5 mL/hr), Branch (PRECEDEX) IV RTU IV Infusion, infusion TITRATE, Sedation-R ASS score (0 to -1), Starting on Thu08/09/21 at 2301
In itiate infusion at 0.2 mcg/kg/hr and titrate by 0.1 mcg/kg/hr every 30 minutes to goal sedation score. Maximum dose = 1.5 mcg/kg/hr. If goal not maintained at maximum allowed dose, contact prescriber .
dexMEDEtomi 2021-0 Yes .2ug/kg 0.2-1.5 Univers dine 200 6-11 /h mcg/kg/hr ity of mcg in 0.9 04:01: ?61.2 kg Bc as % NaCl 50 24 (3.06-22.9 Medi jocelyn mL 5 mL/hr), Branch (PRECEDEX) IV RTU IV Infusion, infusion TITRATE, Sedation-R ASS score (0 to -1), Starting on Thu08/09/21 at 2301
In itiate infusion at 0.2 mcg/kg/hr and titrate by 0.1 mcg/kg/hr every 30 minutes to goal sedation score. Maximum dose = 1.5 mcg/kg/hr. If goal not maintained at maximum allowed dose, contact prescriber .
ondansetron 0 Yes 8mg 8 mg, Slow Univers (ZOFRAN 6-11 IV Push, ity of (PF)) 03:00: Q8H, First [place] injection 8 00 dose on Medic al mg Fri Branch 08/09/21 at 2200
Do ses of ondansetro n 16 mg and above need to be administer ed via IV piggyback. For Dose >=24mg ECG monitoring is advisable.
ondansetron 2021-0 Yes 8mg 8 mg, Slow Univers (ZOFRAN 6-11 IV Push, ity of (PF)) 03:00: Q8H, First [place] injection 8 00 dose on Medic al mg Fri Branch 08/09/21 at 2200
Do ses of ondansetro n 16 mg and above need to be administer ed via IV piggyback. For Dose >=24mg ECG monitoring is advisable.
levETIRAcet 0 Yes 500mg 500 mg, IV Univers am (KEPPRA) 6-11 Piggyback, it y of in NACL 01:30: Q12H, [place] (ISO-OS) 00 First dose Medic al 500 mg/100 on Fri Branch mL RTU 08/09/21 at 2030, Until Discontinu ed, Administer over 15 Minutes, 100 mL pantoprazol Yes 40mg 40 mg, Univ ers e 08-10 Slow IV ity of (PROTONIX) 01:30: Push, [place] injection 00 Q12H, Medical 40 mg First dose Branch on Thu08/09/21 at 2030, Until Discontinu ed levETIRAcet No 500mg 500 mg, IV Univers am (KEPPRA) 08-10 Piggyback, i ty of in NACL 01:30: 00:33 Q12H, [place] (ISO-OS) 00 :20 First dose Medic al 500 mg/100 on Fri Branch mL RTU 08/09/21 at 2030, Until Discontinu ed, Administer over 15 Minutes, 100 mL pantoprazol 2021- No 40mg 40 mg, Uni vers e 08-10 Slow IV ity of (PROTONIX) 01:30: 00:33 Push, [place] injection 00 :20 Q12H, Medical 40 mg First dose Branch on Thu08/09/21 at 2030, Until Discontinu ed dexamethaso No 8mg 8 mg, Slow Univers ne 08-10 IV Push, ity of (DECADRON 01:30: 18:50 Q12H, [place] PHOSPHATE) 00 :14 First dose Med ical injection 8 on Fri Branch mg 08/09/21 at 2029, Until Discontinu ed, Administer over 20 Minutes, 2 mL niCARdipine Yes 2.5mg/h 2.5-15 U nivers (CARDENE 6-11 mg/hr ity of I.V.) 40 mg 00:46: (12.5-75 [place] in NaCL 200 59 mL/hr), IV Me dical mL (RTU) Infusion, Branch infusion TITRATE, SBP < 140, Starting on Thu08/09/21 at 1946
In itiate infusion at 2.5 mg/hr.&nbs p; Ti trate by 2.5 mg/hr every 5 minutes to 15 minutes as needed to achieve and maintain goal blood pressure. Maximum dose = 15 mg/hr. If goal not maintained at maximum allowed dose, contact prescriber .
niCARdipine 0 Yes 2.5mg/h 2.5-15 U nivers (CARDENE 6-11 mg/hr ity of I.V.) 40 mg 00:46: (12.5-75 [place] in NaCL 200 59 mL/hr), IV Me dical mL (RTU) Infusion, Branch infusion TITRATE, SBP < 140, Starting on Thu08/09/21 at 1946
In itiate infusion at 2.5 mg/hr.&nbs p; Ti trate by 2.5 mg/hr every 5 minutes to 15 minutes as needed to achieve and maintain goal blood pressure. Maximum dose = 15 mg/hr. If goal not maintained at maximum allowed dose, contact prescriber .
hydralAZINE 0 Yes 10mg 10 mg, Univ ers (APRESOLINE 6-10 Slow IV ity o f ) injection 23:52: Push, [place] 10 mg 42 Q2HPRN, Medical Starting Branch on Thu08/09/21 at 1852, Until Discontinu ed, Routine, SBP < 140 hydralAZINE 0 Yes 10mg 10 mg, Univ ers (APRESOLINE 6-10 Slow IV ity o f ) injection 23:52: Push, [place] 10 mg 42 Q2HPRN, Medical Starting Branch on Thu08/09/21 at 1852, Until Discontinu ed, Routine, SBP < 140 FENTanyl PF 2021-2021- No 25ug 25 mcg, Un cory (SUBLIMAZE 6-10 06-11 Slow IV ity o f (PF)) 23:25: 03:52 Push, [place] injection 38 :43 Q5MIN PRN, Medi jocelyn 25 mcg 4 doses, Branch Starting on Thu08/09/21 at 1825, Until Thu08/09/21 at 2252, Routine, Pain (scale 4-6), PACU proMETHazin 0 Yes 12.5mg 12.5 mg, Univers e 6-10 IV ity of (PHENERGAN) 22:13: Piggyback, [place] 12.5 mg in 43 at 200 Medical NS 50 mL IV mL/hr Branch piggyback Administer (CNR) over 15 Minutes, Q4HPRN, Starting on Thu08/09/21 at 1713, Until Discontinu ed, Routine, Nausea and Vomiting (N/V), N/V unresponsi ve to Ondansetro n proMETHazin Yes 12.5mg 12.5 mg, Univers e 6-10 IV ity of (PHENERGAN) 22:13: Piggyback, [place] 12.5 mg in 43 at 200 Medical NS 50 mL IV mL/hr Branch piggyback Administer (CNR) over 15 Minutes, Q4HPRN, Starting on Thu08/09/21 at 1713, Until Discontinu ed, Routine, Nausea and Vomiting (N/V), N/V unresponsi ve to Ondansetro n lidocaine-e 2021- No PRN, Unive rs pinephrine 08-09 Starting ity of (XYLOCAINE 20:42: 23:47 on Thu [place] WITH 00 :40 08/09/21 at Medical EPINEPHRINE 1542, Branch ) 1 Until Thu %-1:100,000 08/09/21 at injection 1847, Routine, Intra-op vancomycin 2021- No PRN, Univer s (VANCOCIN) 08-09 Starting ity of 1,000 mg in 20:38: 23:47 on Thu Bc as NaCl 0.9% 00 :40 08/09/21 at [facility] jocelyn (NS) 1,000 1538, Branch mL OR Intra-op irrigation oxyCODONE Yes 5mg 5 mg, Univers immediate 6-10 Oral, ity of release 20:35: Q6HPRN, [place] tablet 5 mg 25 Starting [facility] jocelyn on Fri Branch 08/09/21 at 1535, Until Discontinu ed, Routine, Pain (scale 7-10)<b r>road 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 member approving Restricted medication : BRIAN WHITING oxyCODONE Yes 5mg 5 mg, Univers immediate 6-10 Oral, ity of release 20:35: Q6HPRN, [place] tablet 5 mg 25 Starting [facility] jocelyn on Fri Branch 08/09/21 at 1535, Until Discontinu ed, Routine, Pain (scale 7-10)<b r>road crew member approving Restricted medication : BRIAN WHITING papaverine 2021- No PRN, Univer s injection 08-09 Starting ity o f 19:15: 23:47 on Thu [place] 00 :40 08/09/21 at [facility] 1415, Branch Until Thu08/09/21 at 1847, Routine, Intra-op thrombin 2021- No PRN, Univers (THROMBOSTA 08-09 Starting ity of T) spray 19:00: 23:47 on Thu [place] 00 :40 08/09/21 at Medical 1400, Branch Until Thu08/09/21 at 1847, Routine, Intra-op polyethylen Yes 17g 17 g, Unive rs e glycol 6-10 Oral, ity of 3350 powder 14:00: DAILY, [place] 17 g 00 First dose Medical on Thu [employer] 08/09/21 at 0900, Until Discontinu ed, Routine polyethylen Yes 17g 17 g, Unive rs e glycol 6-10 Oral, ity of 3350 powder 14:00: DAILY, [place] 17 g 00 First dose Medical on Thu [employer] 08/09/21 at 0900, Until Discontinu ed, Routine sennosides Yes 8.6mg 8.6 mg, Uni vers (SENOKOT) 6-10 Oral, BID, ity of tablet 8.6 02:00: First dose [place] mg 00 on [facility] 08/08/21 at Branch 2100, Until Discontinu ed, Routine sennosides Yes 8.6mg 8.6 mg, Uni vers (SENOKOT) 6-10 Oral, BID, ity of tablet 8.6 02:00: First dose [place] mg 00 on [facility] 08/08/21 at Branch 2100, Until Discontinu ed, Routine enoxaparin 2021- No 40mg 40 mg, Univ ers (LOVENOX) 08-08 Subcutaneo ity of injection 14:30: 13:23 [place], ONCE, [place] 40 mg 00 :00 1 dose, On [facility] 08/08/21 Branch at 0930, Routine gadoteridol 2021- No [id number] .2mL/kg 12.24 mL Univers (PROHANCE-1 08-07 105 (0.2 mL/kg i ty of 5 mL) 09:15: 08:42 ?61.2 kg), [place] injection 00 :00 Intravenou Medi jocelyn 12.24 mL s, ONCE, 1 Branc h dose, On Thu08/07/21 at 0415, Routine levETIRAcet 2021- No 500mg 500 mg, U nivers am (KEPPRA) 08-07 Oral, BID, i ty of tablet 500 01:00: 01:18 First dose [place] mg 00 :57 on [facility] 08/06/21 at [employer] 1999, Until Discontinu ed, Routine docusate 2021- No 100mg 100 mg, Univ ers (COLACE) 08-07 Oral, BID, ity of capsule 100 01:00: 01:18 First dose [place] mg 00 :57 on [facility] 08/06/21 at [employer] 1999, Until Discontinu ed, Routine pantoprazol No 40mg 40 mg, Uni vers e 08-06 Oral, ity of (PROTONIX) 21:15: 01:18 DAILY, [place] EC tablet 00 :57 First dose Medi jocelyn 40 mg on [facility] 08/06/21 at 1615, Until Discontinu ed, Routine dexAMETHaso 2021- No 4mg 4 mg, Univ ers ne 08-06 Oral, ity of (DECADRON) 21:15: 20:41 Q12H, [place] tablet 4 mg 00 :04 First dose Me dical on [facility] 08/06/21 at 1615, Until Discontinu ed, Routine bisacodyL Yes 10mg 10 mg, Univer s (DULCOLAX) 08-06 Rectal, ity of suppository 21:01: QHSPRN, Bc as 10 mg 55 Starting Medical on [facility] 08/06/21 at 1601, Until Discontinu ed, Routine, Constipati on NaCl 0.9% Yes 5mL 5 mL, Slow Un cory (NS) 08-06 IV Push, ity of injection 5 21:01: PRN - SEE [place] mL 55 [facility] Medical NS, Branch Starting on Thu08/06/21 at 1601, Until Discontinu ed, 10 mL bisacodyL 0 Yes 10mg 10 mg, Univer s (DULCOLAX) 08-06 Rectal, ity of suppository 21:01: QHSPRN, Bc as 10 mg 55 Starting Medical on Branch 08/06/21 at 1601, Until Discontinu ed, Routine, Constipati on NaCl 0.9% 0 Yes 5mL 5 mL, Slow Un cory (NS) 08-06 IV Push, ity of injection 5 21:01: PRN - SEE [place] mL 55 [facility] Medical NS, Branch Starting on Thu08/06/21 at 1601, Until Discontinu ed, 10 mL pantoprazol 2019-0 Yes [id number] 40mg Take 1 Univers e 40 mg EC 9-22 tablet by ity of tablet 00:00: mouth 00 daily. Medical Branch pantoprazol 2019-0 Yes [id number] 40mg Take 1 Univers e 40 mg EC 9-22 tablet by ity of tablet 00:00: mouth 00 daily. Medical Branch pantoprazol 2019-0 Yes [id number] 40mg Take 1 Univers e 40 mg EC 9-22 tablet by ity of tablet 00:00: mouth 00 daily. Medical Branch docusate 2020-0 Yes [id number] 100mg Take 1 U nivers 100 mg 9-21 capsule by ity of capsule 00:00: mouth (two) Medical times Branch daily. docusate 2020-0 Yes [id number] 100mg Take 1 U nivers 100 mg 9-21 capsule by ity of capsule 00:00: mouth (two) Medical times Branch daily. docusate 2020-0 Yes [id number] 100mg Take 1 U nivers 100 mg 9-21 capsule by ity of capsule 00:00: mouth (two) Medical times Branch daily. diclofenac 2017-03 Yes 75mg Take 1 Unive rs 75 mg EC 2-03 tablet by ity of tablet 00:00: mouth (two) Medical times Branch daily with meals. diclofenac 2017-03 Yes 75mg Take 1 Unive rs 75 mg EC 2-03 tablet by ity of tablet 00:00: mouth (two) Medical times Branch daily with meals. diclofenac 2017- Yes 75mg Take 1 Unive rs 75 mg EC 2 tablet by ity of tablet 00:00: mouth 2 00 (two) [facility] daily with meals. Immunizations Ordered Filled Immunization Date Status Comments [facility] e Immunization Name Name Influenza Virus 2018-11-14 Completed Universit y of Vaccine 00:00:00 [facility] Influenza Virus 2018-11-14 Completed Universit y of Vaccine 00:00:00 [facility] Influenza Virus 2018-11-14 Completed Universit y of Vaccine 00:00:00 [facility] Vital Signs Vital Name Observation Time Observation Value Comments Source Systolic blood 2021-08-19 20:41:00 130 mm[Hg] Univer sity of pressure [facility] Diastolic blood 2021-08-19 20:41:00 68 mm[Hg] Unive rsity of [facility] Heart rate 2021-08-19 20:41:00 58 /min [facility] Body temperature 2021-08-19 20:41:00 36.28 [facility]yanka [facility] Respiratory rate 2021-08-19 20:41:00 16 /min [facility] Oxygen saturation in 2021-08-19 20:41:00 98 /min [facility] Arterial blood by [facility] Pulse oximetry Branch Body weight 2021-08-12 13:00:00 65 kg [facility] BMI 2021-08-12 13:00:00 22.44 kg/m2 [facility] Body height 2021-08-07 02:33:00 170.2 cm [facility] Systolic blood 2021-08-09 13:12:00 131 mm[Hg] Univer sity of pressure [facility] Diastolic blood 2021-08-09 13:12:00 68 mm[Hg] Unive rsity of pressure [facility] Heart rate 2021-08-09 13:12:00 51 /min [facility] Body temperature 2021-08-09 13:12:00 36.72 [facility]yanka [facility] Respiratory rate 2021-08-09 13:12:00 18 /min [facility] Oxygen saturation in 2021-08-09 08:51:00 98 /min University of Arterial blood by [facility] Pulse oximetry Branch Body height 2021-08-07 02:33:00 170.2 cm Universi [facility] Body weight 2021-08-07 02:33:00 61.236 kg Universi [facility] BMI 2021-08-07 02:33:00 22.44 kg/m2 Universi [facility] Systolic blood 2021-08-06 13:30:00 110 mm[Hg] Univer sity of pressure [facility] Diastolic blood 2021-08-06 13:30:00 63 mm[Hg] [facility] rate 2021-08-06 13:30:00 69 /min Universi [facility] Body height 2021-08-06 13:30:00 170.2 cm Universi [facility] Body weight 2021-08-06 13:30:00 61.236 kg Universi [facility] BMI 2021-08-06 13:30:00 21.14 kg/m2 [facility] Procedures Procedure Date / Time Performing Clinician Source Performed COVID-19 (ID NOW RAPID 2021-08-16 23:47:00 Kishan [facility] TESTING) Medical Branch LAB ONLY COVID 2021-08-16 23:47:00 Bernabe Holley [place] o [facility] BASIC METABOLIC PANEL 2021-08-14 02:38:00 Yoel Olivares [facility] (NA, K, CL, CO2, GLUCOSE, Medica l Branch BUN, CREATININE, CA) BASIC METABOLIC PANEL 2021-08-12 11:33:00 Yoel Olivares [facility] (NA, K, CL, CO2, GLUCOSE, Medica l Branch BUN, CREATININE, CA) BASIC METABOLIC PANEL 2021-08-12 11:33:00 [facility] ([facility], CL, CO2, GLUCOSE, Medica l Branch BUN, CREATININE, CA) CBC WITH DIFF 2021-08-12 10:21:00 Elise [facility] CBC WITH DIFF 2021-08-12 10:21:00 Elise [facility] MR BRAIN W WO CONTRAST 2021-08-11 09:53:04 Samuel Richards [facility] MR BRAIN W WO CONTRAST 2021-08-11 09:53:04 Samuel Richards [facility] BASIC METABOLIC PANEL 2021-08-11 07:39[facility] ([facility], [facility], CL, CO2, GLUCOSE, Medica l Branch BUN, CREATININE, CA) CBC WITHOUT DIFF 2021-08-11 07:39[facility] 2021-08-11 07:39:00 [facility] (NA, K, CL, CO2, GLUCOSE, Medica l Branch BUN, CREATININE, CA) CBC WITHOUT DIFF 2021-08-11 07:39:00 Warren [facility] CT HEAD WO CONTRAST 2021-08-10 16:15:13 [facility] CT HEAD WO CONTRAST 2021-08-10 16:15:13 [facility] BASIC METABOLIC PANEL 2021-08-10 07:10:00 Elise [facility] (NA, K, CL, CO2, GLUCOSE, Medica l Branch BUN, CREATININE, CA) CBC WITH DIFF 2021-08-10 07:10:00 Elise [facility] BASIC METABOLIC PANEL 2021-08-10 07:10:00 Elise [facility] (NA, K, CL, CO2, GLUCOSE, Medica l Branch BUN, CREATININE, CA) CBC WITH DIFF 2021-08-10 07:10:00 Elise [facility] SURGICAL PATHOLOGY EXAM 2021-08-09 18:19:00 Brian Whiting [facility] SURGICAL PATHOLOGY EXAM 2021-08-09 18:19:00 Brian Whiting [facility] ADJACENT TISSUE 2021-08-09 16:02:00 Rigo Melendez [facility] FULL THICKNESS SKIN GRAFT 2021-08-09 16:02:00 Rigo Melendez [facility] HARVEST AND PLACEMENT Medical Br anch WOUND VAC PLACEMENT 2021-08-09 16:02:00 Rigo Melendez [facility] CRANIOTOMY FOR TUMOR 2021-08-09 16:02:00 Brian Whiting [facility] ADJACENT TISSUE 2021-08-09 16:02:00 Rigo Melendez [place] o [facility] FULL THICKNESS SKIN GRAFT 2021-08-09 16:02:00 Rigo Melendez [facility] HARVEST AND PLACEMENT Medical Br anch WOUND VAC PLACEMENT 2021-08-09 16:02:00 Rigo Melendez [facility] CRANIOTOMY FOR TUMOR 2021-08-09 16:02:00 Brian Whiting [facility] BASIC METABOLIC PANEL 2021-08-09 10:05:00 [facility] (NA, K, CL, CO2, GLUCOSE, [facility] BUN, CREATININE, CA) BASIC METABOLIC PANEL 2021-08-09 10:05:00 [facility] (NA, K, CL, CO2, GLUCOSE, [facility] BUN, CREATININE, CA) HB ABO GROUPING 2021-08-09 09:01:00 Carlos [facility] HB ABO GROUPING 2021-08-09 09:01:00 Carlos [facility] CBC WITH DIFF 2021-08-09 08:52:00 Carlos [facility] PROTHROMBIN TIME / INR 2021-08-09 08:52:00 Cindy Gonzalez [facility] ACTIVATED PARTIAL 2021-08-09 08:52:00 Carlos [facility] CBC WITH DIFF 2021-08-09 08:52:00 Carlos [facility] PROTHROMBIN TIME / INR 2021-08-09 08:52:00 Carlos Cindy [facility] ACTIVATED PARTIAL 2021-08-09 08:52:00 Carlos [facility] COVID-19 (ID NOW RAPID 2021-08-09 04:12:00 Cindy Gonzalez [facility] TESTING) [facility] LAB ONLY COVID 2021-08-09 04:12:00 [facility] INTERPRETATION [facility] COVID-19 (ID NOW RAPID 2021-08-09 04:12:00 Cindy Gonzalez [facility] TESTING) [facility] LAB ONLY COVID 2021-08-09 04:12:00 [facility] INTERPRETATION [facility] MR BRAIN W WO CONTRAST 2021-08-07 08:56:00 D'Clark, [facility] MR BRAIN W WO CONTRAST 2021-08-07 08:56:00 D'Clark, [facility] BASIC METABOLIC PANEL 2021-08-07 03:15:00 D'Clark, [facility] (NA, K, CL, CO2, GLUCOSE, [facility] BUN, CREATININE, CA) CBC WITH DIFF 2021-08-07 03:15:00 D'Clark, [facility] BASIC METABOLIC PANEL 2021-08-07 03:15:00 D'Clark, [facility] (NA, K, CL, CO2, GLUCOSE, [facility] BUN, CREATININE, CA) CBC WITH DIFF 2021-08-07 03:15:00 D'Amber [facility] CT HEAD WO CONTRAST 2021-08-06 21:32:50 Roderick Lai [facility] CT HEAD WO CONTRAST 2021-08-06 21:32:50 Roderick Lai [facility] CONSENT/REFUSAL FOR 2021-08-06 20:44:15 Doctor Unassigned, [facility] DIAGNOSIS AND TREATMENT [facility] CONSENT/REFUSAL FOR 2021-08-06 20:44:15 Doctor Unassigned, [facility] DIAGNOSIS AND TREATMENT [facility] XR CHEST 2 VW 2021-08-06 19:10:00 [facility] XR CHEST 2 VW 2021-08-06 19:10:00 [facility] 2021-08-06 05:01:00 Doctor Unassigned, [facility] Encounters Start End Encounter Admission Attending Care Care Encounter Source Date/Time Date/Time Type Type Clinicians Facility Department ID 2021-08-06 Inpatient R BRIAN WHITING [facility] [id number] Univers 14:43:26 BRIAN WHITING [facility] 2021-08-06 2021-08-19 Inpatient X BRIAN WHITING [facility] 1 [id number] Univers 15:47:00 18:13:00 BRIAN WHITING [facility] 2021-08-06 2021-08-19 Hospital ELVIRA Whiting [id number] Univers 15:47:00 18:13:00 Encounter Brian BHAT 350.1.13.10 ity of [facility] 4.2.7.2.686 Bc as [id number] [facility] 098 Branch 2021-08-09 2021-08-09 Surgery ELVIRA Whiting [id number] Univers 09:20:00 14:29:00 Brian BHAT 350.1.13.10 it y of HOSPITAL 4.2.7.2.686 Bc as [id number] [facility] 103 Branch 2021-08-06 2021-08-06 Office Jane [facility] [id number] Univers 08:30:00 09:00:00 Visit Brian HEALTH 350.1.13.10 [place] [id number] [facility] 196 Branch OFFICE BUILDING 2020-02-15 2020-02-15 [facility] [id number] 13:15:58 13:30:58 Visit Dimitri Bills HEALTH 350.1.13.10 CLINICS 4.2.7.2.686 [id number] 196 Results Test Description Test Time Test Comments Results Result Comments Source BASIC METABOLIC PANEL (NA, K, CL, CO2, GLUCOSE, BUN, 2021-07 04:09:04 CREATININE, [place]) Test Item Value Reference Range Interpretation Comme nts NA (test code = 1454139070) 135 mmol/L 135-145 K (test code = 1752977411) 4.0 mmol/L 3.5-5.0 CL (test code = 1829585686) 107 mmol/L 98-108 CO2 TOTAL (test code = 7669996563) 24 mmol/L 23-31 AGAP (test code = 8066429249) 2-16 BUN (test code = 4697271891) 19 mg/dL 7-23 GLUCOSE (test code = 0686772345) 115 mg/dL 70-110 H CREATININE (test code = 0.84 mg/dL 0.60-1.25 6487808235) CALCIUM (test code = 5144787842) 8.4 mg/dL 8.6-10.6 L eGFR (test code = 5330552208) mL/min/1.73m2 CARMEN (test code = CARMEN) Association of Glomerular Filtration Rate (GFR) and Staging of Kidney Disease* + +-------- + ------+| GFR (mL/min/1.73 m2) ?| With Kidney Damage ?| ?Without Kidney Damage+ +-- + +| ?>90 ?| ?Stage one ?| ? Normal ?+ +------- + -------+| ?60-89 ?| ?Stage two ?| ? Decreased GFR ? + +-------- + ------+| ?30-59 ?| ?Stage three ?| ? Stage three ? + +-------- + ------+| ?15-29 ?| ?Stage four ? | ? Stage four ?+ +------- + -------+| ?<15 (or dialysis) ? ?| ?Stage five ? | ? Stage five ?+ +------- + -------+ *Each stage assumes the associated GFR level has been in effect for at least three months. ?Stages 1 to 5, with or without kidney disease, indicate chronic kidney disease. Notes: Determination of stages one and two (with eGFR >59mL/min/1.73 m2) requires estimation of kidney damage for at least three months as defined by structural or functional abnormalities of the kidney, manifested by either:Pathological abnormalities or Markers of kidney damage (including abnormalities in the composition of the blood or urine or abnormalities in imaging tests). Lab Interpretation (test code = Abnormal 74938-6) [facility] (NA, K, CL, CO2, GLUCOSE, BUN, CREATININE, CA)2021-08-12 11:49:38 Test Item Value Reference Range Interpretation Comments NA (test code = 137 mmol/L 135-145 3017262141) K (test code = 4.4 mmol/L 3.5-5.0 7473526814) CL (test code = 109 mmol/L 98-108 H 2474052400) CO2 TOTAL (test code = 27 mmol/L 23-31 4543115246) AGAP (test code = 2-16 L 2432566982) BUN (test code = 17 mg/dL 7-23 3963947384) GLUCOSE (test code = 99 mg/dL 70-110 0592160556) CREATININE (test code = 0.63 mg/dL 0.60-1.25 1394420574) CALCIUM (test code = 8.4 mg/dL 8.6-10.6 L 0730735086) eGFR (test code = mL/min/1.73m2 0197406436) CARMEN (test code = CARMEN) Association of Glomerular Filtration Rate (GFR) and Staging of Kidney Disease* + --+ --+ ------+| GFR (mL/min/1.73 m2) ?| With Kidney Damage ?| ?Without Kidney Damage+ --------+ --------+ +| ?>90 ?| ?Stage one ?| ? Normal ?+ ---+ ---+ -------+| ?60-89 ?| ?Stage two ?| ? Decreased GFR ? + --+ --+ ------+| ?30-59 ?| ?Stage three ?| ? Stage three ? + --+ --+ ------+| ?15-29 ?| ?Stage four ? | ? Stage four ?+ ---+ ---+ -------+| ?<15 (or dialysis) ? ?| ?Stage five ? | ? Stage five ?+ ---+ ---+ -------+ *Each stage assumes the associated GFR level has been in effect for at least three months. ?Stages 1 to 5, with or without kidney disease, indicate chronic kidney disease. Notes: Determination of stages one and two (with eGFR >59mL/min/1.73 m2) requires estimation of kidney damage for at least three months as defined by structural or functional abnormalities of the kidney, manifested by either:Pathological abnormalities or Markers of kidney damage (including abnormalities in the composition of the blood or urine or abnormalities in imaging tests). Lab Interpretation Abnormal (test code = 76645-9) [facility] METABOLIC PANEL (NA, K, CL, CO2, GLUCOSE, BUN, CREATININE, CA)2021-08-12 11:49:38 Test Item Value Reference Range Interpretation Comments NA (test code = 137 mmol/L 135-145 6969524727) K (test code = 4.4 mmol/L 3.5-5.0 0521689173) CL (test code = 109 mmol/L 98-108 H 7459156185) CO2 TOTAL (test code = 27 mmol/L 23-31 0480028809) AGAP (test code = 2-16 L 5098797941) BUN (test code = 17 mg/dL 7-23 5483747766) GLUCOSE (test code = 99 mg/dL 70-110 4614285825) CREATININE (test code = 0.63 mg/dL 0.60-1.25 3643672957) CALCIUM (test code = 8.4 mg/dL 8.6-10.6 L 8375645409) eGFR (test code = mL/min/1.73m2 8117893077) CARMEN (test code = CARMEN) Association of Glomerular Filtration Rate (GFR) and Staging of Kidney Disease* + --+ --+ ------+| GFR (mL/min/1.73 m2) ?| With Kidney Damage ?| ?Without Kidney Damage+ --------+ --------+ +| ?>90 ?| ?Stage one ?| ? Normal ?+ ---+ ---+ -------+| ?60-89 ?| ?Stage two ?| ? Decreased GFR ? + --+ --+ ------+| ?30-59 ?| ?Stage three ?| ? Stage three ? + --+ --+ ------+| ?15-29 ?| ?Stage four ? | ? Stage four ?+ ---+ ---+ -------+| ?<15 (or dialysis) ? ?| ?Stage five ? | ? Stage five ?+ ---+ ---+ -------+ *Each stage assumes the associated GFR level has been in effect for at least three months. ?Stages 1 to 5, with or without kidney disease, indicate chronic kidney disease. Notes: Determination of stages one and two (with eGFR >59mL/min/1.73 m2) requires estimation of kidney damage for at least three months as defined by structural or functional abnormalities of the kidney, manifested by either:Pathological abnormalities or Markers of kidney damage (including abnormalities in the composition of the blood or urine or abnormalities in imaging tests). Lab Interpretation Abnormal (test code = 93040-6) [facility] WITH [id number] 10:42:10 Test Item Value Reference Range Interpretation Comments WBC (test code = See_Comment [Automated 8790-2) message] The sy stem which generated this result transmitted reference range : 4.20 - 10.70 10*3/?L. The reference range was not used to interpret this result as normal/abnormal . RBC (test code = See_Comment [Automated 549-8) message] The sy stem which generated this result transmitted reference range : 4.26 - 5.52 10*6/?L. The reference range was not used to interpret this result as normal/abnormal . HGB (test code = 14.1 g/dL 12.2-16.4 718-7) HCT (test code = 41.7 % 38.4-49.3 4544-3) MCV (test code = 94.1 fL 81.7-95.6 787-2) MCH (test code = 31.8 pg 26.1-32.7 785-6) MCHC (test code = 33.8 g/dL 31.2-35.0 786-4) RDW-SD (test code = 44.6 fL 38.5-51.6 48628-9) RDW-CV (test code = 13.2 % 12.1-15.4 788-0) PLT (test code = See_Comment L [Automated 777-3) message] The sy stem which generated this result transmitted reference range : 150 - 328 10*3/ ?L. The reference r uzair was not used to interpret this result as normal/abnormal . MPV (test code = 12.1 fL 9.8-13.0 61694-2) NRBC/100 WBC (test See_Comment [Automat ed code = 8618776156) message] The system which generated this result transmitted reference range : 0.0 - 10.0 /100 WBCs. The refer ence range was not u sed to interpret th is result as normal/abnormal . NRBC x10^3 (test code <0.01 See_Comment [Auto mated = 3261783613) message] The s ystem which generated this result transmitted reference range : 10*3/?L. The reference range was not used to interpret this result as normal/abnormal . GRAN MAT (NEUT) % 82.9 % (test code = 770-8) IMM GRAN % (test code 0.50 % = 0590642998) LYMPH % (test code = 8.5 % 736-9) MONO % (test code = 8.0 % 5905-5) EOS % (test code = 0.0 % 713-8) BASO % (test code = 0.1 % 706-2) GRAN MAT x10^3(ANC) 8.16 10*3/uL 1.99-6.95 H (test code = 5229199133) IMM GRAN x10^3 (test 0.05 10*3/uL 0.00-0.06 code = 8864541505) LYMPH x10^3 (test code 0.84 10*3/uL 1.09-3.23 L = 731-0) MONO x10^3 (test code 0.79 10*3/uL 0.36-1.02 = 742-7) EOS x10^3 (test code = <0.03 0.06-0.53 L 711-2) BASO x10^3 (test code <0.03 0.01-0.09 = 704-7) Lab Interpretation Abnormal (test code = 61387-8) [facility] WITH [id number] 10:42:10 Test Item Value Reference Range Interpretation Comments WBC (test code = See_Comment [Automated 4890-2) message] The sy stem which generated this result transmitted reference range : 4.20 - 10.70 10*3/?L. The reference range was not used to interpret this result as normal/abnormal . RBC (test code = See_Comment [Automated 789-8) message] The sy stem which generated this result transmitted reference range : 4.26 - 5.52 10*6/?L. The reference range was not used to interpret this result as normal/abnormal . HGB (test code = 14.1 g/dL 12.2-16.4 718-7) HCT (test code = 41.7 % 38.4-49.3 4544-3) MCV (test code = 94.1 fL 81.7-95.6 787-2) MCH (test code = 31.8 pg 26.1-32.7 785-6) MCHC (test code = 33.8 g/dL 31.2-35.0 786-4) RDW-SD (test code = 44.6 fL 38.5-51.6 45545-2) RDW-CV (test code = 13.2 % 12.1-15.4 788-0) PLT (test code = See_Comment L [Automated 777-3) message] The sy stem which generated this result transmitted reference range : 150 - 328 10*3/ ?L. The reference r uzair was not used to interpret this result as normal/abnormal . MPV (test code = 12.1 fL 9.8-13.0 13519-9) NRBC/100 WBC (test See_Comment [Automat ed code = 0672050989) message] The system which generated this result transmitted reference range : 0.0 - 10.0 /100 WBCs. The refer ence range was not u sed to interpret th is result as normal/abnormal . NRBC x10^3 (test code <0.01 See_Comment [Auto mated = 2709486897) message] The s ystem which generated this result transmitted reference range : 10*3/?L. The reference range was not used to interpret this result as normal/abnormal . GRAN MAT (NEUT) % 82.9 % (test code = 770-8) IMM GRAN % (test code 0.50 % = 2389502276) LYMPH % (test code = 8.5 % 736-9) MONO % (test code = 8.0 % 5905-5) EOS % (test code = 0.0 % 713-8) BASO % (test code = 0.1 % 706-2) GRAN MAT x10^3(ANC) 8.16 10*3/uL 1.99-6.95 H (test code = 8175547515) IMM GRAN x10^3 (test 0.05 10*3/uL 0.00-0.06 code = 2683573045) LYMPH x10^3 (test code 0.84 10*3/uL 1.09-3.23 L = 731-0) MONO x10^3 (test code 0.79 10*3/uL 0.36-1.02 = 742-7) EOS x10^3 (test code = <0.03 0.06-0.53 L 711-2) BASO x10^3 (test code <0.03 0.01-0.09 = 704-7) Lab Interpretation Abnormal (test code = 06720-6) [facility] METABOLIC PANEL (NA, K, CL, CO2, GLUCOSE, BUN, CREATININE, CA)2021-08-11 08:15:23 Test Item Value Reference Range Interpretation Comments NA (test code = 137 mmol/L 135-145 6414604773) K (test code = 4.1 mmol/L 3.5-5.0 9671270395) CL (test code = 108 mmol/L 98-108 2529310358) CO2 TOTAL (test code = 26 mmol/L 23-31 1513262378) AGAP (test code = 2-16 5564615311) BUN (test code = 17 mg/dL 7-23 6344129852) GLUCOSE (test code = 112 mg/dL 70-110 H 8251906201) CREATININE (test code = 0.72 mg/dL 0.60-1.25 3936093209) CALCIUM (test code = 8.1 mg/dL 8.6-10.6 L 1453832216) eGFR (test code = mL/min/1.73m2 4421941732) CARMEN (test code = CARMEN) Association of Glomerular Filtration Rate (GFR) and Staging of Kidney Disease* + --+ --+ ------+| GFR (mL/min/1.73 m2) ?| With Kidney Damage ?| ?Without Kidney Damage+ --------+ --------+ +| ?>90 ?| ?Stage one ?| ? Normal ?+ ---+ ---+ -------+| ?60-89 ?| ?Stage two ?| ? Decreased GFR ? + --+ --+ ------+| ?30-59 ?| ?Stage three ?| ? Stage three ? + --+ --+ ------+| ?15-29 ?| ?Stage four ? | ? Stage four ?+ ---+ ---+ -------+| ?<15 (or dialysis) ? ?| ?Stage five ? | ? Stage five ?+ ---+ ---+ -------+ *Each stage assumes the associated GFR level has been in effect for at least three months. ?Stages 1 to 5, with or without kidney disease, indicate chronic kidney disease. Notes: Determination of stages one and two (with eGFR >59mL/min/1.73 m2) requires estimation of kidney damage for at least three months as defined by structural or functional abnormalities of the kidney, manifested by either:Pathological abnormalities or Markers of kidney damage (including abnormalities in the composition of the blood or urine or abnormalities in imaging tests). Lab Interpretation Abnormal (test code = 68572-6) [facility] (NA, K, CL, CO2, GLUCOSE, BUN, CREATININE, CA)2021-08-11 08:15:23 Test Item Value Reference Range Interpretation Comments NA (test code = 137 mmol/L 135-145 7865379850) K (test code = 4.1 mmol/L 3.5-5.0 9729161280) CL (test code = 108 mmol/L 98-108 0047638119) CO2 TOTAL (test code = 26 mmol/L 23-31 7022121609) AGAP (test code = 2-16 9054706276) BUN (test code = 17 mg/dL 7-23 7582876364) GLUCOSE (test code = 112 mg/dL 70-110 H 6280134794) CREATININE (test code = 0.72 mg/dL 0.60-1.25 3662228658) CALCIUM (test code = 8.1 mg/dL 8.6-10.6 L 9326411850) eGFR (test code = mL/min/1.73m2 1014287774) CARMEN (test code = CARMEN) Association of Glomerular Filtration Rate (GFR) and Staging of Kidney Disease* + --+ --+ ------+| GFR (mL/min/1.73 m2) ?| With Kidney Damage ?| ?Without Kidney Damage+ --------+ --------+ +| ?>90 ?| ?Stage one ?| ? Normal ?+ ---+ ---+ -------+| ?60-89 ?| ?Stage two ?| ? Decreased GFR ? + --+ --+ ------+| ?30-59 ?| ?Stage three ?| ? Stage three ? + --+ --+ ------+| ?15-29 ?| ?Stage four ? | ? Stage four ?+ ---+ ---+ -------+| ?<15 (or dialysis) ? ?| ?Stage five ? | ? Stage five ?+ ---+ ---+ -------+ *Each stage assumes the associated GFR level has been in effect for at least three months. ?Stages 1 to 5, with or without kidney disease, indicate chronic kidney disease. Notes: Determination of stages one and two (with eGFR >59mL/min/1.73 m2) requires estimation of kidney damage for at least three months as defined by structural or functional abnormalities of the kidney, manifested by either:Pathological abnormalities or Markers of kidney damage (including abnormalities in the composition of the blood or urine or abnormalities in imaging tests). Lab Interpretation Abnormal (test code = 42660-9) [facility] WITHOUT [id number] 08:09:22 Test Item Value Reference Range Interpretation Comments WBC (test code = 6690-2) See_Comment [A utomated message] The system [employer] generated this result transmit carlos alberto reference range : 4.20 - 10.70 10*3/?L. The reference range was not used to interpret this result as normal/abnormal . RBC (test code = 789-8) See_Comment L [Au tomated message] The system [employer] generated this result transmit carlos alberto reference range : 4.26 - 5.52 10* 6/?L. The reference r uzair was not used to interpret this result as normal/abnormal . HGB (test code = 718-7) 12.5 g/dL 12.2-16.4 HCT (test code = 4544-3) 36.8 % 38.4-49.3 L MCH (test code = 785-6) 31.9 pg 26.1-32.7 MCV (test code = 787-2) 93.9 fL 81.7-95.6 MCHC (test code = 786-4) 34.0 g/dL 31.2-35.0 PLT (test code = 777-3) See_Comment L [Au tomated message] The system [employer] generated this result transmit carlos alberto reference range : 150 - 328 10*3/?L. The reference range was not used to interpret this result as normal/abnormal . MPV (test code = 11.7 fL 9.8-13.0 28732-2) RDW-CV (test code = 13.1 % 12.1-15.4 788-0) RDW-SD (test code = 44.5 fL 38.5-51.6 31511-6) NRBC x10^3 (test code = <0.01 See_Comment [Au tomated message] 5712103891) The system [employer] generated this result transmit carlos alberto reference range : 10*3/?L. The reference range was not used to interpret this result as normal/abnormal . NRBC/100 WBC (test code See_Comment [Au tomated message] = 0450215216) The system [facility] generated this result transmit carlos alberto reference range : 0.0 - 10.0 /100 WBC s. The reference r uzair was not used to interpret this result as normal/abnormal . IPF % (test code = 9486971924) Lab Interpretation (test Abnormal code = 88054-1) [facility] WITHOUT [id number] 08:09:22 Test Item Value Reference Range Interpretation Comments WBC (test code = 6690-2) See_Comment [A utomated message] The system [facility] generated this result transmit carlos alberto reference range : 4.20 - 10.70 10*3/?L. The reference range was not used to interpret this result as normal/abnormal . RBC (test code = 789-8) See_Comment L [Au tomated message] The system [facility] generated this result transmit carlos alberto reference range : 4.26 - 5.52 10* 6/?L. The reference r uzair was not used to interpret this result as normal/abnormal . HGB (test code = 718-7) 12.5 g/dL 12.2-16.4 HCT (test code = 4544-3) 36.8 % 38.4-49.3 L MCH (test code = 785-6) 31.9 pg 26.1-32.7 MCV (test code = 787-2) 93.9 fL 81.7-95.6 MCHC (test code = 786-4) 34.0 g/dL 31.2-35.0 PLT (test code = 777-3) See_Comment L [Au tomated message] The system [employer] generated this result transmit carlos alberto reference range : 150 - 328 10*3/?L. The reference range was not used to interpret this result as normal/abnormal . MPV (test code = 11.7 fL 9.8-13.0 45964-8) RDW-CV (test code = 13.1 % 12.1-15.4 788-0) RDW-SD (test code = 44.5 fL 38.5-51.6 94604-2) NRBC x10^3 (test code = <0.01 See_Comment [Au tomated message] 8312564798) The system [employer] generated this result transmit carlos alberto reference range : 10*3/?L. The reference range was not used to interpret this result as normal/abnormal . NRBC/100 WBC (test code See_Comment [Au tomated message] = 5682202198) The system [employer] generated this result transmit carlos alberto reference range : 0.0 - 10.0 /100 WBC s. The reference r uzair was not used to interpret this result as normal/abnormal . IPF % (test code = 1864840142) Lab Interpretation (test Abnormal code = 46098-9) [facility] METABOLIC PANEL (NA, K, CL, CO2, GLUCOSE, BUN, CREATININE, CA)2021-08-10 07:38:27 Test Item Value Reference Range Interpretation Comments NA (test code = 137 mmol/L 135-145 0019598627) K (test code = 4.9 mmol/L 3.5-5.0 4154231192) CL (test code = 108 mmol/L 98-108 5605680763) CO2 TOTAL (test code = 24 mmol/L 23-31 1671514862) AGAP (test code = 2-16 0853481782) BUN (test code = 18 mg/dL 7-23 8927966607) GLUCOSE (test code = 132 mg/dL 70-110 H 5420048113) CREATININE (test code = 0.67 mg/dL 0.60-1.25 0167971679) CALCIUM (test code = 8.7 mg/dL 8.6-10.6 5536667641) eGFR (test code = mL/min/1.73m2 6370475157) CARMEN (test code = CARMEN) Association of Glomerular Filtration Rate (GFR) and Staging of Kidney Disease* + --+ --+ ------+| GFR (mL/min/1.73 m2) ?| With Kidney Damage ?| ?Without Kidney Damage+ --------+ --------+ +| ?>90 ?| ?Stage one ?| ? Normal ?+ ---+ ---+ -------+| ?60-89 ?| ?Stage two ?| ? Decreased GFR ? + --+ --+ ------+| ?30-59 ?| ?Stage three ?| ? Stage three ? + --+ --+ ------+| ?15-29 ?| ?Stage four ? | ? Stage four ?+ ---+ ---+ -------+| ?<15 (or dialysis) ? ?| ?Stage five ? | ? Stage five ?+ ---+ ---+ -------+ *Each stage assumes the associated GFR level has been in effect for at least three months. ?Stages 1 to 5, with or without kidney disease, indicate chronic kidney disease. Notes: Determination of stages one and two (with eGFR >59mL/min/1.73 m2) requires estimation of kidney damage for at least three months as defined by structural or functional abnormalities of the kidney, manifested by either:Pathological abnormalities or Markers of kidney damage (including abnormalities in the composition of the blood or urine or abnormalities in imaging tests). Lab Interpretation Abnormal (test code = 58906-6) [facility] METABOLIC PANEL (NA, K, CL, CO2, GLUCOSE, BUN, CREATININE, CA)2021-08-10 07:38:27 Test Item Value Reference Range Interpretation Comments NA (test code = 137 mmol/L 135-145 8280950295) K (test code = 4.9 mmol/L 3.5-5.0 5927623077) CL (test code = 108 mmol/L 98-108 6303449860) CO2 TOTAL (test code = 24 mmol/L 23-31 8583399310) AGAP (test code = 2-16 0330501321) BUN (test code = 18 mg/dL 7-23 1805535449) GLUCOSE (test code = 132 mg/dL 70-110 H 4525730988) CREATININE (test code = 0.67 mg/dL 0.60-1.25 2131026945) CALCIUM (test code = 8.7 mg/dL 8.6-10.6 4238020518) eGFR (test code = mL/min/1.73m2 4404205696) CARMEN (test code = CARMEN) Association of Glomerular Filtration Rate (GFR) and Staging of Kidney Disease* + --+ --+ ------+| GFR (mL/min/1.73 m2) ?| With Kidney Damage ?| ?Without Kidney Damage+ --------+ --------+ +| ?>90 ?| ?Stage one ?| ? Normal ?+ ---+ ---+ -------+| ?60-89 ?| ?Stage two ?| ? Decreased GFR ? + --+ --+ ------+| ?30-59 ?| ?Stage three ?| ? Stage three ? + --+ --+ ------+| ?15-29 ?| ?Stage four ? | ? Stage four ?+ ---+ ---+ -------+| ?<15 (or dialysis) ? ?| ?Stage five ? | ? Stage five ?+ ---+ ---+ -------+ *Each stage assumes the associated GFR level has been in effect for at least three months. ?Stages 1 to 5, with or without kidney disease, indicate chronic kidney disease. Notes: Determination of stages one and two (with eGFR >59mL/min/1.73 m2) requires estimation of kidney damage for at least three months as defined by structural or functional abnormalities of the kidney, manifested by either:Pathological abnormalities or Markers of kidney damage (including abnormalities in the composition of the blood or urine or abnormalities in imaging tests). Lab Interpretation Abnormal (test code = 65510-1) [facility] WITH [id number] 07:20:44 Test Item Value Reference Range Interpretation Comments WBC (test code = See_Comment [Automated 6690-2) message] The sy stem which generated this result transmitted reference range : 4.20 - 10.70 10*3/?L. The reference range was not used to interpret this result as normal/abnormal . RBC (test code = See_Comment L [Automated 789-8) message] The sy stem which generated this result transmitted reference range : 4.26 - 5.52 10*6/?L. The reference range was not used to interpret this result as normal/abnormal . HGB (test code = 12.8 g/dL 12.2-16.4 718-7) HCT (test code = 38.0 % 38.4-49.3 L 4544-3) MCV (test code = 95.5 fL 81.7-95.6 787-2) MCH (test code = 32.2 pg 26.1-32.7 785-6) MCHC (test code = 33.7 g/dL 31.2-35.0 786-4) RDW-SD (test code = 45.3 fL 38.5-51.6 36066-8) RDW-CV (test code = 12.9 % 12.1-15.4 788-0) PLT (test code = See_Comment [Automated 777-3) message] The sy stem which generated this result transmitted reference range : 150 - 328 10*3/ ?L. The reference r uzair was not used to interpret this result as normal/abnormal . MPV (test code = 11.3 fL 9.8-13.0 66814-1) NRBC/100 WBC (test See_Comment [Automat ed code = 6475905078) message] The system which generated this result transmitted reference range : 0.0 - 10.0 /100 WBCs. The refer ence range was not u sed to interpret th is result as normal/abnormal . NRBC x10^3 (test code <0.01 See_Comment [Auto mated = 4221246755) message] The s ystem which generated this result transmitted reference range : 10*3/?L. The reference range was not used to interpret this result as normal/abnormal . GRAN MAT (NEUT) % 88.1 % (test code = 770-8) IMM GRAN % (test code 0.50 % = 8320871977) LYMPH % (test code = 4.7 % 736-9) MONO % (test code = 6.7 % 5905-5) EOS % (test code = 0.0 % 713-8) BASO % (test code = 0.0 % 706-2) GRAN MAT x10^3(ANC) 8.57 10*3/uL 1.99-6.95 H (test code = 2029712686) IMM GRAN x10^3 (test 0.05 10*3/uL 0.00-0.06 code = 5667297261) LYMPH x10^3 (test code 0.46 10*3/uL 1.09-3.23 L = 731-0) MONO x10^3 (test code 0.65 10*3/uL 0.36-1.02 = 742-7) EOS x10^3 (test code = <0.03 0.06-0.53 L 711-2) BASO x10^3 (test code <0.03 0.01-0.09 = 704-7) Lab Interpretation Abnormal (test code = 53318-9) [facility] WITH [id number] 07:20:44 Test Item Value Reference Range Interpretation Comments WBC (test code = See_Comment [Automated 9390-2) message] The sy stem which generated this result transmitted reference range : 4.20 - 10.70 10*3/?L. The reference range was not used to interpret this result as normal/abnormal . RBC (test code = See_Comment L [Automated 649-8) message] The sy stem which generated this result transmitted reference range : 4.26 - 5.52 10*6/?L. The reference range was not used to interpret this result as normal/abnormal . HGB (test code = 12.8 g/dL 12.2-16.4 718-7) HCT (test code = 38.0 % 38.4-49.3 L 4544-3) MCV (test code = 95.5 fL 81.7-95.6 787-2) MCH (test code = 32.2 pg 26.1-32.7 785-6) MCHC (test code = 33.7 g/dL 31.2-35.0 786-4) RDW-SD (test code = 45.3 fL 38.5-51.6 89012-0) RDW-CV (test code = 12.9 % 12.1-15.4 788-0) PLT (test code = See_Comment [Automated 777-3) message] The sy stem which generated this result transmitted reference range : 150 - 328 10*3/ ?L. The reference r uzair was not used to interpret this result as normal/abnormal . MPV (test code = 11.3 fL 9.8-13.0 12074-5) NRBC/100 WBC (test See_Comment [Automat ed code = 2209768071) message] The system which generated this result transmitted reference range : 0.0 - 10.0 /100 WBCs. The refer ence range was not u sed to interpret th is result as normal/abnormal . NRBC x10^3 (test code <0.01 See_Comment [Auto mated = 5969814350) message] The s ystem which generated this result transmitted reference range : 10*3/?L. The reference range was not used to interpret this result as normal/abnormal . GRAN MAT (NEUT) % 88.1 % (test code = 770-8) IMM GRAN % (test code 0.50 % = 4606921836) LYMPH % (test code = 4.7 % 736-9) MONO % (test code = 6.7 % 5905-5) EOS % (test code = 0.0 % 713-8) BASO % (test code = 0.0 % 706-2) GRAN MAT x10^3(ANC) 8.57 10*3/uL 1.99-6.95 H (test code = 4592351217) IMM GRAN x10^3 (test 0.05 10*3/uL 0.00-0.06 code = 9919000553) LYMPH x10^3 (test code 0.46 10*3/uL 1.09-3.23 L = 731-0) MONO x10^3 (test code 0.65 10*3/uL 0.36-1.02 = 742-7) EOS x10^3 (test code = <0.03 0.06-0.53 L 711-2) BASO x10^3 (test code <0.03 0.01-0.09 = 704-7) Lab Interpretation Abnormal (test code = 77702-4) [facility] METABOLIC PANEL (NA, K, CL, CO2, GLUCOSE, BUN, CREATININE, CA)2021-08-09 10:52:23 Test Item Value Reference Range Interpretation Comments NA (test code = 139 mmol/L 135-145 0574829469) K (test code = 4.2 mmol/L 3.5-5.0 8992783694) CL (test code = 112 mmol/L 98-108 H 9796805284) CO2 TOTAL (test code = 24 mmol/L 23-31 7896014643) AGAP (test code = 2-16 6566287560) BUN (test code = 18 mg/dL 7-23 5631086687) GLUCOSE (test code = 115 mg/dL 70-110 H 4310147078) CREATININE (test code = 0.71 mg/dL 0.60-1.25 4650420528) CALCIUM (test code = 8.7 mg/dL 8.6-10.6 4053698726) eGFR (test code = mL/min/1.73m2 4997245347) CARMEN (test code = CARMEN) Association of Glomerular Filtration Rate (GFR) and Staging of Kidney Disease* + --+ --+ ------+| GFR (mL/min/1.73 m2) ?| With Kidney Damage ?| ?Without Kidney Damage+ --------+ --------+ +| ?>90 ?| ?Stage one ?| ? Normal ?+ ---+ ---+ -------+| ?60-89 ?| ?Stage two ?| ? Decreased GFR ? + --+ --+ ------+| ?30-59 ?| ?Stage three ?| ? Stage three ? + --+ --+ ------+| ?15-29 ?| ?Stage four ? | ? Stage four ?+ ---+ ---+ -------+| ?<15 (or dialysis) ? ?| ?Stage five ? | ? Stage five ?+ ---+ ---+ -------+ *Each stage assumes the associated GFR level has been in effect for at least three months. ?Stages 1 to 5, with or without kidney disease, indicate chronic kidney disease. Notes: Determination of stages one and two (with eGFR >59mL/min/1.73 m2) requires estimation of kidney damage for at least three months as defined by structural or functional abnormalities of the kidney, manifested by either:Pathological abnormalities or Markers of kidney damage (including abnormalities in the composition of the blood or urine or abnormalities in imaging tests). Lab Interpretation Abnormal (test code = 31186-6) [facility] METABOLIC PANEL (NA, K, CL, CO2, GLUCOSE, BUN, CREATININE, CA)2021-08-09 10:52:23 Test Item Value Reference Range Interpretation Comments NA (test code = 139 mmol/L 135-145 2804462343) K (test code = 4.2 mmol/L 3.5-5.0 2852423447) CL (test code = 112 mmol/L 98-108 H 1599127501) CO2 TOTAL (test code = 24 mmol/L 23-31 1377905767) AGAP (test code = 2-16 9847699295) BUN (test code = 18 mg/dL 7-23 2825092502) GLUCOSE (test code = 115 mg/dL 70-110 H 8307240399) CREATININE (test code = 0.71 mg/dL 0.60-1.25 9857061517) CALCIUM (test code = 8.7 mg/dL 8.6-10.6 1610525716) eGFR (test code = mL/min/1.73m2 8224828286) CARMEN (test code = CARMEN) Association of Glomerular Filtration Rate (GFR) and Staging of Kidney Disease* + --+ --+ ------+| GFR (mL/min/1.73 m2) ?| With Kidney Damage ?| ?Without Kidney Damage+ --------+ --------+ +| ?>90 ?| ?Stage one ?| ? Normal ?+ ---+ ---+ -------+| ?60-89 ?| ?Stage two ?| ? Decreased GFR ? + --+ --+ ------+| ?30-59 ?| ?Stage three ?| ? Stage three ? + --+ --+ ------+| ?15-29 ?| ?Stage four ? | ? Stage four ?+ ---+ ---+ -------+| ?<15 (or dialysis) ? ?| ?Stage five ? | ? Stage five ?+ ---+ ---+ -------+ *Each stage assumes the associated GFR level has been in effect for at least three months. ?Stages 1 to 5, with or without kidney disease, indicate chronic kidney disease. Notes: Determination of stages one and two (with eGFR >59mL/min/1.73 m2) requires estimation of kidney damage for at least three months as defined by structural or functional abnormalities of the kidney, manifested by either:Pathological abnormalities or Markers of kidney damage (including abnormalities in the composition of the blood or urine or abnormalities in imaging tests). Lab Interpretation Abnormal (test code = 35307-5) [facility] and Screen - ONCE [id number] 09:42:28 Test Item Value Reference Range Interpretation Comments ABO & RH (test AB POSITIVE Performed at [facility] code = 20) Laboratory [facility] Blood [address] [address]Ddoc Free: [phone] A No. [id number] IAT (test code = Negative Performed a t [facility] 1185) Laboratory [facility] Blood [address] [address]Qmtq Free: [phone] A No. [id number] [facility] [id number] 09:42:28 Test Item Value Reference Range Interpretation Comments ABO & RH (test AB POSITIVE Performed at [facility] code = 20) Laboratory [facility] Blood [address] [address]Idet Free: [phone] A No. [id number] IAT (test code = Negative Performed a t [facility] 1185) Laboratory [facility] Blood [address] [address]Vxmu Free: [phone] A No. [id number] [facility] / [id number] 09:24:32 Test Item Value Reference Range Interpretation Comments PROTIME PATIENT (test See_Comment [Auto mated message] code = 5964-2) The system [employer] generated this result transmitted ref erence range: 10.1 - 1 2.6 Seconds. The re ference range was not u sed to interpret this result as normal/abnor mal. INR (test code = 6301-6) Nor mal INR <1.1; Warfarin Therap eutic range 2.0 to 3. 0 or 2.5 to 3.5, dep ending upon the indica tions. Lab Interpretation (test Normal code = 79278-2) [facility] [id number] 09:24:32 Test Item Value Reference Range Interpretation Comments APTT Patient (test code = See_Comment [ Automated message] 3173-2) The system [employer] generated this result transmitted ref erence range: 26 - 36 Seconds. The re ference range was not u sed to interpret this result as normal/abnor mal. Lab Interpretation (test Normal code = 93266-2) [facility] / [id number] 09:24:32 Test Item Value Reference Range Interpretation Comments PROTIME PATIENT (test See_Comment [Auto mated message] code = 5964-2) The system [employer] generated this result transmitted ref erence range: 10.1 - 1 2.6 Seconds. The re ference range was not u sed to interpret this result as normal/abnor mal. INR (test code = 6301-6) Nor mal INR <1.1; Warfarin Therap eutic range 2.0 to 3. 0 or 2.5 to 3.5, dep ending upon the indica tions. Lab Interpretation (test Normal code = 02657-3) [facility] [id number] 09:24:32 Test Item Value Reference Range Interpretation Comments APTT Patient (test code = See_Comment [ Automated message] 3173-2) The system [employer] generated this result transmitted ref erence range: 26 - 36 Seconds. The re ference range was not u sed to interpret this result as normal/abnor mal. Lab Interpretation (test Normal code = 22117-0) [facility] WITH [id number] 09:16:54 Test Item Value Reference Range Interpretation Comments WBC (test code = See_Comment [Automated 6690-2) message] The sy stem which generated this result transmitted reference range : 4.20 - 10.70 10*3/?L. The reference range was not used to interpret this result as normal/abnormal . RBC (test code = See_Comment [Automated 789-8) message] The sy stem which generated this result transmitted reference range : 4.26 - 5.52 10*6/?L. The reference range was not used to interpret this result as normal/abnormal . HGB (test code = 14.4 g/dL 12.2-16.4 718-7) HCT (test code = 42.0 % 38.4-49.3 4544-3) MCV (test code = 93.3 fL 81.7-95.6 787-2) MCH (test code = 32.0 pg 26.1-32.7 785-6) MCHC (test code = 34.3 g/dL 31.2-35.0 786-4) RDW-SD (test code = 44.0 fL 38.5-51.6 52772-9) RDW-CV (test code = 13.0 % 12.1-15.4 788-0) PLT (test code = See_Comment [Automated 777-3) message] The sy stem which generated this result transmitted reference range : 150 - 328 10*3/ ?L. The reference r uzair was not used to interpret this result as normal/abnormal . MPV (test code = 11.4 fL 9.8-13.0 83951-2) NRBC/100 WBC (test See_Comment [Automat ed code = 7630076299) message] The system which generated this result transmitted reference range : 0.0 - 10.0 /100 WBCs. The refer ence range was not u sed to interpret th is result as normal/abnormal . NRBC x10^3 (test code <0.01 See_Comment [Auto mated = 7211486694) message] The s ystem which generated this result transmitted reference range : 10*3/?L. The reference range was not used to interpret this result as normal/abnormal . GRAN MAT (NEUT) % 86.3 % (test code = 770-8) IMM GRAN % (test code 0.50 % = 4529271328) LYMPH % (test code = 9.0 % 736-9) MONO % (test code = 4.1 % 5905-5) EOS % (test code = 0.0 % 713-8) BASO % (test code = 0.1 % 706-2) GRAN MAT x10^3(ANC) 8.72 10*3/uL 1.99-6.95 H (test code = 7637824736) IMM GRAN x10^3 (test 0.05 10*3/uL 0.00-0.06 code = 3311465387) LYMPH x10^3 (test code 0.91 10*3/uL 1.09-3.23 L = 731-0) MONO x10^3 (test code 0.41 10*3/uL 0.36-1.02 = 742-7) EOS x10^3 (test code = <0.03 0.06-0.53 L 711-2) BASO x10^3 (test code <0.03 0.01-0.09 = 704-7) Lab Interpretation Abnormal (test code = 39387-6) [facility] WITH [id number] 09:16:54 Test Item Value Reference Range Interpretation Comments WBC (test code = See_Comment [Automated 2390-2) message] The sy stem which generated this result transmitted reference range : 4.20 - 10.70 10*3/?L. The reference range was not used to interpret this result as normal/abnormal . RBC (test code = See_Comment [Automated 994-8) message] The sy stem which generated this result transmitted reference range : 4.26 - 5.52 10*6/?L. The reference range was not used to interpret this result as normal/abnormal . HGB (test code = 14.4 g/dL 12.2-16.4 718-7) HCT (test code = 42.0 % 38.4-49.3 4544-3) MCV (test code = 93.3 fL 81.7-95.6 787-2) MCH (test code = 32.0 pg 26.1-32.7 785-6) MCHC (test code = 34.3 g/dL 31.2-35.0 786-4) RDW-SD (test code = 44.0 fL 38.5-51.6 95090-3) RDW-CV (test code = 13.0 % 12.1-15.4 788-0) PLT (test code = See_Comment [Automated 777-3) message] The sy stem which generated this result transmitted reference range : 150 - 328 10*3/ ?L. The reference r uzair was not used to interpret this result as normal/abnormal . MPV (test code = 11.4 fL 9.8-13.0 05244-5) NRBC/100 WBC (test See_Comment [Automat ed code = 2980048505) message] The system which generated this result transmitted reference range : 0.0 - 10.0 /100 WBCs. The refer ence range was not u sed to interpret th is result as normal/abnormal . NRBC x10^3 (test code <0.01 See_Comment [Auto mated = 0518905192) message] The s ystem which generated this result transmitted reference range : 10*3/?L. The reference range was not used to interpret this result as normal/abnormal . GRAN MAT (NEUT) % 86.3 % (test code = 770-8) IMM GRAN % (test code 0.50 % = 9489824885) LYMPH % (test code = 9.0 % 736-9) MONO % (test code = 4.1 % 5905-5) EOS % (test code = 0.0 % 713-8) BASO % (test code = 0.1 % 706-2) GRAN MAT x10^3(ANC) 8.72 10*3/uL 1.99-6.95 H (test code = 9819038491) IMM GRAN x10^3 (test 0.05 10*3/uL 0.00-0.06 code = 1523784189) LYMPH x10^3 (test code 0.91 10*3/uL 1.09-3.23 L = 731-0) MONO x10^3 (test code 0.41 10*3/uL 0.36-1.02 = 742-7) EOS x10^3 (test code = <0.03 0.06-0.53 L 711-2) BASO x10^3 (test code <0.03 0.01-0.09 = 704-7) Lab Interpretation Abnormal (test code = 57127-1) [facility] METABOLIC PANEL (NA, K, CL, CO2, GLUCOSE, BUN, CREATININE, CA)2021-08-07 05:06:19 Test Item Value Reference Range Interpretation Comments NA (test code = 139 mmol/L 135-145 5459003349) K (test code = 4.3 mmol/L 3.5-5.0 Slight 8698297336) hemolysis CL (test code = 109 mmol/L 98-108 H 3185362885) CO2 TOTAL (test code 24 mmol/L 23-31 = 5629596909) AGAP (test code = 2-16 6034514094) BUN (test code = 16 mg/dL 7-23 Slight 7953355976) hemolysis GLUCOSE (test code = 155 mg/dL 70-110 H 5472073960) CREATININE (test code 0.74 mg/dL 0.60-1.25 = 7954844904) CALCIUM (test code = 9.2 mg/dL 8.6-10.6 3158563800) eGFR (test code = mL/min/1.73m2 1954967637) CARMEN (test code = CARMEN) Association of Glomerular Filtration Rate (GFR) and Staging of Kidney Disease* + -----+ --------+ +| GFR (mL/min/1.73 m2) ?| With Kidney Damage ?| ?Without Kidney Damage+ +------- +---- --+| ?>90 ?| ?Stage one ?| ? Normal ?+ ------+ ---------+--------- +| ?60-89 ?| ?Stage two ?| ? Decreased GFR ? + -----+ --------+ +| ?30-59 ?| ?Stage three ?| ? Stage three ? + -----+ --------+ +| ?15-29 ?| ?Stage four ? | ? Stage four ?+ ------+ ---------+--------- +| ?<15 (or dialysis) ? ?| ?Stage five ? | ? Stage five ?+ ------+ ---------+--------- + *Each stage assumes the associated GFR level has been in effect for at least three months. ?Stages 1 to 5, with or without kidney disease, indicate chronic kidney disease. Notes: Determination of stages one and two (with eGFR >59mL/min/1.73 m2) requires estimation of kidney damage for at least three months as defined by structural or functional abnormalities of the kidney, manifested by either:Pathological abnormalities or Markers of kidney damage (including abnormalities in the composition of the blood or urine or abnormalities in imaging tests). Lab Interpretation Abnormal (test code = 07037-6) [facility] METABOLIC PANEL (NA, K, CL, CO2, GLUCOSE, BUN, CREATININE, CA)2021-08-07 05:06:19 Test Item Value Reference Range Interpretation Comments NA (test code = 139 mmol/L 135-145 4482321310) K (test code = 4.3 mmol/L 3.5-5.0 Slight 2738901903) hemolysis CL (test code = 109 mmol/L 98-108 H 4992855491) CO2 TOTAL (test code 24 mmol/L 23-31 = 7525095939) AGAP (test code = 2-16 8671814962) BUN (test code = 16 mg/dL 7-23 Slight 5958199887) hemolysis GLUCOSE (test code = 155 mg/dL 70-110 H 7636796670) CREATININE (test code 0.74 mg/dL 0.60-1.25 = 9238200753) CALCIUM (test code = 9.2 mg/dL 8.6-10.6 2625188431) eGFR (test code = mL/min/1.73m2 5078104571) CARMEN (test code = CARMEN) Association of Glomerular Filtration Rate (GFR) and Staging of Kidney Disease* + -----+ --------+ +| GFR (mL/min/1.73 m2) ?| With Kidney Damage ?| ?Without Kidney Damage+ +------- +---- --+| ?>90 ?| ?Stage one ?| ? Normal ?+ ------+ ---------+--------- +| ?60-89 ?| ?Stage two ?| ? Decreased GFR ? + -----+ --------+ +| ?30-59 ?| ?Stage three ?| ? Stage three ? + -----+ --------+ +| ?15-29 ?| ?Stage four ? | ? Stage four ?+ ------+ ---------+--------- +| ?<15 (or dialysis) ? ?| ?Stage five ? | ? Stage five ?+ ------+ ---------+--------- + *Each stage assumes the associated GFR level has been in effect for at least three months. ?Stages 1 to 5, with or without kidney disease, indicate chronic kidney disease. Notes: Determination of stages one and two (with eGFR >59mL/min/1.73 m2) requires estimation of kidney damage for at least three months as defined by structural or functional abnormalities of the kidney, manifested by either:Pathological abnormalities or Markers of kidney damage (including abnormalities in the composition of the blood or urine or abnormalities in imaging tests). Lab Interpretation Abnormal (test code = 52002-8) [facility] WITH [id number] 04:00:13 Test Item Value Reference Range Interpretation Comments WBC (test code = See_Comment [Automated 4133-2) message] The sy stem which generated this result transmitted reference range : 4.20 - 10.70 10*3/?L. The reference range was not used to interpret this result as normal/abnormal . RBC (test code = See_Comment [Automated 063-8) message] The sy stem which generated this result transmitted reference range : 4.26 - 5.52 10*6/?L. The reference range was not used to interpret this result as normal/abnormal . HGB (test code = 14.3 g/dL 12.2-16.4 718-7) HCT (test code = 41.4 % 38.4-49.3 4544-3) MCV (test code = 93.0 fL 81.7-95.6 787-2) MCH (test code = 32.1 pg 26.1-32.7 785-6) MCHC (test code = 34.5 g/dL 31.2-35.0 786-4) RDW-SD (test code = 43.8 fL 38.5-51.6 62789-2) RDW-CV (test code = 12.8 % 12.1-15.4 788-0) PLT (test code = See_Comment [Automated 622-3) message] The sy stem which generated this result transmitted reference range : 150 - 328 10*3/ ?L. The reference r uzair was not used to interpret this result as normal/abnormal . MPV (test code = 11.2 fL 9.8-13.0 71244-4) IPF % (test code = 4.3 % 1.2-10.7 Platelet count 0938095934) measured by fluorescence method. NRBC/100 WBC (test See_Comment [Automat ed code = 0626103733) message] The system which generated this result transmitted reference range : 0.0 - 10.0 /100 WBCs. The refer ence range was not u sed to interpret th is result as normal/abnormal . NRBC x10^3 (test code <0.01 See_Comment [Auto mated = 7555712540) message] The s ystem which generated this result transmitted reference range : 10*3/?L. The reference range was not used to interpret this result as normal/abnormal . GRAN MAT (NEUT) % 78.3 % (test code = 770-8) IMM GRAN % (test code 0.40 % = 7960570052) LYMPH % (test code = 12.4 % 736-9) MONO % (test code = 5.5 % 5905-5) EOS % (test code = 2.7 % 713-8) BASO % (test code = 0.7 % 706-2) GRAN MAT x10^3(ANC) 4.42 10*3/uL 1.99-6.95 (test code = 4562084077) IMM GRAN x10^3 (test <0.03 0.00-0.06 code = 7484000645) LYMPH x10^3 (test code 0.70 10*3/uL 1.09-3.23 L = 731-0) MONO x10^3 (test code 0.31 10*3/uL 0.36-1.02 L = 742-7) EOS x10^3 (test code = 0.15 10*3/uL 0.06-0.53 711-2) BASO x10^3 (test code 0.04 10*3/uL 0.01-0.09 = 704-7) Lab Interpretation Abnormal (test code = 77741-9) [facility] WITH [id number] 04:00:13 Test Item Value Reference Range Interpretation Comments WBC (test code = See_Comment [Automated 6690-2) message] The sy stem which generated this result transmitted reference range : 4.20 - 10.70 10*3/?L. The reference range was not used to interpret this result as normal/abnormal . RBC (test code = See_Comment [Automated 789-8) message] The sy stem which generated this result transmitted reference range : 4.26 - 5.52 10*6/?L. The reference range was not used to interpret this result as normal/abnormal . HGB (test code = 14.3 g/dL 12.2-16.4 718-7) HCT (test code = 41.4 % 38.4-49.3 4544-3) MCV (test code = 93.0 fL 81.7-95.6 787-2) MCH (test code = 32.1 pg 26.1-32.7 785-6) MCHC (test code = 34.5 g/dL 31.2-35.0 786-4) RDW-SD (test code = 43.8 fL 38.5-51.6 81294-3) RDW-CV (test code = 12.8 % 12.1-15.4 788-0) PLT (test code = See_Comment [Automated 777-3) message] The sy stem which generated this result transmitted reference range : 150 - 328 10*3/ ?L. The reference r uzair was not used to interpret this result as normal/abnormal . MPV (test code = 11.2 fL 9.8-13.0 07236-7) IPF % (test code = 4.3 % 1.2-10.7 Platelet count [id number]) measured by fluorescence method. NRBC/100 WBC (test See_Comment [Automat ed code = 4065689863) message] The system which generated this result transmitted reference range : 0.0 - 10.0 /100 WBCs. The refer ence range was not u sed to interpret th is result as normal/abnormal . NRBC x10^3 (test code <0.01 See_Comment [Auto mated = 4704068630) message] The s ystem which generated this result transmitted reference range : 10*3/?L. The reference range was not used to interpret this result as normal/abnormal . GRAN MAT (NEUT) % 78.3 % (test code = 770-8) IMM GRAN % (test code 0.40 % = 5109712892) LYMPH % (test code = 12.4 % 736-9) MONO % (test code = 5.5 % 5905-5) EOS % (test code = 2.7 % 713-8) BASO % (test code = 0.7 % 706-2) GRAN MAT x10^3(ANC) 4.42 10*3/uL 1.99-6.95 (test code = 6524850936) IMM GRAN x10^3 (test <0.03 0.00-0.06 code = 9087364890) LYMPH x10^3 (test code 0.70 10*3/uL 1.09-3.23 L = 731-0) MONO x10^3 (test code 0.31 10*3/uL 0.36-1.02 L = 742-7) EOS x10^3 (test code = 0.15 10*3/uL 0.06-0.53 711-2) BASO x10^3 (test code 0.04 10*3/uL 0.01-0.09 = 704-7) Lab Interpretation Abnormal (test code = 14872-1) [facility] 2019-11-23 16:06:00 Test Item Value Reference Range Interpretation Comments SARS-COV2/RT-PCR (test Negative Not Detected, Negative, code = 8921784) See external report for linked test SARS-COV-2 PERFORMING LAB [facility] (test code = 5185476) Negative result for this test determines that SARS-CoV-2 RNA was not present in the specimen above the Limit of Detection (LOD). However, Negative results do not preclude SARS-CoV-2 infection and should not be used as the sole basis for treatment or patient management decisions. Negative results mustbe combined with clinical observations, patient history, and epidemiological information. A false negative result may occur if a specimen is improperly collected, transported or handled. A false negative result should be considered if patient's recent exposures or clinical presentation indicate that COVID-19 (SARS-CoV-2) is likely and diagnostic tests for other causes of illness are negative. Re-testing should be considered in cases of suspected false negatives.The limit of detection for this assay is 800 copies/mL.This SARS CoV-2 test is a real-time RT-PCR test intended for the qualitative detection of nucleic acid from SARS-CoV-2 in a nasopharyngeal swab specimen collected from individuals susp ected of COVID-19 by their healthcare provider.This test has not been Food and Drug Administration (FDA) cleared or approved. This is a modified version of an approved Emergency Use Authorization (EUA) and is in the process of review by the FDA. Once authorized by the FDA, the issued EUA will be effective until the declaration that circumstances exist justifying the authorization of the emergency use of in vitro diagnostic tests for detection and/or diagnosis of COVID-19 is terminated under Section 564(b)(2) of the Act or the EUA is revoked under Section 564(g) of the Act.Fact Sheet for Healthcare Providers:https://www.[employer]/sites/default/files/product/documents/Fact_Shee r_OP_Varrjfmbs_Cyvn_CUKX-ShE-8.pdfFact Sheet for Healthcare Patients:https://www.[employer].com/sites/default/files/product/ documents/Kikh_Admyb_Vmdggaik_Heqv_QKZR-KrN-3.pdfPerforming Laboratory:[facility] [place] [address]"
[2021-08-19] MEDS: dexAMETHasone 4 MG TAB PO SCH (21:12)
[2021-08-19] MEDS: levETIRAcetam 500 MG TAB PO SCH (21:12)
[2021-08-19 22:34] VITALS: BMI 20.3
[2021-08-20 04:43] LABS: Urine Appearance Clear (Clear); Urine Bilirubin Negative (Negative); Urine Blood Negative (Negative); Urine Color Yellow (Yellow); Urine Glucose Negative (Negative); Urine Protein Negative (Negative); Urine Urobilinogen 0.2 mg/dL (0.2-1.0)
[2021-08-20 04:44] LABS: Absolute Lymphocytes (CBC) 0.7 K/uL (0.7-4.9); Hematocrit 41.9 % (39.6-49.0); Lymphocytes % 6.1 % (15.3-44.8); MCV 94.4 fL (80-100); MPV 8.5 fL (7.6-11.3); RBC Red Blood Cell Count 4.43 M/uL (4.33-5.43)
[2021-08-20 04:45] LABS: Urine Microscopic Reflex ORDER UMIC
[2021-08-20 04:55] LABS: Urine Bacteria <20 /HPF (NONE SEEN); Urine RBC <5 /HPF (NONE SEEN)
[2021-08-20 05:05] LABS: Albumin 3.1 g/dL (3.4-5.0); Magnesium 2.1 mg/dL (1.8-2.4); Potassium 4.5 mmol/L (3.5-5.1); Prealbumin 29.3 mg/dL (20-40)
[2021-08-20] MEDS ORDERED: PANTOPRAZOLE 40MG TABLET PO SCH (06:30)
[2021-08-20] MEDS: PANTOPRAZOLE 40MG TABLET PO SCH (08:08)
[2021-08-20] MEDS: DOCUSATE NA 100 MG CAP PO SCH ×2 (08:08→18:38)
[2021-08-20] MEDS: DICLOFENAC SOD D.R. 75 MG TAB PO SCH (08:08)
[2021-08-20] MEDS: dexAMETHasone 4 MG TAB PO SCH ×2 (08:09→18:38)
[2021-08-20] MEDS: levETIRAcetam 500 MG TAB PO SCH ×2 (08:09→18:38)
[2021-08-20] MEDS ORDERED: MELATONIN 3 MG TABLET PO PRN (14:25)
[2021-08-20] MEDS: ENOXAPARIN 40 MG/0.4 ML SQ SCH ×2 (16:39→16:46)
--- NOTE | 2021-08-20 17:24 | R.HP ---
HISTORY AND PHYSICAL FACILITY: [facility] ENCOUNTER DATE AND TIME: 08/20/2021 12:00 (CDT) MR#: [id number] NAME JUAN PABLO TOURE ADDRESS: [id number] [place] [address] CITY: [facility] [address]IP [address] PHONE: DATE OF : 1945 AGE: 76 SSN# [id number] GENDER: Male MARITAL STATUS PRE-HOSPITAL LIVING SETTING 01 - Home (private home/apt. board/care, assisted living, detention, transitional living) PRE-HOSPITAL LIVING WITH Family/Relatives ENCOUNTER PHYSICIAN: Dr. Gildardo Wells M.D. 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 is a 76 yo Right-handed male. On 08/06/2021 he was admitted to [facility] with diagnosis Malignant neoplasm of brain, unspecifi ed (C71.9). His impairment category is Brain Dysfunction 02 - Non-traumatic Brain Dysfunction (02.1). Pre-morbidly, Pt. was independent/mod-I in Locomotion, Safety Awareness, Social Cognition, and Balanc e; and he had good Transfers Control, Sphincter Control, Self-Care, Communication, and Endurance. Currently, he has deficits of Locomotion, Safety Awareness, Social Cognition, Transfers Control, Sphi ncter Control, Balance, Endurance, Self-Care, and Communication. Pt. is now referred to [facility] for acute in-patient rehabilitation in order to maximize patient's functional independence in activities of daily living, strength, ROM, and mobi lity. Patient has realistic goal of being discharged at assistance level 7-Ind to reside at Home with Fami ly/Relatives. MEDICATION ALLERGIES: No Known Drug Allergies (NKDA) ENVIRONMENTAL ALLERGIES: - Substance Allergies None Known - Other Allergies None Known PAST MEDICAL HISTORY: Malignant neoplasm of brain, unspecified (C71.9) Essential (primary) hypertension (I10) Chronic obstructive pulmonary disease, unspecified (J44.9) Hyperlipidemia, unspecified (E78.5) BPH diverticulosis Rheumatoid arthritis, unspecified (M06.9) Polymyalgia rheumatica (M35.3) SOCIAL HISTORY: - Home Living Family/Relatives REVIEW OF SYSTEMS: - Gen No Chills Fatigue No Fever - Eyes No Double Vision No itchiness - ENMT No Difficulty Swallowing - CVS No Chest Discomfort No Chest Pain Fatigue No Weight Gain - Resp No Cough No Shortness of Breath - GI Continent No Abdominal Pain No Constipation No Diarrhea - Continent No Kidney Pain No Painful Urination No Urinary Urgency - MSK No Joint Pain Muscle Cramps Stiffness - Skin No Itching No Rash No Suspicious Lesions - Neuro Coordination Difficulty No Difficulty with Concentration No Memory Loss No Seizures No Weakness - Psych No Anxiety No Depression No HIV Exposure No Persistent Infections No Seasonal Allergies - Endo No Cold/Heat Intolerance No Excessive Hunger No Excessive Thirst No Excessive Urination PHYSICAL EXAM - Gen Alert and awake Lying in bed No apparent distress Oriented to: person, time, and place - Skin Long healing surgical wound around the entire head. Long healing surgical wound around the entire head. - Eyes No abnormalities - ENMT No abnormalities - Neck No abnormalities - CVS RRR - Chest No abnormalities - Resp No wheezing - Abd Soft - GI Non distended Deferred - No abnormalities - Ext No significant edema - MSK 4/5 weakness in both lower extremities. - Neuro No focal deficits - Psych No abnormalities VITAL SIGNS Temperature: 98.0 F SBP/DBP: 123/67 Pulse: 51 Resp: 16 NURSING: - Shower allowing shower - Bladder care per protocol - Skin care per protocol ACTIVITIES OOB only with supervision QI SCORES: - Self-Care A. Eating 03-Partial/moderate assistance B. Oral hygiene 04-Supervision or touching assistance C. Toileting hygiene 01-Dependent E. Shower/bathe self 03-Partial/moderate assistance F. Upper body dressing 03-Partial/moderate assistance G. Lower body dressing 04-Supervision or touching assistance H. Putting on/taking off footwear 04-Supervision or touching assistance - Mobility A. Roll left and right 03-Partial/moderate assistance B. Sit to lying 03-Partial/moderate assistance C. Lying to sitting on side of bed 03-Partial/moderate assistance D. Sit to stand 03-Partial/moderate assistance E. Chair/wlt-dr-cxkvx transfer 03-Partial/moderate assistance F. Toilet transfer 03-Partial/moderate assistance G. Car transfer 88-Not attempted due to medical condition or safety concerns I. Walk 10 feet 03-Partial/moderate assistance J. Walk 50 feet with two turns 03-Partial/moderate assistance K. Walk 150 feet 88-Not attempted due to medical condition or safety concerns L. Walking 10 feet on uneven surfaces 88-Not attempted due to medical condition or safety concerns M. 1 step (curb) 88-Not attempted due to medical condition or safety concerns N. 4 steps 88-Not attempted due to medical condition or safety concerns O. 12 steps 88-Not attempted due to medical condition or safety concerns P. Picking up object 88-Not attempted due to medical condition or safety concerns R. Wheel 50 feet with two turns 88-Not attempted due to medical condition or safety concerns S. Wheel 150 feet 88-Not attempted due to medical condition or safety concerns - Bladder and Bowel Bladder continence Bowel continence - Endurance Fair - Balance Fair - Safety Awareness Fair CURRENT FUNC. DEFICITS: Self-Care, Mobility, Endurance, Balance, and Safety Awareness MEDICATIONS: - Other See attached MAR (Medication Administration Record) ASSESSMENT: Pt. is a 76 yo Right-handed male.On 08/06/2021 he was admitted to [facility] with diagnosis Malig nant neoplasm of brain, unspecified (C71.9).His impairment category is Brain Dysfunction 02 - Non-tr aumatic Brain Dysfunction (02.1).Pre-morbidly, Pt. was independent/mod-I in Locomotion, Safety Awaren ess, Social Cognition, and Balance; and he had good Transfers Control, Sphincter Control, Self-Care, Communication, and Endurance.Currently, he has deficits of Locomotion, Safety Awareness, Social Cogni tion, Transfers Control, Sphincter Control, Balance, Endurance, Self-Care, and Communication.Pt. is n ow referred to [facility] for acute in-patient rehabilitation in order to maxi jonatan patient's functional independence in activities of daily living, strength, ROM, and mobility.- R ehab Goal Patient has realistic goal of being discharged at assistance level 7-Ind to reside at Home with Fami ly/Relatives. - Physical Therapy Gait dysfunction - to improve, our physical therapists will perform initial evaluation of pt's status upon admission and devise an individualized program for Gait Training, and Wheel Chair mobility Inability to transfer - to improve, our physical therapists will perform initial evaluation of pt's s tatus upon admission and devise an individualized program for Bed mobility Need for home safety evaluation - to improve, our physical therapists will perform initial evaluation of pt's status upon admission and devise an individualized program for Home Evaluation Need in caregiver upon discharge - to improve, our physical therapists will perform initial evaluatio n of pt's status upon admission and devise an individualized program for Caregiver Training New precaution - to improve, our physical therapists will perform initial evaluation of pt's status u deborah admission and devise an individualized program for Patient precaution education Edema - to improve, our physical therapists will perform initial evaluation of pt's status upon admi ssion and devise an individualized program for Elevation Training, and Lymphedema Therapy Having wound - to improve, our physical therapists will perform initial evaluation of pt's status up on admission and devise an individualized program for Wound Care Poor balance - to improve, our physical therapists will perform initial evaluation of pt's status upo n admission and devise an individualized program for Balance Training Poor endurance - to improve, our physical therapists will perform initial evaluation of pt's status u deborah admission and devise an individualized program for Endurance Training Weakness - to improve, our physical therapists will perform initial evaluation of pt's status upon ad mission and devise an individualized program for Aquatic Therapy, Neuromuscular Reeducation, and Stre ngthening Achieving independence - to improve, our physical therapists will perform initial evaluation of pt's status upon admission and devise an individualized program for Community Reintegration Activities - Occupational Therapy ADL deficits - to improve, our occupation therapists will perform initial evaluation of pt's status u deborah admission and devise an individualized program for Bathing, Bed mobility, Community Reintegration , Cooking, Dressing, Eating, Fine Motor Skills, Grooming, Homemaking, Kitchen Mobility, Laundry, Dalila ent Education, Safety Awareness, Splinting - Positioning, Transfers(Toilet, Tub, Shower), and Wheel C hair Management Cognitive deficits - to improve, our occupation therapists will perform initial evaluation of pt's st atus upon admission and devise an individualized program for Cognition - orientation Need for progressive care nurse - to improve, our occupation therapists will perform initial evaluation of pt's s tatus upon admission and devise an individualized program for Caregiver Training Weakness - to improve, our occupation therapists will perform initial evaluation of pt's status upon admission and devise an individualized program for Aquatic Therapy, Balance, Endurance, UE ROM, and U E strengthening MEDICAL PLAN: - Diet Type Start Regular - Diet - Liquid Texture Start Regular - Tube Feed Start N/A - Bladder care per protocol - Skin care per protocol - Other See attached MAR (Medication Administration Record) - Diet - Solid Texture Regular - Shower shower DISCHARGE PLAN: - Estimated Length of Stay (days) 13. - Consensus on plan Discharge plan has not been discussed with primary caregiver. Patient/Family is in agreement with the plan. Primary caregiver is in agreement with the plan. - Patient/Family Goals Return home independently. - Planned Living Setting Upon Discharge Home, to live with Family/Relatives. Transitional Living. SIGNATURE PANEL: (CDT)
--- NOTE | 2021-08-20 17:25 | PAPE ---
POST ADMISSION PHYSICIAN EVALUATION PATIENT: [facility] MR# [id number] REFERRING DOCTOR CRISTINA LARA MD EVALUATION DATE AND TIME 08/20/2021 12:01 (CDT) NAME JUAN PABLO TOURE DATE OF 1945 AGE 76 PHONE N# [id number] GENDER male EVALUATING PHYSICIAN Dr. Gildardo Wells M.D. ADMISSION DIAGNOSIS: Malignant neoplasm of brain, unspecified (C71.9) ONSET DATE 08/06/2021 POST-ADMISSION FUNCTIONAL/MEDICAL STATUS: - Bladder Same accident frequency: 7-Ind - No accidents in the past 7 days - Bowel Same accident frequency: 7-Ind - No accidents in the past 7 days - Walking Same score based on distance walked: 0(N/A) - Wheelchair Same score based on distance traveled: 0(N/A) STATUS CHANGE EVALUATION: No change in Functional or Medical Status is identified compared with Pre-Admission screening. PATIENT NEEDS CLOSE MEDICAL SUPERVISION BY A REHABILITATION PHYSICIAN FOR: Coordination of Treatment Team Wound Care Medical and Co-Morbidity Management Pain Management DVT Management Post-Op Complications PATIENT REQUIRES 24X7 REHAB NURSING FOR MEDICAL AND FUNCTIONAL MGT. OF THE FOLLOWING DEFICITS: Disease Management Medication Management Patient requires 24x7 Rehabilitation Nursing for: Pain Issues, Identifying and preventing risk factor s, Monitoring and reporting current medical conditions, Assisting with ambulation and transfer, Grayson ting with all ADL-s, Teaching patients about disease process and medications, Family teaching, Provid ing safe environment, Bowel and Bladder Issues, Skin Integrity, and Medication Management Patient/Family Education Providing Safe Environment Skin Integrity PATIENT REQUIRES INTENSIVE, COORDINATED INTERDISCIPLINARY APPROACH TO REHAB: Arranging Home Equipment/Services Discharge Planning Family Intervention/Training Patient needs Dietary and Nutrition Services for: Adequate Nutrition, Nutritional Supplements, and Nu tritional Education Patient needs Subsurface Augmentee Operator and/or Case Management for: Discharge Planning, Arranging Home Equipmen t or Services, and Family Interventions Subsurface Augmentee Operator/Case Management LIST OF IDENTIFIED AND POTENTIAL PROBLEMS: Alteration in leisure activities Bladder, Incontinence Bowel, Incontinence Infection, Actual or Potential Mobility Impaired Pain, Alteration in Comfort Self Care Deficit Skin Integrity, Actual or Potential Urinary Tract Infection (UTI), Actual or Potential RISK FOR COMPLICATIONS - Weakness Nursing and therapy will help to get patient stronger. - Skin Breakdown Nursing will assess skin daily using assessment tool and will place on Skin Breakdown Precautions as Indicated per protocol. - Infection Monitoring of surgical site and pt for signs and symptoms of infection. - Seizure Performed regular Neuro checks. Medications as adjusted and monitored by physician. - Falls Educated pt on fall prevention strategies to reduce/eliminate fall risk. Patient will be evaluated fo r Fall Precautions and will be placed on Fall Precautions as indicated per protocol. Patient is very impulsive. - DVT Administer anti-coagulants as indicated by physician and monitor for effectiveness. - Pain Clinical staff will assess patient's pain level every shift per protocol to monitor for pain manageme nt effectiveness. Educate patient on pain management strategies. INTERVENTIONS - Craniotomy Frequent neuro checks to monitor for signs of neurological distress. Medical management of seizure pr evention. - Wound care Management of surgical site to prevent infection. - Weakness Daily therapy services to enhance patient's functional strength and abilities. - Gait Abnormality Aggressive PT services to enhance quality and safety of ambulation and gait pattern. - Hypertension Blood pressure will be monitored regularly and medications administered per MD to manage effective bl ood pressure. - Pain Clinical staff will assess patient's pain level every shift per protocol to monitor for pain manageme nt effectiveness. Educate patient on pain management strategies. PATIENT COULD BE AT RISK FOR COMPLICATIONS FROM ADVERSE MEDICAL CONDITIONS DUE TO HIS/HER COMORBIDITI ES AND THE RIGORS OF THE INTENSIVE REHABILLITATION PROGRAM. METHODS OR INTERVENTIONS TO AVOID COMPLIC ATIONS INCLUDE: - Deep Vein Thrombosis (DVT) Prophylaxis therapy for prevention . Sequential Compression Device (SCD). TE D Hose. - Bleeding Assess lab values and manage abnormalities. Nursing to teach precautions for anti-coagulation therapy . Wound to be assessed every shift. - Infection Clinical staff to assess and manage the signs and symptoms of infection including fever, redness, war mth, etc. - Urinary Tract Infection - Falls Patient will be evaluated for Fall Precautions and will be placed on Fall Precautions as indicated pe r protocol. - Skin Breakdown Nursing will assess skin daily using assessment tool and will place on Skin Breakdown Precautions as indicated per protocol. - Pain Clinical staff may employ non-medication methods such as massage, distraction, decrease stimulus, etc . as needed. Clinical staff will assess patient's pain level every shift per protocol to assess and e nsure pain management effectiveness. Medications will be given and the pain level re-assessed. PRELIMINARY PLAN OF CARE: - Physical Therapy Patient needs Physical Therapy for a daily minimum of 1.5 hours at least 5 out of 7 days, to improve: Mobility, Strengthening, Transfers, Stretching, ROM, Endurance, Ability to manage stairs, Gait, and Balance. - Speech Therapy Patient needs Speech Therapy for a daily minimum of 0.5 hours at least 5 out of 7 days, to improve: S wallowing, Cognition, Language Skills, and Compensatory Strategies. - Rehabilitation Nursing Patient requires 24x7 Rehabilitation Nursing for: Pain Issues, Identifying and preventing risk factor s, Monitoring and reporting current medical conditions, Assisting with ambulation and transfer, Grayson ting with all ADL-s, Teaching patients about disease process and medications, Family teaching, Provid ing safe environment, Bowel and Bladder Issues, Skin Integrity, and Medication Management. Patient needs Subsurface Augmentee Operator and/or Case Management for: Discharge Planning, Arranging Home Equipmen t or Services, and Family Interventions. - Dietary and Nutrition Services Patient needs Dietary and Nutrition Services for: Adequate Nutrition, Nutritional Supplements, and Nu tritional Education. - Occupational Therapy Patient needs Occupational Therapy for a daily minimum of 1.5 hours at least 5 out of 7 days, to impr ove Activities of Daily Living, including: Eating, Grooming, Bathing, Dressing, Toileting, Toilet Tra nsfers, Community Reintegration, Higher functional activities, Adaptive Equipment, Splinting, Househo ld Tasks, and Other activities as determined. QI SCORES: - Self-Care A. Eating 03-Partial/moderate assistance B. Oral hygiene 04-Supervision or touching assistance C. Toileting hygiene 01-Dependent E. Shower/bathe self 03-Partial/moderate assistance F. Upper body dressing 03-Partial/moderate assistance G. Lower body dressing 04-Supervision or touching assistance H. Putting on/taking off footwear 04-Supervision or touching assistance - Mobility A. Roll left and right 03-Partial/moderate assistance B. Sit to lying 03-Partial/moderate assistance C. Lying to sitting on side of bed 03-Partial/moderate assistance D. Sit to stand 03-Partial/moderate assistance E. Chair/yeo-if-rjeeh transfer 03-Partial/moderate assistance F. Toilet transfer 03-Partial/moderate assistance G. Car transfer 88-Not attempted due to medical condition or safety concerns I. Walk 10 feet 03-Partial/moderate assistance J. Walk 50 feet with two turns 03-Partial/moderate assistance K. Walk 150 feet 88-Not attempted due to medical condition or safety concerns L. Walking 10 feet on uneven surfaces 88-Not attempted due to medical condition or safety concerns M. 1 step (curb) 88-Not attempted due to medical condition or safety concerns N. 4 steps 88-Not attempted due to medical condition or safety concerns O. 12 steps 88-Not attempted due to medical condition or safety concerns P. Picking up object 88-Not attempted due to medical condition or safety concerns R. Wheel 50 feet with two turns 88-Not attempted due to medical condition or safety concerns S. Wheel 150 feet 88-Not attempted due to medical condition or safety concerns - Bladder and Bowel Bladder continence Bowel continence - Endurance Fair - Balance Fair - Safety Awareness Fair POTENTIAL FUNCTIONAL GOALS FOR PATIENT TO ACHIEVE BY DISCHARGE: - Safety Precaution Patient will remain free from falls or injury at time of discharge. - Bed Mobility Patient will perform bed mobility at 4-Adelita level of assistance. - Transfers Patient will complete transfers from bed to chair at 4-Adelita level of assistance. - Mobility Patient will ambulate 150 ft with 4-Adelita level of assistance with RW. PATIENT REHAB POTENTIAL Samuel TOURE is able and expected to receive 3 hours of individualized therapy daily on at least 5 of e very 7 days Samuel TOURE's prognosis for significant practical improvement within a reasonable period of time appea rs Good Expected level of measurable improvement will be of a practical value to Samuel TOURE's functional capa city or adaptations to impairments Has a viable Discharge Plan Medically appropriate; condition is sufficiently stable to participate in intensive rehab program DISCHARGE PLAN: - Estimated Length of Stay (days) 13. - Consensus on plan Discharge plan has not been discussed with primary caregiver. Patient/Family is in agreement with the plan. Primary caregiver is in agreement with the plan. - Patient/Family Goals Return home independently. - Planned Living Setting Upon Discharge Home, to live with Family/Relatives. Transitional Living. CONCLUSION ON REHABILITATION NECESSITY: I have evaluated patient's pre-admission functional status and, comparing it to the patient's post-ad mission functional status now, I conclude that the pre-admission assessment was accurate. Patient's c ondition on admission supports the medical necessity of admission to [facility]. It is safe to proceed with patient's therapy program. SIGNATURE PANEL: (CDT)
[2021-08-21] MEDS: dexAMETHasone 4 MG TAB PO SCH ×2 (08:20→20:43)
[2021-08-21] MEDS: DOCUSATE NA 100 MG CAP PO SCH ×2 (08:20→20:43)
[2021-08-21] MEDS: PANTOPRAZOLE 40MG TABLET PO SCH (08:21)
[2021-08-21] MEDS: levETIRAcetam 500 MG TAB PO SCH ×2 (08:21→20:43)
[2021-08-21] MEDS: DICLOFENAC SOD D.R. 75 MG TAB PO SCH (10:36)
[2021-08-21] MEDS: ENOXAPARIN 40 MG/0.4 ML SQ SCH (16:40)
--- NOTE | 2021-08-21 17:26 | R.PN ---
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 Pt denied any depression. WBC 11.7, Neutrophils 89.1, Hgb 14.1. Prealbumin 29.3. Ambulated 770' with min assistance using a rolling walker. Self propelled wheelchair 250' with maximum assistance. VITAL SIGNS Temperature: 98.0 F SBP/DBP: 141/69 Pulse: 62 Resp: 16 MEDICATION ALLERGIES: No Known Drug Allergies (NKDA) ENVIRONMENTAL ALLERGIES: - Substance Allergies None Known - Other Allergies None Known NURSING: - Shower allowing shower - Bladder care per protocol - Skin care per protocol ACTIVITIES OOB only with supervision THERAPIES: - Dietary and Nutrition Adequate Nutrition. Nutritional Education. Nutritional Supplements. Evaluate and Treat. - Occupational Therapy Cognitive Retraining. Patient needs Occupational Therapy for a daily minimum of 1.5 hours at least 5 out of 7 days, to improve Activities of Daily Living, including: Eating, Grooming, Bathing, Dressing, Toileting, Toilet Transfers, Community Reintegration, Higher functional activities, Adaptive Equipme nt, Splinting, Household Tasks, and Other activities as determined. Visual Perceptual Training. Evalu ate and Treat. Patient/Family Education. Safety Awareness. ADL Training. Transfer Training. Household Tasks. - Speech Therapy Cognitive Training. Expressive Language Skills. Memory Strategies. Patient needs Speech Therapy for a daily minimum of 1.5 hours at least 5 out of 7 days, to improve: Swallowing, Cognition, Language Ski lls, and Compensatory Strategies. Receptive Language Skills. Speech Intelligibility Training. Evaluat e and Treat. - Physical Therapy Patient needs Physical Therapy for a daily minimum of 1.5 hours at least 5 out of 7 days, to improve: Mobility, Strengthening, Transfers, Stretching, ROM, Endurance, Ability to manage stairs, Gait, and Balance. Evaluate and Treat. Balance Training. Gait Training. Safety Awareness. Transfer Training. Mo bility Training. Patient/Family Education. LE Strengthening. PHYSICAL EXAM - Gen Alert and awake Lying in bed No apparent distress Oriented to: person, time, and place - Skin Long healing surgical wound around the entire head. Long healing surgical wound around the entire head. - Eyes No abnormalities - ENMT No abnormalities - Neck No abnormalities - CVS RRR - Chest No abnormalities - Resp No wheezing - Abd Soft - GI Non distended Deferred - No abnormalities - Ext No significant edema - MSK 4/5 weakness in both lower extremities. - Neuro No focal deficits - Psych No abnormalities ASSESSMENT: Pt. 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 was independent/mod-I in Locomotion, Safety Awaren ess, Social Cognition, and Balance; and he had good Transfers Control, Sphincter Control, Self-Care, Communication, and Endurance.Currently, he has deficits of Locomotion, Safety Awareness, Social Cogni tion, Transfers Control, Sphincter Control, Balance, Endurance, Self-Care, and Communication.Pt. is n ow referred to [facility] for acute in-patient rehabilitation in order to dez cheung patient's functional independence in activities of daily living, strength, ROM, and mobility.- R ehab Goal Patient has realistic goal of being discharged at assistance level 7-Ind to reside at Home with Fami ly/Relatives. MDM/PLAN: - Physical Therapy Gait dysfunction - to improve, our physical therapists will perform initial evaluation of pt's statu s upon admission and devise an individualized program for Gait Training, and Wheel Chair mobility Inability to transfer - to improve, our physical therapists will perform initial evaluation of pt's status upon admission and devise an individualized program for Bed mobility Need for home safety evaluation - to improve, our physical therapists will perform initial evaluatio n of pt's status upon admission and devise an individualized program for Home Evaluation Need in caregiver upon discharge - to improve, our physical therapists will perform initial evaluati on of pt's status upon admission and devise an individualized program for Caregiver Training New precaution - to improve, our physical therapists will perform initial evaluation of pt's status upon admission and devise an individualized program for Patient precaution education Edema - to improve, our physical therapists will perform initial evaluation of pt's status upon admis telma and devise an individualized program for Elevation Training, and Lymphedema Therapy Having wound - to improve, our physical therapists will perform initial evaluation of pt's status upo n admission and devise an individualized program for Wound Care Poor balance - to improve, our physical therapists will perform initial evaluation of pt's status up on admission and devise an individualized program for Balance Training Poor endurance - to improve, our physical therapists will perform initial evaluation of pt's status upon admission and devise an individualized program for Endurance Training Weakness - to improve, our physical therapists will perform initial evaluation of pt's status upon a dmission and devise an individualized program for Aquatic Therapy, Neuromuscular Reeducation, and Str engthening Achieving independence - to improve, our physical therapists will perform initial evaluation of pt's status upon admission and devise an individualized program for Community Reintegration Activities - Occupational Therapy ADL deficits - to improve, our occupation therapists will perform initial evaluation of pt's status upon admission and devise an individualized program for Bathing, Bed mobility, Community Reintegratio n, Cooking, Dressing, Eating, Fine Motor Skills, Grooming, Homemaking, Kitchen Mobility, Laundry, Pat ient Education, Safety Awareness, Splinting - Positioning, Transfers(Toilet, Tub, Shower), and Wheel Chair Management Cognitive deficits - to improve, our occupation therapists will perform initial evaluation of pt's s tatus upon admission and devise an individualized program for Cognition - orientation Need for physician primary care sports medicine - to improve, our occupation therapists will perform initial evaluation of pt's status upon admission and devise an individualized program for Caregiver Training Weakness - to improve, our occupation therapists will perform initial evaluation of pt's status upon admission and devise an individualized program for Aquatic Therapy, Balance, Endurance, UE ROM, and UE strengthening - Other See attached MAR (Medication Administration Record) - Diet Type Continue Regular - Diet - Liquid Texture Continue Regular - Tube Feed Continue N/A - Bladder care per protocol - Skin care per protocol - Diet - Solid Texture Continue Regular - Shower allowing shower FUNCTIONAL STATUS: UPDATED AT WEEKLY TEAM CONFERENCE - Bladder Same accident frequency: 7-Ind - No accidents in the past 7 days - Bowel Same accident frequency: 7-Ind - No accidents in the past 7 days - Walking Same score based on distance walked: 0(N/A) - Wheelchair Same score based on distance traveled: 0(N/A) FUNCTIONAL STATUS: - Self-Care A. Eating Ind B. Grooming sup C. Bathing modA D. Dressing - Upper sup E. Dressing - Lower Adelita F. Toileting Adelita - Sphincter Control G. Bladder control Marimar H. Bowel control Marimar - Transfers Control I. Bed/Chair/Wheelchair Adelita J. Toilet Adelita K. Tub/Shower modA - Locomotion L. Walk/Wheelchair (B) Adelita M. Stairs Dep - Communication N. Comprehension (B) Marimar O. Expression (B) Marimar - Social Cognition P. Social Interaction Marimar Q. Problem Solving sup R. Memory sup - Endurance Fair - Balance Fair - Safety Awareness Fair QI SCORES: - Self-Care A. Eating 03-Partial/moderate assistance B. Oral hygiene 04-Supervision or touching assistance C. Toileting hygiene 01-Dependent E. Shower/bathe self 03-Partial/moderate assistance F. Upper body dressing 03-Partial/moderate assistance G. Lower body dressing 04-Supervision or touching assistance H. Putting on/taking off footwear 04-Supervision or touching assistance - Mobility A. Roll left and right 03-Partial/moderate assistance B. Sit to lying 03-Partial/moderate assistance C. Lying to sitting on side of bed 03-Partial/moderate assistance D. Sit to stand 03-Partial/moderate assistance E. Chair/[id number] transfer 03-Partial/moderate assistance F. Toilet transfer 03-Partial/moderate assistance G. Car transfer 88-Not attempted due to medical condition or safety concerns I. Walk 10 feet 03-Partial/moderate assistance J. Walk 50 feet with two turns 03-Partial/moderate assistance K. Walk 150 feet 88-Not attempted due to medical condition or safety concerns L. Walking 10 feet on uneven surfaces 88-Not attempted due to medical condition or safety concerns M. 1 step (curb) 88-Not attempted due to medical condition or safety concerns N. 4 steps 88-Not attempted due to medical condition or safety concerns O. 12 steps 88-Not attempted due to medical condition or safety concerns P. Picking up object 88-Not attempted due to medical condition or safety concerns R. Wheel 50 feet with two turns 88-Not attempted due to medical condition or safety concerns S. Wheel 150 feet 88-Not attempted due to medical condition or safety concerns - Bladder and Bowel Bladder continence Bowel continence - Endurance Fair - Balance Fair - Safety Awareness Fair CURRENT [facility]. DEFICITS: Self-Care, Mobility, Endurance, Balance, and Safety Awareness SIGNATURE PANEL: (CDT)
--- NOTE | 2021-08-22 06:16 | PN ---
Date of Progress Note: 08/21/2021 Subjective: The patient was seen this morning for followup. No new complaints or problems reported by the patient. He was lying in bed, not in distress. Denies any headache, nausea, or vomiting. Objective: Vital Signs: Reviewed. HEENT: Examination unremarkable. Lungs: Clear. Heart: Sounds normal. Abdomen: Soft. Bowel sounds normal. No guarding, rigidity, tenderness, or distention. Extremities: No leg edema. Impression: 1.Generalized weakness. 2.Glioblastoma, left frontal lobe, recurrent, status post surgery. 3.Hypertension. 4.Benign prostatic hypertrophy. Plan: We will go ahead and continue current medications. Continue physical therapy under guidance o michelle Wells. We will monitor blood pressure if necessary, consider antihypertensive medication. I will see him tomorrow for followup. VITA/MODL Voice ID: [id number] Report ID: [id number]
--- NOTE | 2021-08-22 06:53 | HP ---
Date of Admission: 08/20/2021 Chief Complaint: Weakness. History Of Present Illness: A 76-year-old very pleasant male patient who had a brain surgery done for removal of recurrent glioblastoma of the frontal lobes and this surgery was done at [facility]. After the surgery, the patient was transferred to our rehab facility for rehab therapy. The patient was brought into rehab yesterday and I saw him this morning. He denies any headache. No nausea, no vomiting. No chest pain, shortness of breath, cough, congestion. Denies any constipation. Allergies: NO KNOWN ALLERGIES. Medications: List reviewed. Review of Systems: Constitutional: As mentioned above. All other systems reviewed are negative. Past Medical History: Significant for glioblastoma of left frontal lobe, for which he had surgery done at [facility] in 2019, and then this is the recurrent problem now and had second surgery done this month. The patient has been under care of Dr. Palacios and Dr. Colindres on an outpatient basis. Past medical history also significant for hyperlipidemia, diverticulosis, hypertension, benign prostatic hypertrophy, polymyalgia rheumatica, and rheumatoid arthritis. Past Surgical History: Significant for cataract surgery, tonsillectomy, back surgery and surgery for glioblastoma of the frontal lobe in November 2019 and recurrence of this same tumor requiring second surgery this month. Family History: Father had cerebral aneurysm. Mother had Alzheimer disease. Brother and sister had Alzheimer's. Social History: Positive for smoking. Use of alcohol negative. Physical Examination: Vital Signs: Temperature 98, pulse 54, respiratory rate 16, blood pressure 143/68, oxygen saturation 99%, height 5 feet 7 inches, weight 129 pounds. General: Awake, alert, oriented, not in distress. HEENT: Head, patient has a very large scar, almost involving his entire head, with some of the areas has markel present, other areas do not have any markel. There is no evidence of any infection, gapping, bleeding, discharge, etc. No evidence of any swelling either. Conjunctivae nonerythematous. Sclerae white. Mouth, no thrush or edema noted. Ears/Nose, no mass, lesion, discharge noted. Neck: Supple. No JVD, lymph nodes, bruit, thyromegaly noted. Lungs: Bilateral good equal air entry. Clear to auscultation. No rhonchi. No rales. Heart: Normal heart sounds, no murmur or gallop. Abdomen: Soft, bowel sounds normal. No guarding, rigidity, tenderness, mass, hepatosplenomegaly, distention, or bruit noted. Extremities: No leg edema. No calf tenderness. Skin: No rash, ulcer, cellulitis. Lymphatics: No lymph node enlargement in neck, supraclavicular, infraclavicular region. Neuro: No focal neurological deficit. Chest: Unremarkable. External Genitalia: Deferred. Rectal: Deferred. Laboratory Data: White count this morning 11.7, hemoglobin 14.1, platelets 206. Sodium 138, potassium 4.5, chloride 108, bicarb 25, BUN 27, creatinine 0.71, glucose 110, albumin 3.1, magnesium 2.1. Urinalysis negative. COVID-19 test negative. Impression: 1. Generalized weakness. 2. Debility. 3. Glioblastoma, left frontal lobe, recurrent, status post surgical resection. 4. Hypertension. 5. Hyperlipidemia. 6. Benign prostatic hypertrophy. 7. Diverticulosis. Plan: We will admit the patient to hospital for further evaluation and management of this problem. The patient will be admitted to rehab floor and Dr. Wells from rehab floor will manage his rehab therapy. Medication list reviewed. We will continue medications per transfer order. Continue DVT prophylaxis per order. Monitor patient for any signs or symptoms of any infection, and so far we have not seen any such problem. We will monitor blood pressure, if necessary consider antihypertensive medication. Details and plan of treatment discussed with the patient. I will see him tomorrow morning for followup. VITA/MANNIE Voice ID: [id number] MTDD
[2021-08-22 07:19] LABS: Absolute Lymphocytes (CBC) 0.9 K/uL (0.7-4.9); Hematocrit 40.6 % (39.6-49.0); Lymphocytes % 8.6 % (15.3-44.8); MCV 96.3 fL (80-100); MPV 8.6 fL (7.6-11.3); RBC Red Blood Cell Count 4.21 M/uL (4.33-5.43)
[2021-08-22 07:54] LABS: Albumin 2.9 g/dL (3.4-5.0); Magnesium 2.1 mg/dL (1.8-2.4); Potassium 4.6 mmol/L (3.5-5.1); Prealbumin 35.1 mg/dL (20-40)
[2021-08-22] MEDS: PANTOPRAZOLE 40MG TABLET PO SCH (07:54)
[2021-08-22] MEDS: levETIRAcetam 500 MG TAB PO SCH ×2 (07:54→20:52)
[2021-08-22] MEDS: dexAMETHasone 4 MG TAB PO SCH ×2 (07:54→20:52)
[2021-08-22] MEDS: DOCUSATE NA 100 MG CAP PO SCH ×2 (07:54→20:52)
[2021-08-22] MEDS: DICLOFENAC SOD D.R. 75 MG TAB PO SCH (10:06)
[2021-08-22] MEDS: ENOXAPARIN 40 MG/0.4 ML SQ SCH (16:26)
--- NOTE | 2021-08-22 17:53 | R.PN ---
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 Pt denied any depression. WBC 10.2, Neutrophils 86.81, Hgb 13.7. Prealbumin 29.3. Ambulated 510' with min assistance using a rolling walker. Up and down 15 steps with minimum assistan ce. Self propelled wheelchair 250' with maximum assistance. VITAL SIGNS Temperature: 97.7 F SBP/DBP: 131/66 Pulse: 51 Resp: 16 MEDICATION ALLERGIES: No Known Drug Allergies (NKDA) ENVIRONMENTAL ALLERGIES: - Substance Allergies None Known - Other Allergies None Known NURSING: - Shower allowing shower - Bladder care per protocol - Skin care per protocol ACTIVITIES OOB only with supervision THERAPIES: - Dietary and Nutrition Adequate Nutrition. Nutritional Education. Nutritional Supplements. Evaluate and Treat. - Occupational Therapy Cognitive Retraining. Patient needs Occupational Therapy for a daily minimum of 1.5 hours at least 5 out of 7 days, to improve Activities of Daily Living, including: Eating, Grooming, Bathing, Dressing, Toileting, Toilet Transfers, Community Reintegration, Higher functional activities, Adaptive Equipme nt, Splinting, Household Tasks, and Other activities as determined. Visual Perceptual Training. Evalu ate and Treat. Patient/Family Education. Safety Awareness. ADL Training. Transfer Training. Household Tasks. - Speech Therapy Cognitive Training. Expressive Language Skills. Memory Strategies. Patient needs Speech Therapy for a daily minimum of 1.5 hours at least 5 out of 7 days, to improve: Swallowing, Cognition, Language Ski lls, and Compensatory Strategies. Receptive Language Skills. Speech Intelligibility Training. Evaluat e and Treat. - Physical Therapy Patient needs Physical Therapy for a daily minimum of 1.5 hours at least 5 out of 7 days, to improve: Mobility, Strengthening, Transfers, Stretching, ROM, Endurance, Ability to manage stairs, Gait, and Balance. Evaluate and Treat. Balance Training. Gait Training. Safety Awareness. Transfer Training. Mo bility Training. Patient/Family Education. LE Strengthening. PHYSICAL EXAM - Gen Alert and awake Lying in bed No apparent distress Oriented to: person, time, and place - Skin Long healing surgical wound around the entire head. Long healing surgical wound around the entire head. - Eyes No abnormalities - ENMT No abnormalities - Neck No abnormalities - CVS RRR - Chest No abnormalities - Resp No wheezing - Abd Soft - GI Non distended Deferred - No abnormalities - Ext No significant edema - MSK 4/5 weakness in both lower extremities. - Neuro No focal deficits - Psych No abnormalities ASSESSMENT: Pt. 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 was independent/mod-I in Locomotion, Safety Awaren ess, Social Cognition, and Balance; and he had good Transfers Control, Sphincter Control, Self-Care, Communication, and Endurance.Currently, he has deficits of Locomotion, Safety Awareness, Social Cogni tion, Transfers Control, Sphincter Control, Balance, Endurance, Self-Care, and Communication.Pt. is n ow referred to [facility] for acute in-patient rehabilitation in order to maxi jonatan patient's functional independence in activities of daily living, strength, ROM, and mobility.- R ehab Goal Patient has realistic goal of being discharged at assistance level 7-Ind to reside at Home with Fami ly/Relatives. MDM/PLAN: - Physical Therapy Gait dysfunction - to improve, our physical therapists will perform initial evaluation of pt's statu s upon admission and devise an individualized program for Gait Training, and Wheel Chair mobility Inability to transfer - to improve, our physical therapists will perform initial evaluation of pt's status upon admission and devise an individualized program for Bed mobility Need for home safety evaluation - to improve, our physical therapists will perform initial evaluatio n of pt's status upon admission and devise an individualized program for Home Evaluation Need in caregiver upon discharge - to improve, our physical therapists will perform initial evaluati on of pt's status upon admission and devise an individualized program for Caregiver Training New precaution - to improve, our physical therapists will perform initial evaluation of pt's status upon admission and devise an individualized program for Patient precaution education Edema - to improve, our physical therapists will perform initial evaluation of pt's status upon admi ssion and devise an individualized program for Elevation Training, and Lymphedema Therapy Having wound - to improve, our physical therapists will perform initial evaluation of pt's status up on admission and devise an individualized program for Wound Care Poor balance - to improve, our physical therapists will perform initial evaluation of pt's status up on admission and devise an individualized program for Balance Training Poor endurance - to improve, our physical therapists will perform initial evaluation of pt's status upon admission and devise an individualized program for Endurance Training Weakness - to improve, our physical therapists will perform initial evaluation of pt's status upon a dmission and devise an individualized program for Aquatic Therapy, Neuromuscular Reeducation, and Str engthening Achieving independence - to improve, our physical therapists will perform initial evaluation of pt's status upon admission and devise an individualized program for Community Reintegration Activities - Occupational Therapy ADL deficits - to improve, our occupation therapists will perform initial evaluation of pt's status upon admission and devise an individualized program for Bathing, Bed mobility, Community Reintegratio n, Cooking, Dressing, Eating, Fine Motor Skills, Grooming, Homemaking, Kitchen Mobility, Laundry, Pat ient Education, Safety Awareness, Splinting - Positioning, Transfers(Toilet, Tub, Shower), and Wheel Chair Management Cognitive deficits - to improve, our occupation therapists will perform initial evaluation of pt's s tatus upon admission and devise an individualized program for Cognition - orientation Need for career placement services counselor - to improve, our occupation therapists will perform initial evaluation of pt's status upon admission and devise an individualized program for Caregiver Training Weakness - to improve, our occupation therapists will perform initial evaluation of pt's status upon admission and devise an individualized program for Aquatic Therapy, Balance, Endurance, UE ROM, and UE strengthening - Other See attached MAR (Medication Administration Record) - Diet Type Continue Regular - Diet - Liquid Texture Continue Regular - Tube Feed Continue N/A - Bladder care per protocol - Skin care per protocol - Diet - Solid Texture Continue Regular - Shower allowing shower FUNCTIONAL STATUS: UPDATED AT WEEKLY TEAM CONFERENCE - Bladder Same accident frequency: 7-Ind - No accidents in the past 7 days - Bowel Same accident frequency: 7-Ind - No accidents in the past 7 days - Walking Same score based on distance walked: 0(N/A) - Wheelchair Same score based on distance traveled: 0(N/A) FUNCTIONAL STATUS: - Self-Care A. Eating Ind B. Grooming sup C. Bathing modA D. Dressing - Upper sup E. Dressing - Lower Adelita F. Toileting Adelita - Sphincter Control G. Bladder control Marimar H. Bowel control Marimar - Transfers Control I. Bed/Chair/Wheelchair Adelita J. Toilet Adelita K. Tub/Shower modA - Locomotion L. Walk/Wheelchair (B) Adelita M. Stairs Dep - Communication N. Comprehension (B) Marimar O. Expression (B) Marimar - Social Cognition P. Social Interaction Marimar Q. Problem Solving sup R. Memory sup - Endurance Fair - Balance Fair - Safety Awareness Fair QI SCORES: - Self-Care A. Eating 03-Partial/moderate assistance B. Oral hygiene 04-Supervision or touching assistance C. Toileting hygiene 01-Dependent E. Shower/bathe self 03-Partial/moderate assistance F. Upper body dressing 03-Partial/moderate assistance G. Lower body dressing 04-Supervision or touching assistance H. Putting on/taking off footwear 04-Supervision or touching assistance - Mobility A. Roll left and right 03-Partial/moderate assistance B. Sit to lying 03-Partial/moderate assistance C. Lying to sitting on side of bed 03-Partial/moderate assistance D. Sit to stand 03-Partial/moderate assistance E. Chair/[id number]-[id number] transfer 03-Partial/moderate assistance F. Toilet transfer 03-Partial/moderate assistance G. Car transfer 88-Not attempted due to medical condition or safety concerns I. Walk 10 feet 03-Partial/moderate assistance J. Walk 50 feet with two turns 03-Partial/moderate assistance K. Walk 150 feet 88-Not attempted due to medical condition or safety concerns L. Walking 10 feet on uneven surfaces 88-Not attempted due to medical condition or safety concerns M. 1 step (curb) 88-Not attempted due to medical condition or safety concerns N. 4 steps 88-Not attempted due to medical condition or safety concerns O. 12 steps 88-Not attempted due to medical condition or safety concerns P. Picking up object 88-Not attempted due to medical condition or safety concerns R. Wheel 50 feet with two turns 88-Not attempted due to medical condition or safety concerns S. Wheel 150 feet 88-Not attempted due to medical condition or safety concerns - Bladder and Bowel Bladder continence Bowel continence - Endurance Fair - Balance Fair - Safety Awareness Fair CURRENT [facility], [facility]. DEFICITS: Self-Care, Mobility, Endurance, Balance, and Safety Awareness SIGNATURE PANEL: (CDT)
--- NOTE | 2021-08-23 02:18 | PN ---
Date of Progress Note: 08/22/2021 Subjective: The patient was seen this morning for followup. No new complaints or problems reported by patient, lying in bed, not in distress. Denies any headache, nausea, vomiting. Objective: Vital Signs: Reviewed. HEENT: Unremarkable. Lungs: Clear to auscultation. Heart: Sounds normal. Abdomen: Soft. Bowel sounds normal. No guarding, rigidity, tenderness, or distention. Extremities: No leg edema. Impression: 1.Glioblastoma, left frontal lobe, recurrent, status post surgery. 2.Hypertension. Plan: We will go ahead and continue current medication. The patient's blood pressure is normal. Th is morning, lab results reviewed. We will continue physical therapy under guidance of Dr. Wells. Continue current DVT prophylaxis. I will see him tomorrow for followup. VITA/MODL Voice ID: [id number] Report ID: [id number]
[2021-08-23] MEDS: dexAMETHasone 4 MG TAB PO SCH ×2 (09:07→19:29)
[2021-08-23] MEDS: levETIRAcetam 500 MG TAB PO SCH ×2 (09:07→19:30)
[2021-08-23] MEDS: DICLOFENAC SOD D.R. 75 MG TAB PO SCH (09:07)
[2021-08-23] MEDS: PANTOPRAZOLE 40MG TABLET PO SCH (09:08)
[2021-08-23] MEDS: DOCUSATE NA 100 MG CAP PO SCH ×2 (09:08→19:30)
--- NOTE | 2021-08-23 09:55 | P.RH.PN ---
Estimated Length of Stay: 12 Expected Discharge Date: 08/31/21 Discharge Disposition Plan: Home Family Support: Yes Assisted Goal: Mobility, Transfers, Self Care Vital Signs: Last Vital Signs Temp 97.8 F 08/22/21 21:28 Pulse 72 08/22/21 21:28 Resp 18 08/22/21 21:28 BP 125/61 08/22/21 21:28 Pulse Ox 96 08/22/21 21:28 Laboratory: Laboratory Last Values WBC 10.2 K/uL (4.3-10.9) 08/22/21 06:55 RBC 4.21 M/uL (4.33-5.43) L 08/22/21 06:55 Hgb 13.7 g/dL (13.6-17.9) 08/22/21 06:55 Hct 40.6 % (39.6-49.0) 08/22/21 06:55 MCV 96.3 fL (80-100) 08/22/21 06:55 MCH 32.6 pg (27.0-35.0) 08/22/21 06:55 MCHC 33.8 g/dL (32.0-36.0) 08/22/21 06:55 RDW 15.2 % (12.1-15.2) 08/22/21 06:55 Plt Count 184 K/uL (152-406) 08/22/21 06:55 MPV 8.6 fL (7.6-11.3) 08/22/21 06:55 Neutrophils % 86.8 % (41.7-73.7) H 08/22/21 06:55 Lymphocytes % 8.6 % (15.3-44.8) L 08/22/21 06:55 Monocytes % 4.1 % (3.3-12.3) 08/22/21 06:55 Eosinophils % 0.1 % (0-4.4) 08/22/21 06:55 Basophils % 0.4 % (0-1.3) 08/22/21 06:55 Absolute Neutrophils 8.8 K/uL (1.8-8.0) H 08/22/21 06:55 Absolute Lymphocytes 0.9 K/uL (0.7-4.9) 08/22/21 06:55 Absolute Monocytes 0.4 K/uL (0.1-1.3) 08/22/21 06:55 Absolute Eosinophils 0.0 K/uL (0-0.5) 08/22/21 06:55 Absolute Basophils 0.0 K/uL (0-0.5) 08/22/21 06:55 Sodium 138 mmol/L (136-145) 08/22/21 06:55 Potassium 4.6 mmol/L (3.5-5.1) 08/22/21 06:55 Chloride 109 mmol/L (98-107) H 08/22/21 06:55 Carbon Dioxide 26 mmol/L (21-32) 08/22/21 06:55 Anion Gap 7.6 mEq/L (5.0-15.0) 08/22/21 06:55 BUN 21 mg/dL (7-18) H 08/22/21 06:55 Creatinine 0.73 mg/dL (0.55-1.3) 08/22/21 06:55 Est GFR (CKD-EPI) 94 ml/min (=/>90) 08/22/21 06:55 Glucose 91 mg/dL (74-106) 08/22/21 06:55 Calcium 8.6 mg/dL (8.5-10.1) 08/22/21 06:55 Magnesium 2.1 mg/dL (1.8-2.4) 08/22/21 06:55 Albumin 2.9 g/dL (3.4-5.0) L 08/22/21 06:55 Prealbumin 35.1 mg/dL (20-40) 08/22/21 06:55 Urine Color Yellow (Yellow) 08/20/21 04:40 Urine Appearance Clear (Clear) 08/20/21 04:40 Urine pH 6.0 (5.0-7.0) 08/20/21 04:40 Ur Specific Phil[place] 1.020 (1.005-1.030) 08/20/21 04:40 Glucose (UA)(Auto) Negative (Negative) 08/20/21 04:40 Urine Ketones Negative (Negative) 08/20/21 04:40 Urine Blood Negative (Negative) 08/20/21 04:40 Urine Nitrite Negative (Negative) 08/20/21 04:40 Urine Bilirubin Negative (Negative) 08/20/21 04:40 Urine Urobilinogen 0.2 mg/dL (0.2-1.0) 08/20/21 04:40 Ur Leukocyte Esterase Negative (Negative) 08/20/21 04:40 Urine RBC <5 /HPF (NONE SEEN) 08/20/21 04:40 Urine WBC <5 /HPF (<5) 08/20/21 04:40 Ur Squamous Epith Cells LIVING SPECIALIST 08/20/21 04:40 Ur Urothelial Cells Cancelled 08/20/21 04:05 Calcium Oxalate Crystal Cancelled 08/20/21 04:05 Uric Acid Crystals Cancelled 08/20/21 04:05 Triple Phos Crystals Cancelled 08/20/21 04:05 Other Crystals Cancelled 08/20/21 04:05 Amorphous Sediment Cancelled 08/20/21 04:05 Glitter Cells Cancelled 08/20/21 04:05 Urine Bacteria <20 /HPF (NONE SEEN) 08/20/21 04:40 Hyaline Casts Cancelled 08/20/21 04:05 Fine Granular Casts Cancelled 08/20/21 04:05 Coarse Granular Casts Cancelled 08/20/21 04:05 Waxy Casts Cancelled 08/20/21 04:05 RBC Casts Cancelled 08/20/21 04:05 WBC Casts Cancelled 08/20/21 04:05 Urine Mucus Cancelled 08/20/21 04:05 Urine Other Cancelled 08/20/21 04:05 Urine Trichomonas Cancelled 08/20/21 04:05 Urine Yeast Cancelled 08/20/21 04:05 Ur Yeast w Hyphae Cancelled 08/20/21 04:05 Urine Yeast (Budding) Cancelled 08/20/21 04:05 Urine Sperm Cancelled 08/20/21 04:05 Urine Culture Reflexed Not needed 08/20/21 04:40 Urine Total Volume Cancelled 08/20/21 04:05 Urine Total Protein Negative (Negative) 08/20/21 04:40 SARS-CoV-2 Rap RNA(RT-PCR) Negative (NEGATIVE) 08/19/21 20:15 Weight: 129 lb 14.4 oz Wound Present: No Negative Pressure Wound Therapy Present: No Physician Update: Labs reviewed. Bed mobility CGA, sit to stand as well. Gait 250" SBA, up and down 15 steps min assistance. Functional Improvement: Patient continues to work on and improved techniques for PT services. Patient is limited by cognition, however patient seems to be slightly improving in that area also. Summary: Patient's care plan and supervisor intermediates goals have been reviewed and revised as necessary. Please see the Rehabilitation Signature page for all necessary signatures.
[2021-08-23] MEDS ORDERED: MAGNESIUM HYDROXIDE 8% 30 ML PO ONE (18:00)
[2021-08-23] MEDS: ENOXAPARIN 40 MG/0.4 ML SQ SCH (18:30)
--- NOTE | 2021-08-23 19:03 | PN ---
Date of Progress Note: 08/23/2021 Subjective: The patient was seen this morning for followup. No new complaints or problems reported by the patient. Lying in bed, not in distress. He has not had a bowel movement in last few days. D enies any abdominal pain. Objective: Vital Signs: Reviewed. HEENT: Examination unremarkable. Lungs: Clear to auscultation. Cardiac: Heart sounds normal. Abdomen: Soft. Bowel sounds normal. No guarding, rigidity, tenderness, or distention. Extremities: No leg edema. Impression: 1.Constipation. 2.Glioblastoma of the left frontal lobe, recurrent. 3.Hypertension. Plan: Blood pressure is stable without any antihypertensive medication. We will continue to monitor that. If necessary, start him on antihypertensive medication. Continue DVT prophylaxis. We will c ontinue physical therapy under guidance of Dr. Wells. I will see him tomorrow for followup. For constipation, we will go ahead and give some laxative today. VITA/MODL Voice ID: [id number] Report ID: [id number]
[2021-08-24] MEDS: PANTOPRAZOLE 40MG TABLET PO SCH (07:54)
[2021-08-24] MEDS: DOCUSATE NA 100 MG CAP PO SCH ×2 (07:56→20:21)
[2021-08-24] MEDS: DICLOFENAC SOD D.R. 75 MG TAB PO SCH (07:56)
[2021-08-24] MEDS: dexAMETHasone 4 MG TAB PO SCH ×2 (07:56→20:21)
[2021-08-24] MEDS: levETIRAcetam 500 MG TAB PO SCH ×2 (07:56→20:21)
--- NOTE | 2021-08-24 16:19 | PN ---
Date of Progress Note: 08/24/2021 Subjective: The patient was seen this morning for followup. No new complaints or problems reported by patient. Lying in bed, not in distress. Vital signs reviewed. Denies any headache. No nausea, vomiting. Th e patient reports that he did have a bowel movement this morning. Physical Examination: Vital Signs: Reviewed. HEENT: Unremarkable. Presence of markel on the scalp noted, unchanged. No evidence of any gapping , discharge, bleeding, swelling. Lungs: Clear to auscultation. Heart: Sounds normal. Abdomen: Soft. Bowel sounds normal. No guarding, rigidity, tenderness, or distention. Extremities: No leg edema. Impression: 1.Glioblastoma, left frontal lobe, recurrent, status post surgery. 2.Constipation. 3.Hypertension. Plan: The patient's blood pressure is normal. No need for any antihypertensive medication at this p oint. Continue current stool softener. Continue physical therapy under guidance of Dr. Wells. Jay mike current DVT prophylaxis. VITA/MODL Voice ID: [id number] Report ID: [id number]
[2021-08-24] MEDS: ENOXAPARIN 40 MG/0.4 ML SQ SCH (16:52)
[2021-08-25] MEDS: PANTOPRAZOLE 40MG TABLET PO SCH (07:02)
[2021-08-25] MEDS: dexAMETHasone 4 MG TAB PO SCH ×2 (07:24→19:01)
[2021-08-25] MEDS: levETIRAcetam 500 MG TAB PO SCH ×2 (07:24→19:00)
[2021-08-25] MEDS: DOCUSATE NA 100 MG CAP PO SCH ×2 (07:24→19:00)
[2021-08-25] MEDS: DICLOFENAC SOD D.R. 75 MG TAB PO SCH (07:25)
--- NOTE | 2021-08-25 11:33 | PN ---
Date of Progress Note: 08/25/2021 Subjective: The patient was seen this morning for followup. No new complaints or problems reported by the patient. Lying in bed not in distress. Denies any headache, nausea, vomiting. Objective: Vital Signs: Reviewed. HEENT: Unremarkable. Lungs: Clear. Heart: Sounds normal. Abdomen: Soft. Bowel sounds normal. No guarding, rigidity, tenderness, or distention. Extremities: No leg edema. Impression: 1.Glioblastoma, left frontal lobe, recurrent. 2.Hypertension. 3.Constipation. Plan: The patient reports having bowel movement yesterday after I saw him and also had bowel movemen t before I saw him yesterday morning. Blood pressure is stable, no need for antihypertensive medicat ion. Continue current DVT prophylaxis and physical therapy under guidance of Dr. Wells. The dwight ent is scheduled to go home on August 31, 2021. VITA/MANNIE Voice ID: [id number] Report ID: [id number]
[2021-08-25] MEDS: ENOXAPARIN 40 MG/0.4 ML SQ SCH (16:47)
[2021-08-26] MEDS: PANTOPRAZOLE 40MG TABLET PO SCH (08:28)
[2021-08-26] MEDS: dexAMETHasone 4 MG TAB PO SCH ×2 (08:28→19:13)
[2021-08-26] MEDS: levETIRAcetam 500 MG TAB PO SCH ×2 (08:29→19:13)
[2021-08-26] MEDS: DOCUSATE NA 100 MG CAP PO SCH ×2 (08:29→19:12)
[2021-08-26] MEDS: DICLOFENAC SOD D.R. 75 MG TAB PO SCH (08:29)
[2021-08-26] MEDS: ENOXAPARIN 40 MG/0.4 ML SQ SCH (17:07)
--- NOTE | 2021-08-26 17:28 | R.PN ---
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 Pt denied any depression. WBC 10.2, Neutrophils 86.81, Hgb 13.7. Prealbumin 29.3. Ambulated 1500' with contact guard assistance using a rolling walker. Up and down 20 steps with minim um assistance. Self propelled wheelchair 250' with maximum assistance. VITAL SIGNS Temperature: 97.5 F SBP/DBP: 129/72 Pulse: 55 Resp: 16 MEDICATION ALLERGIES: No Known Drug Allergies (NKDA) ENVIRONMENTAL ALLERGIES: - Substance Allergies None Known - Other Allergies None Known NURSING: - Shower allowing shower - Bladder care per protocol - Skin care per protocol ACTIVITIES OOB only with supervision THERAPIES: - Dietary and Nutrition Adequate Nutrition. Nutritional Education. Nutritional Supplements. Evaluate and Treat. - Occupational Therapy Cognitive Retraining. Patient needs Occupational Therapy for a daily minimum of 1.5 hours at least 5 out of 7 days, to improve Activities of Daily Living, including: Eating, Grooming, Bathing, Dressing, Toileting, Toilet Transfers, Community Reintegration, Higher functional activities, Adaptive Equipme nt, Splinting, Household Tasks, and Other activities as determined. Visual Perceptual Training. Evalu ate and Treat. Patient/Family Education. Safety Awareness. ADL Training. Transfer Training. Household Tasks. - Speech Therapy Cognitive Training. Expressive Language Skills. Memory Strategies. Patient needs Speech Therapy for a daily minimum of 1.5 hours at least 5 out of 7 days, to improve: Swallowing, Cognition, Language Ski lls, and Compensatory Strategies. Receptive Language Skills. Speech Intelligibility Training. Evaluat e and Treat. - Physical Therapy Patient needs Physical Therapy for a daily minimum of 1.5 hours at least 5 out of 7 days, to improve: Mobility, Strengthening, Transfers, Stretching, ROM, Endurance, Ability to manage stairs, Gait, and Balance. Evaluate and Treat. Balance Training. Gait Training. Safety Awareness. Transfer Training. Mo bility Training. Patient/Family Education. LE Strengthening. PHYSICAL EXAM - Gen Alert and awake Lying in bed No apparent distress Oriented to: person, time, and place - Skin Long healing surgical wound around the entire head. Long healing surgical wound around the entire head. - Eyes No abnormalities - ENMT No abnormalities - Neck No abnormalities - CVS RRR - Chest No abnormalities - Resp No wheezing - Abd Soft - GI Non distended Deferred - No abnormalities - Ext No significant edema - MSK 4/5 weakness in both lower extremities. - Neuro No focal deficits - Psych No abnormalities ASSESSMENT: Pt. is a 76 yo Right-handed male.On 08/06/2021 he was admitted to 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 was independent/mod-I in Locomotion, Safety Awaren ess, Social Cognition, and Balance; and he had good Transfers Control, Sphincter Control, Self-Care, Communication, and Endurance.Currently, he has deficits of Locomotion, Safety Awareness, Social Cogni tion, Transfers Control, Sphincter Control, Balance, Endurance, Self-Care, and Communication.Pt. is n ow referred to [facility] for acute in-patient rehabilitation in order to maxi jonatan patient's functional independence in activities of daily living, strength, ROM, and mobility.- R ehab Goal Patient has realistic goal of being discharged at assistance level 7-Ind to reside at Home with Fami ly/Relatives. MDM/PLAN: - Physical Therapy Gait dysfunction - to improve, our physical therapists will perform initial evaluation of pt's statu s upon admission and devise an individualized program for Gait Training, and Wheel Chair mobility Inability to transfer - to improve, our physical therapists will perform initial evaluation of pt's status upon admission and devise an individualized program for Bed mobility Need for home safety evaluation - to improve, our physical therapists will perform initial evaluatio n of pt's status upon admission and devise an individualized program for Home Evaluation Need in caregiver upon discharge - to improve, our physical therapists will perform initial evaluati on of pt's status upon admission and devise an individualized program for Caregiver Training New precaution - to improve, our physical therapists will perform initial evaluation of pt's status upon admission and devise an individualized program for Patient precaution education Edema - to improve, our physical therapists will perform initial evaluation of pt's status upon admi ssion and devise an individualized program for Elevation Training, and Lymphedema Therapy Having wound - to improve, our physical therapists will perform initial evaluation of pt's status up on admission and devise an individualized program for Wound Care Poor balance - to improve, our physical therapists will perform initial evaluation of pt's status up on admission and devise an individualized program for Balance Training Poor endurance - to improve, our physical therapists will perform initial evaluation of pt's status upon admission and devise an individualized program for Endurance Training Weakness - to improve, our physical therapists will perform initial evaluation of pt's status upon a dmission and devise an individualized program for Aquatic Therapy, Neuromuscular Reeducation, and Str engthening Achieving independence - to improve, our physical therapists will perform initial evaluation of pt's status upon admission and devise an individualized program for Community Reintegration Activities - Occupational Therapy ADL deficits - to improve, our occupation therapists will perform initial evaluation of pt's status upon admission and devise an individualized program for Bathing, Bed mobility, Community Reintegratio n, Cooking, Dressing, Eating, Fine Motor Skills, Grooming, Homemaking, Kitchen Mobility, Laundry, Pat ient Education, Safety Awareness, Splinting - Positioning, Transfers(Toilet, Tub, Shower), and Wheel Chair Management Cognitive deficits - to improve, our occupation therapists will perform initial evaluation of pt's s tatus upon admission and devise an individualized program for Cognition - orientation Need for janitor caretaker - to improve, our occupation therapists will perform initial evaluation of pt's status upon admission and devise an individualized program for Caregiver Training Weakness - to improve, our occupation therapists will perform initial evaluation of pt's status upon admission and devise an individualized program for Aquatic Therapy, Balance, Endurance, UE ROM, and UE strengthening - Other See attached MAR (Medication Administration Record) - Diet Type Continue Regular - Diet - Liquid Texture Continue Regular - Tube Feed Continue N/A - Bladder care per protocol - Skin care per protocol - Diet - Solid Texture Continue Regular - Shower allowing shower FUNCTIONAL STATUS: UPDATED AT WEEKLY TEAM CONFERENCE - Bladder Same accident frequency: 7-Ind - No accidents in the past 7 days - Bowel Same accident frequency: 7-Ind - No accidents in the past 7 days - Walking Same score based on distance walked: 0(N/A) - Wheelchair Same score based on distance traveled: 0(N/A) FUNCTIONAL STATUS: - Self-Care A. Eating Ind B. Grooming sup C. Bathing modA D. Dressing - Upper sup E. Dressing - Lower Adelita F. Toileting Adelita - Sphincter Control G. Bladder control Marimar H. Bowel control Marimar - Transfers Control I. Bed/Chair/Wheelchair Adelita J. Toilet Adelita K. Tub/Shower modA - Locomotion L. Walk/Wheelchair (B) Adelita M. Stairs Dep - Communication N. Comprehension (B) Marimar O. Expression (B) Marimar - Social Cognition P. Social Interaction Marimar Q. Problem Solving sup R. Memory sup - Endurance Fair - Balance Fair - Safety Awareness Fair QI SCORES: - Self-Care A. Eating 03-Partial/moderate assistance B. Oral hygiene 04-Supervision or touching assistance C. Toileting hygiene 01-Dependent E. Shower/bathe self 03-Partial/moderate assistance F. Upper body dressing 03-Partial/moderate assistance G. Lower body dressing 04-Supervision or touching assistance H. Putting on/taking off footwear 04-Supervision or touching assistance - Mobility A. Roll left and right 03-Partial/moderate assistance B. Sit to lying 03-Partial/moderate assistance C. Lying to sitting on side of bed 03-Partial/moderate assistance D. Sit to stand 03-Partial/moderate assistance E. Chair/[id number] transfer 03-Partial/moderate assistance F. Toilet transfer 03-Partial/moderate assistance G. Car transfer 88-Not attempted due to medical condition or safety concerns I. Walk 10 feet 03-Partial/moderate assistance J. Walk 50 feet with two turns 03-Partial/moderate assistance K. Walk 150 feet 88-Not attempted due to medical condition or safety concerns L. Walking 10 feet on uneven surfaces 88-Not attempted due to medical condition or safety concerns M. 1 step (curb) 88-Not attempted due to medical condition or safety concerns N. 4 steps 88-Not attempted due to medical condition or safety concerns O. 12 steps 88-Not attempted due to medical condition or safety concerns P. Picking up object 88-Not attempted due to medical condition or safety concerns R. Wheel 50 feet with two turns 88-Not attempted due to medical condition or safety concerns S. Wheel 150 feet 88-Not attempted due to medical condition or safety concerns - Bladder and Bowel Bladder continence Bowel continence - Endurance Fair - Balance Fair - Safety Awareness Fair CURRENT [facility]. DEFICITS: Self-Care, Mobility, Endurance, Balance, and Safety Awareness SIGNATURE PANEL: (CDT)
[2021-08-27] MEDS: levETIRAcetam 500 MG TAB PO SCH ×2 (08:17→20:13)
[2021-08-27] MEDS: DICLOFENAC SOD D.R. 75 MG TAB PO SCH (08:17)
[2021-08-27] MEDS: dexAMETHasone 4 MG TAB PO SCH ×2 (08:17→20:13)
[2021-08-27] MEDS: DOCUSATE NA 100 MG CAP PO SCH ×2 (08:17→20:13)
[2021-08-27] MEDS: PANTOPRAZOLE 40MG TABLET PO SCH (08:20)
--- NOTE | 2021-08-27 09:53 | PN ---
Date of Progress Note: 08/26/2021 Subjective: The patient was seen this morning for followup. No new complaints or problems reported by the patient. Denies any headache, nausea, vomiting. Objective: Vital Signs: Reviewed. HEENT: Unremarkable. Lungs: Clear to auscultation. Heart: Sounds normal. Abdomen: Soft. Bowel sounds normal. No guarding, rigidity, tenderness, or distention. Extremities: No leg edema. Impression: 1.Glioblastoma, left frontal lobe, recurrent, status post surgery. 2.Hypertension. Plan: The patient's blood pressure is stable. He is not on any antihypertensive medication. Contin ue current DVT prophylaxis. The patient remains on levetiracetam and dexamethasone per Dr. Wells. During the course of day today as reported by rehab nurse while he was next to the bed, he actually ended up sitting down on the floor, so there was no free fall or no reported injuries. I will see h tomorrow for followup. VITA/MODL Voice ID: [id number] Report ID: [id number]
--- NOTE | 2021-08-27 18:28 | R.PN ---
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 Pt denied any depression. WBC 10.2, Neutrophils 86.81, Hgb 13.7. Prealbumin 29.3. Ambulated 750' with contact guard assistance using a rolling walker. Up and down 15 steps with contac t guard assistance. Self propelled wheelchair 250' with standby assistance. VITAL SIGNS Temperature: 97.2 F SBP/DBP: 145/67 Pulse: 54 Resp: 16 MEDICATION ALLERGIES: No Known Drug Allergies (NKDA) ENVIRONMENTAL ALLERGIES: - Substance Allergies None Known - Other Allergies None Known NURSING: - Shower allowing shower - Bladder care per protocol - Skin care per protocol ACTIVITIES OOB only with supervision THERAPIES: - Dietary and Nutrition Adequate Nutrition. Nutritional Education. Nutritional Supplements. Evaluate and Treat. - Occupational Therapy Cognitive Retraining. Patient needs Occupational Therapy for a daily minimum of 1.5 hours at least 5 out of 7 days, to improve Activities of Daily Living, including: Eating, Grooming, Bathing, Dressing, Toileting, Toilet Transfers, Community Reintegration, Higher functional activities, Adaptive Equipme nt, Splinting, Household Tasks, and Other activities as determined. Visual Perceptual Training. Evalu ate and Treat. Patient/Family Education. Safety Awareness. ADL Training. Transfer Training. Household Tasks. - Speech Therapy Cognitive Training. Expressive Language Skills. Memory Strategies. Patient needs Speech Therapy for a daily minimum of 1.5 hours at least 5 out of 7 days, to improve: Swallowing, Cognition, Language Ski lls, and Compensatory Strategies. Receptive Language Skills. Speech Intelligibility Training. Evaluat e and Treat. - Physical Therapy Patient needs Physical Therapy for a daily minimum of 1.5 hours at least 5 out of 7 days, to improve: Mobility, Strengthening, Transfers, Stretching, ROM, Endurance, Ability to manage stairs, Gait, and Balance. Evaluate and Treat. Balance Training. Gait Training. Safety Awareness. Transfer Training. Mo bility Training. Patient/Family Education. LE Strengthening. PHYSICAL EXAM - Gen Alert and awake Lying in bed No apparent distress Oriented to: person, time, and place - Skin Long healing surgical wound around the entire head. Long healing surgical wound around the entire head. - Eyes No abnormalities - ENMT No abnormalities - Neck No abnormalities - CVS RRR - Chest No abnormalities - Resp No wheezing - Abd Soft - GI Non distended Deferred - No abnormalities - Ext No significant edema - MSK 4/5 weakness in both lower extremities. - Neuro No focal deficits - Psych No abnormalities ASSESSMENT: Pt. is a 76 yo Right-handed male.On 08/06/2021 he was admitted to [facility] with diagnosis Kristy quinteros neoplasm of brain, unspecified (C71.9).His impairment category is Brain Dysfunction 02 - Non-tr aumatic Brain Dysfunction (02.1).Pre-morbidly, Pt. was independent/mod-I in Locomotion, Safety Awaren ess, Social Cognition, and Balance; and he had good Transfers Control, Sphincter Control, Self-Care, Communication, and Endurance.Currently, he has deficits of Locomotion, Safety Awareness, Social Cogni tion, Transfers Control, Sphincter Control, Balance, Endurance, Self-Care, and Communication.Pt. is n ow referred to [facility] for acute in-patient rehabilitation in order to maxi jonatan patient's functional independence in activities of daily living, strength, ROM, and mobility.- R ehab Goal Patient has realistic goal of being discharged at assistance level 7-Ind to reside at Home with Fami ly/Relatives. MDM/PLAN: - Physical Therapy Gait dysfunction - to improve, our physical therapists will perform initial evaluation of pt's statu s upon admission and devise an individualized program for Gait Training, and Wheel Chair mobility Inability to transfer - to improve, our physical therapists will perform initial evaluation of pt's status upon admission and devise an individualized program for Bed mobility Need for home safety evaluation - to improve, our physical therapists will perform initial evaluatio n of pt's status upon admission and devise an individualized program for Home Evaluation Need in caregiver upon discharge - to improve, our physical therapists will perform initial evaluati on of pt's status upon admission and devise an individualized program for Caregiver Training New precaution - to improve, our physical therapists will perform initial evaluation of pt's status upon admission and devise an individualized program for Patient precaution education Edema - to improve, our physical therapists will perform initial evaluation of pt's status upon admi ssion and devise an individualized program for Elevation Training, and Lymphedema Therapy Having wound - to improve, our physical therapists will perform initial evaluation of pt's status up on admission and devise an individualized program for Wound Care Poor balance - to improve, our physical therapists will perform initial evaluation of pt's status up on admission and devise an individualized program for Balance Training Poor endurance - to improve, our physical therapists will perform initial evaluation of pt's status upon admission and devise an individualized program for Endurance Training Weakness - to improve, our physical therapists will perform initial evaluation of pt's status upon a dmission and devise an individualized program for Aquatic Therapy, Neuromuscular Reeducation, and Str engthening Achieving independence - to improve, our physical therapists will perform initial evaluation of pt's status upon admission and devise an individualized program for Community Reintegration Activities - Occupational Therapy ADL deficits - to improve, our occupation therapists will perform initial evaluation of pt's status upon admission and devise an individualized program for Bathing, Bed mobility, Community Reintegratio n, Cooking, Dressing, Eating, Fine Motor Skills, Grooming, Homemaking, Kitchen Mobility, Laundry, Pat ient Education, Safety Awareness, Splinting - Positioning, Transfers(Toilet, Tub, Shower), and Wheel Chair Management Cognitive deficits - to improve, our occupation therapists will perform initial evaluation of pt's s tatus upon admission and devise an individualized program for Cognition - orientation Need for grounds caretaker - to improve, our occupation therapists will perform initial evaluation of pt's status upon admission and devise an individualized program for Caregiver Training Weakness - to improve, our occupation therapists will perform initial evaluation of pt's status upon admission and devise an individualized program for Aquatic Therapy, Balance, Endurance, UE ROM, and UE strengthening - Other See attached MAR (Medication Administration Record) - Diet Type Continue Regular - Diet - Liquid Texture Continue Regular - Tube Feed Continue N/A - Bladder care per protocol - Skin care per protocol - Diet - Solid Texture Continue Regular - Shower allowing shower FUNCTIONAL STATUS: UPDATED AT WEEKLY TEAM CONFERENCE - Bladder Same accident frequency: 7-Ind - No accidents in the past 7 days - Bowel Same accident frequency: 7-Ind - No accidents in the past 7 days - Walking Same score based on distance walked: 0(N/A) - Wheelchair Same score based on distance traveled: 0(N/A) FUNCTIONAL STATUS: - Self-Care A. Eating Ind B. Grooming sup C. Bathing modA D. Dressing - Upper sup E. Dressing - Lower Adelita F. Toileting Adelita - Sphincter Control G. Bladder control Marimar H. Bowel control Marimar - Transfers Control I. Bed/Chair/Wheelchair Adelita J. Toilet Adelita K. Tub/Shower modA - Locomotion L. Walk/Wheelchair (B) Adelita M. Stairs Dep - Communication N. Comprehension (B) Marimar O. Expression (B) Marimar - Social Cognition P. Social Interaction Marimar Q. Problem Solving sup R. Memory sup - Endurance Fair - Balance Fair - Safety Awareness Fair QI SCORES: - Self-Care A. Eating 03-Partial/moderate assistance B. Oral hygiene 04-Supervision or touching assistance C. Toileting hygiene 01-Dependent E. Shower/bathe self 03-Partial/moderate assistance F. Upper body dressing 03-Partial/moderate assistance G. Lower body dressing 04-Supervision or touching assistance H. Putting on/taking off footwear 04-Supervision or touching assistance - Mobility A. Roll left and right 03-Partial/moderate assistance B. Sit to lying 03-Partial/moderate assistance C. Lying to sitting on side of bed 03-Partial/moderate assistance D. Sit to stand 03-Partial/moderate assistance E. Chair/jdq-ad-rteez transfer 03-Partial/moderate assistance F. Toilet transfer 03-Partial/moderate assistance G. Car transfer 88-Not attempted due to medical condition or safety concerns I. Walk 10 feet 03-Partial/moderate assistance J. Walk 50 feet with two turns 03-Partial/moderate assistance K. Walk 150 feet 88-Not attempted due to medical condition or safety concerns L. Walking 10 feet on uneven surfaces 88-Not attempted due to medical condition or safety concerns M. 1 step (curb) 88-Not attempted due to medical condition or safety concerns N. 4 steps 88-Not attempted due to medical condition or safety concerns O. 12 steps 88-Not attempted due to medical condition or safety concerns P. Picking up object 88-Not attempted due to medical condition or safety concerns R. Wheel 50 feet with two turns 88-Not attempted due to medical condition or safety concerns S. Wheel 150 feet 88-Not attempted due to medical condition or safety concerns - Bladder and Bowel Bladder continence Bowel continence - Endurance Fair - Balance Fair - Safety Awareness Fair CURRENT [facility]. DEFICITS: Self-Care, Mobility, Endurance, Balance, and Safety Awareness SIGNATURE PANEL: (CDT)
[2021-08-27] MEDS: APIXABAN 2.5 MG TABLET PO SCH (20:13)
[2021-08-28] MEDS: DICLOFENAC SOD D.R. 75 MG TAB PO SCH (07:24)
[2021-08-28] MEDS: APIXABAN 2.5 MG TABLET PO SCH ×2 (07:24→19:46)
[2021-08-28] MEDS: levETIRAcetam 500 MG TAB PO SCH ×2 (07:24→19:47)
[2021-08-28] MEDS: DOCUSATE NA 100 MG CAP PO SCH ×2 (07:24→19:46)
--- NOTE | 2021-08-28 07:49 | PN ---
Date of Progress Note: 08/27/2021 Subjective: The patient was seen this morning for followup. No new complaints or problems reported by the patient. Lying in bed, not in distress. No headache, nausea, vomiting. No complaints reported. Objective: Vital Signs: Reviewed. HEENT: Unremarkable. Lungs: Clear to auscultation. Heart: Sounds normal. Abdomen: Soft. Bowel sounds normal. No guarding, rigidity, tenderness, distention. Extremity: No leg edema. Impression: 1. Glioblastoma, left frontal lobe, recurrent. 2. Hypertension, stable. Plan: Nurse has notified me that the patient has appointment for next week on September 05 to go back to [facility] in [place] for followup with surgeon and at that time, his markel will be removed, as such also have communicated with the nursing staff to find out from Dr. Wells regarding his dexamethasone and Keppra dosing as Dr. Wells has managed that during this hospitalization. We will continue DVT prophylaxis. I will see him tomorrow for followup. VITA/MODL Voice ID: [id number] Report ID: [id number] MTDD
--- NOTE | 2021-08-28 18:14 | R.PN ---
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 Pt denied any depression. WBC 10.2, Neutrophils 86.81, Hgb 13.7. Prealbumin 29.3. Ambulated 500' with contact guard assistance using a rolling walker. Self-propelled wheelchair 250' w ith standby assistance. Self propelled wheelchair 250' with standby assistance. VITAL SIGNS Temperature: 97.9 F SBP/DBP: 125/66 Pulse: 52 Resp: 16 MEDICATION ALLERGIES: No Known Drug Allergies (NKDA) ENVIRONMENTAL ALLERGIES: - Substance Allergies None Known - Other Allergies None Known NURSING: - Shower allowing shower - Bladder care per protocol - Skin care per protocol ACTIVITIES OOB only with supervision THERAPIES: - Dietary and Nutrition Adequate Nutrition. Nutritional Education. Nutritional Supplements. Evaluate and Treat. - Occupational Therapy Cognitive Retraining. Patient needs Occupational Therapy for a daily minimum of 1.5 hours at least 5 out of 7 days, to improve Activities of Daily Living, including: Eating, Grooming, Bathing, Dressing, Toileting, Toilet Transfers, Community Reintegration, Higher functional activities, Adaptive Equipme nt, Splinting, Household Tasks, and Other activities as determined. Visual Perceptual Training. Evalu ate and Treat. Patient/Family Education. Safety Awareness. ADL Training. Transfer Training. Household Tasks. - Speech Therapy Cognitive Training. Expressive Language Skills. Memory Strategies. Patient needs Speech Therapy for a daily minimum of 1.5 hours at least 5 out of 7 days, to improve: Swallowing, Cognition, Language Ski lls, and Compensatory Strategies. Receptive Language Skills. Speech Intelligibility Training. Evaluat e and Treat. - Physical Therapy Patient needs Physical Therapy for a daily minimum of 1.5 hours at least 5 out of 7 days, to improve: Mobility, Strengthening, Transfers, Stretching, ROM, Endurance, Ability to manage stairs, Gait, and Balance. Evaluate and Treat. Balance Training. Gait Training. Safety Awareness. Transfer Training. Mo bility Training. Patient/Family Education. LE Strengthening. PHYSICAL EXAM - Gen Alert and awake Lying in bed No apparent distress Oriented to: person, time, and place - Skin Long healing surgical wound around the entire head. Long healing surgical wound around the entire head. - Eyes No abnormalities - ENMT No abnormalities - Neck No abnormalities - CVS RRR - Chest No abnormalities - Resp No wheezing - Abd Soft - GI Non distended Deferred - No abnormalities - Ext No significant edema - MSK 4/5 weakness in both lower extremities. - Neuro No focal deficits - Psych No abnormalities ASSESSMENT: Pt. 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 was independent/mod-I in Locomotion, Safety Awaren ess, Social Cognition, and Balance; and he had good Transfers Control, Sphincter Control, Self-Care, Communication, and Endurance.Currently, he has deficits of Locomotion, Safety Awareness, Social Cogni tion, Transfers Control, Sphincter Control, Balance, Endurance, Self-Care, and Communication.Pt. is n ow referred to [facility] for acute in-patient rehabilitation in order to maxi jonatan patient's functional independence in activities of daily living, strength, ROM, and mobility.- R ehab Goal Patient has realistic goal of being discharged at assistance level 7-Ind to reside at Home with Fami ly/Relatives. MDM/PLAN: - Physical Therapy Gait dysfunction - to improve, our physical therapists will perform initial evaluation of pt's statu s upon admission and devise an individualized program for Gait Training, and Wheel Chair mobility Inability to transfer - to improve, our physical therapists will perform initial evaluation of pt's status upon admission and devise an individualized program for Bed mobility Need for home safety evaluation - to improve, our physical therapists will perform initial evaluatio n of pt's status upon admission and devise an individualized program for Home Evaluation Need in caregiver upon discharge - to improve, our physical therapists will perform initial evaluati on of pt's status upon admission and devise an individualized program for Caregiver Training New precaution - to improve, our physical therapists will perform initial evaluation of pt's status upon admission and devise an individualized program for Patient precaution education Edema - to improve, our physical therapists will perform initial evaluation of pt's status upon admi ssion and devise an individualized program for Elevation Training, and Lymphedema Therapy Having wound - to improve, our physical therapists will perform initial evaluation of pt's status up on admission and devise an individualized program for Wound Care Poor balance - to improve, our physical therapists will perform initial evaluation of pt's status up on admission and devise an individualized program for Balance Training Poor endurance - to improve, our physical therapists will perform initial evaluation of pt's status upon admission and devise an individualized program for Endurance Training Weakness - to improve, our physical therapists will perform initial evaluation of pt's status upon a dmission and devise an individualized program for Aquatic Therapy, Neuromuscular Reeducation, and Str engthening Achieving independence - to improve, our physical therapists will perform initial evaluation of pt's status upon admission and devise an individualized program for Community Reintegration Activities - Occupational Therapy ADL deficits - to improve, our occupation therapists will perform initial evaluation of pt's status upon admission and devise an individualized program for Bathing, Bed mobility, Community Reintegratio n, Cooking, Dressing, Eating, Fine Motor Skills, Grooming, Homemaking, Kitchen Mobility, Laundry, Pat ient Education, Safety Awareness, Splinting - Positioning, Transfers(Toilet, Tub, Shower), and Wheel Chair Management Cognitive deficits - to improve, our occupation therapists will perform initial evaluation of pt's s tatus upon admission and devise an individualized program for Cognition - orientation Need for skin care technician - to improve, our occupation therapists will perform initial evaluation of pt's status upon admission and devise an individualized program for Caregiver Training Weakness - to improve, our occupation therapists will perform initial evaluation of pt's status upon admission and devise an individualized program for Aquatic Therapy, Balance, Endurance, UE ROM, and UE strengthening - Other See attached MAR (Medication Administration Record) - Diet Type Continue Regular - Diet - Liquid Texture Continue Regular - Tube Feed Continue N/A - Bladder care per protocol - Skin care per protocol - Diet - Solid Texture Continue Regular - Shower allowing shower FUNCTIONAL STATUS: UPDATED AT WEEKLY TEAM CONFERENCE - Bladder Same accident frequency: 7-Ind - No accidents in the past 7 days - Bowel Same accident frequency: 7-Ind - No accidents in the past 7 days - Walking Same score based on distance walked: 0(N/A) - Wheelchair Same score based on distance traveled: 0(N/A) FUNCTIONAL STATUS: - Self-Care A. Eating Ind B. Grooming sup C. Bathing modA D. Dressing - Upper sup E. Dressing - Lower Adelita F. Toileting Adelita - Sphincter Control G. Bladder control Marimar H. Bowel control Marimar - Transfers Control I. Bed/Chair/Wheelchair Adelita J. Toilet Adleita K. Tub/Shower modA - Locomotion L. Walk/Wheelchair (B) Adelita M. Stairs Dep - Communication N. Comprehension (B) Marimar O. Expression (B) Marimar - Social Cognition P. Social Interaction Marimar Q. Problem Solving sup R. Memory sup - Endurance Fair - Balance Fair - Safety Awareness Fair QI SCORES: - Self-Care A. Eating 03-Partial/moderate assistance B. Oral hygiene 04-Supervision or touching assistance C. Toileting hygiene 01-Dependent E. Shower/bathe self 03-Partial/moderate assistance F. Upper body dressing 03-Partial/moderate assistance G. Lower body dressing 04-Supervision or touching assistance H. Putting on/taking off footwear 04-Supervision or touching assistance - Mobility A. Roll left and right 03-Partial/moderate assistance B. Sit to lying 03-Partial/moderate assistance C. Lying to sitting on side of bed 03-Partial/moderate assistance D. Sit to stand 03-Partial/moderate assistance E. Chair/ikn-pt-fhlmi transfer 03-Partial/moderate assistance F. Toilet transfer 03-Partial/moderate assistance G. Car transfer 88-Not attempted due to medical condition or safety concerns I. Walk 10 feet 03-Partial/moderate assistance J. Walk 50 feet with two turns 03-Partial/moderate assistance K. Walk 150 feet 88-Not attempted due to medical condition or safety concerns L. Walking 10 feet on uneven surfaces 88-Not attempted due to medical condition or safety concerns M. 1 step (curb) 88-Not attempted due to medical condition or safety concerns N. 4 steps 88-Not attempted due to medical condition or safety concerns O. 12 steps 88-Not attempted due to medical condition or safety concerns P. Picking up object 88-Not attempted due to medical condition or safety concerns R. Wheel 50 feet with two turns 88-Not attempted due to medical condition or safety concerns S. Wheel 150 feet 88-Not attempted due to medical condition or safety concerns - Bladder and Bowel Bladder continence Bowel continence - Endurance Fair - Balance Fair - Safety Awareness Fair CURRENT [facility]. DEFICITS: Self-Care, Mobility, Endurance, Balance, and Safety Awareness SIGNATURE PANEL: (CDT)
[2021-08-29 05:04] LABS: Absolute Lymphocytes (CBC) 1.4 K/uL (0.7-4.9); Hematocrit 43.5 % (39.6-49.0); Lymphocytes % 25.4 % (15.3-44.8); MCV 96.5 fL (80-100); MPV 8.8 fL (7.6-11.3); RBC Red Blood Cell Count 4.51 M/uL (4.33-5.43)
[2021-08-29 05:16] LABS: Albumin 2.9 g/dL (3.4-5.0); Magnesium 2.1 mg/dL (1.8-2.4); Potassium 4.4 mmol/L (3.5-5.1); Prealbumin 30.4 mg/dL (20-40)
--- NOTE | 2021-08-29 07:50 | PN ---
Date of Progress Note: 08/28/2021 Subjective: The patient was seen this morning for followup. No new complaints or problems reported by him. He was lying in bed, not in distress. Objective: Vital Signs: Reviewed. HEENT: Unremarkable. Lungs: Clear to auscultation. Heart: Heart sounds normal. Abdomen: Soft, bowel sounds normal. No guarding, rigidity, tenderness, distention. Extremities: No leg edema. Impression: 1.Glioblastoma, left frontal lobe, recurrent, status post surgery. 2.Hypertension. 3.Constipation. Plan: The patient's blood pressure is stable. No need for any antihypertensive medication and const ipation problem seems to have resolved. Denies any GI symptoms. We will continue to follow with Dr. Wells for physical therapy and I will see him tomorrow for followup. VITA/MODL Voice ID: [id number] Report ID: [id number]
[2021-08-29] MEDS: DOCUSATE NA 100 MG CAP PO SCH ×2 (08:21→20:01)
[2021-08-29] MEDS: APIXABAN 2.5 MG TABLET PO SCH ×2 (08:21→20:01)
[2021-08-29] MEDS: levETIRAcetam 500 MG TAB PO SCH ×2 (08:21→20:01)
[2021-08-29] MEDS: DICLOFENAC SOD D.R. 75 MG TAB PO SCH (08:22)
[2021-08-29] MEDS: NYSTATIN PWDR 100000 UNIT/GM TOP SCH ×2 (10:56→20:01)
--- NOTE | 2021-08-29 17:59 | R.PN ---
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 Pt denied any depression. WBC 5.5, Hgb 14.5. Prealbumin 30.4. Ambulated 500' with standby assistance using a rolling walker. Self propelled wheelchair 250' with standby assistance. VITAL SIGNS Temperature: 97.8 F SBP/DBP: 118/61 Pulse: 54 Resp: 16 MEDICATION ALLERGIES: No Known Drug Allergies (NKDA) ENVIRONMENTAL ALLERGIES: - Substance Allergies None Known - Other Allergies None Known NURSING: - Shower allowing shower - Bladder care per protocol - Skin care per protocol ACTIVITIES OOB only with supervision THERAPIES: - Dietary and Nutrition Adequate Nutrition. Nutritional Education. Nutritional Supplements. Evaluate and Treat. - Occupational Therapy Cognitive Retraining. Patient needs Occupational Therapy for a daily minimum of 1.5 hours at least 5 out of 7 days, to improve Activities of Daily Living, including: Eating, Grooming, Bathing, Dressing, Toileting, Toilet Transfers, Community Reintegration, Higher functional activities, Adaptive Equipme nt, Splinting, Household Tasks, and Other activities as determined. Visual Perceptual Training. Evalu ate and Treat. Patient/Family Education. Safety Awareness. ADL Training. Transfer Training. Household Tasks. - Speech Therapy Cognitive Training. Expressive Language Skills. Memory Strategies. Patient needs Speech Therapy for a daily minimum of 1.5 hours at least 5 out of 7 days, to improve: Swallowing, Cognition, Language Ski lls, and Compensatory Strategies. Receptive Language Skills. Speech Intelligibility Training. Evaluat e and Treat. - Physical Therapy Patient needs Physical Therapy for a daily minimum of 1.5 hours at least 5 out of 7 days, to improve: Mobility, Strengthening, Transfers, Stretching, ROM, Endurance, Ability to manage stairs, Gait, and Balance. Evaluate and Treat. Balance Training. Gait Training. Safety Awareness. Transfer Training. Mo bility Training. Patient/Family Education. LE Strengthening. PHYSICAL EXAM - Gen Alert and awake Lying in bed No apparent distress Oriented to: person, time, and place - Skin Long healing surgical wound around the entire head. Long healing surgical wound around the entire head. - Eyes No abnormalities - ENMT No abnormalities - Neck No abnormalities - CVS RRR - Chest No abnormalities - Resp No wheezing - Abd Soft - GI Non distended Deferred - No abnormalities - Ext No significant edema - MSK 4/5 weakness in both lower extremities. - Neuro No focal deficits - Psych No abnormalities ASSESSMENT: Pt. is a 76 yo Right-handed male.On 08/06/2021 he was admitted to [facility] with diagnosis Kristy quinteros neoplasm of brain, unspecified (C71.9).His impairment category is Brain Dysfunction 02 - Non-tr aumatic Brain Dysfunction (02.1).Pre-morbidly, Pt. was independent/mod-I in Locomotion, Safety Awaren ess, Social Cognition, and Balance; and he had good Transfers Control, Sphincter Control, Self-Care, Communication, and Endurance.Currently, he has deficits of Locomotion, Safety Awareness, Social Cogni tion, Transfers Control, Sphincter Control, Balance, Endurance, Self-Care, and Communication.Pt. is n ow referred to [facility] for acute in-patient rehabilitation in order to maxmaren cheung patient's functional independence in activities of daily living, strength, ROM, and mobility.- R ehab Goal Patient has realistic goal of being discharged at assistance level 7-Ind to reside at Home with Fami ly/Relatives. MDM/PLAN: - Physical Therapy Gait dysfunction - to improve, our physical therapists will perform initial evaluation of pt's statu s upon admission and devise an individualized program for Gait Training, and Wheel Chair mobility Inability to transfer - to improve, our physical therapists will perform initial evaluation of pt's status upon admission and devise an individualized program for Bed mobility Need for home safety evaluation - to improve, our physical therapists will perform initial evaluatio n of pt's status upon admission and devise an individualized program for Home Evaluation Need in caregiver upon discharge - to improve, our physical therapists will perform initial evaluati on of pt's status upon admission and devise an individualized program for Caregiver Training New precaution - to improve, our physical therapists will perform initial evaluation of pt's status upon admission and devise an individualized program for Patient precaution education Edema - to improve, our physical therapists will perform initial evaluation of pt's status upon admi ssion and devise an individualized program for Elevation Training, and Lymphedema Therapy Having wound - to improve, our physical therapists will perform initial evaluation of pt's status up on admission and devise an individualized program for Wound Care Poor balance - to improve, our physical therapists will perform initial evaluation of pt's status up on admission and devise an individualized program for Balance Training Poor endurance - to improve, our physical therapists will perform initial evaluation of pt's status upon admission and devise an individualized program for Endurance Training Weakness - to improve, our physical therapists will perform initial evaluation of pt's status upon a dmission and devise an individualized program for Aquatic Therapy, Neuromuscular Reeducation, and Str engthening Achieving independence - to improve, our physical therapists will perform initial evaluation of pt's status upon admission and devise an individualized program for Community Reintegration Activities - Occupational Therapy ADL deficits - to improve, our occupation therapists will perform initial evaluation of pt's status upon admission and devise an individualized program for Bathing, Bed mobility, Community Reintegratio n, Cooking, Dressing, Eating, Fine Motor Skills, Grooming, Homemaking, Kitchen Mobility, Laundry, Pat ient Education, Safety Awareness, Splinting - Positioning, Transfers(Toilet, Tub, Shower), and Wheel Chair Management Cognitive deficits - to improve, our occupation therapists will perform initial evaluation of pt's s tatus upon admission and devise an individualized program for Cognition - orientation Need for foster care case manager - to improve, our occupation therapists will perform initial evaluation of pt's status upon admission and devise an individualized program for Caregiver Training Weakness - to improve, our occupation therapists will perform initial evaluation of pt's status upon admission and devise an individualized program for Aquatic Therapy, Balance, Endurance, UE ROM, and UE strengthening - Other See attached MAR (Medication Administration Record) - Diet Type Continue Regular - Diet - Liquid Texture Continue Regular - Tube Feed Continue N/A - Bladder care per protocol - Skin care per protocol - Diet - Solid Texture Continue Regular - Shower allowing shower FUNCTIONAL STATUS: UPDATED AT WEEKLY TEAM CONFERENCE - Bladder Same accident frequency: 7-Ind - No accidents in the past 7 days - Bowel Same accident frequency: 7-Ind - No accidents in the past 7 days - Walking Same score based on distance walked: 0(N/A) - Wheelchair Same score based on distance traveled: 0(N/A) FUNCTIONAL STATUS: - Self-Care A. Eating Ind B. Grooming sup C. Bathing modA D. Dressing - Upper sup E. Dressing - Lower Adelita F. Toileting Adelita - Sphincter Control G. Bladder control Marimar H. Bowel control Marimar - Transfers Control I. Bed/Chair/Wheelchair Adelita J. Toilet Adelita K. Tub/Shower modA - Locomotion L. Walk/Wheelchair (B) Adelita M. Stairs Dep - Communication N. Comprehension (B) Marimar O. Expression (B) Marimar - Social Cognition P. Social Interaction Marimar Q. Problem Solving sup R. Memory sup - Endurance Fair - Balance Fair - Safety Awareness Fair QI SCORES: - Self-Care A. Eating 03-Partial/moderate assistance B. Oral hygiene 04-Supervision or touching assistance C. Toileting hygiene 01-Dependent E. Shower/bathe self 03-Partial/moderate assistance F. Upper body dressing 03-Partial/moderate assistance G. Lower body dressing 04-Supervision or touching assistance H. Putting on/taking off footwear 04-Supervision or touching assistance - Mobility A. Roll left and right 03-Partial/moderate assistance B. Sit to lying 03-Partial/moderate assistance C. Lying to sitting on side of bed 03-Partial/moderate assistance D. Sit to stand 03-Partial/moderate assistance E. Chair/aca-hu-qygyp transfer 03-Partial/moderate assistance F. Toilet transfer 03-Partial/moderate assistance G. Car transfer 88-Not attempted due to medical condition or safety concerns I. Walk 10 feet 03-Partial/moderate assistance J. Walk 50 feet with two turns 03-Partial/moderate assistance K. Walk 150 feet 88-Not attempted due to medical condition or safety concerns L. Walking 10 feet on uneven surfaces 88-Not attempted due to medical condition or safety concerns M. 1 step (curb) 88-Not attempted due to medical condition or safety concerns N. 4 steps 88-Not attempted due to medical condition or safety concerns O. 12 steps 88-Not attempted due to medical condition or safety concerns P. Picking up object 88-Not attempted due to medical condition or safety concerns R. Wheel 50 feet with two turns 88-Not attempted due to medical condition or safety concerns S. Wheel 150 feet 88-Not attempted due to medical condition or safety concerns - Bladder and Bowel Bladder continence Bowel continence - Endurance Fair - Balance Fair - Safety Awareness Fair CURRENT [facility]. DEFICITS: Self-Care, Mobility, Endurance, Balance, and Safety Awareness SIGNATURE PANEL: (CDT)
[2021-08-30] MEDS: levETIRAcetam 500 MG TAB PO SCH ×2 (09:37→20:25)
[2021-08-30] MEDS: APIXABAN 2.5 MG TABLET PO SCH ×2 (09:37→20:25)
[2021-08-30] MEDS: DOCUSATE NA 100 MG CAP PO SCH ×2 (09:37→20:25)
[2021-08-30] MEDS: NYSTATIN PWDR 100000 UNIT/GM TOP SCH ×2 (09:37→20:26)
[2021-08-30] MEDS: DICLOFENAC SOD D.R. 75 MG TAB PO SCH (09:37)
--- NOTE | 2021-08-30 09:58 | P.RH.PN ---
Estimated Length of Stay: 12 Expected Discharge Date: 08/31/21 Discharge Disposition Plan: Home Family Support: Yes Half-Way Goal: Mobility, Transfers, Self Care Vital Signs: Last Vital Signs Temp 98.6 F 08/30/21 07:29 Pulse 51 08/30/21 07:29 Resp 16 08/30/21 07:29 BP 119/62 08/30/21 07:29 Pulse Ox 99 08/30/21 07:29 Laboratory: Laboratory Last Values WBC 5.5 K/uL (4.3-10.9) D 08/29/21 04:27 RBC 4.51 M/uL (4.33-5.43) 08/29/21 04:27 Hgb 14.5 g/dL (13.6-17.9) 08/29/21 04:27 Hct 43.5 % (39.6-49.0) 08/29/21 04:27 MCV 96.5 fL (80-100) 08/29/21 04:27 MCH 32.3 pg (27.0-35.0) 08/29/21 04:27 MCHC 33.4 g/dL (32.0-36.0) 08/29/21 04:27 RDW 16.0 % (12.1-15.2) H 08/29/21 04:27 Plt Count 169 K/uL (152-406) 08/29/21 04:27 MPV 8.8 fL (7.6-11.3) 08/29/21 04:27 Neutrophils % 62.0 % (41.7-73.7) 08/29/21 04:27 Lymphocytes % 25.4 % (15.3-44.8) 08/29/21 04:27 Monocytes % 9.6 % (3.3-12.3) 08/29/21 04:27 Eosinophils % 2.6 % (0-4.4) 08/29/21 04:27 Basophils % 0.4 % (0-1.3) 08/29/21 04:27 Absolute Neutrophils 3.4 K/uL (1.8-8.0) 08/29/21 04:27 Absolute Lymphocytes 1.4 K/uL (0.7-4.9) 08/29/21 04:27 Absolute Monocytes 0.5 K/uL (0.1-1.3) 08/29/21 04:27 Absolute Eosinophils 0.1 K/uL (0-0.5) 08/29/21 04:27 Absolute Basophils 0.0 K/uL (0-0.5) 08/29/21 04:27 Sodium 140 mmol/L (136-145) 08/29/21 04:27 Potassium 4.4 mmol/L (3.5-5.1) 08/29/21 04:27 Chloride 108 mmol/L (98-107) H 08/29/21 04:27 Carbon Dioxide 27 mmol/L (21-32) 08/29/21 04:27 Anion Gap 9.4 mEq/L (5.0-15.0) 08/29/21 04:27 BUN 29 mg/dL (7-18) H 08/29/21 04:27 Creatinine 0.85 mg/dL (0.55-1.3) 08/29/21 04:27 Est GFR (CKD-EPI) 90 ml/min (=/>90) 08/29/21 04:27 Glucose 82 mg/dL (74-106) 08/29/21 04:27 Calcium 8.5 mg/dL (8.5-10.1) 08/29/21 04:27 Magnesium 2.1 mg/dL (1.8-2.4) 08/29/21 04:27 Albumin 2.9 g/dL (3.4-5.0) L 08/29/21 04:27 Prealbumin 30.4 mg/dL (20-40) 08/29/21 04:27 Urine Color Yellow (Yellow) 08/20/21 04:40 Urine Appearance Clear (Clear) 08/20/21 04:40 Urine pH 6.0 (5.0-7.0) 08/20/21 04:40 Ur Specific [place] 1.020 (1.005-1.030) 08/20/21 04:40 Glucose (UA)(Auto) Negative (Negative) 08/20/21 04:40 Urine Ketones Negative (Negative) 08/20/21 04:40 Urine Blood Negative (Negative) 08/20/21 04:40 Urine Nitrite Negative (Negative) 08/20/21 04:40 Urine Bilirubin Negative (Negative) 08/20/21 04:40 Urine Urobilinogen 0.2 mg/dL (0.2-1.0) 08/20/21 04:40 Ur Leukocyte Esterase Negative (Negative) 08/20/21 04:40 Urine RBC <5 /HPF (NONE SEEN) 08/20/21 04:40 Urine WBC <5 /HPF (<5) 08/20/21 04:40 Ur Squamous Epith Cells [employer] ANALYST 08/20/21 04:40 Ur Urothelial Cells Cancelled 08/20/21 04:05 Calcium Oxalate Crystal Cancelled 08/20/21 04:05 Uric Acid Crystals Cancelled 08/20/21 04:05 Triple Phos Crystals Cancelled 08/20/21 04:05 Other Crystals Cancelled 08/20/21 04:05 Amorphous Sediment Cancelled 08/20/21 04:05 Glitter Cells Cancelled 08/20/21 04:05 Urine Bacteria <20 /HPF (NONE SEEN) 08/20/21 04:40 Hyaline Casts Cancelled 08/20/21 04:05 Fine Granular Casts Cancelled 08/20/21 04:05 Coarse Granular Casts Cancelled 08/20/21 04:05 Waxy Casts Cancelled 08/20/21 04:05 RBC Casts Cancelled 08/20/21 04:05 WBC Casts Cancelled 08/20/21 04:05 Urine Mucus Cancelled 08/20/21 04:05 Urine Other Cancelled 08/20/21 04:05 Urine Trichomonas Cancelled 08/20/21 04:05 Urine Yeast Cancelled 08/20/21 04:05 Ur Yeast w Hyphae Cancelled 08/20/21 04:05 Urine Yeast (Budding) Cancelled 08/20/21 04:05 Urine Sperm Cancelled 08/20/21 04:05 Urine Culture Reflexed Not needed 08/20/21 04:40 Urine Total Volume Cancelled 08/20/21 04:05 Urine Total Protein Negative (Negative) 08/20/21 04:40 SARS-CoV-2 Rap RNA(RT-PCR) Negative (NEGATIVE) 08/26/21 04:10 Weight: 123 lb 1.6 oz Wound Present: No Closed Surgical Incision Present: No Negative Pressure Wound Therapy Present: No Physician Update: Labs reviewed. He is refusing all therapy and wants to go home. Family training, bed mobility is Mod I, walking 250' and using the helmet. SBA for ADLs. Very impulsive and does not want to listen to the therapist. He will be discharged home in the AM. Functional Improvement: Patient continues to work on and improved techniques for PT services. Patient is limited by cognition, however patient seems to be slightly improving in that area also. Summary: Patient's care plan and fci goals have been reviewed and revised as necessary. Please see the Rehabilitation Signature page for all necessary signatures.
--- NOTE | 2021-08-30 14:10 | PN ---
Date of Progress Note: 08/30/2021 Subjective: The patient was seen this morning for followup. No new complaints or problems reported by patient. He was sitting in bed, eating breakfast. Denies any new complaints. No headache. No n ausea or vomiting. No eye complaints. Vital signs reviewed. No constipation. Physical Examination: HEENT: Examination unremarkable except surgical scar over the scalp with markel on the right side, unchanged. No signs of any infection or gapping. Lungs: Clear to auscultation. Heart: Sounds normal. Abdomen: Soft. Bowel sounds normal. No guarding, rigidity, tenderness, distention. Extremities: No leg edema. Impression: 1.Glioblastoma, left frontal lobe, recurrent, status post surgery. 2.Constipation, stable. 3.Hypertension, stable. Plan: The patient does not have any more constipation. Reports having bowel movement almost on a da jada basis. Blood pressure is stable without any medication. Continue Keppra at current dose, and th e patient is scheduled to go home tomorrow. VITA/MODL Voice ID: [id number] Report ID: [id number]
--- NOTE | 2021-08-30 14:15 | PN ---
Date of Progress Note: 08/29/2021 Subjective: The patient was seen this morning for followup. No new complaints or problems reported by patient. Lying in bed, not in distress. Objective: Vital Signs: Reviewed. HEENT: Examination unremarkable. Maria Fernanda present on the right side of the scalp. No signs of any i nfection, swelling, bleeding, or gapping. Lungs: Clear to auscultation. Heart: Sounds normal. Abdomen: Soft. Bowel sounds normal. No guarding, rigidity, tenderness, distention. Extremities: No leg edema. Impression: 1.Glioblastoma, recurrent, left frontal lobe, status post surgery. 2.Hypertension, stable. Plan: The patient has a helmet that he was given for use from [place], and I have encouraged him t o use it. 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 Physical therapy under guidance of Dr. Wells. I will see him tomorrow for followup. VITA/MODL Voice ID: [id number] Report ID: [id number]
[2021-08-31 07:09] VITALS: BP 130/71; TEMP 98.2
[2021-08-31] MEDS: APIXABAN 2.5 MG TABLET PO SCH (07:45)
[2021-08-31] MEDS: DOCUSATE NA 100 MG CAP PO SCH (07:49)
[2021-08-31] MEDS: DICLOFENAC SOD D.R. 75 MG TAB PO SCH (07:49)
[2021-08-31] MEDS: levETIRAcetam 500 MG TAB PO SCH (07:50)
[2021-08-31] MEDS: NYSTATIN PWDR 100000 UNIT/GM TOP SCH (08:56)
--- NOTE | 2021-08-31 10:27 | DS ---
Date of Discharge: 08/31/2021 Disposition: Discharged to go home. Physical Examination: HEENT: Unremarkable except presence of large surgical scar on the scalp with presence of markel on the right side. There was no evidence of any gapping, discharge, swelling, bleeding, or redness. Th ere is presence of lack of skull bone in the center of the frontal aspect of the skull area from this recent surgery. Lungs: Clear to auscultation. Heart: Sounds normal. Abdomen: Soft. Bowel sounds normal. No guarding, rigidity, tenderness, or distention. Extremities : No leg edema. Laboratory Data: Upon admission, white count 11.7, hemoglobin 14.1, platelets 206. Last blood work from 08/29/2021, white count 5.5, hemoglobin 14.5, platelets 169. Initial chemistry; sodium 138, pot assium 4.5, chloride 108, bicarb 25, BUN 27, creatinine 0.71, glucose 110. Serum albumin 3.1 and las t blood work from 08/29/2021, serum albumin 2.9. Sodium 140, potassium 4.4, chloride 108, bicarb 27, BUN 29, creatinine 0.85. Discharge Medications: Keppra 500 mg 2 times a day. Discharge Instructions: 1.Follow up at my office a week after next and the patient to call office for appointment. Follow u p with specialist at [facility] next week. 2.Follow up with Dr. Wells as per his instruction. Final Diagnoses: 1.Generalized weakness. 2.Debility. 3.Glioblastoma, left frontal lobe, recurrent, status post surgical resection. 4.Hypertension. 5.Hyperlipidemia. 6.Benign prostatic hypertrophy. 7.Diverticulosis. 8.Malnutrition, mild. Hospital Course: This is a 76-year-old male patient admitted to the hospital to rehab floor after he had surgical resection of recurrent glioblastoma of left frontal lobe. Surgery was done at [facility] and patient was sent to our rehab floor for rehab therapy for generalized weakness and debilit y. Dr. Wells managed his rehab therapy and medically he remained stable. DVT prophylaxis was giv en to him. The patient received dexamethasone as per order from Dr. Wells during this stay and it was discontinued on 08/27/2021. He also received DVT prophylaxis. Initially, he was on Lovenox. S ubsequently, Dr. Wells changed it to Jeanette. The patient has received diclofenac orally and toda y I have asked Dr. Wells if he really wants him to go home with that or not because patient is kimmy lly not complaining of any pain. Dr. Wells to manage his Keppra on outpatient basis. Overall, salena piña is going to be discharged in stable condition today. I have given him instruction today that karley pepe must use his helmet that was provided from [place] all the time while he is out of bed and out of chair. Only time he can go without helmet is while he is sitting or lying down in the bed. VITA/MODL Voice ID: [id number] Report ID: [id number]
== END 2021-08-31 11:20 | disposition home health service (06) | DRG 949 ==
LOC: 5TH 08-19 19:39
PROVIDERS: ADMIT Internal Medicine; ATTEND Internal Medicine
DX: Z48.3 Aftercare following surgery for neoplasm (principal); C71.1 Malignant neoplasm of frontal lobe; E44.1 Mild protein-calorie malnutrition; Z68.1 Body mass index [BMI] 19.9 or less, adult; R53.81 Other malaise; I10 Essential (primary) hypertension; E78.5 Hyperlipidemia, unspecified; N40.0 Benign prostatic hyperplasia without lower urinary tract symptoms; K57.90 Diverticulosis of intestine, part unspecified, without perforation or abscess without bleeding; K59.00 Constipation, unspecified; Z20.822 Contact with and (suspected) exposure to COVID-19
CPT/HCPCS: 36415; 80048; 81003; 81015; 82040; 83735; 84134; 85025; 87077; 87086; 87088; 87186; 92523; 97110; 97116; 97129; 97130; 97161; 97165; 97530; J1650; J8540; U0003